=== PATIENT | male | born 1970 | race Caucasian/White ===

== ENCOUNTER 2017-03-25 20:11 | Observation (INO) | payer SELFPAY ==
[~2017-03-25] VITALS: Ht 182.9 cm; Wt 116.3 kg
[~2017-03-25 20:11] MED LIST: ALLO100T PO; ALPR-557 PO; ANTI-DEPRESSANT; BACL20TA PO; CHLR10C PO; DIPH50CA33 PO; HCT25T PO; IBP800T PO; IBUP-30 PO; LISI1TAB10 PO; LISI1TAB8 PO; LISI40TA PO; MELA1TAB15 PO; MELO-195 PO; METO-352 PO; METO50TA7 PO; MULT-35 PO; MULT-382 PO; OMEG-160 PO; OMG1KC PO; PARO-49 PO; PARO20TA5 PO; PARO20TA57 PO; PERCOCET; POTA99TA21 PO; PRD5T PO; QUET50TA PO; SULF1TAB38 PO; TRAZ150T42 PO; TRAZ150T72 PO; TRAZ300T3 PO; TRAZADONE; TRM50T PO
--- NOTE | 2017-03-25 20:25 | ED General ---
General Stated Complaint: ETOH Source of Information: Patient, EMS, Police History of Present Illness Time Seen by Provider: 20:21 Initial Comments To ER per EMS from home with suspected alcohol intoxication. EMS had to drag the patient out of his room where he was found to be laying naked. The police were called by the patient's father who found him in his bedroom after being called by friends. The friends called patient's father because they saw him out running around the street yelling cars. Timing/Duration: 4-6 Hours Severity: Moderate Allergies and Home Medications Allergies Coded Allergies: fentanyl (Verified Allergy, Unknown, 01/24/16) ketorolac (Verified Allergy, Unknown, 01/24/16) morphine (Verified Allergy, Unknown, 10/28/13) Home Medications Allopurinol 100 Mg Tablet, 1 TAB PO DAILY, #30 (Reported) Lisinopril/Hydrochlorothiazide 1 Each Tablet, 1 TAB PO DAILY, #90 (Reported) Paroxetine HCl 20 Mg Tablet, 40 MG PO DAILY, #60 Ref 0 LAST FILLED #60 09-25-15 TAKES 2 (20MG) TABLETS Prescribed by: LÓPEZ DUGAN on 01/26/16 0807 Quetiapine Fumarate 50 Mg Tablet, 50 MG PO daily at bedtime, #30 Ref 0 Prescribed by: LÓPEZ DUGAN on 01/26/16 0807 Constitutional: see HPI EENTM: see HPI Respiratory: no symptoms reported Cardiovascular: no symptoms reported Genitourinary: no symptoms reported Musculoskeletal: no symptoms reported Skin: no symptoms reported Psychiatric/Neurological: See HPI Past Mgycbfb-Hsuunf-[facility] Hx Patient Social History Alcohol Beverage of Choice: Beer Drug of Choice: alcohol Type Used: Smokeless Tobacco Recent Hopitalizations: No Immunizations Up To Date Tetanus Booster (TDap): Unknown PED Vaccines UTD: Yes Date of Pneumonia Vaccine: Dec 04, 2013 Date of Influenza Vaccine: Apr 11, 2015 Seasonal Allergies Seasonal Allergies: Yes Surgeries Surgeries: Orthopedic Respiratory Respiratory Disorders: Asthma Currently Using CPAP: No Currently Using BIPAP: No Cardiovascular Cardiac Disorders: High Cholesterol, Hypertension Reproductive System Hx Reproductive Disorders: No Sexually Transmitted Disease: No HIV/AIDS: No Musculoskeletal Musculoskeletal Disorders: Chronic Back Pain Psychosocial Behavioral Health Disorders: Anxiety, Depression Integumentary Skin/Integumentary Disorders: Eczema Blood Transfusions Adverse Reaction to a Blood Tr: No Family Medical History Significant Family History: Diabetes Family Medial History: Alcoholism 19 MOTHER Diabetes mellitus 19 FATHER G8 BROTHER Family history: Asthma Family history: Cardiovascular disease 19 FATHER, Onset:50's - 60 (FATHER) Family history: Coronary thrombosis 19 FATHER, Onset:50's - 60 Family history: Diabetes mellitus 19 FATHER, Onset:50's - 60 Family history: Hypertension 19 FATHER, Onset:30's - 40 Hearing loss 19 FATHER, Onset:50's - 60 Heart disease 19 FATHER, Onset:50's - 60 Myocardial infarction G8 BROTHER, Onset:40's - 50 Stroke G8 BROTHER, Onset:40's - 50 No Family History of: Abdominal aortic aneurysm Rodrick's disease Alcoholism Aphasia Cancer Cancer of colon Cataract Chest pain Congenital heart disease Congestive heart failure Cystic fibrosis Dementia Dysphagia Family history: Alzheimer's disease Family history: Arthritis Family history: Breast disease Family history: Gastrointestinal disease Family history: Osteoporosis Family history: Thyroid disorder Headache Hereditary disease History of - anemia History of - respiratory disease History of drug abuse Human immunodeficiency virus (HIV) seropositivity Hypercholesterolemia Infertile Kidney disease Malignant neoplasm of lung Parkinson's disease Prostate cancer Psychotic disorder Seizure disorder Tuberculosis Visual impairment Physical Exam Vital Signs Vital Sign - Last 12Hours 03/25/17 20:16 Temp 98.4 Pulse 108 Resp 25 B/P (MAP) 132/71 Pulse Ox 92 O2 Delivery Nasal Cannula O2 Flow Rate 4.00 Capillary Refill : General Appearance: No Apparent Distress, WD/WN, Other (tachycardia, responsive to painful stimuli only. He is maintaining his own airway just fine. Pupils are sluggish) Eyes: Bilateral Eye Normal Inspection, Bilateral Eye PERRL, Bilateral Eye EOMI HEENT: PERRL/EOMI, TMs Normal Neck: Full Range of Motion, Normal Inspection Respiratory: Normal Breath Sounds, No Accessory Muscle Use, No Respiratory Distress Cardiovascular: Normal Peripheral Pulses, Tachycardia (110 sinus. GCS is a score of 2 for eye response, 1 verbal response and 6 for following commands after repeated instruction. Total score is 9.) Gastrointestinal: Normal Bowel Sounds, Non Tender, Soft Extremity: Normal Capillary Refill, Normal Inspection Neurologic/Psychiatric: Alert, Oriented x3, No Motor/Sensory Deficits Skin: Normal Color, Warm/Dry Laceration Repair : Suture Size: 5-0 Progress/Results/Core Measures Results/Orders Lab Results Laboratory Tests Test 03/25/17 20:20 03/25/17 20:25 Range/Units Urine Color YELLOW Urine Clarity SLIGHTLY CLOUDY Urine pH 6.5 5-9 Urine Specific [place] 1.010 L 1.016-1.022 Urine Protein 1+ H NEGATIVE Urine Glucose (UA) NEGATIVE NEGATIVE Urine Ketones NEGATIVE NEGATIVE Urine Nitrite NEGATIVE NEGATIVE Urine Bilirubin NEGATIVE NEGATIVE Urine Urobilinogen NORMAL NORMAL MG/DL Urine Leukocyte Esterase NEGATIVE NEGATIVE Urine RBC (Auto) NEGATIVE NEGATIVE Urine RBC NONE /HPF Urine WBC 2-5 /HPF Urine Crystals NONE /LPF Urine Bacteria NEGATIVE /HPF Urine Casts PRESENT /LPF Urine Hyaline Casts 10-25 H /LPF Urine Mucus NEGATIVE /LPF Urine Culture Indicated NO Urine Opiates Screen NEGATIVE NEGATIVE Urine Oxycodone Screen NEGATIVE NEGATIVE Urine Methadone Screen NEGATIVE NEGATIVE Urine Propoxyphene Screen NEGATIVE NEGATIVE Urine Barbiturates Screen NEGATIVE NEGATIVE Ur Tricyclic Antidepressants Screen NEGATIVE NEGATIVE Urine Phencyclidine Screen NEGATIVE NEGATIVE Urine Amphetamines Screen NEGATIVE NEGATIVE Urine Methamphetamines Screen NEGATIVE NEGATIVE Urine Benzodiazepines Screen NEGATIVE NEGATIVE Urine Cocaine Screen NEGATIVE NEGATIVE Urine Cannabinoids Screen POSITIVE H NEGATIVE White Blood Count 11.3 H 4.3-11.0 10^3/uL Red Blood Count 4.25 L 4.35-5.85 10^6/uL Hemoglobin 13.0 L 13.3-17.7 G/DL Hematocrit 39 L 40-54 % Mean Corpuscular Volume 91 80-99 FL Mean Corpuscular Hemoglobin 31 25-34 PG Mean Corpuscular Hemoglobin Concent 34 32-36 G/DL Red Cell Distribution Width 12.7 10.0-14.5 % Platelet Count 512 H 130-400 10^3/uL Mean Platelet Volume 8.4 7.4-10.4 FL Neutrophils (%) (Auto) 65 42-75 % Lymphocytes (%) (Auto) 24 12-44 % Monocytes (%) (Auto) 11 0-12 % Eosinophils (%) (Auto) 0 0-10 % Basophils (%) (Auto) 0 0-10 % Neutrophils # (Auto) 7.3 1.8-7.8 X 10^3 Lymphocytes # (Auto) 2.7 1.0-4.0 X 10^3 Monocytes # (Auto) 1.2 H 0.0-1.0 X 10^3 Eosinophils # (Auto) 0.0 0.0-0.3 10^3/uL Basophils # (Auto) 0.0 0.0-0.1 10^3/uL Sodium Level 148 H 135-145 MMOL/L Potassium Level 3.0 L 3.6-5.0 MMOL/L Chloride Level 112 H 98-107 MMOL/L Carbon Dioxide Level 22 21-32 MMOL/L Anion Gap 14 5-14 MMOL/L Blood Urea Nitrogen 7 7-18 MG/DL Creatinine 0.69 0.60-1.30 MG/DL Estimat Glomerular Filtration Rate > 60 BUN/Creatinine Ratio 10 Glucose Level 112 H 70-105 MG/DL Calcium Level 9.4 8.5-10.1 MG/DL Total Bilirubin 0.2 0.1-1.0 MG/DL Aspartate Amino Transf (AST/SGOT) 15 5-34 U/L Alanine Aminotransferase (ALT/SGPT) 12 0-55 U/L Alkaline Phosphatase 33 L 40-136 U/L Total Protein 7.0 6.4-8.2 GM/DL Albumin 3.7 3.2-4.5 GM/DL Salicylates Level < 5.0 L 5.0-20.0 MG/DL Acetaminophen Level < 10 L 10-30 UG/ML Serum Alcohol 461 *H <10 MG/DL My Orders Orders - JOSEFINA DYE APRN Ua Culture If Indicated (03/25/17 20:20) Drug Screen Stat (Urine) (03/25/17 20:20) Saline Lock/Iv-Start (03/25/17 20:20) Cbc With Automated Diff (03/25/17 20:20) Comprehensive Metabolic Panel (03/25/17 20:20) Alcohol (03/25/17 20:20) Salicylate (03/25/17 20:20) Acetaminophen (03/25/17 20:20) Ekg Tracing (03/25/17 20:20) Continuous Ekg Monitoring (03/25/17 20:20) Ct Head Wo (03/25/17 20:28) Chest 1 View, Ap/Pa Only (03/25/17 20:28) Potassium Cl 10meq/50ml Ivpb (Kcl 10 Meq (03/25/17 21:00) Lactated Ringers (Lr 1000 Ml Iv Solution (03/25/17 21:00) Medications Given in ED Current Medications Medications Dose Ordered Sig/Jaki Route Start Time Stop Time Status Last Admin Dose Admin Potassium Chloride 50 ml @ 50 mls/hr ONCE ONCE IV 03/25/17 21:00 03/25/17 21:59 03/25/17 21:46 50 MLS/HR Vital Signs/I&O Vital Sign - Last 12Hours 03/25/17 20:16 Temp 98.4 Pulse 108 Resp 25 B/P (MAP) 132/71 Pulse Ox 92 O2 Delivery Nasal Cannula O2 Flow Rate 4.00 Intake and Output 03/26/17 00:00 Intake Total 300 ml Balance 300 ml Diagnostic Imaging Diagonstic Imaging: CT Comments NAME: BETINA TREVINO [facility] REC#: [id number] PT STATUS: REG ER : 1970 PHYSICIAN: JOSEFINA DYE APRN ADMIT DATE: 03/25/17/ER Draft Date of Exam:03/25/17 CT HEAD WO PROCEDURE: CT head without contrast. TECHNIQUE: Multiple contiguous axial images were obtained through the brain without the use of intravenous contrast. INDICATION: Unresponsive COMPARISON: 01/12/16 FINDINGS: Ventricles are normal in size, shape, and position. There is no midline shift or mass effect. There is no hemorrhage or evidence of acute ischemia. No cerebral edema. The bony calvarium and mastoid air cells are normal. There is no skull fracture. There is some ethmoid sinus air cell disease. IMPRESSION: No acute intracranial abnormality. Dictated on workstation # [id number] Dict: 03/25/172045 Trans: 03/25/172047 JYOTI [id number] Interpreted by: MAGDY YAN Electronically signed by: Departure Communication (Admissions) Time/Spoke to Admitting Phy: 21:03 Communication Discussed the case with Dr. Mireles. We will admit the patient to ICU for observation since he is clearly too intoxicated to be discharged home safely. Impression Impression: Primary Impression: Alcohol intoxication Disposition: 01 HOME, SELF-CARE Condition: Stable Admissions Decision to Admit Reason: Admit from ER (General) Decision to Admit/Date: Mar 25, 2017 Time/Decision to Admit Time: 21:03 Departure-Patient Inst. Referrals: [facility] (PCP/Family) Primary Care Physician JOSEFINA DYE APRN Mar 25, 2017 20:25
[2017-03-25 20:27] LABS: BILIRUBIN,URINE NEGATIVE (NEGATIVE); KETONES,URINE NEGATIVE (NEGATIVE); LEUKOCYTE ESTERASE ,URINE NEGATIVE (NEGATIVE); NITRITE,URINE NEGATIVE (NEGATIVE); PH,URINE 6.5 (5-9); PROTEIN,URINE 1+ (NEGATIVE); UROBILINOGEN,URINE NORMAL (NORMAL)
[2017-03-25 20:31] LABS: BASOPHILS % (AUTO) 0 % (0-10); EOSINOPHILS % (AUTO) 0 % (0-10); LYMPHOCYTES # (AUTO) 2.7 X 10^3 (1.0-4.0); LYMPHOCYTES % (AUTO) 24 % (12-44); MEAN CORPUSCULAR HEMOGLOBIN 31 PG (25-34); MEAN CORPUSCULAR HGB CONC 34 G/DL (32-36); MEAN CORPUSCULAR VOLUME 91 FL (80-99); MEAN PLATELET VOLUME 8.4 FL (7.4-10.4); MONOCYTES # (AUTO) 1.2 X 10^3 (0.0-1.0); MONOCYTES % (AUTO) 11 % (0-12); NEUTROPHILS # (AUTO) 7.3 X 10^3 (1.8-7.8); NEUTROPHILS % (AUTO) 65 % (42-75); PLATELET COUNT 512 10^3/uL (130-400); RED BLOOD COUNT 4.25 10^6/uL (4.35-5.85); RED CELL DISTRIBUTION WIDTH 12.7 % (10.0-14.5); WHITE BLOOD COUNT 11.3 10^3/uL (4.3-11.0)
--- NOTE | 2017-03-25 20:49 | Diagnostic Imaging Report ---
PROCEDURE: CT head without contrast. TECHNIQUE: Multiple contiguous axial images were obtained through the brain without the use of intravenous contrast. INDICATION: Unresponsive COMPARISON: 01/12/16 FINDINGS: Ventricles are normal in size, shape, and position. There is no midline shift or mass effect. There is no hemorrhage or evidence of acute ischemia. No cerebral edema. The bony calvarium and mastoid air cells are normal. There is no skull fracture. There is some ethmoid sinus air cell disease. IMPRESSION: No acute intracranial abnormality. Dictated by: Dictated on workstation # [id number]
[2017-03-25 20:53] LABS: ALANINE AMINOTRANSFERASE 12 U/L (0-55); ALBUMIN 3.7 GM/DL (3.2-4.5); ANION GAP 14 MMOL/L (5-14); ASPARTATE AMINO TRANSFERASE 15 U/L (5-34); BILIRUBIN,TOTAL 0.2 MG/DL (0.1-1.0); BLOOD UREA NITROGEN 7 MG/DL (7-18); BUN/CREATININE RATIO 10; CALCIUM 9.4 MG/DL (8.5-10.1); CARBON DIOXIDE 22 MMOL/L (21-32); CHLORIDE 112 MMOL/L (98-107); CREATININE SERUM 0.69 MG/DL (0.60-1.30); GFR ESTIMATED > 60; GLUCOSE 112 MG/DL (70-105); SALICYLATE < 5.0 MG/DL (5.0-20.0); SODIUM 148 MMOL/L (135-145)
[2017-03-25 20:56] LABS: ACETAMINOPHEN < 10 UG/ML (10-30)
[2017-03-25 20:57] LABS: ALCOHOL 461 MG/DL (<10)
[2017-03-25] MEDS ORDERED: LACTATED RINGERS 1,000 ML IV SCH (21:00)
[2017-03-25] MEDS ORDERED: POTASSIUM CL 10MEQ/50ML IVPB 50 ML IV ONE (21:00)
--- NOTE | 2017-03-25 21:10 | Diagnostic Imaging Report ---
INDICATION: Unresponsive. COMPARISON: 11/02/15. FINDINGS: Single view of the chest demonstrates stable cardiac enlargement. Lungs are clear. No pneumothorax. Osseous structures are age-appropriate. IMPRESSION: Cardiac enlargement without pulmonary edema or infiltrate. Dictated by: Dictated on workstation # [id number]
[2017-03-25 22:15] VITALS: BP 152/84
[2017-03-25] MEDS ORDERED: CATHETER FLUSH 10 ML SYR IV PRN (22:15)
[2017-03-25] MEDS ORDERED: ONDANSETRON 4 MG/2 ML (SDV) Z0FRAN IV PRN (22:15)
[2017-03-25 23:00] VITALS: BP 146/109
[2017-03-25] MEDS: PANTOPRAZOLE 40 MG/10 ML (PROTONIX) VIAL IV SCH (23:05)
[2017-03-25] MEDS: LACTATED RINGERS 1,000 ML IV SCH (23:06)
[2017-03-26] VITALS (23 sets, daily range): BP systolic 137–199; BP diastolic 83–161
[2017-03-26 05:02] LABS: BASOPHILS % (AUTO) 0 % (0-10); EOSINOPHILS % (AUTO) 0 % (0-10); LYMPHOCYTES # (AUTO) 2.2 X 10^3 (1.0-4.0); LYMPHOCYTES % (AUTO) 35 % (12-44); MEAN CORPUSCULAR HEMOGLOBIN 30 PG (25-34); MEAN CORPUSCULAR HGB CONC 33 G/DL (32-36); MEAN CORPUSCULAR VOLUME 92 FL (80-99); MEAN PLATELET VOLUME 8.5 FL (7.4-10.4); MONOCYTES # (AUTO) 0.4 X 10^3 (0.0-1.0); MONOCYTES % (AUTO) 6 % (0-12); NEUTROPHILS # (AUTO) 3.8 X 10^3 (1.8-7.8); NEUTROPHILS % (AUTO) 59 % (42-75); PLATELET COUNT 480 10^3/uL (130-400); RED BLOOD COUNT 4.15 10^6/uL (4.35-5.85); RED CELL DISTRIBUTION WIDTH 12.8 % (10.0-14.5); WHITE BLOOD COUNT 6.4 10^3/uL (4.3-11.0)
[2017-03-26 05:24] LABS: ANION GAP 14 MMOL/L (5-14); BLOOD UREA NITROGEN 4 MG/DL (7-18); BUN/CREATININE RATIO 6; CARBON DIOXIDE 23 MMOL/L (21-32); CHLORIDE 112 MMOL/L (98-107); CREATININE SERUM 0.68 MG/DL (0.60-1.30); GFR ESTIMATED > 60; GLUCOSE 180 MG/DL (70-105); MAGNESIUM 1.7 MG/DL (1.8-2.4); PHOSPHORUS 2.9 MG/DL (2.3-4.7); SODIUM 149 MMOL/L (135-145)
[2017-03-26] MEDS: CATHETER FLUSH 10 ML SYR IV SCH ×3 (06:17→22:28)
[2017-03-26] MEDS ORDERED: KCL 20 MEQ TAB (K-DUR) PO ONE (07:00)
[2017-03-26] MEDS: LACTATED RINGERS 1,000 ML IV SCH ×3 (07:42→22:28)
--- NOTE | 2017-03-26 08:24 | Diagnostic Imaging Report ---
INDICATION: Dyspnea. 0524 hours Portable upright view of the chest is obtained. Comparison is made study one day earlier. FINDINGS: Heart size and pulmonary vascularity are within normal limits, and the lungs are clear, bilaterally. IMPRESSION: Unremarkable chest. Dictated by: Dictated on workstation # [id number]
[2017-03-26] MEDS: PANTOPRAZOLE 40 MG/10 ML (PROTONIX) VIAL IV SCH (08:44)
[2017-03-26] MEDS ORDERED: meTOproloL SUCCINATE 50 MG (TOPROL XL) TAB PO SCH (09:00)
[2017-03-26] MEDS ORDERED: LISI-552 PO (09:18)
[2017-03-26] MEDS ORDERED: PARO20TA5 PO (09:18)
[2017-03-26] MEDS ORDERED: METO-352 PO (09:18)
[2017-03-26] MEDS ORDERED: AMLO5TAB2 PO (09:18)
[2017-03-26] MEDS ORDERED: IBUP-30 PO (09:22)
[2017-03-26] MEDS: KETOROLAC 30 MG/ML VIAL IVP PRN ×2 (09:37→17:11)
[2017-03-26] MEDS: PARoxetine 20 MG (PAXIL) TAB PO SCH (10:22)
[2017-03-26] MEDS ORDERED: 1/2 NS IV SOLUTION 1,000 ML IV PRN (10:42)
[2017-03-26] MEDS ORDERED: D5 1/2 NS 1000 ML IV SOLUTION 1,000 ML IV PRN (10:45)
[2017-03-26] MEDS ORDERED: ONDANSETRON 4 MG (ZOFRAN) ORAL DISSOLVE TAB SL PRN (10:45)
[2017-03-26] MEDS ORDERED: ANTACID SUSP 30 ML UDC (MYLANTA) PO PRN (10:45)
[2017-03-26] MEDS ORDERED: LORazepam INJ 2 MG/ML (ATIVAN) VIAL IM/IV PRN (10:45)
[2017-03-26] MEDS ORDERED: SENNA W/DOCUSATE (SENOKOT S) TABLET PO PRN (10:45)
--- NOTE | 2017-03-26 10:57 | History & Physicial (CHS) ---
HPI History of Present Illness: 46 yo male with history of alcoholism admitted after police were called due to him yelling at cars in the street. He has chronic knee pain with flares at times secondary to pseudogout and it has been very severe the last 2 weeks which led him to drink excessively because he was out of all of his medications and depressed and feeling bad. He admits to thoughts of self harm, but denies plans. He is very depressed, has been out of paroxetine for at least a month, states he can't afford his medications or counseling. He has been out of his blood pressure medications as well. Date seen by provider: Mar 26, 2017 Time Seen by Provider: 09:40 Attending Physician Billie Mireles MD PCP juanito,[facility] Date of Admission Mar 25, 2017 at 9:15 pm Home Medications Home Medications Reviewed patient Home Medication Reconciliation Form Allergies Coded Allergies: fentanyl (Verified Allergy, Unknown, 01/24/16) ketorolac (Verified Allergy, Unknown, 01/24/16) morphine (Verified Allergy, Unknown, 10/28/13) EPO-Uorxlc-Xiapii Hx Patient Social History Alcohol Use: Regular Use Recreational Drug Use: Yes Drug of Choice: alcohol, POT Smoking Status: Unknown if Ever Smoked Former smoker/When Quit: Jul 06, 2002 Type Used: Smokeless Tobacco Recent Foreign Travel: No Contact w/other who traveled: No Recent Hopitalizations: No Recent Infectious Disease Expo: No Physical Abuse Screen: No Sexual Abuse: No Immunizations Up To Date Tetanus Booster (TDap): Unknown Date of Pneumonia Vaccine: Dec 04, 2013 Date of Influenza Vaccine: Apr 11, 2015 Past Medical History Past Medical History 1. Alcoholism 2. Transaminitis 3. Hypertension 4. Depression/Anxiety 5. History of suicide attempt with overdose 04/19 and reported suicide attempt 12-30 per police Past Surgical History 1. Lac Repair Family Medical History Significant Family History: Diabetes Family History: Alcoholism 19 MOTHER Diabetes mellitus 19 FATHER G8 BROTHER Family history: Asthma Family history: Cardiovascular disease 19 FATHER, Onset:50's - 60 (FATHER) Family history: Coronary thrombosis 19 FATHER, Onset:50's - 60 Family history: Diabetes mellitus 19 FATHER, Onset:50's - 60 Family history: Hypertension 19 FATHER, Onset:30's - 40 Hearing loss 19 FATHER, Onset:50's - 60 Heart disease 19 FATHER, Onset:50's - 60 Myocardial infarction G8 BROTHER, Onset:40's - 50 Stroke G8 BROTHER, Onset:40's - 50 No Family History of: Abdominal aortic aneurysm Rodrick's disease Alcoholism Aphasia Cancer Cancer of colon Cataract Chest pain Congenital heart disease Congestive heart failure Cystic fibrosis Dementia Dysphagia Family history: Alzheimer's disease Family history: Arthritis Family history: Breast disease Family history: Gastrointestinal disease Family history: Osteoporosis Family history: Thyroid disorder Headache Hereditary disease History of - anemia History of - respiratory disease History of drug abuse Human immunodeficiency virus (HIV) seropositivity Hypercholesterolemia Infertile Kidney disease Malignant neoplasm of lung Parkinson's disease Prostate cancer Psychotic disorder Seizure disorder Tuberculosis Visual impairment Review of Systems (CHC) Constitutional: malaise EENTM: no symptoms reported Respiratory: no symptoms reported Cardiovascular: no symptoms reported Gastrointestinal: no symptoms reported Genitourinary: no symptoms reported Musculoskeletal: joint pain Skin: no symptoms reported Psychiatric/Neurological: Anxiety, Depressed Reviewed Test Results Reviewed Test Results Lab Laboratory Tests Test 03/25/17 20:20 03/25/17 20:25 03/26/17 04:35 Range/Units Urine Color YELLOW Urine Clarity SLIGHTLY CLOUDY Urine pH 6.5 5-9 Urine Specific [place] 1.010 L 1.016-1.022 Urine Protein 1+ H NEGATIVE Urine Glucose (UA) NEGATIVE NEGATIVE Urine Ketones NEGATIVE NEGATIVE Urine Nitrite NEGATIVE NEGATIVE Urine Bilirubin NEGATIVE NEGATIVE Urine Urobilinogen NORMAL NORMAL MG/DL Urine Leukocyte Esterase NEGATIVE NEGATIVE Urine RBC (Auto) NEGATIVE NEGATIVE Urine RBC NONE /HPF Urine WBC 2-5 /HPF Urine Crystals NONE /LPF Urine Bacteria NEGATIVE /HPF Urine Casts PRESENT /LPF Urine Hyaline Casts 10-25 H /LPF Urine Mucus NEGATIVE /LPF Urine Culture Indicated NO Urine Opiates Screen NEGATIVE NEGATIVE Urine Oxycodone Screen NEGATIVE NEGATIVE Urine Methadone Screen NEGATIVE NEGATIVE Urine Propoxyphene Screen NEGATIVE NEGATIVE Urine Barbiturates Screen NEGATIVE NEGATIVE Ur Tricyclic Antidepressants Screen NEGATIVE NEGATIVE Urine Phencyclidine Screen NEGATIVE NEGATIVE Urine Amphetamines Screen NEGATIVE NEGATIVE Urine Methamphetamines Screen NEGATIVE NEGATIVE Urine Benzodiazepines Screen NEGATIVE NEGATIVE Urine Cocaine Screen NEGATIVE NEGATIVE Urine Cannabinoids Screen POSITIVE H NEGATIVE White Blood Count 11.3 H 6.4 4.3-11.0 10^3/uL Red Blood Count 4.25 L 4.15 L 4.35-5.85 10^6/uL Hemoglobin 13.0 L 12.6 L 13.3-17.7 G/DL Hematocrit 39 L 38 L 40-54 % Mean Corpuscular Volume 91 92 80-99 FL Mean Corpuscular Hemoglobin 31 30 25-34 PG Mean Corpuscular Hemoglobin Concent 34 33 32-36 G/DL Red Cell Distribution Width 12.7 12.8 10.0-14.5 % Platelet Count 512 H 480 H 130-400 10^3/uL Mean Platelet Volume 8.4 8.5 7.4-10.4 FL Neutrophils (%) (Auto) 65 59 42-75 % Lymphocytes (%) (Auto) 24 35 12-44 % Monocytes (%) (Auto) 11 6 0-12 % Eosinophils (%) (Auto) 0 0 0-10 % Basophils (%) (Auto) 0 0 0-10 % Neutrophils # (Auto) 7.3 3.8 1.8-7.8 X 10^3 Lymphocytes # (Auto) 2.7 2.2 1.0-4.0 X 10^3 Monocytes # (Auto) 1.2 H 0.4 0.0-1.0 X 10^3 Eosinophils # (Auto) 0.0 0.0 0.0-0.3 10^3/uL Basophils # (Auto) 0.0 0.0 0.0-0.1 10^3/uL Sodium Level 148 H 149 H 135-145 MMOL/L Potassium Level 3.0 L 3.0 L 3.6-5.0 MMOL/L Chloride Level 112 H 112 H 98-107 MMOL/L Carbon Dioxide Level 22 23 21-32 MMOL/L Anion Gap 14 14 5-14 MMOL/L Blood Urea Nitrogen 7 4 L 7-18 MG/DL Creatinine 0.69 0.68 0.60-1.30 MG/DL Estimat Glomerular Filtration Rate > 60 > 60 BUN/Creatinine Ratio 10 6 Glucose Level 112 H 180 H 70-105 MG/DL Calcium Level 9.4 9.0 8.5-10.1 MG/DL Total Bilirubin 0.2 0.1-1.0 MG/DL Aspartate Amino Transf (AST/SGOT) 15 5-34 U/L Alanine Aminotransferase (ALT/SGPT) 12 0-55 U/L Alkaline Phosphatase 33 L 40-136 U/L Total Protein 7.0 6.4-8.2 GM/DL Albumin 3.7 3.2-4.5 GM/DL Salicylates Level < 5.0 L 5.0-20.0 MG/DL Acetaminophen Level < 10 L 10-30 UG/ML Serum Alcohol 461 *H <10 MG/DL Phosphorus Level 2.9 2.3-4.7 MG/DL Magnesium Level 1.7 L 1.8-2.4 MG/DL Radiology CT head 03/25: unremarkable CXR 03/25: enlarged heart, no acute abnormality Physical Exam-([facility]) Physical Exam Vital Signs VS - Last 72 Hours, by Label 03/25/17 03/25/17 03/25/17 03/25/17 20:16 21:55 21:58 22:15 Temp 98.4 98.2 97.4 Pulse 108 86 101 Resp 25 20 20 B/P (MAP) 132/71 152/84 Pulse Ox 92 94 94 98 O2 Delivery Nasal Cannula Room Air Room Air Room Air O2 Flow Rate 4.00 03/25/17 03/26/17 03/26/17 03/26/17 23:00 00:00 01:00 01:15 Temp 97.4 Pulse 99 101 102 106 Resp 12 29 29 B/P (MAP) 146/109 142/112 141/83 Pulse Ox 93 94 87 O2 Delivery Room Air Room Air Room Air 03/26/17 03/26/17 03/26/17 03/26/17 02:00 03:00 04:00 04:00 Temp 99.1 Pulse 102 105 109 Resp 26 7 20 B/P (MAP) 149/106 149/98 161/98 Pulse Ox 100 98 99 98 O2 Delivery Room Air Room Air Room Air Room Air 03/26/17 03/26/17 03/26/17 03/26/17 05:00 06:00 07:00 08:00 Temp 99.1 Pulse 124 121 122 125 Resp 21 13 B/P (MAP) 137/90 142/93 155/94 Pulse Ox 97 91 98 O2 Delivery Room Air Room Air Room Air 03/26/17 08:00 Pulse Ox 98 O2 Delivery Room Air Capillary Refill : Less Than 3 Seconds General Appearance: WD/WN Respiratory: lungs clear, normal breath sounds Cardiovascular: regular rate, rhythm, no edema, no murmur Gastrointestinal: normal bowel sounds, non tender, soft Extremities: other (edema left knee, no erythema) Neurologic/Psychiatric: alert, other (tearful) Skin: normal color, warm/dry Assessment/Plan Assessment/Plan Admission Dx Alcohol intoxication Depression Hypertension Pseudogout Plan Alcohol intoxication- alcohol above 400 on admission, he is alert this morning and is interested in inpatient rehabilitation. He reports a history of DTs with withdrawal in the past. Start alcohol withdrawal protocol- CIWA and ativan based on scores Depression- resume home paroxetine, discussed need for [facility] as well which [facility] Hypertension- resume home metoprolol, lisinopril and amlodipine Pseudogout- toradol prn DVT ppx- enoxaparin Diagnosis/Problems: Clinical Quality Measures DVT/VTE Risk/Contraindication: Risk Factor Score Per Nursin RFS Level Per Nursing on Admit: 2=Moderate Copy Copies To 1: BILLIE MIRELES MD, BETHANY N MD Mar 26, 2017 10:57 am
[2017-03-26] MEDS: ENOXAPARIN 40 MG/0.4 ML (LOVENOX) SYR SC SCH (12:34)
[2017-03-26] MEDS: THIAMINE 100 MG (VITAMIN B-1) TAB PO SCH (12:34)
[2017-03-26] MEDS: D5 1/2 NS W/KCL 20 MEQ/L 1,000 ML IV SCH ×2 (12:34→17:11)
[2017-03-26] MEDS: FOLIC ACID 1 MG TAB PO SCH (12:34)
[2017-03-26] MEDS: LORazepam INJ 2 MG/ML (ATIVAN) VIAL IV PRN ×2 (12:35→14:56)
[2017-03-26] MEDS: MAGNESIUM OXIDE (MAG-OX)400 MG TAB PO SCH ×2 (12:35→20:13)
[2017-03-26] MEDS: MULTIVIT W/MINERALS TAB (THERAGRAN M) PO SCH (12:36)
[2017-03-26] MEDS: amLODIPine 5 MG (NORVASC) TAB PO SCH (14:00)
[2017-03-26] MEDS: lisINopril 20 MG (ZESTRIL) TAB PO SCH (14:56)
[2017-03-26] MEDS: LORazepam 1 MG (ATIVAN) TAB PO PRN (17:08)
[2017-03-26] MEDS: PANTOPRAZOLE 40 MG (PROTONIX) TAB PO SCH (17:10)
[2017-03-26] MEDS ORDERED: meTOprolol 5 MG/5 ML (LOPRESSOR) VIAL IV NR (18:00)
[2017-03-26] MEDS ORDERED: meTOproloL SUCCINATE 50 MG (TOPROL XL) TAB PO NR (19:45)
[2017-03-26] MEDS: hydrALAZINE (APESOLINE) 20 MG/ML VIAL IV PRN (23:04)
[2017-03-27] VITALS (25 sets, daily range): BP systolic 120–205; BP diastolic 71–132
[2017-03-27] MEDS: D5 1/2 NS W/KCL 20 MEQ/L 1,000 ML IV SCH ×4 (01:06→21:12)
[2017-03-27] MEDS: hydrALAZINE (APESOLINE) 20 MG/ML VIAL IV PRN ×3 (04:43→17:22)
[2017-03-27] MEDS: CATHETER FLUSH 10 ML SYR IV SCH ×3 (04:44→22:04)
[2017-03-27] MEDS: KETOROLAC 30 MG/ML VIAL IVP PRN (04:44)
[2017-03-27 04:50] LABS: BASOPHILS % (AUTO) 0 % (0-10); EOSINOPHILS % (AUTO) 0 % (0-10); LYMPHOCYTES # (AUTO) 1.6 X 10^3 (1.0-4.0); LYMPHOCYTES % (AUTO) 20 % (12-44); MEAN CORPUSCULAR HEMOGLOBIN 31 PG (25-34); MEAN CORPUSCULAR HGB CONC 34 G/DL (32-36); MEAN CORPUSCULAR VOLUME 91 FL (80-99); MEAN PLATELET VOLUME 8.5 FL (7.4-10.4); MONOCYTES # (AUTO) 0.8 X 10^3 (0.0-1.0); MONOCYTES % (AUTO) 10 % (0-12); NEUTROPHILS # (AUTO) 5.4 X 10^3 (1.8-7.8); NEUTROPHILS % (AUTO) 70 % (42-75); PLATELET COUNT 425 10^3/uL (130-400); RED BLOOD COUNT 4.06 10^6/uL (4.35-5.85); RED CELL DISTRIBUTION WIDTH 12.3 % (10.0-14.5); WHITE BLOOD COUNT 7.7 10^3/uL (4.3-11.0)
[2017-03-27] MEDS: LORazepam 1 MG (ATIVAN) TAB PO PRN ×3 (04:52→11:29)
[2017-03-27 05:05] LABS: ANION GAP 9 MMOL/L (5-14); BLOOD UREA NITROGEN 7 MG/DL (7-18); BUN/CREATININE RATIO 11; CALCIUM 8.7 MG/DL (8.5-10.1); CARBON DIOXIDE 25 MMOL/L (21-32); CHLORIDE 110 MMOL/L (98-107); CREATININE SERUM 0.64 MG/DL (0.60-1.30); GFR ESTIMATED > 60; GLUCOSE 119 MG/DL (70-105); MAGNESIUM 1.5 MG/DL (1.8-2.4); PHOSPHORUS 3.1 MG/DL (2.3-4.7); POTASSIUM 3.8 MMOL/L (3.6-5.0); SODIUM 144 MMOL/L (135-145)
[2017-03-27] MEDS: LACTATED RINGERS 1,000 ML IV SCH ×3 (05:38→22:20)
[2017-03-27] MEDS: PANTOPRAZOLE 40 MG (PROTONIX) TAB PO SCH ×2 (06:00→17:22)
[2017-03-27] MEDS: MULTIVIT W/MINERALS TAB (THERAGRAN M) PO SCH (06:00)
[2017-03-27] MEDS: THIAMINE 100 MG (VITAMIN B-1) TAB PO SCH (06:00)
[2017-03-27] MEDS: FOLIC ACID 1 MG TAB PO SCH (08:03)
[2017-03-27] MEDS: ENOXAPARIN 40 MG/0.4 ML (LOVENOX) SYR SC SCH (08:03)
[2017-03-27] MEDS: meTOprolol SUCCINATE 100 MG (TOPROL XL) TAB PO SCH (08:03)
[2017-03-27] MEDS: MAGNESIUM OXIDE (MAG-OX)400 MG TAB PO SCH ×2 (08:03→19:50)
[2017-03-27] MEDS: amLODIPine 5 MG (NORVASC) TAB PO SCH (08:04)
[2017-03-27] MEDS: lisINopril 20 MG (ZESTRIL) TAB PO SCH (08:04)
[2017-03-27] MEDS: PARoxetine 20 MG (PAXIL) TAB PO SCH (08:05)
--- NOTE | 2017-03-27 08:53 | Diagnostic Imaging Report ---
EXAMINATION: Portable upright radiograph of the chest. INDICATION: Dyspnea. COMPARISON: 03/26/2017. FINDINGS: The lungs are clear. The heart size is borderline enlarged. No effusion or pneumothorax. The mediastinum and dillan appear unremarkable. IMPRESSION: Borderline cardiac size. Dictated by: Dictated on workstation # [id number]
[2017-03-27] MEDS ORDERED: amLODIPine 5 MG (NORVASC) TAB PO SCH (09:00)
[2017-03-27] MEDS ORDERED: amLODIPine 5 MG (NORVASC) TAB PO ONE (09:00)
[2017-03-27] MEDS ORDERED: lisINopril 20 MG (ZESTRIL) TAB PO SCH (09:00)
[2017-03-27] MEDS ORDERED: meTOproloL SUCCINATE 50 MG (TOPROL XL) TAB PO SCH (09:00)
[2017-03-27] MEDS ORDERED: amLODIPine 5 MG (NORVASC) TAB PO NR (09:00)
[2017-03-27] MEDS: HYDROcodone/APAP 5 MG/325 MG (LORTAB) TAB PO PRN ×2 (11:29→19:50)
--- NOTE | 2017-03-27 12:08 | Progress Note (SOAP) ---
Subjective Subjective/Events-last exam Afebrile. Very hypertensive overnight. Pain in knee is slightly improved. He is shaky this morning. Review of Systems Date Seen by Provider: Mar 27, 2017 Time Seen by Provider: 09:50 Objective Exam Last Set of Vital Signs Vital Signs Date Time Temp Pulse Resp B/P (MAP) Pulse Ox O2 Delivery O2 Flow Rate FiO2 03/27/17 08:00 96 Room Air 03/27/17 07:00 98.6 76 14 194/128 03/26/17 23:00 4.00 Capillary Refill : Less Than 3 Seconds I&O Intake and Output 03/28/17 00:00 Intake Total 1200 ml Output Total 5400 ml Balance -4200 ml Intake Oral 1200 ml Output Urine Total 5400 ml General: Alert, Mild Distress Lungs: Clear to Auscultation, Normal Air Movement Heart: Regular Rate, No Murmurs Extremities: No Edema, Other (left knee mildly swollen, no erythema) Neuro: Other (tremor) Psych/Mental Status: Mood NL Results/Procedures Lab Laboratory Tests 03/27/17 04:36: White Blood Count 7.7, Red Blood Count 4.06L, Hemoglobin 12.5L, Hematocrit 37L, Mean Corpuscular Volume 91, Mean Corpuscular Hemoglobin 31, Mean Corpuscular Hemoglobin Concent 34, Red Cell Distribution Width 12.3, Platelet Count 425H, Mean Platelet Volume 8.5, Neutrophils (%) (Auto) 70, Lymphocytes (%) (Auto) 20, Monocytes (%) (Auto) 10, Eosinophils (%) (Auto) 0, Basophils (%) (Auto) 0, Neutrophils # (Auto) 5.4, Lymphocytes # (Auto) 1.6, Monocytes # (Auto) 0.8, Eosinophils # (Auto) 0.0, Basophils # (Auto) 0.0, Sodium Level 144, Potassium Level 3.8, Chloride Level 110H, Carbon Dioxide Level 25, Anion Gap 9, Blood Urea Nitrogen 7, Creatinine 0.64, Estimat Glomerular Filtration Rate > 60, BUN/ Creatinine Ratio 11, Glucose Level 119H, Calcium Level 8.7, Phosphorus Level 3.1 , Magnesium Level 1.5L Microbiology 03/25/17 MRSA Screen - Final, Complete MRSA not isolated Radiology CT head 03/25: unremarkable CXR 03/25: enlarged heart, no acute abnormality Assessment/Plan Assessment/Plan Admission Dx Alcohol intoxication Depression Hypertension Pseudogout Plan Alcohol intoxication- alcohol above 400 on admission, he is alert morning after admit and is interested in inpatient rehabilitation. He reports a history of DTs with withdrawal in the past. Start alcohol withdrawal protocol- CIWA and ativan based on scores Depression- resume home paroxetine, discussed need for therapy as well which [facility] be [facility] Hypertension- resume home metoprolol, lisinopril and amlodipine 03/27- increased amlodipine to 10 mg and metoprolol to 100 mg due to marked hypertension, may be withdrawal related, continue ativan as above. Requiring occasional IV hydralazine for severe hypertension Pseudogout- toradol prn 03/27 stop toradol due to hypertension, discussed that hydrocodone is not a long- term medication for him, but will allow for sparing use while inpatient DVT ppx- enoxaparin Diagnosis/Problems: Clinical Quality Measures DVT/VTE Risk/Contraindication: Risk Factor Score Per Nursin RFS Level Per Nursing on Admit: 2=Moderate BILLIE FORTUNE MD Mar 27, 2017 12:08
[2017-03-27] MEDS: DICLOFENAC 1% GEL 100 GM (VOLTAREN) TUBE TOP SCH ×3 (13:04→19:50)
[2017-03-27] MEDS: LORazepam INJ 2 MG/ML (ATIVAN) VIAL IV PRN ×5 (13:20→22:14)
[2017-03-27] MEDS ORDERED: lisINopril 20 MG (ZESTRIL) TAB PO NR (18:45)
[2017-03-28] VITALS (11 sets, daily range): BP systolic 146–168; BP diastolic 80–119
[2017-03-28] MEDS: HYDROcodone/APAP 5 MG/325 MG (LORTAB) TAB PO PRN ×3 (03:24→21:06)
[2017-03-28] MEDS: D5 1/2 NS W/KCL 20 MEQ/L 1,000 ML IV SCH ×4 (03:25→23:34)
[2017-03-28] MEDS: LORazepam INJ 2 MG/ML (ATIVAN) VIAL IV PRN ×2 (03:33→07:01)
[2017-03-28] MEDS: hydrALAZINE (APESOLINE) 20 MG/ML VIAL IV PRN (04:34)
[2017-03-28] MEDS: CATHETER FLUSH 10 ML SYR IV SCH ×3 (04:38→22:02)
[2017-03-28] MEDS: LACTATED RINGERS 1,000 ML IV SCH ×3 (04:38→22:44)
[2017-03-28] MEDS ORDERED: cloNIDine 0.1 MG (CATAPRES) TAB PO ONE (06:15)
[2017-03-28] MEDS: THIAMINE 100 MG (VITAMIN B-1) TAB PO SCH (06:17)
[2017-03-28] MEDS: MULTIVIT W/MINERALS TAB (THERAGRAN M) PO SCH (06:18)
[2017-03-28] MEDS: PANTOPRAZOLE 40 MG (PROTONIX) TAB PO SCH ×2 (06:18→16:54)
[2017-03-28 06:28] LABS: BASOPHILS % (AUTO) 0 % (0-10); EOSINOPHILS % (AUTO) 0 % (0-10); LYMPHOCYTES # (AUTO) 1.6 X 10^3 (1.0-4.0); LYMPHOCYTES % (AUTO) 26 % (12-44); MEAN CORPUSCULAR HEMOGLOBIN 30 PG (25-34); MEAN CORPUSCULAR HGB CONC 33 G/DL (32-36); MEAN CORPUSCULAR VOLUME 91 FL (80-99); MEAN PLATELET VOLUME 9.2 FL (7.4-10.4); MONOCYTES # (AUTO) 0.7 X 10^3 (0.0-1.0); MONOCYTES % (AUTO) 11 % (0-12); NEUTROPHILS % (AUTO) 64 % (42-75); PLATELET COUNT 470 10^3/uL (130-400); RED BLOOD COUNT 4.33 10^6/uL (4.35-5.85); RED CELL DISTRIBUTION WIDTH 12.6 % (10.0-14.5); WHITE BLOOD COUNT 6.3 10^3/uL (4.3-11.0)
[2017-03-28 06:49] LABS: ANION GAP 10 MMOL/L (5-14); BLOOD UREA NITROGEN 9 MG/DL (7-18); BUN/CREATININE RATIO 14; CALCIUM 9.1 MG/DL (8.5-10.1); CARBON DIOXIDE 26 MMOL/L (21-32); CHLORIDE 106 MMOL/L (98-107); CREATININE SERUM 0.64 MG/DL (0.60-1.30); GFR ESTIMATED > 60; GLUCOSE 108 MG/DL (70-105); MAGNESIUM 1.6 MG/DL (1.8-2.4); PHOSPHORUS 4.2 MG/DL (2.3-4.7); POTASSIUM 4.1 MMOL/L (3.6-5.0); SODIUM 142 MMOL/L (135-145)
[2017-03-28] MEDS: lisINopril 20 MG (ZESTRIL) TAB PO SCH (07:57)
[2017-03-28] MEDS: meTOprolol SUCCINATE 100 MG (TOPROL XL) TAB PO SCH (07:57)
[2017-03-28] MEDS: amLODIPine 5 MG (NORVASC) TAB PO SCH (07:57)
[2017-03-28] MEDS: MAGNESIUM OXIDE (MAG-OX)400 MG TAB PO SCH ×2 (07:57→21:06)
[2017-03-28] MEDS: FOLIC ACID 1 MG TAB PO SCH (07:57)
[2017-03-28] MEDS: PARoxetine 20 MG (PAXIL) TAB PO SCH (07:58)
[2017-03-28] MEDS: DICLOFENAC 1% GEL 100 GM (VOLTAREN) TUBE TOP SCH ×4 (07:59→21:06)
[2017-03-28] MEDS: ENOXAPARIN 40 MG/0.4 ML (LOVENOX) SYR SC SCH (10:16)
[2017-03-28] MEDS: LORazepam 1 MG (ATIVAN) TAB PO PRN ×2 (14:09→23:34)
[2017-03-28] MEDS: ONDANSETRON 4 MG/2 ML (SDV) Z0FRAN IV PRN (23:39)
[2017-03-29] VITALS: BP 140/88
[2017-03-29] MEDS: LORazepam INJ 2 MG/ML (ATIVAN) VIAL IV PRN (00:39)
[2017-03-29] MEDS: HYDROcodone/APAP 5 MG/325 MG (LORTAB) TAB PO PRN ×4 (02:55→23:42)
[2017-03-29 04:00] VITALS: BP 128/70
[2017-03-29 05:28] LABS: BASOPHILS % (AUTO) 0 % (0-10); EOSINOPHILS % (AUTO) 0 % (0-10); LYMPHOCYTES # (AUTO) 2.1 X 10^3 (1.0-4.0); LYMPHOCYTES % (AUTO) 30 % (12-44); MEAN CORPUSCULAR HEMOGLOBIN 30 PG (25-34); MEAN CORPUSCULAR HGB CONC 33 G/DL (32-36); MEAN CORPUSCULAR VOLUME 90 FL (80-99); MEAN PLATELET VOLUME 8.7 FL (7.4-10.4); MONOCYTES # (AUTO) 0.7 X 10^3 (0.0-1.0); MONOCYTES % (AUTO) 11 % (0-12); NEUTROPHILS % (AUTO) 59 % (42-75); PLATELET COUNT 475 10^3/uL (130-400); RED BLOOD COUNT 4.34 10^6/uL (4.35-5.85); RED CELL DISTRIBUTION WIDTH 12.5 % (10.0-14.5); WHITE BLOOD COUNT 6.8 10^3/uL (4.3-11.0)
[2017-03-29 05:51] LABS: ANION GAP 10 MMOL/L (5-14); BLOOD UREA NITROGEN 13 MG/DL (7-18); BUN/CREATININE RATIO 17; CALCIUM 9.2 MG/DL (8.5-10.1); CARBON DIOXIDE 27 MMOL/L (21-32); CHLORIDE 104 MMOL/L (98-107); CREATININE SERUM 0.76 MG/DL (0.60-1.30); GFR ESTIMATED > 60; GLUCOSE 115 MG/DL (70-105); PHOSPHORUS 4.6 MG/DL (2.3-4.7); POTASSIUM 4.5 MMOL/L (3.6-5.0); SODIUM 141 MMOL/L (135-145)
[2017-03-29] MEDS: LACTATED RINGERS 1,000 ML IV SCH (06:22)
[2017-03-29] MEDS: CATHETER FLUSH 10 ML SYR IV SCH ×3 (06:22→20:19)
[2017-03-29] MEDS: MULTIVIT W/MINERALS TAB (THERAGRAN M) PO SCH (06:23)
[2017-03-29] MEDS: D5 1/2 NS W/KCL 20 MEQ/L 1,000 ML IV SCH ×4 (06:23→20:19)
[2017-03-29] MEDS: PANTOPRAZOLE 40 MG (PROTONIX) TAB PO SCH ×2 (06:23→17:42)
[2017-03-29 08:20] VITALS: BP 150/80
[2017-03-29] MEDS: lisINopril 20 MG (ZESTRIL) TAB PO SCH (08:46)
[2017-03-29] MEDS: amLODIPine 5 MG (NORVASC) TAB PO SCH (08:46)
[2017-03-29] MEDS: LORazepam 1 MG (ATIVAN) TAB PO PRN (08:47)
[2017-03-29] MEDS: meTOprolol SUCCINATE 100 MG (TOPROL XL) TAB PO SCH (08:47)
[2017-03-29] MEDS: MAGNESIUM OXIDE (MAG-OX)400 MG TAB PO SCH (08:47)
[2017-03-29] MEDS: PARoxetine 20 MG (PAXIL) TAB PO SCH (08:47)
[2017-03-29] MEDS: FOLIC ACID 1 MG TAB PO SCH (08:47)
[2017-03-29] MEDS: DICLOFENAC 1% GEL 100 GM (VOLTAREN) TUBE TOP SCH ×4 (09:04→20:19)
[2017-03-29] MEDS: ENOXAPARIN 40 MG/0.4 ML (LOVENOX) SYR SC SCH (10:48)
[2017-03-29 15:52] VITALS: BP 135/89
--- NOTE | 2017-03-29 18:45 | Progress Note (SOAP) ---
Subjective Subjective/Events-last exam pt states he still needs to talk to his dad about whethr he is going inpatient or outpatient. has already been to inpatient several times. Review of Systems Time Seen by Provider: 09:30 Cardiovascular: No: Chest Pain, Palpitations Objective Exam Last Set of Vital Signs Vital Signs Date Time Temp Pulse Resp B/P (MAP) Pulse Ox O2 Delivery O2 Flow Rate FiO2 03/29/17 15:52 98.4 57 20 135/89 99 Room Air 03/26/17 23:00 4.00 Capillary Refill : Less Than 3 Seconds I&O Intake and Output 03/30/17 00:00 Intake Total 1160 ml Output Total 2500 ml Balance -1340 ml Intake Oral 1160 ml Output Urine Total 2500 ml # Bowel Movements 1 General: Alert, Oriented X3, Cooperative, No Acute Distress Lungs: Clear to Auscultation, Normal Air Movement Heart: Regular Rate, Normal S1, Normal S2, No Murmurs, Gallops, Rubs Abdomen: Normal Bowel Sounds, Soft, No Tenderness, No Hepatosplenomegaly, No Masses Extremities: No Clubbing, No Cyanosis, No Edema Psych/Mental Status: Mental Status NL, Mood NL Results/Procedures Lab Laboratory Tests 03/29/17 05:10: White Blood Count 6.8, Red Blood Count 4.34L, Hemoglobin 13.1L, Hematocrit 39L, Mean Corpuscular Volume 90, Mean Corpuscular Hemoglobin 30, Mean Corpuscular Hemoglobin Concent 33, Red Cell Distribution Width 12.5, Platelet Count 475H, Mean Platelet Volume 8.7, Neutrophils (%) (Auto) 59, Lymphocytes (%) (Auto) 30, Monocytes (%) (Auto) 11, Eosinophils (%) (Auto) 0, Basophils (%) (Auto) 0, Neutrophils # (Auto) 4.0, Lymphocytes # (Auto) 2.1, Monocytes # (Auto) 0.7, Eosinophils # (Auto) 0.0, Basophils # (Auto) 0.0, Sodium Level 141, Potassium Level 4.5, Chloride Level 104, Carbon Dioxide Level 27, Anion Gap 10, Blood Urea Nitrogen 13, Creatinine 0.76, Estimat Glomerular Filtration Rate > 60, BUN/ Creatinine Ratio 17, Glucose Level 115H, Calcium Level 9.2, Phosphorus Level 4.6 , Magnesium Level 2.0 Microbiology 03/25/17 MRSA Screen - Final, Complete MRSA not isolated Radiology CT head 03/25: unremarkable CXR 03/25: enlarged heart, no acute abnormality Assessment/Plan Assessment/Plan Admission Dx Alcohol intoxication Depression Hypertension Pseudogout Plan Alcohol intoxication- alcohol above 400 on admission, he is alert morning after admit and is interested in inpatient rehabilitation. He reports a history of DTs with withdrawal in the past. Start alcohol withdrawal protocol- CIWA and ativan based on scores 03/28 - receiving periodic ativan with good response. no obvious issues with detox today. 03/29 - needing less ativan, no signs of DTs Depression- resume home paroxetine, discussed need for therapy as well which [facility] 03/28 - more of an outpatient issue Hypertension- resume home metoprolol, lisinopril and amlodipine 03/27- increased amlodipine to 10 mg and metoprolol to 100 mg due to marked hypertension, may be withdrawal related, continue ativan as above. Requiring occasional IV hydralazine for severe hypertension 03/28 - increased lisinopril to 40mg with good response 03/29 - BP under much better control Pseudogout- toradol prn 03/27 stop toradol due to hypertension, discussed that hydrocodone is not a long- term medication for him, but will allow for sparing use while inpatient 03/28 - taking hydrocodone but will dc at discharge 03/29 - no change today DVT ppx- enoxaparin Diagnosis/Problems: Clinical Quality Measures DVT/VTE Risk/Contraindication: Risk Factor Score Per Nursin RFS Level Per Nursing on Admit: 2=Moderate AKOSUA FORREST MD Mar 29, 2017 18:45
--- NOTE | 2017-03-29 18:45 | Progress Note (SOAP) ---
Subjective Subjective/Events-last exam Pt states he is doing well today. doesn't know whether he is going to go inpatient to [facility] or to [facility] as an outpatient for ATS. Review of Systems Date Seen by Provider: Mar 28, 2017 Time Seen by Provider: 09:30 Pulmonary: No Dyspnea Cardiovascular: No: Chest Pain Objective Exam Last Set of Vital Signs Vital Signs Date Time Temp Pulse Resp B/P (MAP) Pulse Ox O2 Delivery O2 Flow Rate FiO2 03/29/17 15:52 98.4 57 20 135/89 99 Room Air 03/26/17 23:00 4.00 Capillary Refill : Less Than 3 Seconds I&O Intake and Output 03/30/17 00:00 Intake Total 1160 ml Output Total 2500 ml Balance -1340 ml Intake Oral 1160 ml Output Urine Total 2500 ml # Bowel Movements 1 General: Alert, Oriented X3, Cooperative, No Acute Distress Lungs: Clear to Auscultation, Normal Air Movement Heart: Regular Rate, Normal S1, Normal S2, No Murmurs, Gallops, Rubs Abdomen: Normal Bowel Sounds, Soft, No Tenderness, No Hepatosplenomegaly, No Masses Extremities: No Clubbing, No Cyanosis, No Edema Psych/Mental Status: Mental Status NL, Mood NL Results/Procedures Lab Laboratory Tests 03/29/17 05:10: White Blood Count 6.8, Red Blood Count 4.34L, Hemoglobin 13.1L, Hematocrit 39L, Mean Corpuscular Volume 90, Mean Corpuscular Hemoglobin 30, Mean Corpuscular Hemoglobin Concent 33, Red Cell Distribution Width 12.5, Platelet Count 475H, Mean Platelet Volume 8.7, Neutrophils (%) (Auto) 59, Lymphocytes (%) (Auto) 30, Monocytes (%) (Auto) 11, Eosinophils (%) (Auto) 0, Basophils (%) (Auto) 0, Neutrophils # (Auto) 4.0, Lymphocytes # (Auto) 2.1, Monocytes # (Auto) 0.7, Eosinophils # (Auto) 0.0, Basophils # (Auto) 0.0, Sodium Level 141, Potassium Level 4.5, Chloride Level 104, Carbon Dioxide Level 27, Anion Gap 10, Blood Urea Nitrogen 13, Creatinine 0.76, Estimat Glomerular Filtration Rate > 60, BUN/ Creatinine Ratio 17, Glucose Level 115H, Calcium Level 9.2, Phosphorus Level 4.6 , Magnesium Level 2.0 Microbiology 9/20/17 MRSA Screen - Final, Complete MRSA not isolated Radiology CT head 03/25: unremarkable CXR 03/25: enlarged heart, no acute abnormality Assessment/Plan Assessment/Plan Admission Dx Alcohol intoxication Depression Hypertension Pseudogout Plan Alcohol intoxication- alcohol above 400 on admission, he is alert morning after admit and is interested in inpatient rehabilitation. He reports a history of DTs with withdrawal in the past. Start alcohol withdrawal protocol- CIWA and ativan based on scores 03/28 - receiving periodic ativan with good response. no obvious issues with detox today. Depression- resume home paroxetine, discussed need for therapy as well which [facility] be [facility] 03/28 - more of an outpatient issue Hypertension- resume home metoprolol, lisinopril and amlodipine 03/27- increased amlodipine to 10 mg and metoprolol to 100 mg due to marked hypertension, may be withdrawal related, continue ativan as above. Requiring occasional IV hydralazine for severe hypertension 03/28 - increased lisinopril to 40mg with good response Pseudogout- toradol prn 03/27 stop toradol due to hypertension, discussed that hydrocodone is not a long- term medication for him, but will allow for sparing use while inpatient 03/28 - taking hydrocodone but will dc at discharge DVT ppx- enoxaparin Diagnosis/Problems: Clinical Quality Measures DVT/VTE Risk/Contraindication: Risk Factor Score Per Nursin RFS Level Per Nursing on Admit: 2=Moderate AKOSUA FORREST MD Mar 29, 2017 18:45
[2017-03-29 19:15] VITALS: BP 130/63
[2017-03-30] VITALS: BP 137/95
[2017-03-30] MEDS: D5 1/2 NS W/KCL 20 MEQ/L 1,000 ML IV SCH ×2 (03:05→09:48)
[2017-03-30] MEDS: CATHETER FLUSH 10 ML SYR IV SCH (04:56)
[2017-03-30] MEDS: MULTIVIT W/MINERALS TAB (THERAGRAN M) PO SCH (05:52)
[2017-03-30] MEDS: PANTOPRAZOLE 40 MG (PROTONIX) TAB PO SCH (05:52)
[2017-03-30 05:53] LABS: BASOPHILS % (AUTO) 0 % (0-10); EOSINOPHILS % (AUTO) 0 % (0-10); LYMPHOCYTES # (AUTO) 2.3 X 10^3 (1.0-4.0); LYMPHOCYTES % (AUTO) 24 % (12-44); MEAN CORPUSCULAR HEMOGLOBIN 30 PG (25-34); MEAN CORPUSCULAR HGB CONC 33 G/DL (32-36); MEAN CORPUSCULAR VOLUME 91 FL (80-99); MEAN PLATELET VOLUME 9.1 FL (7.4-10.4); MONOCYTES # (AUTO) 0.9 X 10^3 (0.0-1.0); MONOCYTES % (AUTO) 9 % (0-12); NEUTROPHILS # (AUTO) 6.6 X 10^3 (1.8-7.8); NEUTROPHILS % (AUTO) 67 % (42-75); PLATELET COUNT 543 10^3/uL (130-400); RED BLOOD COUNT 4.52 10^6/uL (4.35-5.85); RED CELL DISTRIBUTION WIDTH 12.7 % (10.0-14.5); WHITE BLOOD COUNT 9.8 10^3/uL (4.3-11.0)
[2017-03-30] MEDS: HYDROcodone/APAP 5 MG/325 MG (LORTAB) TAB PO PRN (05:53)
[2017-03-30] MEDS: ONDANSETRON 4 MG/2 ML (SDV) Z0FRAN IV PRN (06:00)
[2017-03-30 06:15] LABS: ANION GAP 9 MMOL/L (5-14); BLOOD UREA NITROGEN 13 MG/DL (7-18); BUN/CREATININE RATIO 16; CALCIUM 9.4 MG/DL (8.5-10.1); CARBON DIOXIDE 30 MMOL/L (21-32); CHLORIDE 102 MMOL/L (98-107); GFR ESTIMATED > 60; GLUCOSE 102 MG/DL (70-105); MAGNESIUM 1.9 MG/DL (1.8-2.4); PHOSPHORUS 4.2 MG/DL (2.3-4.7); POTASSIUM 4.3 MMOL/L (3.6-5.0); SODIUM 141 MMOL/L (135-145)
--- NOTE | 2017-03-30 07:24 | Diagnostic Imaging Report ---
INDICATION: Shortness of breath COMPARISON: 03/27/17 FINDINGS: Single view of the chest demonstrates minimal cardiac enlargement. The lungs are clear. No pneumothorax seen. IMPRESSION: Minimal cardiac enlargement without pulmonary edema or infiltrate. Dictated by: Dictated on workstation # [id number]
[2017-03-30 07:30] VITALS: BP 150/84
[2017-03-30] MEDS: FOLIC ACID 1 MG TAB PO SCH (08:14)
[2017-03-30] MEDS: PARoxetine 20 MG (PAXIL) TAB PO SCH (08:14)
[2017-03-30] MEDS: amLODIPine 5 MG (NORVASC) TAB PO SCH (08:14)
[2017-03-30] MEDS: lisINopril 20 MG (ZESTRIL) TAB PO SCH (08:14)
[2017-03-30] MEDS: meTOprolol SUCCINATE 100 MG (TOPROL XL) TAB PO SCH (08:15)
[2017-03-30] MEDS: DICLOFENAC 1% GEL 100 GM (VOLTAREN) TUBE TOP SCH (08:15)
[2017-03-30] MEDS: LORazepam 1 MG (ATIVAN) TAB PO PRN (08:22)
[2017-03-30] MEDS: ENOXAPARIN 40 MG/0.4 ML (LOVENOX) SYR SC SCH (10:50)
[2017-03-30] MEDS ORDERED: AMLO5TAB2 PO (11:00)
[2017-03-30] MEDS ORDERED: METO-274 PO (11:00)
[2017-03-30] MEDS ORDERED: LISI-552 PO (11:00)
--- NOTE | 2017-03-30 11:09 | Discharge Instructions ---
Discharge [facility] Discharge Medications New, Converted or Re-Newed RX: Other New Medications: Amlodipine Besylate (Amlodipine Besylate) 5 Mg Tablet 10 MG PO DAILY for Blood Pressure, #90 TAB 0 Refills Lisinopril (Lisinopril) 20 Mg Tablet 40 MG PO DAILY for Blood Pressure, #90 TAB 0 Refills Metoprolol Succinate (Metoprolol Succinate) 100 Mg Tab.er.24h 100 MG PO DAILY for Systolic Blood Pressure, #90 TAB 0 Refills Continued Medications: Ibuprofen (Advil) 200 Mg Tablet 800 MG PO TID PRN for PAIN-MILD, TAB TAKES 4 (200MG) TABLETS Paroxetine HCl (Paroxetine HCl) 20 Mg Tablet 40 MG PO DAILY, TAB LAST FILLED #180 09-30-16 TAKES 2 (20MG) TABLETS Discontinued Medications: Amlodipine Besylate (Amlodipine Besylate) 5 Mg Tablet 5 MG PO DAILY, TAB LAST RECEIVED #90 FROM REPOSITORY 09-30-16 Lisinopril (Lisinopril) 20 Mg Tablet 20 MG PO DAILY, TAB LAST FILLED #90 09-30-16 Metoprolol Succinate (Toprol Xl) 50 Mg Tab.er.24h 50 MG PO DAILY, TAB LAST RECEIVED #90 FROM THE REPOSITORY 09-30-16 Patient Instructions Goal/Follow Up Appt: YOU WILL ATTEND ATC FOR 28 DAYS YOU ARE PREPARING FOR DISCHARGE FROM THERE, THEY WILL MAKE APPOINTMENTS FOR YOU WITH YOUR PCP AND ALSO WITH OUR ADDICTIONS TREATMENT TEAM Patient Instructions: [facility] SHOULD CALL [facility] IF YOUR BLOOD PRESSURE IS >180 SYSTOLIC OR >100 DIASTOLIC PLEASE CHECK YOUR BLOOD PRESSURE 3 TIMES PER WEEK. Return to The Hospital For: CHEST PAIN OR SHORTNESS OF BREATH Activity & Diet Discharge Diet: Low Sodium Diet, Low Fat/Low Cholesterol Activity as Tolerated: Yes Copy Copies To 1: BILLIE FORTUNE MD, JULIE A MD Mar 30, 2017 11:09 am
--- NOTE | 2017-03-30 19:47 | Discharge Summary ---
Diagnosis/Chief Complaint Date of Admission Mar 25, 2017 at 21:58 Date of Discharge Mar 30, 2017 at 11:06 Admission Diagnosis Admission Diagnosis Alcohol intoxication Depression Hypertension Pseudogout Discharge Diagnosis Alcohol intoxication- alcohol above 400 on admission, he is alert morning after admit and is interested in inpatient rehabilitation. He reports a history of DTs with withdrawal in the past. Start alcohol withdrawal protocol- CIWA and ativan based on scores 03/28 - receiving periodic ativan with good response. no obvious issues with detox today. 03/29 - needing less ativan, no signs of DTs 03/30 - has only needed one dose of ativan in past 24h; pt does want to go inpatient today Depression- resume home paroxetine, discussed need for therapy as well which can be done though [facility] 03/28 - more of an outpatient issue 03/29 - pt called and demanded he be restarted on trazodone even though he was not taking it prior to admission or during hospitalization. stated he would not go to rehab without it. trazodone 30day course was prescribed. Hypertension- resume home metoprolol, lisinopril and amlodipine 03/27- increased amlodipine to 10 mg and metoprolol to 100 mg due to marked hypertension, may be withdrawal related, continue ativan as above. Requiring occasional IV hydralazine for severe hypertension 03/28 - increased lisinopril to 40mg with good response 03/29 - BP under much better control 03/30 - BP at goal; PB meds and paxil were vouchered; pt was to pay for the trazodone Pseudogout- toradol prn 03/27 stop toradol due to hypertension, discussed that hydrocodone is not a long- term medication for him, but will allow for sparing use while inpatient 03/28 - taking hydrocodone but will dc at discharge 03/29 - no change today 03/30 - can take ibuprofen prn as an outpatient DVT ppx- enoxaparin Chief Complaint/HPI Chief Complaint/HPI 46 yo male with history of alcoholism admitted after police were called due to him yelling at cars in the street. He has chronic knee pain with flares at times secondary to pseudogout and it has been very severe the last 2 weeks which led him to drink excessively because he was out of all of his medications and depressed and feeling bad. He admits to thoughts of self harm, but denies plans. He is very depressed, has been out of paroxetine for at least a month, states he can't afford his medications or counseling. He has been out of his blood pressure medications as well. Discharge Summary-Simple/Stand Consultations Discharge Physical Examination Allergies: Coded Allergies: fentanyl (Verified Allergy, Unknown, 01/24/16) morphine (Verified Allergy, Unknown, 10/28/13) Vitals & I&Os Vital Sign - Last 12Hours Date Time Temp Pulse Resp B/P (MAP) Pulse Ox O2 Delivery O2 Flow Rate FiO2 03/30/17 12:49 03/30/17 08:14 Room Air 03/30/17 08:11 64 03/30/17 07:30 96.6 20 97 03/26/17 23:00 4.00 General Appearance: Alert, Oriented X3, Cooperative, No Acute Distress Respiratory: Clear to Auscultation, Normal Air Movement Cardiovascular: Regular Rate, Normal S1, Normal S2, No Murmurs, Gallops, Rubs Abdominal: Normal Bowel Sounds, Soft, No Tenderness, No Hepatosplenomegaly, No Masses Extremities: No Clubbing, No Cyanosis, No Edema Psych/Mental Status: Mental Status NL, Mood NL Hospital Course See final discharge diagnosis. Labs Laboratory Tests Test 03/28/17 05:09 03/29/17 05:10 03/30/17 05:21 Range/Units White Blood Count 6.3 6.8 9.8 4.3-11.0 10^3/uL Red Blood Count 4.33 L 4.34 L 4.52 4.35-5.85 10^6/uL Hemoglobin 12.9 L 13.1 L 13.6 13.3-17.7 G/DL Hematocrit 39 L 39 L 41 40-54 % Mean Corpuscular Volume 91 90 91 80-99 FL Mean Corpuscular Hemoglobin 30 30 30 25-34 PG Mean Corpuscular Hemoglobin Concent 33 33 33 32-36 G/DL Red Cell Distribution Width 12.6 12.5 12.7 10.0-14.5 % Platelet Count 470 H 475 H 543 H 130-400 10^3/uL Mean Platelet Volume 9.2 8.7 9.1 7.4-10.4 FL Neutrophils (%) (Auto) 64 59 67 42-75 % Lymphocytes (%) (Auto) 26 30 24 12-44 % Monocytes (%) (Auto) 11 11 9 0-12 % Eosinophils (%) (Auto) 0 0 0 0-10 % Basophils (%) (Auto) 0 0 0 0-10 % Neutrophils # (Auto) 4.0 4.0 6.6 1.8-7.8 X 10^3 Lymphocytes # (Auto) 1.6 2.1 2.3 1.0-4.0 X 10^3 Monocytes # (Auto) 0.7 0.7 0.9 0.0-1.0 X 10^3 Eosinophils # (Auto) 0.0 0.0 0.0 0.0-0.3 10^3/uL Basophils # (Auto) 0.0 0.0 0.0 0.0-0.1 10^3/uL Sodium Level 142 141 141 135-145 MMOL/L Potassium Level 4.1 4.5 4.3 3.6-5.0 MMOL/L Chloride Level 106 104 102 98-107 MMOL/L Carbon Dioxide Level 26 27 30 21-32 MMOL/L Anion Gap 10 10 9 5-14 MMOL/L Blood Urea Nitrogen 9 13 13 7-18 MG/DL Creatinine 0.64 0.76 0.80 0.60-1.30 MG/DL Estimat Glomerular Filtration Rate > 60 > 60 > 60 BUN/Creatinine Ratio 14 17 16 Glucose Level 108 H 115 H 102 70-105 MG/DL Calcium Level 9.1 9.2 9.4 8.5-10.1 MG/DL Phosphorus Level 4.2 4.6 4.2 2.3-4.7 MG/DL Magnesium Level 1.6 L 2.0 1.9 1.8-2.4 MG/DL Radiology Reviewed CT head 03/25: unremarkable CXR 03/25: enlarged heart, no acute abnormality Discharge Instructions to patient/family Please see electronic discharge instructions given to patient. Discharge Medications Reviewed and agree with Discharge Medication list on patient's Discharge Instruction sheet Clinical Quality Measures DVT/VTE Risk/Contraindication: Risk Factor Score Per Nursin RFS Level Per Nursing on Admit: 2=Moderate Copy Copies To 1: BILLIE FORTUNE MD, JULIE A MD Mar 30, 2017 19:46
== END 2017-03-30 11:06 | disposition home or self-care (01) ==
LOC: EDUNIT# 20:11 → ER 20:13 → UNDOADMOB 21:15 → ICU 21:15 → 4TH 03-27 16:05
PROVIDERS: ADMIT Family Medicine; ATTEND Family Medicine
DX: F10.229 Alcohol dependence with intoxication, unspecified (principal); Y90.8 Blood alcohol level of 240 mg/100 ml or more; F33.9 Major depressive disorder, recurrent, unspecified; I10 Essential (primary) hypertension; E78.00 Pure hypercholesterolemia, unspecified; J45.909 Unspecified asthma, uncomplicated; Z72.0 Tobacco use; Z79.899 Other long term (current) drug therapy; Z91.14 Patient's other noncompliance with medication regimen
CPT/HCPCS: 36415; 70450; 71010; 80048; 80053; 80306; 80320; 80329; 81000; 83735; 84100; 85025; 87081; 93005; 96374; G0378

== ENCOUNTER 2017-10-31 12:12 | Emergency (ER) | payer SELFPAY ==
[~2017-10-31] VITALS: Ht 182.9 cm; Wt 113.4 kg
[~2017-10-31 12:12] MED LIST changes: +AMLO5TAB2 PO; +LISI-552 PO; +METO-395 PO
[2017-10-31] MEDS ORDERED: NS IV 1000 ML 1,000 ML IV ONE (12:19)
[2017-10-31] MEDS ORDERED: METO100T6 (12:24)
[2017-10-31] MEDS ORDERED: FAMO20TA5 (12:24)
[2017-10-31] MEDS ORDERED: LISI40TA (12:24)
[2017-10-31 12:32] LABS: BASOPHILS % (AUTO) 0 % (0-10); EOSINOPHILS % (AUTO) 0 % (0-10); HEMATOCRIT 47 % (40-54); HEMOGLOBIN 16.1 G/DL (13.3-17.7); LYMPHOCYTES # (AUTO) 2.5 X 10^3 (1.0-4.0); LYMPHOCYTES % (AUTO) 33 % (12-44); MEAN CORPUSCULAR HEMOGLOBIN 30 PG (25-34); MEAN CORPUSCULAR HGB CONC 35 G/DL (32-36); MEAN CORPUSCULAR VOLUME 88 FL (80-99); MONOCYTES # (AUTO) 0.7 X 10^3 (0.0-1.0); MONOCYTES % (AUTO) 10 % (0-12); NEUTROPHILS # (AUTO) 4.4 X 10^3 (1.8-7.8); NEUTROPHILS % (AUTO) 58 % (42-75); PLATELET COUNT 250 10^3/uL (130-400); RED BLOOD COUNT 5.29 10^6/uL (4.35-5.85); RED CELL DISTRIBUTION WIDTH 16.3 % (10.0-14.5); WHITE BLOOD COUNT 7.6 10^3/uL (4.3-11.0)
[2017-10-31 12:41] LABS: BILIRUBIN,URINE NEGATIVE (NEGATIVE); CLARITY,URINE CLEAR; COLOR,URINE YELLOW; GLUCOSE, URINE (UA) NEGATIVE (NEGATIVE); KETONES,URINE NEGATIVE (NEGATIVE); LEUKOCYTE ESTERASE ,URINE NEGATIVE (NEGATIVE); NITRITE,URINE NEGATIVE (NEGATIVE); PH,URINE 5 (5-9); PROTEIN,URINE NEGATIVE (NEGATIVE); UROBILINOGEN,URINE NORMAL (NORMAL)
[2017-10-31 12:42] LABS: INR 0.9 (0.8-1.4); PROTHROMBIN TIME PATIENT 11.7 SEC (12.2-14.7)
[2017-10-31 12:48] LABS: BACTERIA,URINE NEGATIVE /HPF; SQUAMOUS EPITHELIAL CELL,UR 0-2 /HPF
[2017-10-31 12:51] LABS: ALANINE AMINOTRANSFERASE 221 U/L (0-55); ALBUMIN 4.5 GM/DL (3.2-4.5); ALKALINE PHOSPHATASE 47 U/L (40-136); BILIRUBIN,TOTAL 0.4 MG/DL (0.1-1.0); BUN/CREATININE RATIO 15; CALCIUM 8.9 MG/DL (8.5-10.1); CARBON DIOXIDE 21 MMOL/L (21-32); CHLORIDE 108 MMOL/L (98-107); CREATININE SERUM 0.81 MG/DL (0.60-1.30); GFR ESTIMATED > 60; GLUCOSE 132 MG/DL (70-105); POTASSIUM 4.6 MMOL/L (3.6-5.0); SODIUM 143 MMOL/L (135-145); TOTAL PROTEIN 8.3 GM/DL (6.4-8.2)
[2017-10-31 12:55] LABS: AMPHETAMINE SCREEN, URINE NEGATIVE (NEGATIVE); BARBITURATE SCREEN URINE NEGATIVE (NEGATIVE); BENZODIAZEPINES SCREEN URINE NEGATIVE (NEGATIVE); CANNABINOID SCREEN, URINE NEGATIVE (NEGATIVE); COCAINE SCREEN URINE NEGATIVE (NEGATIVE); METHADONE STAT NEGATIVE (NEGATIVE); METHAMPHETAMINE SCREEN URINE S NEGATIVE (NEGATIVE); OPIATE SCREEN URINE NEGATIVE (NEGATIVE); OXYCODONE STAT NEGATIVE (NEGATIVE); PROPOXYPHENE STAT NEGATIVE (NEGATIVE); TRICYCLIC ANTIDEPRESSANTS SCRE NEGATIVE (NEGATIVE)
--- NOTE | 2017-10-31 13:36 | Diagnostic Imaging Report ---
INDICATION: Passed out, alcoholism. COMPARISON: 03/30/17. FINDINGS: Single view of the chest demonstrates clear lungs bilaterally. The heart is normal. There is no pneumothorax. Osseous structures are normal. IMPRESSION: Negative chest. Dictated by: Dictated on workstation # [id number]
[2017-10-31] MEDS ORDERED: LACTATED RINGERS 1,000 ML IV ONE (13:41)
[2017-10-31] MEDS ORDERED: THIAMINE 100 MG/ML 2 ML (VITAMIN B-1) VIAL IV ONE (13:45)
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
--- NOTE | 2017-10-31 13:54 | Diagnostic Imaging Report ---
INDICATION: Stroke, passed out. COMPARISON: 03/25/2017. FINDINGS: Ventricles are normal in size, shape and position. There is no midline shift or mass effect. There is no hemorrhage or evidence of acute ischemia. No cerebral edema is identified. There is a partially visualized ethmoid sinus air cells disease. Mastoids are clear. The bony calvarium normal. IMPRESSION: 1. No acute intracranial abnormalities. 2. Sinus disease. Dictated by: Dictated on workstation # [id number]
[2017-10-31 14:32] VITALS: BP 98/98
[2017-11-02 15:17] LABS: HEPATITIS C ANTIBODY C Non-Reactive (Non-Reactive)
== END 2017-10-31 14:32 ==
LOC: EDUNIT# 12:12 → ER 12:13
DX: F10.229 Alcohol dependence with intoxication, unspecified (principal); F41.9 Anxiety disorder, unspecified; F32.9 Major depressive disorder, single episode, unspecified; E11.9 Type 2 diabetes mellitus without complications; E78.00 Pure hypercholesterolemia, unspecified; I10 Essential (primary) hypertension; J44.9 Chronic obstructive pulmonary disease, unspecified; F12.90 Cannabis use, unspecified, uncomplicated; Z87.891 Personal history of nicotine dependence; Z87.2 Personal history of diseases of the skin and subcutaneous tissue; Z87.828 Personal history of other (healed) physical injury and trauma; Z82.49 Family history of ischemic heart disease and other diseases of the circulatory system; Z88.5 Allergy status to narcotic agent
CPT/HCPCS: 36415; 70450; 71045; 80053; 80074; 80306; 80320; 81000; 85025; 85610; 85730; 93005; 93041; 96361; 96374

== ENCOUNTER 2017-12-14 18:07 | Emergency (ER) | payer SELFPAY ==
[~2017-12-14] VITALS: Ht 182.9 cm; Wt 127.0 kg
[~2017-12-14 18:07] MED LIST changes: +FAMO20TA5; +LISI40TA; +METO100T6
--- OUTSIDE RECORDS SUMMARY | 2017-12-14 18:13 | XMS REPORT ---
Author LÓPEZ Wu [facility] eClinicalWorks Address Unknown Phone Unavailable Care Team Providers Care Archeologist Classical Name Role Phone LÓPEZ DUGAN CP Unavailable Allergies No Known Allergies Problems Problem Type Condition Code Onset Dates Condition Status Problem Right knee pain M25.561 Active Problem Sciatica M54.30 Active Problem Low back pain M54.5 Active Problem Marijuana use F12.10 Active Problem Essential hypertension I10 Active Problem Excessive drinking alcohol F10.10 Active Medications No Known Medications Vital Signs Date/Time: Mar 06, 2016 Blood Pressure Systolic 154 mmHg Cardiac Monitoring Heart Rate 100 bpm Height 72 in Blood Pressure Diastolic 108 mmHg Results No Known Results Summary Purpose eClinicalWorks Submission
--- OUTSIDE RECORDS SUMMARY | 2017-12-14 18:13 | XMS REPORT ---
Author AKOSUA Salinas Organization eClinicalWorks Address Unknown Phone Unavailable Care Team Providers Care Director Acute Name Role Phone AKOSUA FORREST CP Unavailable Allergies No Known Allergies Problems Problem Type Condition Code Onset Dates Condition Status Problem Right knee pain M25.561 Active Problem Sciatica M54.30 Active Problem Low back pain M54.5 Active Problem Marijuana use F12.10 Active Problem Essential hypertension I10 Active Problem Excessive drinking alcohol F10.10 Active Medications No Known Medications Results No Known Results Summary Purpose eClinicalWorks Submission
--- OUTSIDE RECORDS SUMMARY | 2017-12-14 18:13 | XMS REPORT ---
Author Author BILLIE FORTUNE eClinicalWorks Address Unknown Phone Unavailable Care Team Providers Care Procurement Technician Name Role Phone BILLIE FORTUNE CP Unavailable Allergies No Known Allergies Problems Problem Type Condition Code Onset Dates Condition Status Problem Essential hypertension I10 Active Problem Right knee pain M25.561 Active Problem Sciatica M54.30 Active Problem Marijuana use F12.10 Active Problem Excessive drinking alcohol F10.10 Active Problem Elevated LFTs R79.89 Active Problem Anxiety F41.9 Active Problem Acute idiopathic gout of multiple sites M10.09 Active Problem Insomnia, unspecified type G47.00 Active Problem Low back pain M54.5 Active Problem 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
--- OUTSIDE RECORDS SUMMARY | 2017-12-14 18:13 | XMS REPORT ---
Author Author BILLIE FORTUNE eClinicalWorks Address Unknown Phone Unavailable Care Team Providers Care Tower Operator Name Role Phone BILLIE FORTUNE Unavailable Allergies No Known Allergies Problems Problem [...] History of renal failure Z87.448 Active Medications Medication Code System Code Instructions Start Date End Date Status Dosage Seroquel [facility] [address]-36 50 mg Orally Once a day at HS January 26, 2016 1 tablet Results No Known Results Summary Purpose eClinicalWorks Submission
--- OUTSIDE RECORDS SUMMARY | 2017-12-14 18:13 | XMS REPORT ---
Author CATY Luke Organization eClinicalWorks Address Unknown Phone Unavailable Care Team Providers Care Data Operations Leader Name Role Phone CATY SCOTT CP Unavailable Allergies, Adverse Reactions, Alerts Substance Reaction Event Type Morphine Sulfate Info Not Available Drug Allergy Problems Problem Type Condition Code Onset Dates Condition Status Problem Pain in joint, lower leg 719.46 Active Problem Diarrhea 787.91 Active Problem Other chronic pain 338.29 Active Problem Hypertension 401.9 Active Problem Anxiety 300.00 Active Problem Right knee pain M25.561 Active Problem Sciatica 724.3 Active Problem Unspecified hemorrhoids without mention of complication 455.6 Active Problem Excessive drinking alcohol 305.00 Active Problem Marijuana use 305.20 Active Assessment Right knee pain M25.561 Active Problem Anal fissure 565.0 Active Problem Heartburn 787.1 Active Problem Insomnia, unspecified 780.52 Active Medications Medication Code System Code Instructions Start Date End Date Status Dosage Paxil [facility] [address]-87 September 22, 2012 by Oral route 40mg daily Started in hospital Fish Oil [facility] [address]-81 1000 MG Orally Once a day 1 capsule Lisinopril-Hydrochlorothiazide [facility] [address]-68 20-25 MG Orally Once a day 1 tablet Toprol XL [facility] [address]-69 50 MG Orally Once a day 1 tablet Hydrocodone-Acetaminophen [facility] [address]-78 7.5-325 MG Orally 3 times a day May 10, 2015 1 tablet as needed Vitamin B12 [facility] 38343-[address]34 100 MCG Orally Once a day 1 tablet Crutch Set [facility] 0 1 pair of crutches May 10, 2015 as directed Procedures Procedure Coding System Code Date Office Visit, Est Pt., Level 3 CPT-4 67607 May 10, 2015 Vital Signs Date/Time: May 10, 2015 Temperature 98.2 F Weight 224.2 lbs Height 72 in BMI 30.40 Index Blood Pressure Diastolic 86 mmHg Blood Pressure Systolic 124 mmHg Cardiac Monitoring Heart Rate 98 bpm Results No Known Results Summary Purpose [facility] Sub[facility]
--- OUTSIDE RECORDS SUMMARY | 2017-12-14 18:14 | XMS REPORT ---
Author BILLIE Garcia [facility] eClinicalWorks Address Unknown Phone Unavailable Care Team Providers Care Infantry Weapons Crewmember Name Role Phone BILLIE FORTUNE Unavailable Allergies No Known Allergies Problems Problem Type Condition Code Onset Dates Condition Status Problem Sciatica M54.30 Active Problem Essential hypertension I10 Active Problem Right knee pain M25.561 Active Problem Excessive drinking alcohol F10.10 Active Problem Marijuana use F12.10 Active Medications Medication Code System Code Instructions Start Date End Date Status Dosage Toprol XL [facility] [address]-92 50 MG Orally Once a day 1 tablet Results No Known Results Summary Purpose eClinicalWorks Submission
--- OUTSIDE RECORDS SUMMARY | 2017-12-14 18:14 | XMS REPORT ---
Author Author DEVIKA BILLIE [facility] Address [address] [place] [address] Care Team Providers Care Hot Mill Supervisor Name Role Phone DEVIKAKARRIE JERNIGANHANY Unavailable PROBLEMS Type Condition ICD9-CM Code [id number] Code Onset Dates Condition Status SNOMED Code Problem Essential hypertension I10 Active 07034722 Problem Right knee pain M25.561 Active 68745648 Problem Sciatica M54.30 Active 19727636 Assessment Peeling skin R23.4 Mar, Active 012685033 Assessment Essential hypertension I10 Mar, Active 01656067 Problem Marijuana use F12.10 Active 63734407 Problem Excessive drinking alcohol F10.10 Active 233189210 Problem Elevated LFTs R79.89 Active 472205901 Problem Anxiety F41.9 Active 98336433 Problem Insomnia, unspecified type G47.00 Active 669599537 Problem Low back pain M54.5 Active 894128879 Problem 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 59183529 Problem History of renal failure Z87.448 Active 578682936 ALLERGIES Substance Reaction Event Type Date Status Morphine Sulfate itching Drug Allergy Mar, Active Hydrocodone-Acetaminophen itching Drug Allergy Mar, Active SOCIAL HISTORY No smoking Hx information available PLAN OF CARE VITAL SIGNS Height 72 in 2016-03-26 Weight 273 lbs 2016-03-26 Heart Rate 112 bpm 2016-03-26 Respiratory Rate 20 2016-03-26 BMI 37.02 kg/m2 2016-03-26 Blood pressure systolic 136 mmHg 2016-03-26 Blood pressure diastolic 96 mmHg 2016-03-26 MEDICATIONS Medication Instructions Dosage Frequency Start Date End Date Duration Status Betamethasone Dipropionate 0.05 % Externally Twice a day (no more than 2 weeks at a time) 1 application to affected area Mar, Active Toprol XL 50 MG Orally Once a day 1 tablet 24h 90 days Active Seroquel 50 mg Orally Once a day at HS 1 tablet Jan, Active Paxil 20 MG Orally Once a day 2 tablets 24h Sep, Active Allopurinol 100 MG Orally Once a day 1 tablet 24h Mar, Apr, 30 day(s) Active Lisinopril-Hydrochlorothiazide 20-12.5 MG Orally Once a day 1 tablet 24h 90 days Active RESULTS No Results PROCEDURES Procedure Date Ordered Related Diagnosis Body Site Office Visit, Est Pt., Level 4 Mar 26, 2016 IMMUNIZATIONS No Known Immunizations
--- OUTSIDE RECORDS SUMMARY | 2017-12-14 18:14 | XMS REPORT ---
Author Author BILLIE FORTUNE eClinicalWorks Address Unknown Phone Unavailable Care Team Providers Care Industrial Chemicals Supervisor Name Role Phone BILLIE FORTUNE CP Unavailable [...]
--- OUTSIDE RECORDS SUMMARY | 2017-12-14 18:14 | XMS REPORT ---
Author ALEJANDRO Roberts Organization eClinicalWorks Address Unknown Phone Unavailable Care Team Providers Care English Language Learner Teacher Name Role Phone ALEJANDRO GILMAN CP Unavailable Allergies, Adverse Reactions, Alerts Substance Reaction Event Type Morphine Sulfate Info Not Available Drug Allergy Problems Problem Type Condition Code Onset Dates Condition Status Assessment Tinea cruris B35.6 Active Assessment Contact with and (suspected) exposure to viral hepatitis Z20.5 Active Assessment Problems related to high-risk sexual behavior Z72.51 Active Problem Right knee pain M25.561 Active Problem Sciatica M54.30 Active Problem Low back pain M54.5 Active Problem Marijuana use F12.10 Active Assessment STD exposure Z20.2 Active Problem Essential hypertension I10 Active Problem Excessive drinking alcohol F10.10 Active Medications Medication Code System Code Instructions Start Date End Date Status Dosage Naftin [facility] [address]-01 2 % Externally twice a day Mar 05, 2016 Apr 02, 2016 1 application to affected area PredniSONE [facility] [address]-02 20 mg Orally Once a day Mar 03, 2016Mar 2 tablets Toprol XL [facility] 91241417885 50 MG Orally Once a day 1 tablet Paxil [facility] [address]-87 20 MG Orally Once a day September 22, 2012 2 tablets Trazodone HCl [facility] [address]-78 300 MG Orally Once a day 1-2 tablet at bedtime as needed Procedures Procedure Coding System Code Date TRICHOMONAS ASSAY W/OPTIC CPT-4 39185 Mar 04, 2016 VENIPUNCT, ROUTINE* CPT-4 09475 Mar 04, 2016 No Charge CPT-4 27698 Mar 04, 2016 Office Visit, Est Pt., Level 3 CPT-4 44729 Mar 04, 2016 Vital Signs Date/Time: Mar 04, 2016 Cardiac Monitoring Heart Rate 100 bpm Weight 272.2 lbs Height 72 in BMI 36.91 Index Blood Pressure Diastolic 98 mmHg Blood Pressure Systolic 162 mmHg Results No Known Results Summary Purpose eClinicalWorks Submission
--- OUTSIDE RECORDS SUMMARY | 2017-12-14 18:14 | XMS REPORT ---
Author AKOSUA Salinas Organization eClinicalWorks Address Unknown Phone Unavailable Care Team Providers Care Utilities Estimator And Drafter Name Role Phone AKOSUA FORREST CP Unavailable Allergies No Known Allergies Problems Problem Type Condition Code Onset Dates Condition Status Problem Right knee pain M25.561 Active Problem Sciatica M54.30 Active Problem Low back pain M54.5 Active Problem Marijuana use F12.10 Active Assessment Acute gout, unspecified cause, unspecified site M10.9 Active Problem Essential hypertension I10 Active Problem Excessive drinking alcohol F10.10 Active Medications No Known Medications Procedures Procedure Coding System Code Date THER/PROPH/DIAG INJ, SC/IM CPT-4 79113 Mar 04, 2016 TORADOL (IM) 60 MG/2ML (UP TO 15 MG) CPT-4 J1885 Mar 04, 2016 Results No Known Results Summary Purpose eClinicalWorks Submission
--- OUTSIDE RECORDS SUMMARY | 2017-12-14 18:14 | XMS REPORT ---
Author Author BILLIE FORTUNE [facility] Address [address] [place] [address] Care Team Providers Care Shipping Services Sales Representative Name Role Phone BILLIE FORTUNE Unavailable PROBLEMS Type Condition ICD9-CM Code IJC50-NW Code Onset Dates Condition Status SNOMED Code Problem Sciatica M54.30 Active 22121642 Problem Low back pain M54.5 Active 789426433 Problem Right knee pain M25.561 Active 04137637 Problem Marijuana use F12.10 Active 65814874 Problem Excessive drinking alcohol F10.10 Active 444786899 Problem Essential hypertension I10 Active 26054037 Problem Acute idiopathic gout of multiple sites M10.09 Active 75151393 Problem 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 99897662 Problem Anxiety F41.9 Active 50035442 Problem Elevated LFTs R79.89 Active 322736255 Problem Insomnia, unspecified type G47.00 Active 462167314 Problem History of renal failure Z87.448 Active 615013935 ALLERGIES No Known Allergies SOCIAL HISTORY No smoking Hx information available PLAN OF CARE VITAL SIGNS MEDICATIONS No Known Medications RESULTS No Results PROCEDURES No Known procedures IMMUNIZATIONS No Known Immunizations
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
--- OUTSIDE RECORDS SUMMARY | 2017-12-14 18:15 | XMS REPORT ---
Author Author AKOSUA FORREST Organization [employer] Address Unknown Phone Unavailable Care Team Providers Care Marketing Technology Specialist Name Role Phone AKOSUA FORREST CP Unavailable Allergies, Adverse Reactions, Alerts Substance Reaction Event Type Morphine Sulfate Info Not Available Drug Allergy Problems Problem Type Condition Code Onset Dates Condition Status Assessment Acute gout of multiple sites, unspecified cause M10.9 Active Problem Right knee pain M25.561 Active Problem Sciatica M54.30 Active Problem Low back pain M54.5 Active Problem Marijuana use F12.10 Active Assessment Essential hypertension I10 Active Problem Essential hypertension I10 Active Problem Excessive drinking alcohol F10.10 Active Medications Medication Code System Code Instructions Start Date End Date Status Dosage PredniSONE [facility] [address]-36 20 mg Orally Once a day Mar 03, 2016Mar 2 tablets Trazodone HCl [facility] [address]-87 300 MG Orally Once a day 1-2 tablet at bedtime as needed Toprol XL [facility] 47018274231 50 MG Orally Once a day 1 tablet Paxil [facility] [address]-16 20 MG Orally Once a day September 22, 2012 2 tablets Procedures Procedure Coding System Code Date DRUG SCREEN NON TLC DEVICES CPT-4 76088 Mar 03, 2016 COMPREHEN METABOLIC PANEL CPT-4 40586 Mar 03, 2016 URINALYSIS, AUTO, W/O SCOPE CPT-4 59935 Mar 03, 2016 COMPLETE CBC W/AUTO DIFF WBC CPT-4 03221 Mar 03, 2016 Office Visit, Est Pt., Level 4 CPT-4 74564 Mar 03, 2016 VENIPUNCT, ROUTINE* CPT-4 79020 Mar 03, 2016 ASSAY OF BLOOD/URIC ACID CPT-4 65713 Mar 03, 2016 Vital Signs Date/Time: Mar 03, 2016 Cardiac Monitoring Heart Rate 112 bpm Weight 277.0 lbs Height 72 in BMI 37.56 Index Blood Pressure Diastolic 104 mmHg Blood Pressure Systolic 176 mmHg Results No Known Results Summary Purpose [employer] Submission
--- OUTSIDE RECORDS SUMMARY | 2017-12-14 18:15 | XMS REPORT | Continuity Of Care Document ---
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 Worker Name Role Phone Unavailable Unavailable JON MELCHOR, ARELI Torrez AT Results Lab Results Visit/Account #[id number] (September 23, 2017 5:04pm - September 23, 2017 9:57pm) Test Result Date/Time COMPLETE BLOOD COUNT WITH DIFF WHITE BLOOD COUNT(4.0-11.0 10E3/UL) 8.9 10E3/UL September 23, 2017 5:10pm RED BLOOD COUNT(4.50-5.90 10E6/UL) 4.98 10E6/UL September 23, 2017 5:10pm HEMOGLOBIN(13.5-17.5 G/DL) 15.0 G/DL September 23, 2017 5:10pm HEMATOCRIT(41.0-53.0 %) 43.3 % September 23, 2017 5:10pm MEAN CORPUSCULAR VOLUME(82.0-100.0 FL) 86.9 FL September 23, 2017 5:10pm MEAN CORPUSCULAR HEMOGLOBIN(26.0-34.0 PG) 30.1 PG September 23, 2017 5:10pm MEAN CORPUSCULAR HGB CONC(31.5-36.5 G/DL) 34.6 G/DL September 23, 2017 5:10pm RED CELL DISTRIBUTION WIDTH(11.5-14.5 %) 13.5 % September 23, 2017 5:10pm 777-3: PLATELET COUNT(150-450 10E3/UL) 341 10E3/UL September 23, 2017 5:10pm MEAN PLATELET VOLUME(8.2-12.4 FL) 9.6 FL September 23, 2017 5:10pm NEUTROPHILS % (AUTO)(40-70 %) 64 % September 23, 2017 5:10pm LYMPHOCYTES % (AUTO)(15-45 %) 28 % September 23, 2017 5:10pm MONOCYTES % (AUTO)(2-10 %) 5 % September 23, 2017 5:10pm EOSINOPHILS % (AUTO)(0-6 %) 0 % September 23, 2017 5:10pm BASOPHILS % (AUTO)(0-1 %) 0 % September 23, 2017 5:10pm IMMATURE GRANS % (AUTO)(0-0 %) 3 % September 23, 2017 5:10pm NUCLEATED RBCS (AUTO)(0-0 %) 0 % September 23, 2017 5:10pm NEUTROPHILS # (AUTO)(2.5-7.5 10E3/UL) 5.7 10E3/UL September 23, 2017 5:10pm LYMPHOCYTES # (AUTO)(1.0-4.0 10E3/UL) 2.5 10E3/UL September 23, 2017 5:10pm MONOCYTES # (AUTO)(0.2-0.8 10E3/UL) 0.5 10E3/UL September 23, 2017 5:10pm EOSINOPHILS # (AUTO)(0.0-0.4 10E3/UL) 0.0 10E3/UL September 23, 2017 5:10pm BASOPHILS # (AUTO)(0.0-0.2 10E3/UL) 0.0 10E3/UL September 23, 2017 5:10pm IMMATURE GRANS # (AUTO)(0.0-0.0 10E3/UL) 0.2 10E3/UL September 23, 2017 5:10pm DIFF TYPE AUTOMATED September 23, 2017 5:10pm UA WITH SCREEN FOR CULTURE COLOR,URINE COLORLESS September 23, 2017 5:10pm CLARITY,URINE CLEAR September 23, 2017 5:10pm GLUCOSE, URINE(NEGATIVE MG/DL) NEGATIVE MG/DL September 23, 2017 5:10pm URINE BILIRUBIN(NEGATIVE) NEGATIVE September 23, 2017 5:10pm KETONES,URINE(NEGATIVE MG/DL) NEGATIVE MG/DL September 23, 2017 5:10pm URINE SPECIFIC GRAVITY(1.001-1.035) Less than 1.005 September 23, 2017 5:10pm URINE BLOOD(NEGATIVE) NEGATIVE September 23, 2017 5:10pm URINE PH(5.0-9.0) 5.0 September 23, 2017 5:10pm URINE PROTEIN(Less than 20 MG/DL) NEGATIVE MG/DL September 23, 2017 5:10pm URINE UROBILINOGEN(0.2-1.0 MG/DL) 0.2-1.0 MG/DL September 23, 2017 5:10pm URINE NITRITE(NEGATIVE) NEGATIVE September 23, 2017 5:10pm LEUKOCYTE ESTERASE ,URINE(NEGATIVE) NEGATIVE September 23, 2017 5:10pm URINE CULTURE NOT INDICATED September 23, 2017 5:10pm URINE MICROSCOPIC REQUIRED NO September 23, 2017 5:10pm COMPLETE METABOLIC PROFILE GLUCOSE(70-110 MG/DL) 105 MG/DL September 23, 2017 5:10pm BLOOD UREA NITROGEN(6-20 MG/DL) 18 MG/DL September 23, 2017 5:10pm CREATININE(0.50-1.20 MG/DL) 0.88 MG/DL September 23, 2017 5:10pm EST GLOMERULAR FILTRATION RATE(Greater than or equal to 60) Greater than or equal to 60 Result Comments: If the patient is of -Pak[place] descent/extraction multiply the eGFR value by 1.212 to obtain the actual eGFR. >=60 mg/dL Normal 30-59 mg/dL Moderate Kidney Disease 15-29 mg/dL Severe Kidney Disease <15 mg/dL Kidney Failure September 23, 2017 5:10pm BUN CREATININE RATIO(10.0-20.0 RATIO) 20.0 RATIO September 23, 2017 5:10pm SODIUM(135-145 MMOL/L) 143 MMOL/L September 23, 2017 5:10pm POTASSIUM(3.6-5.0 MMOL/L) 3.9 MMOL/L September 23, 2017 5:10pm CHLORIDE(101-111 MMOL/L) 106 MMOL/L September 23, 2017 5:10pm CO2(21-31 MMOL/L) 26 MMOL/L September 23, 2017 5:10pm ANION GAP(8-18) 15 September 23, 2017 5:10pm OSMO CALCULATED(270.0-290.0) 287.2 September 23, 2017 5:10pm CALCIUM(8.5-10.5 MG/DL) 9.2 MG/DL September 23, 2017 5:10pm BILIRUBIN,TOTAL(0.1-1.2 MG/DL) 0.5 MG/DL September 23, 2017 5:10pm ALKALINE PHOSPHATASE(42-121 IU/L) 37 IU/L September 23, 2017 5:10pm ASPARTATE AMINO TRANSFERASE(10-42 IU/L) 33 IU/L September 23, 2017 5:10pm ALANINE AMINOTRANSFERASE(10-60 IU/L) 58 IU/L September 23, 2017 5:10pm TOTAL PROTEIN(6.4-8.2 G/DL) 8.3 G/DL September 23, 2017 5:10pm ALBUMIN(3.5-5.5 G/DL) 4.8 G/DL September 23, 2017 5:10pm GLOBULIN(2.4-3.6) 3.5 September 23, 2017 5:10pm ALBUMIN/GLOBULIN RATIO(0.9-1.8 RATIO) 1.4 RATIO September 23, 2017 5:10pm PROLACTIN PROLACTIN(2.64-13.13 NG/ML) 6.23 NG/ML September 23, 2017 5:10pm ALCOHOL ALCOHOL(0.0-5.0 MG/DL) 337.7 MG/DL September 23, 2017 5:10pm 206.4 MG/DL September 23, 2017 9:15pm DRUGS OF ABUSE, URINE OPIATE SCREEN,URINE(NEGATIVE) NEGATIVE September 23, 2017 5:10pm BARBITURATES SCREEN, URINE(NEGATIVE) NEGATIVE September 23, 2017 5:10pm AMPHETAMINE SCREEN,URINE(NEGATIVE) NEGATIVE September 23, 2017 5:10pm BENZODIAZEPINES SCREEN,URINE(NEGATIVE) NEGATIVE September 23, 2017 5:10pm COCAINE SCREEN, URINE(NEGATIVE) NEGATIVE September 23, 2017 5:10pm CANNABINOID SCREEN,URINE(NEGATIVE) NEGATIVE September 23, 2017 5:10pm Allergies and Adverse Reactions Allergies and Adverse Reactions Patient Unit Number: [id number] Agent Type Reaction Severity Status MORPHINE Drug Allergy "RED, BLISTERY SKIN" Moderate Active Problem List Problem List Patient Unit Number: [id number] Chronic Problems: Code/Condition Comments Documented Start Date Documented Resolved Date Code (s) Hypertension ICD10: I10 Hypertension SNOMED: 87029256 Hypertension Morbid obesity with BMI of 40.0-44.9, adult ICD10: E66.01 Morbid obesity with BMI of 40.0-44.9, adult SNOMED: 127178961 Morbid obesity with body mass index (BMI) of 40.0 to 44.9 in adult Alcoholism ICD10: F10.20 Alcoholism SNOMED: 7280003 Alcoholism Plan of Care Plan Of Care Visit/Account #[id number] (September 23, 2017 5:04pm - September 23, 2017 9:57pm) Patient Instructions Go to [facility] for inpatient alcohol treatment. ER as needed. Vital Signs Vital Signs Visit/Account #[id number] (September 23, 2017 5:04pm - September 23, 2017 9:57pm) Sign First Result Last Result Code(s) Temperature in Fahrenheit Temperature (Fahrenheit): 98.8 [degF] On September 23, 2017 5:03pm Temperature (Fahrenheit): 97.7 [degF] On September 23, 2017 9:57pm 8310-5 Body Temperature Weight in Kilograms Weight (Kilograms): 130.2000 kg On September 23, 2017 5:03pm 3141-9 Weight Measured Functional Status Functional and Cognitive Status No Functional Status Data Medications Inpatient/Ordered Medications - Medications administered during hospital visit Visit/Account #[id number] (September 23, 2017 5:04pm - September 23, 2017 9:57pm) Medication Route Sig/Schedule Precondition/Indication Comments/Instructions Codes IV Medication Carriers: NORMAL SALINE(SODIUM CHLORIDE) 1000 ML INJECTION Dose: 1000 ML INTRAVEN .Q1H (Rate: 1000 MLS/HR Duration: 1 HR) Carriers: 1000 ML Sodium Chloride 9 MG/ML Injection (RxNorm): 6048229 NORMAL SALINE (SODIUM CHLORIDE) NDC: 75191694845 ZOFRAN INJ(ONDANSETRON HCL) 4 MG/2 ML INJECTION Dose: 2 ML INTRAVEN NOW 2 ML Ondansetron 2 MG/ML Injection (RxNorm): 7727413 ZOFRAN INJ (ONDANSETRON HCL) NDC: 37959592093 ATIVAN INJ(LORazepam) 2 MG/ML INJECTION Dose: 0.5 ML INTRAVEN NOW Label Comments: *DILUTE WITH EQUAL VOLUME OF NORMAL SALINE PRIOR TO IV ADMINISTRATION MAY INCREASE FALL RISK 1 ML Lorazepam 2 MG/ML Injection [Ativan] (RxNorm): 4618912 ATIVAN INJ (LORazepam) NDC: 78100987209 BENADRYL INJ(DiphenhydrAMINE HCL) 50 MG/ML INJECTION Dose: 1 ML INTRAVEN NOW Label Comments: MAY INCREASE FALL RISK Diphenhydramine Hydrochloride 50 MG/ML Injectable Solution (RxNorm): 2004763 BENADRYL INJ (DiphenhydrAMINE HCL) [facility]: [id number] History Of Encounters Encounters Visit/Account #[id number] (September 23, 2017 5:04pm - September 23, 2017 9:57pm) Account Status Physican Of Record Reason For Visit Visit Diagnosis Start Date/Time Stop Date/Time ER ARELI WEBB MD ETOH INTOXICATION Not Available Sep 23, 2017 5:04pm Sep 23, 2017 9:57pm History of Procedures Procedure List No procedures recorded. Discharge Instructions Discharge Instructions Visit/Account #[id number] (September 23, 2017 5:04pm - September 23, 2017 9:57pm) DISCHARGE INSTRUCTIONS Physician Documentation Social History Social History No Social History Data. Immunizations Immunizations Patient Unit Number: [id number] Immunizations No immunizations recorded.
--- OUTSIDE RECORDS SUMMARY | 2017-12-14 18:15 | XMS REPORT ---
Author Author ALEJANDRO GILMAN [facility] Address [address] [place] [address] Care Team Providers Care Coal Crusher Operator Name Role Phone ALEJANDRO GILMAN Unavailable PROBLEMS Type Condition ICD9-CM Code SMX34-FP Code Onset Dates Condition Status SNOMED Code Problem Essential hypertension I10 Active 38258869 Problem Right knee pain M25.561 Active 84786196 Problem Sciatica M54.30 Active 62354309 Problem Marijuana use F12.10 Active 01666575 Problem Excessive drinking alcohol F10.10 Active 934234167 Problem Elevated LFTs R79.89 Active 791302407 Problem Anxiety F41.9 Active 89199637 Problem Insomnia, unspecified type G47.00 Active 225836437 Problem Low back pain M54.5 Active 385639611 Problem 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
--- OUTSIDE RECORDS SUMMARY | 2017-12-14 18:15 | XMS REPORT | Continuity Of Care Document ---
Author Author [facility] Address [address] [place] [address] Phone Care Team Providers Care Health Workers Name Role Phone FOY CHIQUI RALPH AT CAMERON MELCHOR, CATARINA Torrez AT JOCELINE MELCHOR, CLARISSA CP Unavailable Unavailable Unavailable Unavailable Unavailable Unavailable Results Lab Results Visit/Account #[id number] (September 07, 2017 7:07pm - September 11, 2017 3:10pm) Test Result Date/Time POC TROPONIN I POC TROPONIN I(0.00-0.08) 0.01 Result Comments: WARNING The POC Troponin I results and the Tropoin I results CANNOT be compared. The iSTAT POC and the [facility] Assay use different methodologies. Please note the given reference ranges. September 07, 2017 7:25pm COMPLETE BLOOD COUNT WITH DIFF WHITE BLOOD COUNT(4.0-11.0 10E3/UL) 7.6 10E3/UL September 07, 2017 7:08pm RED BLOOD COUNT(4.50-5.90 10E6/UL) 4.43 10E6/UL September 07, 2017 7:08pm HEMOGLOBIN(13.5-17.5 G/DL) 13.2 G/DL September 07, 2017 7:08pm HEMATOCRIT(41.0-53.0 %) 37.7 % September 07, 2017 7:08pm MEAN CORPUSCULAR VOLUME(82.0-100.0 FL) 85.1 FL September 07, 2017 7:08pm MEAN CORPUSCULAR HEMOGLOBIN(26.0-34.0 PG) 29.8 PG September 07, 2017 7:08pm MEAN CORPUSCULAR HGB CONC(31.5-36.5 G/DL) 35.0 G/DL September 07, 2017 7:08pm RED CELL DISTRIBUTION WIDTH(11.5-14.5 %) 13.8 % September 07, 2017 7:08pm 777-3: PLATELET COUNT(150-450 10E3/UL) 125 10E3/UL September 07, 2017 7:08pm MEAN PLATELET VOLUME(8.2-12.4 FL) 9.4 FL September 07, 2017 7:08pm NEUTROPHILS % (AUTO)(40-70 %) 76 % September 07, 2017 7:08pm LYMPHOCYTES % (AUTO)(15-45 %) 15 % September 07, 2017 7:08pm MONOCYTES % (AUTO)(2-10 %) 8 % September 07, 2017 7:08pm EOSINOPHILS % (AUTO)(0-6 %) 0 % September 07, 2017 7:08pm BASOPHILS % (AUTO)(0-1 %) 0 % September 07, 2017 7:08pm IMMATURE GRANS % (AUTO)(0-0 %) 1 % September 07, 2017 7:08pm NUCLEATED RBCS (AUTO)(0-0 %) 0 % September 07, 2017 7:08pm NEUTROPHILS # (AUTO)(2.5-7.5 10E3/UL) 5.8 10E3/UL September 07, 2017 7:08pm LYMPHOCYTES # (AUTO)(1.0-4.0 10E3/UL) 1.2 10E3/UL September 07, 2017 7:08pm MONOCYTES # (AUTO)(0.2-0.8 10E3/UL) 0.6 10E3/UL September 07, 2017 7:08pm EOSINOPHILS # (AUTO)(0.0-0.4 10E3/UL) 0.0 10E3/UL September 07, 2017 7:08pm BASOPHILS # (AUTO)(0.0-0.2 10E3/UL) 0.0 10E3/UL September 07, 2017 7:08pm IMMATURE GRANS # (AUTO)(0.0-0.0 10E3/UL) 0.1 10E3/UL September 07, 2017 7:08pm DIFF TYPE AUTOMATED September 07, 2017 7:08pm COMPLETE BLOOD COUNT WHITE BLOOD COUNT(4.0-11.0 10E3/UL) 7.4 10E3/UL September 08, 2017 11:32am RED BLOOD COUNT(4.50-5.90 10E6/UL) 4.68 10E6/UL September 08, 2017 11:32am HEMOGLOBIN(13.5-17.5 G/DL) 13.8 G/DL September 08, 2017 11:32am HEMATOCRIT(41.0-53.0 %) 40.5 % September 08, 2017 11:32am MEAN CORPUSCULAR VOLUME(82.0-100.0 FL) 86.5 FL September 08, 2017 11:32am MEAN CORPUSCULAR HEMOGLOBIN(26.0-34.0 PG) 29.5 PG September 08, 2017 11:32am MEAN CORPUSCULAR HGB CONC(31.5-36.5 G/DL) 34.1 G/DL September 08, 2017 11:32am RED CELL DISTRIBUTION WIDTH(11.5-14.5 %) 13.9 % September 08, 2017 11:32am 777-3: PLATELET COUNT(150-450 10E3/UL) 127 10E3/UL September 08, 2017 11:32am MEAN PLATELET VOLUME(8.2-12.4 FL) 9.9 FL September 08, 2017 11:32am NUCLEATED RBCS (AUTO)(0-0 %) 0 % September 08, 2017 11:32am ERYTHROCYTE SEDIMENTATION RATE ERYTHROCYTE SEDIMENTATION RATE(0-15 MM/HR) 30 MM/HR September 08, 2017 11:28am PROTHROMBIN TIME WITH INR PROTHROMBIN TIME(12.1-14.0 SEC) 12.0 SEC September 07, 2017 7:08pm 35947-8: INR 0.9 September 07, 2017 7:08pm PARTIAL THROMBOPLASTIN TIME PARTIAL THROMBOPLASTIN TIME(22.2-37.4 SEC) 25.9 SEC September 07, 2017 7:08pm URINALYSIS COLOR,URINE LIGHT YELLOW September 08, 2017 4:40am CLARITY,URINE CLEAR September 08, 2017 4:40am GLUCOSE, URINE(NEGATIVE MG/DL) NEGATIVE MG/DL September 08, 2017 4:40am URINE BILIRUBIN(NEGATIVE) NEGATIVE September 08, 2017 4:40am KETONES,URINE(NEGATIVE MG/DL) NEGATIVE MG/DL September 08, 2017 4:40am URINE SPECIFIC GRAVITY(1.001-1.035) 1.010 September 08, 2017 4:40am URINE BLOOD(NEGATIVE) NEGATIVE September 08, 2017 4:40am URINE PH(5.0-9.0) 5.5 September 08, 2017 4:40am URINE PROTEIN(Less than 20 MG/DL) NEGATIVE MG/DL September 08, 2017 4:40am URINE UROBILINOGEN(0.2-1.0 MG/DL) 0.2-1.0 MG/DL September 08, 2017 4:40am URINE NITRITE(NEGATIVE) NEGATIVE September 08, 2017 4:40am LEUKOCYTE ESTERASE ,URINE(NEGATIVE) NEGATIVE September 08, 2017 4:40am URINE MICROSCOPIC REQUIRED NO September 08, 2017 4:40am COMPLETE METABOLIC PROFILE GLUCOSE(70-110 MG/DL) 139 MG/DL September 07, 2017 7:08pm 110 MG/DL September 09, 2017 8:31am 107 MG/DL September 10, 2017 6:30am BLOOD UREA NITROGEN(6-20 MG/DL) 14 MG/DL September 07, 2017 7:08pm 12 MG/DL September 09, 2017 8:31am 18 MG/DL September 10, 2017 6:30am CREATININE(0.50-1.20 MG/DL) 0.79 MG/DL September 07, 2017 7:08pm 0.72 MG/DL September 09, 2017 8:31am 1.00 MG/DL September 10, 2017 6:30am EST GLOMERULAR FILTRATION RATE(Greater than or equal to 60) Greater than or equal to 60 Result Comments: If the patient is of -[place] descent/extraction multiply the eGFR value by 1.212 to obtain the actual eGFR. >=60 mg/dL Normal 30-59 mg/dL Moderate Kidney Disease 15-29 mg/dL Severe Kidney Disease <15 mg/dL Kidney Failure September 07, 2017 7:08pm Greater than or equal to 60 Result Comments: If the patient is of -[place] descent/extraction multiply the eGFR value by 1.212 to obtain the actual eGFR. >=60 mg/dL Normal 30-59 mg/dL Moderate Kidney Disease 15-29 mg/dL Severe Kidney Disease <15 mg/dL Kidney Failure September 09, 2017 8:31am Greater than or equal to 60 Result Comments: If the patient is of -[place] descent/extraction multiply the eGFR value by 1.212 to obtain the actual eGFR. >=60 mg/dL Normal 30-59 mg/dL Moderate Kidney Disease 15-29 mg/dL Severe Kidney Disease <15 mg/dL Kidney Failure September 10, 2017 6:30am BUN CREATININE RATIO(10.0-20.0 RATIO) 18.0 RATIO September 07, 2017 7:08pm 17.0 RATIO September 09, 2017 8:31am 18.0 RATIO September 10, 2017 6:30am SODIUM(135-145 MMOL/L) 140 MMOL/L September 07, 2017 7:08pm 140 MMOL/L September 09, 2017 8:31am 141 MMOL/L September 10, 2017 6:30am POTASSIUM(3.6-5.0 MMOL/L) 4.0 MMOL/L September 07, 2017 7:08pm 3.9 MMOL/L September 09, 2017 8:31am 4.5 MMOL/L September 10, 2017 6:30am CHLORIDE(101-111 MMOL/L) 107 MMOL/L September 07, 2017 7:08pm 102 MMOL/L September 09, 2017 8:31am 102 MMOL/L September 10, 2017 6:30am CO2(21-31 MMOL/L) 24 MMOL/L September 07, 2017 7:08pm 30 MMOL/L September 09, 2017 8:31am 30 MMOL/L September 10, 2017 6:30am ANION GAP(8-18) 13 September 07, 2017 7:08pm 12 September 09, 2017 8:31am 14 September 10, 2017 6:30am OSMO CALCULATED(270.0-290.0) 282.1 September 07, 2017 7:08pm 279.8 September 09, 2017 8:31am 283.6 September 10, 2017 6:30am CALCIUM(8.5-10.5 MG/DL) 9.0 MG/DL September 07, 2017 7:08pm 9.2 MG/DL September 09, 2017 8:31am 9.6 MG/DL September 10, 2017 6:30am BILIRUBIN,TOTAL(0.1-1.2 MG/DL) 0.7 MG/DL September 07, 2017 7:08pm 1.4 MG/DL September 09, 2017 8:31am 1.4 MG/DL September 10, 2017 6:30am ALKALINE PHOSPHATASE(42-121 IU/L) 42 IU/L September 07, 2017 7:08pm 27 IU/L September 09, 2017 8:31am 24 IU/L September 10, 2017 6:30am ASPARTATE AMINO TRANSFERASE(10-42 IU/L) 83 IU/L September 07, 2017 7:08pm 210 IU/L September 09, 2017 8:31am 85 IU/L September 10, 2017 6:30am ALANINE AMINOTRANSFERASE(10-60 IU/L) 106 IU/L September 07, 2017 7:08pm 275 IU/L September 09, 2017 8:31am 203 IU/L September 10, 2017 6:30am TOTAL PROTEIN(6.4-8.2 G/DL) 7.2 G/DL September 07, 2017 7:08pm 7.2 G/DL September 09, 2017 8:31am 7.5 G/DL September 10, 2017 6:30am ALBUMIN(3.5-5.5 G/DL) 4.3 G/DL September 07, 2017 7:08pm 3.9 G/DL September 09, 2017 8:31am 4.1 G/DL September 10, 2017 6:30am GLOBULIN(2.4-3.6) 2.9 September 07, 2017 7:08pm 3.3 September 09, 2017 8:31am 3.4 September 10, 2017 6:30am ALBUMIN/GLOBULIN RATIO(0.9-1.8 RATIO) 1.5 RATIO September 07, 2017 7:08pm 1.2 RATIO September 09, 2017 8:31am 1.2 RATIO September 10, 2017 6:30am RENAL PANEL GLUCOSE(70-110 MG/DL) 101 MG/DL September 08, 2017 11:32am BLOOD UREA NITROGEN(6-20 MG/DL) 11 MG/DL September 08, 2017 11:32am CREATININE(0.50-1.20 MG/DL) 0.69 MG/DL September 08, 2017 11:32am EST GLOMERULAR FILTRATION RATE(Greater than or equal to 60) Greater than or equal to 60 Result Comments: If the patient is of -[place] descent/extraction multiply the eGFR value by 1.212 to obtain the actual eGFR. >=60 mg/dL Normal 30-59 mg/dL Moderate Kidney Disease 15-29 mg/dL Severe Kidney Disease <15 mg/dL Kidney Failure September 08, 2017 11:32am SODIUM(135-145 MMOL/L) 139 MMOL/L September 08, 2017 11:32am POTASSIUM(3.6-5.0 MMOL/L) 4.0 MMOL/L September 08, 2017 11:32am CHLORIDE(101-111 MMOL/L) 106 MMOL/L September 08, 2017 11:32am CO2(21-31 MMOL/L) 29 MMOL/L September 08, 2017 11:32am CALCIUM(8.5-10.5 MG/DL) 9.0 MG/DL September 08, 2017 11:32am PHOSPHORUS(2.5-4.6 MG/DL) 4.4 MG/DL September 08, 2017 11:32am ALBUMIN(3.5-5.5 G/DL) 3.7 G/DL September 08, 2017 11:32am MAGNESIUM MAGNESIUM(1.8-2.5 MG/DL) 2.0 MG/DL September 07, 2017 7:23pm 1.8 MG/DL September 08, 2017 11:32am 1.8 MG/DL September 09, 2017 8:32am PHOSPHORUS PHOSPHORUS(2.5-4.6 MG/DL) 4.5 MG/DL September 09, 2017 8:32am GGT GGT(7-64 IU/L) 76 IU/L September 07, 2017 7:23pm TOTAL CPK TOTAL CPK(22-269 IU/L) 148 IU/L September 08, 2017 11:28am CARDIAC TROPONIN I CARDIAC TROPONIN I(0.01-0.04 NG/ML) 0.01 NG/ML Result Comments: REFERENCE RANGES: NEGATIVE < 0.04 NG/ML POSSIBLE MYCARDIAL INVOLVEMENT >/=0.04 NG/ML INTERPRET TROPONIN I RESULT IN LIGHT OF THE TOTAL CLINICAL PRESENTATION INCLUDING CLINICAL HISTORY. ANY CONDITION RESULTING IN MYOCARDIAL INJURY CAN POTENTIALLY ELEVATE TROPONIN I LEVELS ABOVE EXPECTED NORMAL RANGES. NOTE NEW REFERENCE RANGE September 07, 2017 7:08pm 0.02 NG/ML Result Comments: REFERENCE RANGES: NEGATIVE < 0.04 NG/ML POSSIBLE MYCARDIAL INVOLVEMENT >/=0.04 NG/ML INTERPRET TROPONIN I RESULT IN LIGHT OF THE TOTAL CLINICAL PRESENTATION INCLUDING CLINICAL HISTORY. ANY CONDITION RESULTING IN MYOCARDIAL INJURY CAN POTENTIALLY ELEVATE TROPONIN I LEVELS ABOVE EXPECTED NORMAL RANGES. NOTE NEW REFERENCE RANGE September 08, 2017 1:11am 0.01 NG/ML Result Comments: REFERENCE RANGES: NEGATIVE < 0.04 NG/ML POSSIBLE MYCARDIAL INVOLVEMENT >/=0.04 NG/ML INTERPRET TROPONIN I RESULT IN LIGHT OF THE TOTAL CLINICAL PRESENTATION INCLUDING CLINICAL HISTORY. ANY CONDITION RESULTING IN MYOCARDIAL INJURY CAN POTENTIALLY ELEVATE TROPONIN I LEVELS ABOVE EXPECTED NORMAL RANGES. NOTE NEW REFERENCE RANGE September 08, 2017 7:05am LIPID PROFILE TRIGLYCERIDES(35-160 MG/DL) 29 MG/DL September 08, 2017 7:05am CHOLESTEROL(0-200 MG/DL) 162 MG/DL September 08, 2017 7:05am LDL CHOLESTEROL,DIRECT(0-99 MG/DL) 64 MG/DL September 08, 2017 7:05am VLDL CHOLESTEROL(1-53 MG/DL) 6 MG/DL September 08, 2017 7:05am HDL CHOLESTEROL(29-71 MG/DL) 79 MG/DL September 08, 2017 7:05am CHOL/HDL RATIO(0.0-4.4 RATIO) 2.1 RATIO September 08, 2017 7:05am C REACTIVE PROTEIN C REACTIVE PROTEIN(5.0-10.0 MG/L) 7.9 MG/L September 08, 2017 11:28am LIPASE LIPASE(22-51 U/L) 23 U/L September 09, 2017 8:32am DRUGS OF ABUSE, URINE OPIATE SCREEN,URINE(NEGATIVE) NEGATIVE September 08, 2017 4:40am BARBITURATES SCREEN, URINE(NEGATIVE) NEGATIVE September 08, 2017 4:40am AMPHETAMINE SCREEN,URINE(NEGATIVE) NEGATIVE September 08, 2017 4:40am BENZODIAZEPINES SCREEN,URINE(NEGATIVE) PRESUMPTIVE POSITIVE September 08, 2017 4:40am COCAINE SCREEN, URINE(NEGATIVE) NEGATIVE September 08, 2017 4:40am CANNABINOID SCREEN,URINE(NEGATIVE) NEGATIVE September 08, 2017 4:40am HEPATITIS B/C PROFILE HEPATITIS B SURFACE AB QUAL(.) Non Reactive Result Comments: Non Reactive: Inconsistent with immunity, less than 10 mIU/mL Reactive: Consistent with immunity, greater than 9.9 mIU/mL September 08, 2017 11:32am HEPATITIS B SURFACE AG SCREEN(Negative) Negative September 08, 2017 11:32am HEPATITIS BE ANTIGEN(Negative) Negative September 08, 2017 11:32am HEPATITIS BE ANTIBODY(Negative) Negative September 08, 2017 11:32am HEPATITIS B CORE AB IGM(Negative) Negative September 08, 2017 11:32am HEPATITIS B CORE AB TOTAL(Negative) Negative September 08, 2017 11:32am HEPATITIS C AB(0.0-0.9 s/co ratio) Less than 0.1 s/co ratio September 08, 2017 11:32am Microbiology Results Visit/Account #[id number] (September 07, 2017 7:07pm - September 11, 2017 3:10pm) Procedure Result MRSA SCREEN FOR INFEC CONTROL MRSA SCREEN FOR INFEC CONTROL Result Instance On September 07, 2017 11:11pm Source: [facility] Special Result Comments: No growth Allergies and Adverse Reactions Allergies and Adverse Reactions Patient Unit Number: [id number] Agent Type Reaction Severity Status MORPHINE Drug Allergy "RED, BLISTERY SKIN" Moderate Active Problem List Problem List Visit/Account #[id number] (September 07, 2017 7:07pm - September 11, 2017 3:10pm) Acute Problems: Code/Condition Comments Documented Start Date Documented Resolved Date Code (s) Chest pain ICD10: R07.9 Chest pain SNOMED: 47910631 Chest pain Chronic Problems: Alcoholism ICD10: F10.20 Alcoholism SNOMED: 0255339 Alcoholism Patient Unit Number: [id number] Chronic Problems: Code/Condition Comments Documented Start Date Documented Resolved Date Code (s) Hypertension ICD10: I10 Hypertension SNOMED: 89966720 Hypertension Morbid obesity with BMI of 40.0-44.9, adult ICD10: E66.01 Morbid obesity with BMI of 40.0-44.9, adult SNOMED: 802560039 Morbid obesity with body mass index (BMI) of 40.0 to 44.9 in adult Plan of Care Plan Of Care Visit/Account #[id number] (September 07, 2017 7:07pm - September 11, 2017 3:10pm) Patient Instructions Instructions DI for Alcohol Abuse & Alcoholism Alcohol abuse is problem drinking that negatively impacts your life. For example, you may experience one or more of these issues due to alcohol abuse: <ul><li>Failure to accomplish your duties at home, school, or work,</li><li>Involvement in dangerous drinking situations (eg, drinking and driving)</li><li>Legal problems (eg, being arrested for drinking and driving)</li><li>Relationship difficulties</li></ul> Alcoholism or alcohol dependence is a problem pattern of drinking where you can have the same issues as alcohol abuse. Alcoholism also includes continued drinking even when there are clear problems related to alcohol that affect your physical and mental health. Relationships with family members, friends, and coworkers also suffer. Due to the more intense pattern of drinking, you may not be able to stop drinking once you start, have withdrawal symptoms if you stop drinking, and develop a tolerance (meaning you need to keep drinking more to feel the same effect). Treatment may begin with detoxification. This may occur in a hospital setting before you can begin relapse prevention. Your doctor may recommend that you stay in a rehabilitation center. In some cases, treatment is ordered by a court. This may require a stay in a [facility] house, residential facility, or other setting. Treatment plans require giving up alcohol completely. Treatment often includes working with a behavioral therapist, taking medicine, and joining a support group, like Alcoholics Anonymous (AA). Steps to Take: Home Care Once you are sent home, make sure that there is no alcohol in the house. The people that you live with need to understand that you must stay away from alcohol. Diet Poor nutrition is common. Medical problems, like liver disease, can also occur. This can prevent the body from using some nutrients. You may be given nutritional supplements, such as a multivitamin that includes B-complex vitamins. You will be asked to follow a balanced diet. Physical Activity Ask your doctor if there are any limits for activity. Medications Some medicine can reduce your cravings. Others discourage you from drinking. Common medicines used include: <ul><li>Disulfiram (Antabuse)-causes nausea, vomiting, sweating, shortness of breath, headache, and other uncomfortable symptoms if you drink alcohol </li><li>Naltrexone (Revia, Vivitrol)-reduces your craving for alcohol </li><li>Acamprosate (Campral)-reduces your craving for alcohol </li></ul> When taking medicines, it is important to remember: <ul><li>Take your medicine as directed. Do not change the amount or the schedule.</li><li>Do not stop taking them without talking to your doctor.</li><li>Do not share them.</li><li>Know what results and side effects to look for. Report them to your doctor. This is especially important when taking disulfiram which can make you very sick if taken with alcohol.</li><li>Some drugs can be dangerous when mixed. Talk to a doctor or pharmacist if you are taking more than one drug. This includes vyfe-eoc-azilhas medicine and herb or dietary supplements.</li><li>Plan ahead for refills so you do not run out.</li></ul> Lifestyle Changes Success will mean major changes. You and your doctor will work to make a plan. Some things to keep in mind include: <ul><li>Attend support groups, like AA meetings, on a regular basis.</li><li>Stay away from situations where alcohol is served.</li><li>Talk to your family members about support groups that may be helpful for them, like [facility] and [employer] of Children of Alcoholics.</li><li>Attend all behavioral therapy sessions. You will learn how to manage your life without alcohol.</li><li>Make sure there is no alcohol in your home.</li><li>Use your AA sponsor or other support person if you need help.</li><li>Avoid using products with alcohol (eg, mouthwash, cough syrups, liquid vitamins).</li><li>Be honest with healthcare providers about your treatment.</li><li>Do not take medicines that contain narcotics. These can increase your risk of relapse.</li><li>Develop a network of friends who do not drink. They will help to support your treatment.</li></ul> Prevention Learning to live without alcohol is difficult. Some people relapse.Learn to identify situations or feelings that may trigger your desire to drink. If you do relapse, try to return to sobriety as soon as possible. Follow-up Recovering from alcohol abuse requires a lot of support. Your doctor will likely want to see you on a regular basis until you are comfortable with your sobriety. You will also require continual support through a support group. Behavioral therapy may also be recommended on a regular basis. It is very important that you go to all appointments. Call Your Doctor If Any of the Following Occurs: If you relapse or feel that you are going to relapse, reach out for help from health care team or support group. Also, call your doctor if your are feeling depressed. Call for medical help or go to the emergency room right away if you have any signs of alcohol withdrawal: <ul><li>Nausea and vomiting</li><li>Extreme restlessness</li><li>Confusion</li><li>Hallucinations</li><li>Heavy sweating</li><li>Seizures</li></ul> Resources for Recovery from Drug/Alcohol Use: [facility] [address] [place] [address] Website: [email or web address] Email: [email or web address] [facility] offers Detoxification services, Residential services, Outpatient services, and Assessments. We can be reached at the phone number listed 26/01. [facility] [address] [place] [address] [place] [address] Website: [email or web address] Email: [email or web address] Open 7a-9p Thursday-Thursday Open 1p-9p Thursday Closed Thursday [facility] is a drop-in center that offers support and events in a sober environment during the days/times listed. Alcoholics Anonymous (AA) Meetings in [place] and [facility] [address] [place] [address] Website: [email or web address].[email or web address] [place] AA Meetings: [email or web address]://mo-aa.org/meetings/ [facility] [place] and Surrounding Area (For those who have been affected by someone else's drinking) , Website: www.skhgut-kp-fivt.org Email: Narcotics Anonymous (NA) Meetings in [place] and [facility] [address] [place] [address] Website: [email or web address]/meetings Email: [email or web address] DI for Atypical Chest Pain Trazodone Metoprolol Famotidine Amlodipine Lisinopril Paroxetine Vital Signs Vital Signs Visit/Account #[id number] (September 07, 2017 7:07pm - September 11, 2017 3:10pm) Sign First Result Last Result Code(s) Blood Pressure 162/ 102 mm[Hg] On September 08, 2017 3:50am 125/ 80 mm[Hg] On September 11, 2017 1:40pm 8462-4 BP Diastolic 8480-6 BP Systolic Heart Rate/Pulse Pulse Rate (adult): 72 /min On September 08, 2017 3:50am Pulse Rate (adult): 66 /min On September 11, 2017 1:40pm 8867-4 Heart Rate Respiratory Rate Respiratory Rate: 12 /min On September 08, 2017 3:50am Respiratory Rate: 19 /min On September 11, 2017 1:40pm 9279-1 Respiratory Rate Temperature in Fahrenheit Temperature (Fahrenheit): 98.8 [degF] On September 07, 2017 6:58pm Temperature (Fahrenheit): 97.6 [degF] On September 11, 2017 1:40pm 8310-5 Body Temperature Weight in Kilograms Weight (Kilograms): 136.3000 kg On September 07, 2017 6:58pm 3141-9 Weight Measured Functional Status Functional and Cognitive Status No Functional Status Data Medications Home Medications - Medications that the patient was taking prior to arrival at the hospital Visit/Account #[id number] (September 07, 2017 7:07pm - September 11, 2017 3:10pm) Medication Route Sig/Schedule Precondition/Indication Comments/Instructions Codes COLCRYS(COLCHICINE) 0.6 MG TABLET Dose: 0.6 MG ORAL TWICE A DAY Colchicine 0.6 MG Oral Tablet [Colcrys] (RxNorm): 810582 COLCRYS (COLCHICINE) NDC: 83927050745 DESYREL(TraZODone HCL) 50 MG TABLET Dose: 50 MG ORAL AT BEDTIME Trazodone Hydrochloride 50 MG Oral Tablet (RxNorm): 816177 DESYREL (TraZODone HCL) NDC: 71263250455 PARoxetine HCL(PARoxetine HCL) 40 MG TABLET Dose: 40 MG ORAL DAILY Paroxetine Hydrochloride 40 MG Oral Tablet [Paxil] (RxNorm): 676304 PARoxetine HCL (PARoxetine HCL) NDC: 37358092925 Lisinopril(LISINOPRIL) 40 MG TABLET Dose: 40 MG ORAL DAILY Lisinopril 40 MG Oral Tablet (RxNorm): 455729 Lisinopril (LISINOPRIL) NDC: 81678918610 PEPCID(FAMOTIDINE) 20 MG TABLET Dose: 20 MG ORAL TWICE A DAY Famotidine 20 MG Oral Tablet (RxNorm): 229542 PEPCID (FAMOTIDINE) NDC: 99179149339 TOPROL XL(METOPROLOL SUCCINATE) 100 MG TAB Dose: 100 MG ORAL DAILY 24 HR metoprolol succinate 100 MG Extended Release Oral Tablet [Toprol] ( RxNorm): 682856 TOPROL XL (METOPROLOL SUCCINATE) NDC: 80537261198 NORVASC(AmLODIpine BESYLATE) 10 MG TAB Dose: 10 MG ORAL DAILY Amlodipine 10 MG Oral Tablet [Norvasc] (RxNorm): 209086 NORVASC (AmLODIpine BESYLATE) NDC: 38975178121 Inpatient/Ordered Medications - Medications administered during hospital visit Visit/Account #[id number] (September 07, 2017 7:07pm - September 11, 2017 3:10pm) Medication Route Sig/Schedule Precondition/Indication Comments/Instructions Codes ASPIRIN 324 MG TAB Dose: 324 MG ORAL NOW Label Comments: Chewed if no intolerance to aspirin and not aspirin taken today Aspirin 81 MG Chewable Tablet (RxNorm): 680096 (ASPIRIN) NDC: 38604028941 NITROQUICK(NITROGLYCERIN) 0.4 MG/TAB TAB Dose: 1 TAB SUBLINGUAL NOW Label Comments: *DOSE 1* Do NOT give until approved by physician. Give every 3-5 minutes if needed for ongoing symptons. Max of 3 doses. Do NOT give unless: Heart rate 50-100 beats per minute SBP is greater than 90 mmHg and/or no lower than 20 mmHg below baseline Do NOT give if: inferior RI or RV infarction recent phosphodesterase inhibito use (e.g. Viagra, Levitra, Revatio) within last 24 hours or Cialis within last 48 hours. Nitroglycerin 0.4 MG Sublingual Tablet [Nitrostat] (RxNorm): 426718 NITROQUICK (NITROGLYCERIN) NDC: 50160372682 ATIVAN INJ(LORazepam) 2 MG/ML INJECTION Dose: 1 ML INTRAVEN NOW Label Comments: *DILUTE WITH EQUAL VOLUME OF NORMAL SALINE PRIOR TO IV ADMINISTRATION MAY INCREASE FALL RISK 1 ML Lorazepam 2 MG/ML Injection [Ativan] (RxNorm): 1257790 ATIVAN INJ (LORazepam) NDC: 42507329307 ZOFRAN INJ(ONDANSETRON HCL) 4 MG/2 ML INJECTION Dose: 2 ML INTRAVEN NOW Label Comments: SLOW IV PUSH MAY INCREASE FALL RISK 2 ML Ondansetron 2 MG/ML Injection (RxNorm): 0915888 ZOFRAN INJ (ONDANSETRON HCL) NDC: 41374429274 ATIVAN INJ(LORazepam) 2 MG/ML INJECTION Dose: 1 ML INTRAVEN NOW Label Comments: *DILUTE WITH EQUAL VOLUME OF NORMAL SALINE PRIOR TO IV ADMINISTRATION MAY INCREASE FALL RISK 1 ML Lorazepam 2 MG/ML Injection [Ativan] (RxNorm): 6660071 ATIVAN INJ (LORazepam) NDC: 91025519123 TYLENOL(ACETAMINOPHEN) 325 MG TAB Dose: 650 MG ORAL Q6H PRN Reason: MILD PAIN Label Comments: Do not exceed 4000 mg of total acetaminophen per 24 hours Acetaminophen 325 MG Oral Tablet (RxNorm): 464446 TYLENOL (ACETAMINOPHEN) NDC: 44267955071 ASPIRIN 81 MG TAB Dose: 81 MG ORAL DAILY Aspirin 81 MG Chewable Tablet (RxNorm): 235357 (ASPIRIN) NDC: 34285687702 VITAMIN B1 INJ(THIAMINE HCL) 100 MG/ML INJECTION Dose: 1 ML INTRAVEN NOW Label Comments: Do not administer if given Banana Bag Thiamine hydrochloride 100 MG/ML Injectable Solution (RxNorm): 054222 VITAMIN B1 INJ (THIAMINE HCL) NDC: 01212966066 VITAMIN B1(THIAMINE HCL) 100 MG TAB Dose: 100 MG ORAL DAILY Rx Order Comments: Order filed UNV: Allergies/Duplicates/Interactions differ from pit recorder Thiamine 100 MG Oral Tablet (RxNorm): 299220 VITAMIN B1 (THIAMINE HCL) NDC: 16514697829 FOLIC ACID 1 MG TAB Dose: 1 MG ORAL DAILY Folic Acid 1 MG Oral Tablet (RxNorm): 523354 (FOLIC ACID) NDC: 14032967806 THERAGRAN(MULTIVITAMINS THERAPEUTIC) 1 TAB TAB Dose: 1 TAB ORAL DAILY AT [facility] THERAGRAN (MULTIVITAMINS THERAPEUTIC) NDC: 69951743185 HALDOL(HALOPERIDOL) 5 MG TAB Dose: 5 MG ORAL Q4H PRN Reason: PSYCHOTIC AGITATION Haloperidol 5 MG Oral Tablet (RxNorm): 964142 HALDOL (HALOPERIDOL) NDC: 47332858102 ATIVAN(LORazepam) 2 MG TAB Dose: 0 MG ORAL Q2H PRN Reason: CIWA SCORE Label Comments: Do NOT give if patient somnolent or difficult to arouse* Special Dose Instructions: See Protocol Lorazepam 2 MG Oral Tablet (RxNorm): 075336 ATIVAN (LORazepam) NDC: 64261831371 NORVASC(AmLODIpine BESYLATE) 10 MG TAB Dose: 10 MG ORAL DAILY Label Comments: MAY INCREASE FALL RISK Amlodipine 10 MG Oral Tablet [Norvasc] (RxNorm): 657544 NORVASC (AmLODIpine BESYLATE) NDC: 01666340229 ZESTRIL(LISINOPRIL) 40 MG TAB Dose: 40 MG ORAL DAILY Label Comments: MAY INCREASE FALL RISK Lisinopril 40 MG Oral Tablet (RxNorm): 757038 ZESTRIL (LISINOPRIL) NDC: 87194727923 TOPROL XL(METOPROLOL SUCCINATE) 100 MG TAB Dose: 100 MG ORAL DAILY Label Comments: MAY INCREASE FALL RISK 24 HR metoprolol succinate 100 MG Extended Release Oral Tablet [Toprol] ( RxNorm): 526424 TOPROL XL (METOPROLOL SUCCINATE) NDC: 11259131163 PAXIL(PARoxetine HCL) 20 MG TAB Dose: 40 MG ORAL DAILY Label Comments: MAY INCREASE FALL RISK. TERATOGENIC. WOMEN SHOULD NOT HANDLE OR CRUSH. Paroxetine Hydrochloride 20 MG Oral Tablet (RxNorm): 3421156 PAXIL (PARoxetine HCL) NDC: 90111823095 DESYREL(TraZODone HCL) 50 MG TAB Dose: 50 MG ORAL AT BEDTIME Label Comments: MAY INCREASE FALL RISK Trazodone Hydrochloride 50 MG Oral Tablet (RxNorm): 293949 DESYREL (TraZODone HCL) NDC: 97644628945 TOPROL XL(METOPROLOL SUCCINATE) 100 MG TAB Dose: 100 MG ORAL 2330 Label Comments: MAY INCREASE FALL RISK 24 HR metoprolol succinate 100 MG Extended Release Oral Tablet [Toprol] ( RxNorm): 659282 TOPROL XL (METOPROLOL SUCCINATE) NDC: 56745597070 LOVENOX(ENOXAPARIN) 40 MG/0.4 ML INJECTION Dose: 0.4 ML SUBCUTANEOUSLY Q12H Label Comments: INJECT SC INTO ABDOMINAL WALL ONLY. 0.4 ML Enoxaparin sodium 100 MG/ML Prefilled Syringe [Lovenox] (RxNorm): 529999 LOVENOX (ENOXAPARIN) NDC: 26506544279 COLCHICINE 0.6 MG TAB Dose: 0.6 MG ORAL TWICE A DAY Label Comments: TERATOGENIC. WOMEN SHOULD NOT HANDLE OR CRUSH. Colchicine 0.6 MG Oral Tablet [Colcrys] (RxNorm): 373571 (COLCHICINE) NDC: 02784348686 PEPCID(FAMOTIDINE) 20 MG TAB Dose: 20 MG ORAL TWICE A DAY Famotidine 20 MG Oral Tablet (RxNorm): 369128 PEPCID (FAMOTIDINE) NDC: 75943051131 ROXICODONE(OxyCODONE HCL) 5 MG TAB Dose: 5 MG ORAL Q6H pain Label Comments: OXYCODONE IMMED RELEASE MAY INCREASE FALL RISK Oxycodone Hydrochloride 5 MG Oral Tablet (RxNorm): 9920324 ROXICODONE (OxyCODONE HCL) NDC: 26976991579 TYLENOL(ACETAMINOPHEN) 325 MG TAB Dose: 0 MG ORAL Q4H PRN Reason: PAIN OR FEVER Label Comments: DO NOT EXCEED 4000 MG PER 24 HR Special Dose Instructions: 325-650 MG Acetaminophen 325 MG Oral Tablet (RxNorm): 163953 TYLENOL (ACETAMINOPHEN) NDC: 27560478810 MOTRIN(IBUPROFEN) 400 MG TAB Dose: 400 MG ORAL Q6H pain Ibuprofen 400 MG Oral Tablet (RxNorm): 389540 MOTRIN (IBUPROFEN) NDC: 02817073172 Discharge Medications - Medications that patient should continue to take. Review with physician Visit/Account #[id number] (September 07, 2017 7:07pm - September 11, 2017 3:10pm) Medication Route Sig/Schedule Precondition/Indication Comments/Instructions Codes COLCRYS(COLCHICINE) 0.6 MG TABLET Dose: 0.6 MG ORAL TWICE A DAY Colchicine 0.6 MG Oral Tablet [Colcrys] (RxNorm): 905983 COLCRYS (COLCHICINE) NDC: 26388512765 DESYREL(TraZODone HCL) 50 MG TABLET Dose: 50 MG ORAL AT BEDTIME Trazodone Hydrochloride 50 MG Oral Tablet (RxNorm): 136388 DESYREL (TraZODone HCL) NDC: 03692491814 PARoxetine HCL(PARoxetine HCL) 40 MG TABLET Dose: 40 MG ORAL DAILY Paroxetine Hydrochloride 40 MG Oral Tablet [Paxil] (RxNorm): 235514 PARoxetine HCL (PARoxetine HCL) NDC: 11670927515 Lisinopril(LISINOPRIL) 40 MG TABLET Dose: 40 MG ORAL DAILY Lisinopril 40 MG Oral Tablet (RxNorm): 841264 Lisinopril (LISINOPRIL) NDC: 61725720763 PEPCID(FAMOTIDINE) 20 MG TABLET Dose: 20 MG ORAL TWICE A DAY Famotidine 20 MG Oral Tablet (RxNorm): 815881 PEPCID (FAMOTIDINE) NDC: 79316615451 TOPROL XL(METOPROLOL SUCCINATE) 100 MG TAB Dose: 100 MG ORAL DAILY 24 HR metoprolol succinate 100 MG Extended Release Oral Tablet [Toprol] ( RxNorm): 743145 TOPROL XL (METOPROLOL SUCCINATE) NDC: 34443978784 NORVASC(AmLODIpine BESYLATE) 10 MG TAB Dose: 10 MG ORAL DAILY Amlodipine 10 MG Oral Tablet [Norvasc] (RxNorm): 647323 NORVASC (AmLODIpine BESYLATE) NDC: 46339028175 History Of Encounters Encounters Visit/Account #[id number] (September 07, 2017 7:07pm - September 11, 2017 3:10pm) Account Status Physican Of Record Reason For Visit Visit Diagnosis Start Date/Time Stop Date/Time ER CLARISSA CAR MD CHEST PAIN R07.9: CHEST PAIN, UNSPECIFIED ICD10 Sep 07, 2017 7:07pm Sep 08, 2017 10:18pm Irvin CATARINA BARNES MD CHEST PAIN R07.9: CHEST PAIN, UNSPECIFIED ICD10 Sep 08, 2017 11:02am Sep 11, 2017 3:10pm IN CHIQUI FOY DO CHEST PAIN R07.9: CHEST PAIN, UNSPECIFIED ICD10 Sep 08, 2017 11:02am Sep 11, 2017 3:10pm History of Procedures Procedure List No procedures recorded. Discharge Instructions Discharge Instructions Visit/Account #[id number] (September 07, 2017 7:07pm - September 11, 2017 3:10pm) DISCHARGE INSTRUCTIONS Physician Documentation PROVIDER INSTRUCTIONS Discharge Diet Cardiac Other Discharge Instructions no futher alcohol consuption General Information: Need to establish care with a primary care physician. You can call and try [facility] and they can do a financial screening for you. [facility] ([phone]) Discharge Diet Cardiac Other Discharge Instructions no futher alcohol consuption REASON TO CALL PROVIDER Notify Physician if: worseing pain change in condition questions or concerns FOLLOW UP APPOINTMENTS Follow Up Appointment Date/Time: Primary Care Physician in 2 weeks with cbc, cmp , lipid panel. Social History Social History No Social History Data. Immunizations Immunizations Patient Unit Number: [id number] Immunizations No immunizations recorded.
--- OUTSIDE RECORDS SUMMARY | 2017-12-14 18:15 | XMS REPORT ---
Author Author BILLIE FORTUNE [employer] Address Unknown Phone Unavailable Care Team Providers Care Wedding Coordinator Name Role Phone BILLIE FORTUNE CP Unavailable Allergies, Adverse Reactions, Alerts Substance Reaction Event Type Morphine Sulfate itching Drug Allergy Hydrocodone-Acetaminophen itching Drug Allergy Problems Problem Type Condition Code Onset Dates Condition Status Problem Essential hypertension I10 Active Problem Right knee pain M25.561 Active Problem Sciatica M54.30 Active Problem Elevated LFTs R79.89 Active Problem Anxiety F41.9 Active Problem Acute idiopathic gout of multiple sites M10.09 Active Problem Insomnia, unspecified type G47.00 Active Problem Low back pain M54.5 Active Problem 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 Problem History of renal failure Z87.448 Active Assessment Anxiety F41.9 Active Assessment Acute idiopathic gout of multiple sites M10.09 Active Assessment 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 Assessment Effusion of right knee M25.461 Active Assessment Right knee pain M25.561 Active Problem Marijuana use F12.10 Active Assessment Essential hypertension I10 Active Problem Excessive drinking alcohol F10.10 Active Medications Medication Code System Code Instructions Start Date End Date Status Dosage Ibuprofen [facility] [address]-93 200 mg Orally every 6 hrs 2-4 tablet as needed PredniSONE [facility] [address]-76 50 mg Orally Once a day Apr 29, 2016 May 04, 2016 1 tablet Amlodipine Besylate [facility] [address]-69 5 mg Orally Once a day Apr 29, 2016 1 tablet Lisinopril [facility] [address]-31 20 mg Orally Once a day Apr 29, 2016 1 tablet Paxil [facility] [address]-15 20 MG Orally Once a day September 22, 2012 2 tablets Allopurinol [facility] [address]-45 100 MG Orally Once a day Mar 26, 2016 Apr 25, 2016 1 tablet Betamethasone Dipropionate [facility] [address]-00 0.05 % Externally Twice a day ( no more than 2 weeks at a time) Mar 26, 2016 1 application to affected area Toprol XL [facility] 47623027189 50 MG Orally Once a day 1 tablet Procedures Procedure Coding System Code Date EXAM,SYNOVIAL FLUID CRYSTALS CPT-4 21613 Apr 29, 2016 DRAIN/INJECT, JOINT/BURSA CPT-4 40204 Apr 29, 2016 Office Visit, Est Pt., Level 3 CPT-4 64818 Apr 29, 2016 Vital Signs Date/Time: Apr 29, 2016 Cardiac Monitoring Heart Rate 96 bpm Weight 277 lbs Height 72 in BMI 37.56 Index Blood Pressure Diastolic 84 mmHg Blood Pressure Systolic 128 mmHg Results Name Result Date Reference Range Unit Abnormality Flag JOINT INJECTION-LARGE JOINT Summary Purpose eClinicalWorks Submission
--- OUTSIDE RECORDS SUMMARY | 2017-12-14 18:16 | XMS REPORT ---
Author Author NORMA MITCHELL Organization [facility] Address [address] [place] [address] Care Team Providers Care Ice Cream Server Name Role Phone NORMA MITCHELL Unavailable PROBLEMS Type Condition ICD9-CM Code [id number] Code Onset Dates Condition Status SNOMED Code Problem Low back pain M54.5 Active 555569013 Problem Anxiety F41.9 Active 44433896 Problem Elevated LFTs R79.89 Active 734515731 Problem Pseudogout M11.20 Active 780925594 Problem Pseudogout of left knee M11.262 Active 022300820 Problem Insomnia, unspecified type G47.00 Active 515611587 Problem History of renal failure Z87.448 Active 483265471 Problem Acute idiopathic gout of multiple sites M10.09 Active 15247774 Problem 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 54899453 Problem Excessive drinking alcohol F10.10 Active 145920888 Problem Essential hypertension I10 Active 53601251 Problem Sciatica M54.30 Active 47500573 Problem Marijuana use F12.10 Active 68024448 Problem Right knee pain M25.561 Active 17264554 ALLERGIES Substance Reaction Event Type Date Status Morphine Sulfate itching Drug Allergy November, Active Hydrocodone-Acetaminophen itching Drug Allergy November, Active SOCIAL HISTORY Never Assessed PLAN OF CARE Activity Details Follow Up 1 Week Reason:Suture removal VITAL SIGNS Height 72 in 2016-11-21 Weight 288.2 lbs 2016-11-21 Temperature 98.0 degrees Fahrenheit 2016-11-21 Heart Rate 88 bpm 2016-11-21 Respiratory Rate 20 2016-11-21 BMI 39.08 kg/m2 2016-11-21 Blood pressure systolic 136 mmHg 2016-11-21 Blood pressure diastolic 84 mmHg 2016-11-21 MEDICATIONS Medication Instructions Dosage Frequency Start Date End Date Duration Status Toprol XL 50 MG Orally Once a day 1 tablet 24h 90 days Active Amlodipine Besylate 5 mg Orally Once a day 1 tablet 24h Apr, 90 days Active Paxil 20 MG Orally Once a day 2 tablets 24h 20 Sep, 2012 90 days Active Lisinopril 20 mg Orally Once a day 1 tablet 24h 25 Apr, 2016 90 days Active RESULTS No Results PROCEDURES No Known procedures IMMUNIZATIONS No Known Immunizations MEDICAL (GENERAL) HISTORY Type Description Date Medical [...] intoxication 09/02/2012 Hospitalization History Acute Renal Failure--[facility] 01/24/16
--- OUTSIDE RECORDS SUMMARY | 2017-12-14 18:16 | XMS REPORT ---
Author Author BILLIE FORTUNE [facility] Address [address] [place] [address] Care Team Providers Care Engineering Consultant Name Role Phone BILLIE FORTUNE Unavailable PROBLEMS Type Condition ICD9-CM Code [id number] Code Onset Dates Condition Status SNOMED Code Problem Essential hypertension I10 Active 05895277 Problem Right knee pain M25.561 Active 66473188 Problem Sciatica M54.30 Active 70940640 Problem Marijuana use F12.10 Active 55215726 Problem Excessive drinking alcohol F10.10 Active 067519842 Problem Elevated LFTs R79.89 Active 371268509 Problem Anxiety F41.9 Active 07946706 Problem Insomnia, unspecified type G47.00 Active 952264015 Problem Low back pain M54.5 Active 536713160 Problem 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
--- OUTSIDE RECORDS SUMMARY | 2017-12-14 18:16 | XMS REPORT ---
Author Author BILLIE FORTUNE [facility] Address [address] [place] [address] Care Team Providers Care Carpenters Supervisor Name Role Phone BILLIE FORTUNE Unavailable PROBLEMS Type Condition ICD9-CM Code [id number] Code Onset Dates Condition Status SNOMED Code Problem Essential hypertension I10 Active 48062712 Problem Right knee pain M25.561 Active 78456927 Problem Sciatica M54.30 Active 75390409 Problem Marijuana use F12.10 Active 29990924 Problem Excessive drinking alcohol F10.10 Active 624655134 Problem Elevated LFTs R79.89 Active 057898036 Problem Anxiety F41.9 Active 57304512 Problem Insomnia, unspecified type G47.00 Active 652516048 Problem Low back pain M54.5 Active 058397037 Problem 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
--- OUTSIDE RECORDS SUMMARY | 2017-12-14 18:16 | XMS REPORT ---
Author Author DEVIKA BILLIE [facility] Address [address] [place] [address] Care Team Providers Care Electrocardiographic Technician Name Role Phone KARRIE FORTUENHANY Unavailable PROBLEMS Type Condition ICD9-CM Code FIM52-YJ Code Onset Dates Condition Status SNOMED Code Problem Low back pain M54.5 Active 055549357 Problem Anxiety F41.9 Active 49704335 Problem Elevated LFTs R79.89 Active 577646373 Problem Pseudogout M11.20 Active 265063231 Problem Pseudogout of left knee M11.262 Active 256512263 Problem Insomnia, unspecified type G47.00 Active 473269662 Problem History of renal failure Z87.448 Active 561076911 Problem Acute idiopathic gout of multiple sites M10.09 Active 57282189 Problem 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 97254268 Problem Excessive drinking alcohol F10.10 Active 348435776 Problem Essential hypertension I10 Active 09545651 Problem Sciatica M54.30 Active 63639759 Problem Marijuana use F12.10 Active 69466239 Problem Right knee pain M25.561 Active 14826125 ALLERGIES Substance Reaction Event Type Date Status Morphine Sulfate itching Drug Allergy Apr, Active Hydrocodone-Acetaminophen itching Drug Allergy Apr, Active ENCOUNTERS Encounter Location Date Diagnosis [facility] [address], [place] [address] Apr, Pseudogout M11.20 ; Insomnia, unspecified type G47.00 ; Essential hypertension I10 and Anxiety F41.9 [facility] [address], [place] [address] Apr, Pseudogout M11.20 ; Insomnia, unspecified type G47.00 and Pseudogout of left knee M11.262 [place] [address], [place] [address] Apr, [facility] [id number] [place] [id number] Mar, [facility] [id number] [place] [address] [id number] Mar, [facility] [id number] [place] [address] [id number] Mar, Essential hypertension I10 and Anxiety F41.9 [facility] [id number] [address] November, Laceration of left wrist, initial encounter S61.512A [facility] [id number] [place] [address] [id number]- [address] Sep, Essential hypertension I10 [facility] [id number] [place] [address]- 1544 Sep, [facility] [id number] [place] [address]- 3755 Jul, [facility] [address] [place] [address] 9[address]99- 2227 Jun, [facility] [id number] [place] [address] 71452- 5620 May, [facility] [address], [place] [address] May, [facility] [address] [place] [address]- [address]28 May, [facility] [address] [address] Apr, Effusion of right knee M25.461 ; 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 tophus M1A.09X0 ; Essential hypertension I10 ; Right knee pain M25.561 ; Acute idiopathic gout of multiple sites M10.09 and Anxiety F41.9 [facility] [address] [place] [address]- 37[address] Apr, [place] [id number] [place] [address]- 5358 Mar, [place] [address] [address] [id number] [place] [address] 7[address]89- 9759 Mar, Essential hypertension I10 ; Anxiety F41.9 ; Peeling skin R23.4 ; 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 tophus M1A.09X0 ; History of renal failure Z87.448 ; Elevated LFTs R79.89 and Insomnia, unspecified type G47.00 [facility] [place] [id number] [place] [address]9767 Mar, [place] [address] [address] [id number] [place] [address] 78122- 2660 Mar, [facility] [address] [address] Mar, [facility] [place] [id number] [place] [address]14 -[address]84 Feb, [facility] [place] [id number] [place] [address] Feb, STD exposure Z20.2 ; Contact with and (suspected) exposure to viral hepatitis Z20.5 ; Problems related to high-risk sexual behavior Z72.51 and Tinea cruris B35.6 [place] [address] [id number] [place] [address] 22652- 2128 Feb, Acute gout, unspecified cause, unspecified site M10.9 [place] [address] [id number] [place] [address] 6[address]17- 5[address] Feb, Essential hypertension I10 and Acute gout of multiple sites , unspecified cause M10.9 [place] [address] [address] [id number] [place] [address] 94688- 3746 Jan, [place] [address] [id number] [place] [address] 72012- 2667 Jan, [facility] [id number] [place] [address] Jan, Hypotension, unspecified hypotension type I95.9 ; Anuria R34 and Dizziness R42 [facility] [id number] [place] [address]83- 3874 Jan, [facility] [address] [address] [id number] [place] [address] 57567- 8[address] Sep, [facility] [address] [address] Sep, Pain of right sacroiliac joint M53.3 [place] [address] [address] Sep, Hemorrhoids K64.9 ; Low back pain M54.5 and Peeling skin R23.4 [place] [address] [address] Sep, [facility] [address] [address] [id number] [place] [address] 92207- [address] Aug, High ankle sprain of right lower extremity S93.431A and Back pain M54.9 [facility] [address] [address] [id number] [place] [address] 48964- 4724 Aug, [facility] [address] [address] [id number] [place] [address] 85395- 4867 Aug, [place] [address] [id number] [place] [address] 27543- 0133 May, Right knee pain M25.561 [place] [address] [address] Dec, Sciatica 724.3 ; Excessive drinking alcohol 305.00 ; Insomnia, unspecified 780.52 ; Hypertension 401.9 and Anxiety 300.00 [place] [address] [address] Dec, [facility] [place] [facility] [address] [id number] [place] [address]- [address] Oct, [facility] [place] [facility] [address] [id number] [place] [address]- 9334 Oct, [facility] [place] [facility] [address] [id number] [place] [address]- 9486 Aug, [facility] [place] [facility] [address] [id number] [place] [address]- 3554 Aug, [facility] [place] [facility] [address] [id number] [place] [address]- 4320 Aug, [facility] [place] [facility] [address] [id number] [place] [address]- 3349 Aug, [facility] [place] [facility] [address] [id number] [place] [address]- 1357 Jul, [facility] [place] [facility] [address] [id number] [place] [address]- 2691 Jul, [facility] [place] [facility] [address] [id number] [place] [address]- 9333 Jun, [facility] [place] [facility] [address] [id number] [place] [address]- 4973 Jun, [facility] [place] [facility] [address] [id number] [place] [address]- 1726 Jun, [facility] [place] [facility] [address] [id number] [place] [address]- 3682 Jun, [facility] [place] [facility] [address] [id number] [place] [address]- 4546 Jun, [facility] [place] [facility] [address] [id number] [place] [address]- 4147 Jun, [facility] [place] [facility] [address] [id number] [place] [address]- 8895 Feb, [facility] [place] [facility] [address] [id number] [place] [address]- 5582 Feb, [facility] [place] [facility] [address] [id number] [place] [address]- 2158 Feb, [facility] [place] [facility] [address] [id number] [place] [address]- 7505 Feb, [facility] [place] [facility] [address] [id number] [place] [address]- 2705 Feb, [facility] [place] [facility] [address] [id number] [place] [address]- 0553 Feb, [facility] [place] [facility] [address] [id number] [place] [address]- 6735 Jan, [facility] [place] [facility] [address] [id number] [place] [address]- 6925 Jan, [facility] [place] [facility] [address] [id number] [place] [address]- 2532 Jan, [facility] [place] [facility] [address] [id number] [place] [address]- 5231 Jan, [facility] [place] [facility] [address] [id number] [place] [address]- 5423 Dec, [facility] [place] [facility] [address] [id number] [place] [address]- 0361 Dec, [facility] [place] [facility] [address] [id number] [place] [address]- 3187 Dec, [facility] [place] [facility] [address] [id number] [place] [address]- 6592 Dec, [facility] [place] [facility] [address] [id number] [place] [address]- 3479 November, [facility] [place] [facility] [address] [id number] [place] [address]- 0781 November, [facility] [place] [facility] [address] [id number] [place] [address]- 3644 November, [facility] [place] [facility] [address] [id number] [place] [address]- 5902 November, [facility] [place] [facility] [address] [id number] [place] [address]- 5524 November, [facility] [place] [facility] [address] [id number] [place] [address]- 6811 November, [facility] [place] [facility] [address] [id number] [place] [address]- 2774 November, [facility] [place] [facility] [address] [id number] [place] [address]- 9888 November, [facility] [place] [facility] [address] [id number] [place] [address]- 9114 November, [facility] [place] [facility] [address] [id number] [place] [address]- 2711 November, [facility] [place] [facility] [address] [id number] [place] [address]- 2772 Oct, [facility] [place] [facility] [address] [id number] [place] [address]- 1632 Oct, [facility] [place] [facility] [address] [id number] [place] [address]- 3805 Oct, [facility] [place] [facility] [address] [id number] [place] [address]- 8731 Oct, [facility] [place] [facility] [address] [id number] [place] [address]- 8127 Sep, [facility] [place] [facility] [address] [id number] [place] [address]- 8555 Sep, [facility] [place] [facility] [address] [id number] [place] [address]- 7446 Apr, [facility] [place] [facility] [address] [id number] [place] [address]- 2546 Apr, [facility] [place] [facility] [address] [id number] [place] [address]- 7799 Apr, [facility] [address] [id number] [place] [address]- 1786 Apr, [facility] [address] [id number] [place] [address] Mar, [facility] [address] [id number] [place] [address]- 0666 Mar, [facility] [place] [facility] [address] [id number] [place] [address]- 3572 Mar, [facility] [address] [id number] [place] [address]- 2157 Feb, [facility] [address] [id number] [place] [address]- 6563 Feb, [facility] [address] [id number] [place] [address]- 4219 Feb, [facility] [address] [id number] [place] [address]- 3851 Oct, [facility] [address] [id number] [place] [address]- 3425 Oct, [facility] [place] [facility] [address] [id number] [place] [address]- 4953 Oct, [facility] [address] [id number], [place] [address]- 6149 Oct, [facility] [place] [facility] [address] [id number] [place] [address]- 5601 Oct, [facility] [place] [facility] [address] [id number] [place] [address]- 2678 05 Oct, 2012 [facility] [place] [facility] [address] [id number] [place] [address]- 0719 Oct, [facility] [place] [facility] [address] [id number] [place] [address]- 1563 Sep, [facility] [place] [facility] [address] [id number] [place] [address]- 0226 Sep, [facility] [address] [id number] [place] [address]- 8316 Sep, [facility] [place] [facility] [address] [id number] [place] [address]- 2546 Sep, [facility] [place] [facility] [address] [id number] [place] [address]- 6766 Jul, [facility] [place] [facility] [address] [id number] [place] [address]- 3136 Jan, [facility] [place] [facility] [address] [id number] [place] [address]- 6966 Jan, [facility] [address] [facility] [id number] [place] [address]- 1476 Jan, [facility] [address] [id number] [id number] Sep, [facility] [address] [id number] [place] [address]- 3736 Sep, [facility] [place] [facility] [address] [id number] [place] [address]- 4686 Jul, [facility] [address] [facility] [id number] [place] [address]- 4656 Jun, [facility] [place] [facility] [address] [id number] [place] [address]- 7546 May, [facility] [place] [facility] [address] [id number] [place] [address]- 8986 May, [facility] [place] [facility] [address] [id number] [place] [address]- 0596 May, [facility] [place] [facility] [address] [id number] [place] [address]- 2546 May, [facility] [place] [facility] [address] [id number] [place] [address]- 4126 May, [facility] [address] [facility] [id number], [place] [address]- 3868 Apr, [facility] [address] [facility] [id number] [address]68 Jun, [facility] [address] [facility] [id number], [place] [address]- 6085 Feb, [facility] [address] [facility] [id number] [address] November, IMMUNIZATIONS Vaccine Route Administration Date Status KENALOG 40 MG/ML (PER 10 MG) OTH Other/Miscellaneous Apr 08, 2017 Administered SOCIAL HISTORY Never Assessed REASON FOR VISIT left Knee Pain x 4 weeks ago -- alice mireles, patient states his trazodone dose was prescribed wrong 50 mg and he was taking 300 mg PLAN OF CARE Activity Details Follow Up prn Reason: VITAL SIGNS Height 72 in 2017-04-08 Weight 258.6 lbs 2017-04-08 Temperature 97.9 degrees Fahrenheit 2017-04-08 Heart Rate 80 bpm 2017-04-08 Respiratory Rate 22 2017-04-08 BMI 35.07 kg/m2 2017-04-08 Blood pressure systolic 128 mmHg 2017-04-08 Blood pressure diastolic 72 mmHg 2017-04-08 MEDICATIONS Medication Instructions Dosage Frequency Start Date End Date Duration Status Amlodipine Besylate 10 MG Orally Once a day 1 tablet 24h Apr, 30 days Active Lisinopril 40 MG Orally Once a day 1 tablet 24h Apr, 30 days Active Tylenol 1 tab Active Paxil 20 MG Orally Once a day 2 tablets 24h Sep, 30 days Active Trazodone HCl 150 MG Orally Once a day 1 tablet at bedtime 24h Mar, 30 day(s) Active Colchicine 0.6 MG Orally 2 times a day 1 tablet 12h Apr, Jun, 30 day(s) Active Toprol XL 100 MG Orally Once a day 1 tablet 24h 30 days Active RESULTS No Results PROCEDURES Procedure Date Ordered Result Body Site DRAIN/INJECT, JOINT/BURSA Apr 08, 2017 THER/PROPH/DIAG INJ, SC/IM Apr 08, 2017 KENALOG 40 MG/ML (PER 10 MG) Apr 08, 2017 INSTRUCTIONS MEDICATIONS ADMINISTERED No Known Medications MEDICAL [...] intoxication 09/02/2012 Hospitalization History Acute Renal Failure--[facility] 01/24/16
--- OUTSIDE RECORDS SUMMARY | 2017-12-14 18:16 | XMS REPORT ---
Author Author DEVIKA BILLIE Organization [facility] Address [address] [place] [address] Care Team Providers Care Laboratory Associate Name Role Phone DEVIKAKARRIE JERNIGANHANY Unavailable PROBLEMS Type Condition ICD9-CM Code RUV94-SE Code Onset Dates Condition Status SNOMED Code Problem Low back pain M54.5 Active 479842141 Problem Anxiety F41.9 Active 50741184 Problem Elevated LFTs R79.89 Active 706568467 Problem Pseudogout M11.20 Active 391504074 Problem Pseudogout of left knee M11.262 Active 510872091 Problem Insomnia, unspecified type G47.00 Active 982929219 Problem History of renal failure Z87.448 Active 886900291 Problem Acute idiopathic gout of multiple sites M10.09 Active 40618703 Problem 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 38224121 Problem Excessive drinking alcohol F10.10 Active 822533149 Problem Essential hypertension I10 Active 22149295 Problem Sciatica M54.30 Active 13120755 Problem Marijuana use F12.10 Active 41711114 Problem Right knee pain M25.561 Active 33148239 ALLERGIES No Information SOCIAL HISTORY Never Assessed PLAN OF CARE VITAL SIGNS MEDICATIONS No [...] intoxication 09/02/2012 Hospitalization History Acute Renal Failure--[facility]ia [facility] 01/24/16
--- OUTSIDE RECORDS SUMMARY | 2017-12-14 18:16 | XMS REPORT ---
Author Author FRANCINE CONSTANTINO Organization [employer] Address Unknown Phone Unavailable Care Team Providers Care Nutritional Yeast Supervisor Name Role Phone FRANCINE CONSTANTINO CP Unavailable Allergies, Adverse Reactions, Alerts Substance Reaction Event Type Morphine Sulfate Info Not Available Drug Allergy Problems Problem Type Condition Code Onset Dates Condition Status Assessment Anuria R34 Active Assessment Dizziness R42 Active Problem Right knee pain M25.561 Active Problem Sciatica M54.30 Active Problem Low back pain M54.5 Active Problem Marijuana use F12.10 Active Assessment Hypotension, unspecified hypotension type I95.9 Active Problem Essential hypertension I10 Active Problem Excessive drinking alcohol F10.10 Active Medications Medication Code System Code Instructions Start Date End Date Status Dosage Fish Oil [facility] [address]-14 1000 MG Orally Once a day 1 capsule Lisinopril-Hydrochlorothiazide [facility] [address]-98 20-25 MG Orally Once a day 1 tablet Trazodone HCl [facility] [address]-35 150 MG Orally Once a day 1-2 tablet at bedtime as needed Potassium [facility] [address]-35 99 MG Orally Once a day 1 tablet Vitamin B12 [facility] [address] 100 MCG Orally Once a day 1 tablet Procedures Procedure Coding System Code Date Office Visit, Est Pt., Level 4 CPT-4 61731 January 24, 2016 PHENERGAN 50MG/ML CPT-4 J2550 January 24, 2016 MEASURE BLOOD OXYGEN LEVEL CPT-4 15446 January 24, 2016 THER/PROPH/DIAG INJ, SC/IM CPT-4 87977 January 24, 2016 Vital Signs Date/Time: January 24, 2016 Cardiac Monitoring Heart Rate 118 bpm Weight 260.8 lbs Height 72 in Blood Pressure Diastolic 42 mmHg Blood Pressure Systolic 56 mmHg Results No Known Results Summary Purpose [employer] Submission
--- OUTSIDE RECORDS SUMMARY | 2017-12-14 18:16 | XMS REPORT ---
Author Author AKOSUA FORREST [facility] Address [address] [place] [address] Care Team Providers Care Casting And Pasting Supervisor Name Role Phone AKOSUA FORREST Unavailable PROBLEMS Type Condition ICD9-CM Code XLR17-QM Code Onset Dates Condition Status SNOMED Code Problem Low back pain M54.5 Active 992497168 Problem Anxiety F41.9 Active 26177820 Problem Elevated LFTs R79.89 Active 027620906 Problem Pseudogout M11.20 Active 350458223 Problem Pseudogout of left knee M11.262 Active 152392396 Problem Insomnia, unspecified type G47.00 Active 653373178 Problem History of renal failure Z87.448 Active 789730186 Problem Acute idiopathic gout of multiple sites M10.09 Active 95067924 Problem 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 90969050 Problem Excessive drinking alcohol F10.10 Active 507151741 Problem Essential hypertension I10 Active 68528642 Problem Sciatica M54.30 Active 33139658 Problem Marijuana use F12.10 Active 49631104 Problem Right knee pain M25.561 Active 12290510 ALLERGIES No Information ENCOUNTERS Encounter Location Date Diagnosis [facility] [id number] [place] [address] 87041- 2338 Apr, Pseudogout M11.20 ; Insomnia, unspecified type G47.00 ; Essential hypertension I10 and Anxiety F41.9 [facility] [id number] [place] [address] 96996- 1352 Apr, Pseudogout M11.20 ; Insomnia, unspecified type G47.00 and Pseudogout of left knee M11.262 [facility] [address] [place] [address] 69803- 8573 Apr, [facility] [address] [place] [address] [id number] Mar, [facility] [id number] [place] [address] [id number] Mar, [facility] [id number] [place] [address] [id number] Mar, Essential hypertension I10 and Anxiety F41.9 [facility] [id number] [place] [address] 33679 -4143 November, Laceration of left wrist, initial encounter S61.512A [facility] [id number] [place] [address] 14099- 9210 Sep, Essential hypertension I10 [facility] [id number] [place] [address] 35416- 0450 Sep, [facility] [id number] [place] [address] 85994- 7132 Jul, [facility] [id number] [place] [address] 32996- 2302 Jun, [facility] [id number] [place] [address] 61862- 9144 May, [facility] [id number] [place] [address] 62037- 3964 May, [facility] [address] [place] [address] 29475- 9563 May, [facility] [id number] [place] [address] 30309- 8651 Apr, Effusion of right knee M25.461 ; 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 tophus M1A.09X0 ; Essential hypertension I10 ; Right knee pain M25.561 ; Acute idiopathic gout of multiple sites M10.09 and Anxiety F41.9 [facility] [address] [address] Apr, [facility] [id number] [place] [address] 67074- 8443 Mar, [place] [id number] [place] [address] 29251- 1256 Mar, Essential hypertension I10 ; Anxiety F41.9 ; Peeling skin R23.4 ; 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 tophus M1A.09X0 ; History of renal failure Z87.448 ; Elevated LFTs R79.89 and Insomnia, unspecified type G47.00 [facility] [place] [id number] [place] [address] 99769 -0009 Mar, [place] [id number] [place] [address] 81966- 9325 Mar, [facility] [place] [id number] [place] [address] 03622 -1321 Mar, [facility] [place] [id number] [place] [address] 60044 -9809 Feb, [facility] [place] [id number] [place] [address] 53940 -7796 Feb, STD exposure Z20.2 ; Contact with and (suspected) exposure to viral hepatitis Z20.5 ; Problems related to high-risk sexual behavior Z72.51 and Tinea cruris B35.6 [place] [id number] [place] [address] 11558- 5820 Feb, Acute gout, unspecified cause, unspecified site M10.9 [place] [id number] [place] [address] 80374- 8037 Feb, Essential hypertension I10 and Acute gout of multiple sites , unspecified cause M10.9 [facility] [id number] [place] [address] 66131- 7607 Jan, [place] [id number] [place] [address] 73502- 2902 Jan, [facility] [place] [id number] [place] [address] 26357 -7413 Jan, Hypotension, unspecified hypotension type I95.9 ; Anuria R34 and Dizziness R42 [place] [id number] [place] [address] 05469- 5762 Jan, [facility] [id number] [place] [address] 91145- 3032 Sep, [place] [address] 88998- 1613 Sep, Pain of right sacroiliac joint M53.3 [place] [address] 66218- 9264 Sep, Hemorrhoids K64.9 ; Low back pain M54.5 and Peeling skin R23.4 [place] [id number] [place] [address] 30463- 8911 Sep, [facility] [address] 48204- 9974 Aug, High ankle sprain of right lower extremity S93.431A and Back pain M54.9 [place] [id number] [place] [address] 76822- 6069 Aug, [place] [id number] [place] [address] 97955- 4374 Aug, [place] [id number] [place] [address] 39392- 1001 May, Right knee pain M25.561 [facility] [id number] [place] [address] 97490- 6398 Dec, Sciatica 724.3 ; Excessive drinking alcohol 305.00 ; Insomnia, unspecified 780.52 ; Hypertension 401.9 and Anxiety 300.00 [place] [id number] [place] [address] 12889- 2952 Dec, [place] [address] 59403- 4954 14 Oct, 2014 [facility] [place] [facility] [address] [id number] [place] [address]- 3867 Oct, [facility] [place] [facility] [address] [id number] [place] [address]- 3604 Aug, [facility] [place] [facility] [address] [id number] [place]096 Aug, [facility] [place] [facility] [address] [id number] [place] [address]- 4980 Aug, [facility] [place] [facility] [address] [id number] [place] [address]- 4392 Aug, [facility] [place] [facility] [address] [id number] [place] [address]- 4116 Jul, [facility] [place] [facility] [address] [id number] [place] [address]- 2076 Jul, [facility] [place] [facility] [address] [id number] [place] [address]- 8716 Jun, [facility] [place] [facility] [address] [id number] [place] [address]- 7450 Jun, [facility] [place] [facility] [address] [id number] [place] [address]- 5386 Jun, [facility] [place] [facility] [address] [id number] [place] [address]- 7690 Jun, [facility] [place] [facility] [address] [id number] [place] [address]- 7838 Jun, [facility] [place] [facility] [address] [id number] [place] [address]- 9512 Jun, [facility] [place] [facility] [address] [id number] [place] [address]- 8981 Feb, [facility] [place] [facility] [address] [id number] [place] [address]- 7567 Feb, [facility] [place] [facility] [address] [id number] [place] [address]- 0069 Feb, [facility] [place] [facility] [address] [id number] [place] [address]- 6455 Feb, [facility] [place] [facility] [address] [id number] [place] [address]- 1944 Feb, [facility] [place] [facility] [address] [id number] [place] [address]- 4626 Feb, [facility] [place] [facility] [address] [id number] [place] [address]- 8326 Jan, [facility] [place] [facility] [address] [id number] [place] [address]- 0895 Jan, [facility] [place] [facility] [address] [id number] [place] [address]- 1755 Jan, [facility] [place] [facility] [address] [id number] [place] [address]- 1559 Jan, [facility] [place] [facility] [address] [id number] [place] [address]- 0739 Dec, [facility] [place] [facility] [address] [id number] [place] [address]- 2765 Dec, [facility] [place] [facility] [address] [id number] [place] [address]- 1096 Dec, [facility] [place] [facility] [address] [id number] [place] [address]- 5803 Dec, [facility] [place] [facility] [address] [id number] [place] [address]- 6921 November, [facility] [place] [facility] [address] [id number] [place] [address]- 4445 November, [facility] [place] [facility] [address] [id number] [place] [address]- 2251 November, [facility] [place] [facility] [address] [id number] [place] [address]- 0612 November, [facility] [address] [id number] [place] [address]- 8221 November, [facility] [place] [facility] [address] [id number] [place] [address]- 7162 November, [facility] [place] [facility] [address] [id number] [place] [address]- 7546 November, [facility] [place] [facility] [address] [id number] [place] [address]- 0394 November, [facility] [place] [facility] [address] [id number] [place] [address]- 6417 November, [facility] [place] [facility] [address] [id number] [place] [address]- 5998 November, [facility] [place] [facility] [address] [id number] [place] [address]- 6992 Oct, [facility] [place] [facility] [address] [id number] [place] [address]- 5446 Oct, [facility] [place] [facility] [address] [id number] [place] [address]- 8385 Oct, [facility] [place] [facility] [address] [id number] [place] [address]- 5940 Oct, [facility] [place] [facility] [address] [id number] [place] [address]- 3741 Sep, [facility] [place] [facility] [address] [id number], [place] [address]- 2133 Sep, [facility] [place] [facility] [address] [id number] [place] [address]- 0325 Apr, [facility] [place] [facility] [address] [id number] [place] [address]- 7226 Apr, [facility] [place] [facility] [address] [id number], [place] [address]- 3190 Apr, [facility] [place] [facility] [address] [id number], [place] [address]- 4606 Apr, [facility] [address] [id number] [place] [address]- 4601 Mar, [facility] [address] [id number] [place] [address]- 8539 Mar, [facility] [address] [id number] [place] [address]- 0767 Mar, [facility] [address] [id number] [place] [address]- 8489 Feb, [facility] [address] [id number] [place] [address]- 1149 Feb, [facility] [address] [id number] [place] [address]- 6613 Feb, [facility] [address] [id number] [place] [address]- 6065 Oct, [facility] [address] [id number] [place] [address]- 4003 Oct, [facility] [address] [id number] [place] [address]- 3621 Oct, [facility] [address] [id number] [place] [address]- 6720 Oct, [facility] [address] [id number] [place] [address]- 0690 Oct, [facility] [place] [facility] [address] [id number] [place] [address]- 6437 Oct, [facility] [place] [facility] [address] [id number] [place] [address]- 9525 Oct, [facility] [place] [facility] [address] [id number] [place] [address]- 7468 Sep, [facility] [place] [facility] [address] [id number] [place] [address]- 5712 Sep, [facility] [place] [facility] [address] [id number] [place] [address]- 9596 12 Sep, 2012 [facility] [address] [id number] [place] [address]- 6876 Sep, [facility] [address] [id number] [place] [address]- 1126 Jul, [facility] [address] [id number] [place] [address]- 9866 Jan, [facility] [address] [id number] [place] [address]- 9426 Jan, [facility] [address] [id number] [place] [address]- 5566 Jan, [facility] [address] [id number] [place] [id number] Sep, [facility] [address] [id number] [place] [address]- 0040 Sep, [facility] [address] [id number] [place] [address]- 5606 Jul, [facility] [address] [id number] [place] [address]- 2736 Jun, [facility] [address] [id number] [place] [address]- 0296 14 May, 2011 [facility] [address] [id number] [place] [address]- 5006 May, [facility] [address] [id number] [place] [address]- 2546 May, [facility] [place] [facility] [address] [id number] [place] [address]- 2546 May, [facility] [place] [facility] [address] [id number] [place] [address]- 2546 May, [facility] [place] [facility] [address] [id number] [place] [address]- 4496 Apr, [facility] [address] [facility] [id number] [place] [address] 2546 Jun, [facility] [address] [facility] [id number], [place] [address]- 2546 Feb, [facility] [address] [facility] [id number] [place] [address]- 2546 November, IMMUNIZATIONS No Known Immunizations SOCIAL HISTORY Never Assessed REASON FOR VISIT request for Trazodone PLAN OF CARE VITAL SIGNS MEDICATIONS Medication Instructions Dosage Frequency Start Date End Date Duration Status Trazodone HCl 50 mg Orally Once a day 1 tablet at bedtime 24h Mar, 30 day(s) Active RESULTS No Results PROCEDURES No Known [...] intoxication 09/02/2012 Hospitalization History Acute Renal Failure--[facility] 01/24/16
--- OUTSIDE RECORDS SUMMARY | 2017-12-14 18:16 | XMS REPORT ---
Author ALEJANDRO Roberts [facility] eClinical[employer] Address Unknown Phone Unavailable Care Team Providers Care Radiological Technologist Name Role Phone ALEJANDRO GILMAN CP Unavailable Allergies No Known Allergies Problems [...]
--- OUTSIDE RECORDS SUMMARY | 2017-12-14 18:17 | XMS REPORT ---
Author Author BILLIE FORTUNE [facility] Address [address] [place] [address] Care Team Providers Care Outbound Telemarketer Name Role Phone DEVIKAKARRIE JERNIGANHANY Unavailable PROBLEMS Type Condition ICD9-CM Code UWX69-FL Code Onset Dates Condition Status SNOMED Code Problem Low back pain M54.5 Active 404305859 Problem Anxiety F41.9 Active 82752251 Problem Elevated LFTs R79.89 Active 992188341 Problem Pseudogout M11.20 Active 388515467 Problem Pseudogout of left knee M11.262 Active 071741629 Problem Insomnia, unspecified type G47.00 Active 328149347 Problem History of renal failure Z87.448 Active 254024014 Problem Acute idiopathic gout of multiple sites M10.09 Active 96096147 Problem 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 33801725 Problem Excessive drinking alcohol F10.10 Active 763238838 Problem Essential hypertension I10 Active 43875552 Problem Sciatica M54.30 Active 30837494 Problem Marijuana use F12.10 Active 27240550 Problem Right knee pain M25.561 Active 28507057 ALLERGIES No Information ENCOUNTERS Encounter Location Date Diagnosis [facility] [address] [address] Apr, Pseudogout M11.20 ; Insomnia, unspecified type G47.00 ; Essential hypertension I10 and Anxiety F41.9 [facility] [id number] [place] [address] Apr, Pseudogout M11.20 ; Insomnia, unspecified type G47.00 and Pseudogout of left knee M11.262 [facility] [address] [address] Apr, [facility] [id number] [id number] Mar, [facility] [id number] [place] [id number] Mar, [facility] [id number] [place] [id number] Mar, Essential hypertension I10 and Anxiety F41.9 [facility] [id number] [place] [address] November, Laceration of left wrist, initial encounter S61.512A [facility] [id number] [place] [address] Sep, Essential hypertension I10 [facility] [id number] [place] [address]- 87[address] Sep, [facility] [id number] [place] [address]82- 6980 Jul, [facility] [id number] [place] [address]- 45[address] Jun, [facility] [id number] [place] [address] 35373- 9386 May, [facility] [id number] [place] [address]- 4744 May, [facility] [address] [place] [address]- 495[address] May, [facility] [id number] [place] [address]- 7816 Apr, Effusion of right knee M25.461 ; 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 tophus M1A.09X0 ; Essential hypertension I10 ; Right knee pain M25.561 ; Acute idiopathic gout of multiple sites M10.09 and Anxiety F41.9 [facility] [address] [address] Apr, [facility] [address] [address] Mar, [place] [address] [address] Mar, Essential hypertension I10 ; Anxiety F41.9 ; Peeling skin R23.4 ; 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 tophus M1A.09X0 ; History of renal failure Z87.448 ; Elevated LFTs R79.89 and Insomnia, unspecified type G47.00 [facility] [place] [address] [address] Mar, [place] [address] [address] Mar, [facility] [address] [address] Mar, [facility] [address] [address] Feb, [facility] [address] [address] Feb, STD exposure Z20.2 ; Contact with and (suspected) exposure to viral hepatitis Z20.5 ; Problems related to high-risk sexual behavior Z72.51 and Tinea cruris B35.[address] [address] Feb, Acute gout, unspecified cause, unspecified site M10.9 [place] [id number] [place] [address] 387[address] Feb, Essential hypertension I10 and Acute gout of multiple sites , unspecified cause M10.9 [place] [address] [address] Jan, [place] [address] [address] Jan, [facility] [address] [address] Jan, Hypotension, unspecified hypotension type I95.9 ; Anuria R34 and Dizziness R42 [place] [address] [address] Jan, [facility] [id number] [place] [address]- [address] Sep, [place] [address] [address] Sep, Pain of right sacroiliac joint M53.3 [place] [address] [address] Sep, Hemorrhoids K64.9 ; Low back pain M54.5 and Peeling skin R23.4 [place] [address] [address]- [address] Sep, [place] [address] [address] Aug, High ankle sprain of right lower extremity S93.431A and Back pain M54.9 [place] [address] [address] Aug, [place] [id number] [place] [address]92- 5859 Aug, [place] [id number] [place] [address]- 1751 May, Right knee pain M25.561 [place] [id number] [place] [address]- 4[address] Dec, Sciatica 724.3 ; Excessive drinking alcohol 305.00 ; Insomnia, unspecified 780.52 ; Hypertension 401.9 and Anxiety 300.00 [place] [id number] [place] [address]- [address] Dec, [place] [address] [address] 14 Oct, 2014 [facility] [place] [facility] [address] [id number] [place] [address] Oct, [facility] [place] [facility] [address] [id number] [place] [address] Aug, [facility] [place] [facility] [address] [id number] [place] [address] Aug, [facility] [place] [facility] [address] [id number] [place] [address]- 2765 Aug, [facility] [place] [facility] [address] [id number] [place] [address]- [address] Aug, [facility] [place] [facility] [address] [id number] [place] [address] 47[address] Jul, [facility] [place] [facility] [address] [id number] [place] [address]- 8[address] Jul, [facility] [place] [facility] [address] [id number] [place] [address]- 6[address] Jun, [facility] [place] [facility] [address] [id number] [place] [address]- 8[address] Jun, [facility] [place] [facility] [address] [id number] [place] [address]- 4585 Jun, [facility] [place] [facility] [address] [id number] [place] [address]- 1026 Jun, [facility] [place] [facility] [address] [id number] [place] [address]- 7659 Jun, [facility] [place] [facility] [address] [id number] [place] [address] Jun, [facility] [place] [facility] [address] [id number] [place] [address]- 14[address] Feb, [facility] [place] [facility] [address] [id number] [place] [address]- 5839 Feb, [facility] [place] [facility] [address] [id number] [place] [address] 2546 Feb, [facility] [place] [facility] [address] [id number] [place] [address]- 6[address] Feb, [facility] [place] [facility] [address] [id number] [place] [address]- 25[address] Feb, [facility] [place] [facility] [address] [id number] [place] [address]- 1393 Feb, [facility] [place] [facility] [address] [id number] [place] [address]- 7084 Jan, [facility] [place] [facility] [address] [id number] [place] [address]- 9251 Jan, [facility] [place] [facility] [address] [id number] [place] [address]- 2616 Jan, [facility] [place] [facility] [address] [id number] [place] [address]- 1075 Jan, [facility] [place] [facility] [address] [id number] [place] [address]- 8628 Dec, [facility] [place] [facility] [address] [id number] [place] [address]- 2824 Dec, [facility] [place] [facility] [address] [id number] [place] [address]- 3308 Dec, [facility] [place] [facility] [address] [id number] [place] [address]- 5656 Dec, [facility] [place] [facility] [address] [id number] [place] [address]- 1522 November, [facility] [place] [facility] [address] [id number] [place] [address]- 8056 November, [facility] [place] [facility] [address] [id number] [place] [address]- 2546 November, [facility] [place] [facility] [address] [id number] [place] [address]- 9567 November, [facility] [address] [id number] [place] [address]- 9781 November, [facility] [place] [facility] [address] [id number] [place] [address]- 1943 November, [facility] [place] [facility] [address] [id number] [place] [address] November, [facility] [place] [facility] [address] [id number] [place] [address]- 7097 November, [facility] [place] [facility] [address] [id number] [place] [address]- 9896 November, [facility] [place] [facility] [address] [id number] [place] [address]- 0840 November, [facility] [place] [facility] [address] [id number] [place] [address]- 2409 Oct, [facility] [place] [facility] [address] [id number] [place] [address]- 8014 Oct, [facility] [place] [facility] [address] [id number] [place] [address]- 0315 Oct, [facility] [place] [facility] [address] [id number] [place] [address]- 5098 Oct, [facility] [place] [facility] [address] [id number] [place] [address]- 0923 Sep, [facility] [place] [facility] [address] [id number] [address]- 48[address] Sep, [facility] [place] [facility] [address] [id number] [place] [address]- 1998 Apr, [facility] [place] [facility] [address] [id number] [place] [address]- 9840 Apr, [facility] [place] [facility] [address] [id number] [place] [address]- 3141 Apr, [facility] [place] [facility] [address] [id number] [place] [address]- 2158 09 Apr, 2013 [facility] [address] [id number] [place] [address]- 2696 11 Mar, 2013 [facility] [address] [id number] [place] [address]- 4663 06 Mar, 2013 [facility] [address] [id number] [place] [address]- 2442 Mar, [facility] [place] [facility] [address] [id number] [place] [address]- 6141 Feb, [facility] [address] [id number] [place] [address]- 9638 Feb, [facility] [address] [id number] [place] [address]- 1945 Feb, [facility] [address] [id number] [place] [address]- [address] 29 Oct, 2012 [facility] [address] [id number] [place] [address]- 9493 Oct, [facility] [address] [id number] [place] [address]- 3930 18 Oct, 2012 [facility] [address] [id number] [place] [address]- 4565 17 Oct, 2012 [facility] [address] [id number] [place] [address]- 4144 Oct, [facility] [place] [facility] [address] [id number] [place] [address]- 9664 05 Oct, 2012 [facility] [place] [facility] [address] [id number] [place] [address]- 6868 Oct, [facility] [place] [facility] [address] [id number] [place] [address]- 7340 Sep, [facility] [place] [facility] [address] [id number] [place] [address]- 6872 Sep, [facility] [place] [facility] [address] [id number] [place] [address]- 2546 Sep, [facility] [place] [facility] [address] [id number] [place] [address]- 0826 Sep, [facility] [place] [facility] [address] [id number] [place] [address]- 2546 Jul, [facility] [place] [facility] [address] [id number] [place] [address]- 4776 Jan, [facility] [address] [id number] [place] [address]- 2546 Jan, [facility] [address] [id number] [place] [address]- 9256 Jan, [facility] [address] [id number] [place] [id number] Sep, [facility] [address] [id number] [place] [address]- 3326 Sep, [facility] [address] [id number] [place] [address]- 6206 Jul, [facility] [address] [id number] [place] [address]- 6066 Jun, [facility] [address] [id number] [place] [address]- 2546 14 May, 2011 [facility] [place] [facility] [address] [id number] [place] [address]- 2546 May, [facility] [place] [facility] [address] [id number] [place] [address]- 2546 May, [facility] [place] [facility] [address] [id number] [place] [address]- 2546 May, [facility] [place] [facility] [address] [id number] [place] [address]- 2546 May, [facility] [place] [facility] [address] [id number] [place] [address]- 8286 Apr, [facility] [address] [facility] [id number] [place] [address]- [address] Jun, [facility] [address] [facility] [id number] [place] [address]- 4[address] Feb, [facility] [address] [facility] [id number] [place] [address]- 76[address] November, IMMUNIZATIONS No Known Immunizations SOCIAL HISTORY Never Assessed REASON FOR VISIT Requests return call PLAN OF CARE VITAL SIGNS MEDICATIONS Unknown [...] 09/02/2012 Hospitalization History Acute Renal Failure--[facility] 01/24/16
--- OUTSIDE RECORDS SUMMARY | 2017-12-14 18:17 | XMS REPORT ---
Author LÓPEZ Wu [facility] eClinicalWorks Address Unknown Phone Unavailable Care Team Providers Care Packaging Engineer Name Role Phone LÓPEZ DUGAN CP Unavailable [...] Start Date End Date Status Dosage Seroquel [facility] [address]-37 50 mg Orally Once a day at HS January 26, 2016 1 tablet Fish Oil [facility] [address]-78 1000 MG Orally Once a day 1 capsule Toprol XL [facility] 28137984418 50 MG Orally Once a day 1 tablet Melatonin [facility] [address]-74 5 mg Orally Once a day 2 tablet at bedtime as needed with food Paxil [facility] [address]-54 20 MG Orally Once a day September 22, 2012 2 tablets Daily Multivitamin [facility] 60823-58269 - Orally Once a day 1 capsules Results No Known Results Summary Purpose eClinicalWorks Submission
--- OUTSIDE RECORDS SUMMARY | 2017-12-14 18:19 | XMS REPORT | Continuity of Care Document ---
Author Author [facility] Address Unknown Phone Unavailable Allergies Active Description Code Type Severity Reaction Onset Reported/Identified Relationship to Patient Clinical Status Yes morphine Drug Allergy 02/11/2010 Yes morphine Drug Allergy N/A N/A 02/11/2010 Yes morphine [id number] Drug Allergy Unknown N/A 10/28/2013 Yes fentanyl [id number] Drug Allergy Unknown N/A 01/24/2016 Yes ketorolac [id number] Drug Allergy Unknown N/A 01/24/2016 Yes MORPHINE [id number] Drug Allergy N/A "RED, BLISTERY SKIN" 09/07/2017 Yes MORPHINE [id number] Drug Allergy Moderate "RED, BLISTERY SKIN" 09/08/2017 Medications There is no data. Problems Date Dx Coded Attending Type Code Diagnosis Diagnosed By 02/08/2008 296.90 MOOD DISORDER 02/08/2008 401.1 HYPERTENSION, BENIGN ESSENTIAL 02/08/2008 493.90 ASTHMA UNSPECIFIED 02/08/2008 GHULAM HERNANDEZ MD 296.90 MOOD DISORDER 02/08/2008 GHULAM HERNANDEZ MD 401.1 HYPERTENSION, BENIGN ESSENTIAL 02/08/2008 GHULAM HERNANDEZ MD 493.90 ASTHMA UNSPECIFIED 02/08/2008 296.90 MOOD DISORDER 02/08/2008 401.1 HYPERTENSION, BENIGN ESSENTIAL 02/08/2008 493.90 ASTHMA UNSPECIFIED 02/08/2008 296.90 MOOD DISORDER 02/08/2008 401.1 HYPERTENSION, BENIGN ESSENTIAL 02/08/2008 493.90 ASTHMA UNSPECIFIED 02/08/2008 296.90 MOOD DISORDER 02/08/2008 401.1 HYPERTENSION, BENIGN ESSENTIAL 02/08/2008 493.90 ASTHMA UNSPECIFIED 02/08/2008 296.90 MOOD DISORDER 02/08/2008 401.1 HYPERTENSION, BENIGN ESSENTIAL 02/08/2008 493.90 ASTHMA UNSPECIFIED 02/08/2008 296.90 MOOD DISORDER 02/08/2008 401.1 HYPERTENSION, BENIGN ESSENTIAL 02/08/2008 493.90 ASTHMA UNSPECIFIED 02/08/2008 296.90 MOOD DISORDER 02/08/2008 401.1 HYPERTENSION, BENIGN ESSENTIAL 02/08/2008 493.90 ASTHMA UNSPECIFIED 02/08/2008 296.90 MOOD DISORDER 02/08/2008 401.1 HYPERTENSION, BENIGN ESSENTIAL 02/08/2008 493.90 ASTHMA UNSPECIFIED 02/08/2008 296.90 MOOD DISORDER 02/08/2008 401.1 HYPERTENSION, BENIGN ESSENTIAL 02/08/2008 493.90 ASTHMA UNSPECIFIED 02/08/2008 MARY LEGAL TRANSCRIBER, KWESI S 296.90 MOOD DISORDER 02/08/2008 MARY LEGAL TRANSCRIBER, KWESI S 401.1 HYPERTENSION, BENIGN ESSENTIAL 02/08/2008 MARY LEGAL TRANSCRIBER, KWESI S 493.90 ASTHMA UNSPECIFIED 02/08/2008 WHITE DDS, BETINA D 296.90 MOOD DISORDER 02/08/2008 WHITE DDS, BETINA D 401.1 HYPERTENSION, BENIGN ESSENTIAL 02/08/2008 WHITE DDS, BETINA D 493.90 ASTHMA UNSPECIFIED 02/08/2008 DUGAN DO, LÓPEZ K 296.90 MOOD DISORDER 02/08/2008 DUGAN DO, LÓPEZ K 401.1 HYPERTENSION, BENIGN ESSENTIAL 02/08/2008 DUGAN DO, LÓPEZ K 493.90 ASTHMA UNSPECIFIED 02/08/2008 DUGAN DO, LÓPEZ K 296.90 MOOD DISORDER 02/08/2008 DUGAN DO, LÓPEZ K 401.1 HYPERTENSION, BENIGN ESSENTIAL 02/08/2008 DUGAN DO, LÓPEZ K 493.90 ASTHMA UNSPECIFIED 02/08/2008 DUGAN DO, LÓPEZ K 296.90 MOOD DISORDER 02/08/2008 DUGAN DO, LÓPEZ K 401.1 HYPERTENSION, BENIGN ESSENTIAL 02/08/2008 DUGAN DO, LÓPEZ K 493.90 ASTHMA UNSPECIFIED 02/08/2008 DUGAN DO, LÓPEZ K 296.90 MOOD DISORDER 02/08/2008 DUGAN DO, LÓPEZ K 401.1 HYPERTENSION, BENIGN ESSENTIAL 02/08/2008 DUGAN DO, LÓPEZ K 493.90 ASTHMA UNSPECIFIED 02/08/2008 DUGAN DO, LÓPEZ K 296.90 MOOD DISORDER 02/08/2008 DUGAN DO, LÓPEZ K 401.1 HYPERTENSION, BENIGN ESSENTIAL 02/08/2008 DUGAN DO, LÓPEZ K 493.90 ASTHMA UNSPECIFIED 02/08/2008 MARIANNA LEGAL TRANSCRIBER, MORIAH R 296.90 MOOD DISORDER 02/08/2008 MARIANNA LEGAL TRANSCRIBER, MORIAH R 401.1 HYPERTENSION, BENIGN ESSENTIAL 02/08/2008 MARIANNA LEGAL TRANSCRIBER, MORIAH R 493.90 ASTHMA UNSPECIFIED 11/13/2009 919.5 SUPERFICIAL INJURY OF OTHER, MULTIPLE, AND UNSPECIFIED SITES, INSECT BITE, NONVENOMOUS, INFECTED 11/13/2009 GHULAM HERNANDEZ MD 919.5 SUPERFICIAL INJURY OF OTHER, MULTIPLE, AND UNSPECIFIED SITES, INSECT BITE, NONVENOMOUS, INFECTED 11/13/2009 919.5 SUPERFICIAL INJURY OF OTHER, MULTIPLE, AND UNSPECIFIED SITES, INSECT BITE, NONVENOMOUS, INFECTED 11/13/2009 919.5 SUPERFICIAL INJURY OF OTHER, MULTIPLE, AND UNSPECIFIED SITES, INSECT BITE, NONVENOMOUS, INFECTED 11/13/2009 919.5 SUPERFICIAL INJURY OF OTHER, MULTIPLE, AND UNSPECIFIED SITES, INSECT BITE, NONVENOMOUS, INFECTED 11/13/2009 919.5 SUPERFICIAL INJURY OF OTHER, MULTIPLE, AND UNSPECIFIED SITES, INSECT BITE, NONVENOMOUS, INFECTED 11/13/2009 919.5 SUPERFICIAL INJURY OF OTHER, MULTIPLE, AND UNSPECIFIED SITES, INSECT BITE, NONVENOMOUS, INFECTED 11/13/2009 919.5 SUPERFICIAL INJURY OF OTHER, MULTIPLE, AND UNSPECIFIED SITES, INSECT BITE, NONVENOMOUS, INFECTED 11/13/2009 919.5 SUPERFICIAL INJURY OF OTHER, MULTIPLE, AND UNSPECIFIED SITES, INSECT BITE, NONVENOMOUS, INFECTED 11/13/2009 919.5 SUPERFICIAL INJURY OF OTHER, MULTIPLE, AND UNSPECIFIED SITES, INSECT BITE, NONVENOMOUS, INFECTED 11/13/2009 MARY GATES, KWESI Man 919.5 SUPERFICIAL INJURY OF OTHER, MULTIPLE, AND UNSPECIFIED SITES, INSECT BITE, NONVENOMOUS, INFECTED 11/13/2009 BETINA JORDAN DDS 919.5 SUPERFICIAL INJURY OF OTHER, MULTIPLE, AND UNSPECIFIED SITES, INSECT BITE , NONVENOMOUS, INFECTED 11/13/2009 LÓPEZ DUGAN DO 919.5 SUPERFICIAL INJURY OF OTHER, MULTIPLE, AND UNSPECIFIED SITES, INSECT BITE, NONVENOMOUS, INFECTED 11/13/2009 LÓPEZ DUGAN DO 919.5 SUPERFICIAL INJURY OF OTHER, MULTIPLE, AND UNSPECIFIED SITES, INSECT BITE, NONVENOMOUS, INFECTED 11/13/2009 LÓPEZ DUGAN DO 919.5 SUPERFICIAL INJURY OF OTHER, MULTIPLE, AND UNSPECIFIED SITES, INSECT BITE, NONVENOMOUS, INFECTED 11/13/2009 DUGAN DO, LÓPEZ K 919.5 SUPERFICIAL INJURY OF OTHER, MULTIPLE, AND UNSPECIFIED SITES, INSECT BITE, NONVENOMOUS, INFECTED 11/13/2009 DUGAN DO, LÓPEZ K 919.5 SUPERFICIAL INJURY OF OTHER, MULTIPLE, AND UNSPECIFIED SITES, INSECT BITE, NONVENOMOUS, INFECTED 11/13/2009 MORIAH CABRAL APRN 919.5 SUPERFICIAL INJURY OF OTHER, MULTIPLE, AND UNSPECIFIED SITES, INSECT BITE , NONVENOMOUS, INFECTED 02/11/2010 338.1 ACUTE PAIN 02/11/2010 724.2 LUMBAGO 02/11/2010 GHULAM HERNANDEZ MD 338.1 ACUTE PAIN 02/11/2010 GHULAM HERNANDEZ MD 724.2 LUMBAGO 02/11/2010 338.1 ACUTE PAIN 02/11/2010 724.2 LUMBAGO 02/11/2010 338.1 ACUTE PAIN 02/11/2010 724.2 LUMBAGO 02/11/2010 338.1 ACUTE PAIN 02/11/2010 724.2 LUMBAGO 02/11/2010 338.1 ACUTE PAIN 02/11/2010 724.2 LUMBAGO 02/11/2010 338.1 ACUTE PAIN 02/11/2010 724.2 LUMBAGO 02/11/2010 338.1 ACUTE PAIN 02/11/2010 724.2 LUMBAGO 02/11/2010 338.1 ACUTE PAIN 02/11/2010 724.2 LUMBAGO 02/11/2010 338.1 ACUTE PAIN 02/11/2010 724.2 LUMBAGO 02/11/2010 KWESI HERNANDEZ APRN S 338.1 ACUTE PAIN 02/11/2010 MARY GATES KWESI S 724.2 LUMBAGO 02/11/2010 BETINA JORDAN DDS 338.1 ACUTE PAIN 02/11/2010 BETINA JORDAN DDS 724.2 LUMBAGO 02/11/2010 DUGAN DO, LÓPEZ K 338.1 ACUTE PAIN 02/11/2010 DUGAN DO, LÓPEZ K 724.2 LUMBAGO 02/11/2010 DUGAN DO, LÓPEZ K 338.1 ACUTE PAIN 02/11/2010 DUGAN DO, LÓPEZ K 724.2 LUMBAGO 02/11/2010 DUGAN DO, LÓPEZ K 338.1 ACUTE PAIN 02/11/2010 DUGAN DO, LÓPEZ K 724.2 LUMBAGO 02/11/2010 DUGAN DO, LÓPEZ K 338.1 ACUTE PAIN 02/11/2010 DUGAN DO, LÓPEZ K 724.2 LUMBAGO 02/11/2010 DUGAN DO, LÓPEZ K 338.1 ACUTE PAIN 02/11/2010 DUGAN DO, LÓPEZ K 724.2 LUMBAGO 02/11/2010 MARIANNA GATES, MORIAH R 338.1 ACUTE PAIN 02/11/2010 MARIANNA MAYENN, MORIAH R 724.2 LUMBAGO 06/26/2010 719.47 PAIN IN JOINT INVOLVING ANKLE AND FOOT 06/26/2010 GHULAM HERNANDEZ MD 719.47 PAIN IN JOINT INVOLVING ANKLE AND FOOT 06/26/2010 719.47 PAIN IN JOINT INVOLVING ANKLE AND FOOT 06/26/2010 719.47 PAIN IN JOINT INVOLVING ANKLE AND FOOT 06/26/2010 719.47 PAIN IN JOINT INVOLVING ANKLE AND FOOT 06/26/2010 719.47 PAIN IN JOINT INVOLVING ANKLE AND FOOT 06/26/2010 719.47 PAIN IN JOINT INVOLVING ANKLE AND FOOT 06/26/2010 719.47 PAIN IN JOINT INVOLVING ANKLE AND FOOT 06/26/2010 719.47 PAIN IN JOINT INVOLVING ANKLE AND FOOT 06/26/2010 719.47 PAIN IN JOINT INVOLVING ANKLE AND FOOT 06/26/2010 KWESI HERNANDEZ APRN 719.47 PAIN IN JOINT INVOLVING ANKLE AND FOOT 06/26/2010 NIKKI WARREN, BETINA Quevedo 719.47 PAIN IN JOINT INVOLVING ANKLE AND FOOT 06/26/2010 DUGAN DO, LÓPEZ K 719.47 PAIN IN JOINT INVOLVING ANKLE AND FOOT 06/26/2010 DUGAN DO, LÓPEZ K 719.47 PAIN IN JOINT INVOLVING ANKLE AND FOOT 06/26/2010 DUGAN DO, LÓPEZ K 719.47 PAIN IN JOINT INVOLVING ANKLE AND FOOT 06/26/2010 DUGAN DO, LÓPEZ K 719.47 PAIN IN JOINT INVOLVING ANKLE AND FOOT 06/26/2010 DUGAN DO, LÓPEZ K 719.47 PAIN IN JOINT INVOLVING ANKLE AND FOOT 06/26/2010 MARIANNA GATES, MORIAH R 719.47 PAIN IN JOINT INVOLVING ANKLE AND FOOT 09/26/2010 719.46 PAIN IN JOINT INVOLVING LOWER LEG 09/26/2010 GHULAM HERNANDEZ MD 719.46 PAIN IN JOINT INVOLVING LOWER LEG 09/26/2010 719.46 PAIN IN JOINT INVOLVING LOWER LEG 09/26/2010 719.46 PAIN IN JOINT INVOLVING LOWER LEG 09/26/2010 719.46 PAIN IN JOINT INVOLVING LOWER LEG 09/26/2010 719.46 Pain In Joint Involving Lower Leg 09/26/2010 719.46 Pain In Joint Involving Lower Leg 09/26/2010 719.46 Pain In Joint Involving Lower Leg 09/26/2010 719.46 Pain In Joint Involving Lower Leg 09/26/2010 719.46 Pain In Joint Involving Lower Leg 09/26/2010 KWESI HERNANDEZ APRN 719.46 Pain In Joint Involving Lower Leg 09/26/2010 BETINA JORDAN DDS 719.46 Pain In Joint Involving Lower Leg 09/26/2010 DUGAN DO, LÓPEZ K 719.46 Pain In Joint Involving Lower Leg 09/26/2010 DUGAN DO, LÓPEZ K 719.46 Pain In Joint Involving Lower Leg 09/26/2010 DUGAN DO, LÓPEZ K 719.46 Pain In Joint Involving Lower Leg 09/26/2010 DUGAN DO, LÓPEZ K 719.46 Pain In Joint Involving Lower Leg 09/26/2010 DUGAN DO, LÓPEZ K 719.46 Pain In Joint Involving Lower Leg 09/26/2010 MORIAH CABRAL APRN 719.46 Pain In Joint Involving Lower Leg 10/10/2010 845.00 UNSPECIFIED SITE OF ANKLE SPRAIN 10/10/2010 GHULAM HERNANDEZ MD 845.00 UNSPECIFIED SITE OF ANKLE SPRAIN 10/10/2010 845.00 UNSPECIFIED SITE OF ANKLE SPRAIN 10/10/2010 845.00 UNSPECIFIED SITE OF ANKLE SPRAIN 10/10/2010 845.00 UNSPECIFIED SITE OF ANKLE SPRAIN 10/10/2010 845.00 UNSPECIFIED SITE OF ANKLE SPRAIN 10/10/2010 845.00 UNSPECIFIED SITE OF ANKLE SPRAIN 10/10/2010 845.00 UNSPECIFIED SITE OF ANKLE SPRAIN 10/10/2010 845.00 UNSPECIFIED SITE OF ANKLE SPRAIN 10/10/2010 845.00 UNSPECIFIED SITE OF ANKLE SPRAIN 10/10/2010 KWESI HERNANDEZ APRN 845.00 UNSPECIFIED SITE OF ANKLE SPRAIN 10/10/2010 WHITE DDS, BETINA D 845.00 UNSPECIFIED SITE OF ANKLE SPRAIN 10/10/2010 DUGAN DO, LÓPEZ K 845.00 UNSPECIFIED SITE OF ANKLE SPRAIN 10/10/2010 DUGAN DO, LÓPEZ K 845.00 UNSPECIFIED SITE OF ANKLE SPRAIN 10/10/2010 DUGAN DO, LÓPEZ K 845.00 UNSPECIFIED SITE OF ANKLE SPRAIN 10/10/2010 DUGAN DO, LÓPEZ K 845.00 UNSPECIFIED SITE OF ANKLE SPRAIN 10/10/2010 DUGAN DO, LÓPEZ K 845.00 UNSPECIFIED SITE OF ANKLE SPRAIN 10/10/2010 MARIANNA LEGAL TRANSCRIBER, MORIAH R 845.00 UNSPECIFIED SITE OF ANKLE SPRAIN 09/17/2011 401.9 Combined Systolic And Diastolic Elevation 09/17/2011 565.0 ANAL FISSURE 09/17/2011 578.1 red blood in bowel movement (hematochezia) 09/17/2011 780.52 insomnia 09/17/2011 787.1 heartburn 09/17/2011 GHULAM HERNANDEZ MD 401.9 Combined Systolic And Diastolic Elevation 09/17/2011 GHULAM HERNANDEZ MD 565.0 ANAL FISSURE 09/17/2011 GHULAM HERNANDEZ MD 578.1 red blood in bowel movement (hematochezia) 09/17/2011 GHULAM HERNANDEZ MD 780.52 insomnia 09/17/2011 GHULAM HERNANDEZ MD 787.1 heartburn 09/17/2011 401.9 Combined Systolic And Diastolic Elevation 09/17/2011 565.0 ANAL FISSURE 09/17/2011 578.1 red blood in bowel movement (hematochezia) 09/17/2011 780.52 insomnia 09/17/2011 787.1 heartburn 09/17/2011 401.9 Combined Systolic And Diastolic Elevation 09/17/2011 565.0 ANAL FISSURE 09/17/2011 578.1 red blood in bowel movement (hematochezia) 09/17/2011 780.52 insomnia 09/17/2011 787.1 heartburn 09/17/2011 401.9 Combined Systolic And Diastolic Elevation 09/17/2011 565.0 ANAL FISSURE 09/17/2011 578.1 red blood in bowel movement (hematochezia) 09/17/2011 780.52 insomnia 09/17/2011 787.1 heartburn 09/17/2011 401.9 Combined Systolic And Diastolic Elevation 09/17/2011 565.0 ANAL FISSURE 09/17/2011 578.1 red blood in bowel movement (hematochezia) 09/17/2011 780.52 insomnia 09/17/2011 787.1 heartburn 09/17/2011 401.9 Combined Systolic And Diastolic Elevation 09/17/2011 565.0 ANAL FISSURE 09/17/2011 578.1 red blood in bowel movement (hematochezia) 09/17/2011 780.52 insomnia 09/17/2011 787.1 heartburn 09/17/2011 401.9 Combined Systolic And Diastolic Elevation 09/17/2011 565.0 ANAL FISSURE 09/17/2011 578.1 red blood in bowel movement (hematochezia) 09/17/2011 780.52 insomnia 09/17/2011 787.1 heartburn 09/17/2011 401.9 Combined Systolic And Diastolic Elevation 09/17/2011 565.0 ANAL FISSURE 09/17/2011 578.1 red blood in bowel movement (hematochezia) 09/17/2011 780.52 insomnia 09/17/2011 787.1 heartburn 09/17/2011 401.9 Combined Systolic And Diastolic Elevation 09/17/2011 565.0 ANAL FISSURE 09/17/2011 578.1 red blood in bowel movement (hematochezia) 09/17/2011 780.52 insomnia 09/17/2011 787.1 heartburn 09/17/2011 MARY LEGAL TRANSCRIBER, KWESI S 401.9 Combined Systolic And Diastolic Elevation 09/17/2011 MARY LEGAL TRANSCRIBER, KWESI S 565.0 ANAL FISSURE 09/17/2011 MARY LEGAL TRANSCRIBER, KWESI S 578.1 red blood in bowel movement (hematochezia) 09/17/2011 MARY LEGAL TRANSCRIBER, KWESI S 780.52 insomnia 09/17/2011 MARY LEGAL TRANSCRIBER, KWESI S 787.1 heartburn 09/17/2011 WHITE DDS, BETINA D 401.9 Combined Systolic And Diastolic Elevation 09/17/2011 WHITE DDS, BETINA D 565.0 ANAL FISSURE 09/17/2011 WHITE DDS, BETINA D 578.1 red blood in bowel movement (hematochezia) 09/17/2011 WHITE DDS, BETINA D 780.52 insomnia 09/17/2011 WHITE DDS, BETINA D 787.1 heartburn 09/17/2011 DUGAN DO, LÓPEZ K 401.9 Combined Systolic And Diastolic Elevation 09/17/2011 DUGAN DO, LÓPEZ K 565.0 ANAL FISSURE 09/17/2011 DUGAN DO, LÓPEZ K 578.1 red blood in bowel movement (hematochezia) 09/17/2011 DUGAN DO, LÓPEZ K 780.52 insomnia 09/17/2011 DUGAN DO, LÓPEZ K 787.1 heartburn 09/17/2011 DUGAN DO, LÓPEZ K 401.9 Combined Systolic And Diastolic Elevation 09/17/2011 DUGAN DO, LÓPEZ K 565.0 ANAL FISSURE 09/17/2011 DUGAN DO, LÓPEZ K 578.1 red blood in bowel movement (hematochezia) 09/17/2011 DUGAN DO, LÓPEZ K 780.52 insomnia 09/17/2011 DUGAN DO, LÓPEZ K 787.1 heartburn 09/17/2011 DUGAN DO, LÓPEZ K 401.9 Combined Systolic And Diastolic Elevation 09/17/2011 DUGAN DO, LÓPEZ K 565.0 ANAL FISSURE 09/17/2011 DUGAN DO, LÓPEZ K 578.1 RED BLOOD IN BOWEL MOVEMENT (HEMATOCHEZIA) 09/17/2011 DUGAN DO, LÓPEZ K 780.52 insomnia 09/17/2011 DUGAN DO, LÓPEZ K 787.1 heartburn 09/17/2011 DUGAN DO, LÓPEZ K 401.9 COMBINED SYSTOLIC AND DIASTOLIC ELEVATION 09/17/2011 DUGAN DO, LÓPEZ K 565.0 ANAL FISSURE 09/17/2011 DUGAN DO, LÓPEZ K 578.1 RED BLOOD IN BOWEL MOVEMENT (HEMATOCHEZIA) 09/17/2011 DUGAN DO, LÓPEZ K 780.52 insomnia 09/17/2011 DUGAN DO, LÓPEZ K 787.1 heartburn 09/17/2011 DUGAN DO, LÓPEZ K 401.9 COMBINED SYSTOLIC AND DIASTOLIC ELEVATION 09/17/2011 DUGAN DO, LÓPEZ K 565.0 ANAL FISSURE 09/17/2011 DUGAN DO, LÓPEZ K 578.1 RED BLOOD IN BOWEL MOVEMENT (HEMATOCHEZIA) 09/17/2011 TALAT DUGAN DOA K 780.52 insomnia 09/17/2011 LÓPEZ DUGAN DO K 787.1 heartburn 09/17/2011 MROIAH CABRAL APRN R 401.9 COMBINED SYSTOLIC AND DIASTOLIC ELEVATION 09/17/2011 MORIAH CABRAL APRN R 565.0 ANAL FISSURE 09/17/2011 MORIAH CABRAL APRN R 578.1 RED BLOOD IN BOWEL MOVEMENT (HEMATOCHEZIA) 09/17/2011 FABIOLA CABRAL APRNINA R 780.52 insomnia 09/17/2011 MORIAH CABRAL APRN R 787.1 heartburn 01/14/2012 790.4 ABNORMAL LFT ( ELEVATED) 01/14/2012 V06.1 TDAP DX 01/14/2012 GHULAM HERNANDEZ MD 790.4 ABNORMAL LFT (ELEVATED) 01/14/2012 GHULAM HERNANDEZ MD V06.1 TDAP DX 01/14/2012 790.4 ABNORMAL LFT ( ELEVATED) 01/14/2012 V06.1 TDAP DX 01/14/2012 790.4 ABNORMAL LFT ( ELEVATED) 01/14/2012 V06.1 TDAP DX 01/14/2012 790.4 ABNORMAL LFT ( ELEVATED) 01/14/2012 V06.1 TDAP DX 01/14/2012 790.4 ABNORMAL LFT ( ELEVATED) 01/14/2012 V06.1 TDAP DX 01/14/2012 790.4 ABNORMAL LFT ( ELEVATED) 01/14/2012 V06.1 TDAP DX 01/14/2012 790.4 ABNORMAL LFT ( ELEVATED) 01/14/2012 V06.1 TDAP DX 01/14/2012 790.4 ABNORMAL LFT ( ELEVATED) 01/14/2012 V06.1 TDAP DX 01/14/2012 790.4 ABNORMAL LFT ( ELEVATED) 01/14/2012 V06.1 TDAP DX 01/14/2012 KWESI HERNANDEZ APRN 790.4 ABNORMAL LFT (ELEVATED) 01/14/2012 KWESI HERNANDEZ APRN V06.1 TDAP DX 01/14/2012 WHITE DDS, BETINA Quevedo 790.4 ABNORMAL LFT (ELEVATED) 01/14/2012 WHITE DDS, BETINA Quevedo V06.1 TDAP DX 01/14/2012 DUGAN DO, LÓPEZ K 790.4 ABNORMAL LFT (ELEVATED) 01/14/2012 DUGAN DO, LÓPEZ K V06.1 TDAP DX 01/14/2012 DUGAN DO, LÓPEZ K 790.4 ABNORMAL LFT (ELEVATED) 01/14/2012 DUGAN DO, LÓPEZ K V06.1 TDAP DX 01/14/2012 DUGAN DO, LÓPEZ K 790.4 ABNORMAL LFT (ELEVATED) 01/14/2012 DUGAN DO, LÓPEZ K V06.1 TDAP DX 01/14/2012 DUGAN DO, LÓPEZ K 790.4 ABNORMAL LFT (ELEVATED) 01/14/2012 DUGAN DO, LÓPEZ K V06.1 TDAP DX 01/14/2012 DUGAN DO, LÓPEZ K 790.4 ABNORMAL LFT (ELEVATED) 01/14/2012 DUGAN DO, LÓPEZ K V06.1 TDAP DX 01/14/2012 FABIOLA CABRAL APRNINA R 790.4 ABNORMAL LFT (ELEVATED) 01/14/2012 MARIANNA GATES MORIAH R V06.1 TDAP DX 09/14/2012 GHULAM HERNANDEZ MD 305.00 NONDEPENDENT ALCOHOL ABUSE UNSPECIFIED DRINKING BEHAVIOR 09/14/2012 GHULAM HERNANDEZ MD 782.1 RASH AND OTHER NONSPECIFIC SKIN ERUPTION 09/14/2012 305.00 NONDEPENDENT ALCOHOL ABUSE UNSPECIFIED DRINKING BEHAVIOR 09/14/2012 782.1 RASH AND OTHER NONSPECIFIC SKIN ERUPTION 09/14/2012 305.00 NONDEPENDENT ALCOHOL ABUSE UNSPECIFIED DRINKING BEHAVIOR 09/14/2012 782.1 RASH AND OTHER NONSPECIFIC SKIN ERUPTION 09/14/2012 305.00 NONDEPENDENT ALCOHOL ABUSE UNSPECIFIED DRINKING BEHAVIOR 09/14/2012 782.1 RASH AND OTHER NONSPECIFIC SKIN ERUPTION 09/14/2012 305.00 NONDEPENDENT ALCOHOL ABUSE UNSPECIFIED DRINKING BEHAVIOR 09/14/2012 782.1 RASH AND OTHER NONSPECIFIC SKIN ERUPTION 09/14/2012 305.00 NONDEPENDENT ALCOHOL ABUSE UNSPECIFIED DRINKING BEHAVIOR 09/14/2012 782.1 RASH AND OTHER NONSPECIFIC SKIN ERUPTION 09/14/2012 305.00 NONDEPENDENT ALCOHOL ABUSE UNSPECIFIED DRINKING BEHAVIOR 09/14/2012 782.1 RASH AND OTHER NONSPECIFIC SKIN ERUPTION 09/14/2012 305.00 NONDEPENDENT ALCOHOL ABUSE UNSPECIFIED DRINKING BEHAVIOR 09/14/2012 782.1 RASH AND OTHER NONSPECIFIC SKIN ERUPTION 09/14/2012 305.00 NONDEPENDENT ALCOHOL ABUSE UNSPECIFIED DRINKING BEHAVIOR 09/14/2012 782.1 RASH AND OTHER NONSPECIFIC SKIN ERUPTION 09/14/2012 MARY MAYENN, KWESI S 305.00 NONDEPENDENT ALCOHOL ABUSE UNSPECIFIED DRINKING BEHAVIOR 09/14/2012 MARY LEGAL TRANSCRIBER, KWESI S 782.1 RASH AND OTHER NONSPECIFIC SKIN ERUPTION 09/14/2012 WHITE DDS, BETINA D 305.00 NONDEPENDENT ALCOHOL ABUSE UNSPECIFIED DRINKING BEHAVIOR 09/14/2012 WHITE DDS, BETINA D 782.1 RASH AND OTHER NONSPECIFIC SKIN ERUPTION 09/14/2012 DUGAN DO, LÓPEZ K 305.00 NONDEPENDENT ALCOHOL ABUSE UNSPECIFIED DRINKING BEHAVIOR 09/14/2012 DUGAN DO, LÓPEZ K 782.1 RASH AND OTHER NONSPECIFIC SKIN ERUPTION 09/14/2012 DUGAN DO, LÓPEZ K 305.00 NONDEPENDENT ALCOHOL ABUSE UNSPECIFIED DRINKING BEHAVIOR 09/14/2012 DUGAN DO, LÓPEZ K 782.1 RASH AND OTHER NONSPECIFIC SKIN ERUPTION 09/14/2012 DUGAN DO, LÓPEZ K 305.00 NONDEPENDENT ALCOHOL ABUSE UNSPECIFIED DRINKING BEHAVIOR 09/14/2012 DUGAN DO, LÓPEZ K 782.1 RASH AND OTHER NONSPECIFIC SKIN ERUPTION 09/14/2012 DUGAN DO, LÓPEZ K 305.00 NONDEPENDENT ALCOHOL ABUSE UNSPECIFIED DRINKING BEHAVIOR 09/14/2012 DUGAN DO, LÓPEZ K 782.1 RASH AND OTHER NONSPECIFIC SKIN ERUPTION 09/14/2012 DUGAN DO, LÓPEZ K 305.00 NONDEPENDENT ALCOHOL ABUSE UNSPECIFIED DRINKING BEHAVIOR 09/14/2012 DUGAN DO, LÓPEZ K 782.1 RASH AND OTHER NONSPECIFIC SKIN ERUPTION 09/14/2012 MARIANNA LEGAL TRANSCRIBER, MORIAH R 305.00 NONDEPENDENT ALCOHOL ABUSE UNSPECIFIED DRINKING BEHAVIOR 09/14/2012 MARIANNA LEGAL TRANSCRIBER, MORIAH R 782.1 RASH AND OTHER NONSPECIFIC SKIN ERUPTION 09/23/2012 303.90 OTHER AND UNSPECIFIED ALCOHOL DEPENDENCE UNSPECIFIED DRINKING BEHAVIOR 09/23/2012 303.90 OTHER AND UNSPECIFIED ALCOHOL DEPENDENCE UNSPECIFIED DRINKING BEHAVIOR 09/23/2012 303.90 OTHER AND UNSPECIFIED ALCOHOL DEPENDENCE UNSPECIFIED DRINKING BEHAVIOR 09/23/2012 303.90 OTHER AND UNSPECIFIED ALCOHOL DEPENDENCE UNSPECIFIED DRINKING BEHAVIOR 09/23/2012 303.90 OTHER AND UNSPECIFIED ALCOHOL DEPENDENCE UNSPECIFIED DRINKING BEHAVIOR 09/23/2012 303.90 OTHER AND UNSPECIFIED ALCOHOL DEPENDENCE UNSPECIFIED DRINKING BEHAVIOR 09/23/2012 303.90 OTHER AND UNSPECIFIED ALCOHOL DEPENDENCE UNSPECIFIED DRINKING BEHAVIOR 09/23/2012 303.90 OTHER AND UNSPECIFIED ALCOHOL DEPENDENCE UNSPECIFIED DRINKING BEHAVIOR 09/23/2012 KWESI HERNNADEZ APRN 303.90 OTHER AND UNSPECIFIED ALCOHOL DEPENDENCE UNSPECIFIED DRINKING BEHAVIOR 09/23/2012 BETINA JORDAN DDS 303.90 OTHER AND UNSPECIFIED ALCOHOL DEPENDENCE UNSPECIFIED DRINKING BEHAVIOR 09/23/2012 DUGAN DO, LÓPEZ K 303.90 OTHER AND UNSPECIFIED ALCOHOL DEPENDENCE UNSPECIFIED DRINKING BEHAVIOR 09/23/2012 DUGAN DO, LÓPEZ K 303.90 OTHER AND UNSPECIFIED ALCOHOL DEPENDENCE UNSPECIFIED DRINKING BEHAVIOR 09/23/2012 DUGAN DO, LÓPEZ K 303.90 OTHER AND UNSPECIFIED ALCOHOL DEPENDENCE UNSPECIFIED DRINKING BEHAVIOR 09/23/2012 DUGAN DO, LÓPEZ K 303.90 OTHER AND UNSPECIFIED ALCOHOL DEPENDENCE UNSPECIFIED DRINKING BEHAVIOR 09/23/2012 DUGAN DO, LÓPEZ K 303.90 OTHER AND UNSPECIFIED ALCOHOL DEPENDENCE UNSPECIFIED DRINKING BEHAVIOR 09/23/2012 MORIAH CABRAL APRN 303.90 OTHER AND UNSPECIFIED ALCOHOL DEPENDENCE UNSPECIFIED DRINKING BEHAVIOR 10/05/2012 303.00 ACUTE ALCOHOLIC INTOXICATION IN ALCOHOLISM UNSPECIFIED DRINKING BEHAVIOR 10/05/2012 303.00 ACUTE ALCOHOLIC INTOXICATION IN ALCOHOLISM UNSPECIFIED DRINKING BEHAVIOR 10/05/2012 303.00 ACUTE ALCOHOLIC INTOXICATION IN ALCOHOLISM UNSPECIFIED DRINKING BEHAVIOR 10/05/2012 303.00 ACUTE ALCOHOLIC INTOXICATION IN ALCOHOLISM UNSPECIFIED DRINKING BEHAVIOR 10/05/2012 303.00 ACUTE ALCOHOLIC INTOXICATION IN ALCOHOLISM UNSPECIFIED DRINKING BEHAVIOR 10/05/2012 303.00 ACUTE ALCOHOLIC INTOXICATION IN ALCOHOLISM UNSPECIFIED DRINKING BEHAVIOR 10/05/2012 303.00 ACUTE ALCOHOLIC INTOXICATION IN ALCOHOLISM UNSPECIFIED DRINKING BEHAVIOR 10/05/2012 KWESI HERNANDEZ APRN 303.00 ACUTE ALCOHOLIC INTOXICATION IN ALCOHOLISM UNSPECIFIED DRINKING BEHAVIOR 10/05/2012 BETINA JORDAN DDS 303.00 ACUTE ALCOHOLIC INTOXICATION IN ALCOHOLISM UNSPECIFIED DRINKING BEHAVIOR 10/05/2012 DUGAN DO, LÓPEZ K 303.00 ACUTE ALCOHOLIC INTOXICATION IN ALCOHOLISM UNSPECIFIED DRINKING BEHAVIOR 10/05/2012 DUGAN DO, LÓPEZ K 303.00 ACUTE ALCOHOLIC INTOXICATION IN ALCOHOLISM UNSPECIFIED DRINKING BEHAVIOR 10/05/2012 DUGAN DO, LÓPEZ K 303.00 ACUTE ALCOHOLIC INTOXICATION IN ALCOHOLISM UNSPECIFIED DRINKING BEHAVIOR 10/05/2012 DUGAN DO, LÓPEZ K 303.00 ACUTE ALCOHOLIC INTOXICATION IN ALCOHOLISM UNSPECIFIED DRINKING BEHAVIOR 10/05/2012 KAILEE DO LÓPEZ K 303.00 ACUTE ALCOHOLIC INTOXICATION IN ALCOHOLISM UNSPECIFIED DRINKING BEHAVIOR 10/05/2012 MORIAH CABRAL APRN R 303.00 ACUTE ALCOHOLIC INTOXICATION IN ALCOHOLISM UNSPECIFIED DRINKING BEHAVIOR 10/21/2012 719.06 EFFUSION OF LOWER LEG JOINT 10/21/2012 719.06 EFFUSION OF LOWER LEG JOINT 10/21/2012 719.06 EFFUSION OF LOWER LEG JOINT 10/21/2012 719.06 EFFUSION OF LOWER LEG JOINT 10/21/2012 KWESI HERNANDEZ APRN 719.06 EFFUSION OF LOWER LEG JOINT 10/21/2012 BETINA JORDAN DDS 719.06 EFFUSION OF LOWER LEG JOINT 10/21/2012 DUGAN DO, LÓPEZ K 719.06 EFFUSION OF LOWER LEG JOINT 10/21/2012 DUGAN DO, LÓPEZ K 719.06 EFFUSION OF LOWER LEG JOINT 10/21/2012 DUGAN DO, LÓPEZ K 719.06 EFFUSION OF LOWER LEG JOINT 10/21/2012 DUGAN DO, LÓPEZ K 719.06 EFFUSION OF LOWER LEG JOINT 10/21/2012 DUGAN DO, LÓPEZ K 719.06 EFFUSION OF LOWER LEG JOINT 10/21/2012 MORIAH CABRAL APRN R 719.06 EFFUSION OF LOWER LEG JOINT 01/12/2013 NORA REYES DOA K Ot 726.71 ACHILLES TENDINITIS 01/12/2013 ERIC RALPH YANIV K Ot 727.06 TENOSYNOVITIS FOOT/ANKLE 01/12/2013 ERIC RALPH YANIV K Ot 729.5 PAIN IN LIMB 02/08/2013 724.3 SCIATICA 02/08/2013 724.3 SCIATICA 02/08/2013 724.3 SCIATICA 02/08/2013 KWESI HERNANDEZ APRN S 724.3 SCIATICA 02/08/2013 BETINA JORDAN DDS 724.3 SCIATICA 02/08/2013 DUGAN DO, LÓPEZ K 724.3 SCIATICA 02/08/2013 DUGAN DO, LÓPEZ K 724.3 SCIATICA 02/08/2013 DUGAN DO, LÓPEZ K 724.3 SCIATICA 02/08/2013 DUGAN DO, LÓPEZ K 724.3 SCIATICA 02/08/2013 DUGAN DO, LÓPEZ K 724.3 SCIATICA 02/08/2013 MARIANNA GATES, MORIAH R 724.3 SCIATICA 02/23/2013 788.5 OLIGURIA AND ANURIA 02/23/2013 788.5 OLIGURIA AND ANURIA 02/23/2013 788.5 OLIGURIA AND ANURIA 02/23/2013 KWESI HERNANDEZ APRN S 788.5 OLIGURIA AND ANURIA 02/23/2013 WHITE DDS, BETINA Quevedo 788.5 OLIGURIA AND ANURIA 02/23/2013 DUGAN DO, LÓPEZ K 788.5 OLIGURIA AND ANURIA 02/23/2013 DUGAN DO, LÓPEZ K 788.5 OLIGURIA AND ANURIA 02/23/2013 DUGAN DO, LÓPEZ K 788.5 OLIGURIA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 (moles/volume) 106 mmol/L 98-107 Carbon dioxide 26 mmol/L 21-32 Serum or plasma anion gap determination (moles/volume) 10 mmol/L 5-14 Serum or plasma urea nitrogen measurement (mass/volume) 9 mg/dL 7-18 Serum or plasma creatinine measurement (mass/volume) 0.64 mg/dL 0.60-1.30 Serum or plasma urea nitrogen/creatinine mass ratio 14 NRG Serum or plasma creatinine measurement with calculation of estimated glomerular filtration rate > NRG Serum or plasma glucose measurement (mass/volume) 108 mg/dL 70-105 Serum or plasma calcium measurement (mass/volume) 9.1 mg/dL 8.5-10.1 Serum or plasma phosphate measurement (mass/volume) - 03/28/17 05:09 Serum or plasma phosphate measurement (mass/volume) 4.2 mg/dL 2.3-4.7 Magnesium - 03/28/17 05:09 Magnesium 1.6 mg/dL 1.8-2.4 Complete blood count (CBC) with automated white blood cell (WBC) differential - 03/29/17 05:10 Blood leukocytes automated count (number/volume) 6.8 10*3/uL 4.3-11.0 Blood erythrocytes automated count (number/volume) 4.34 10*6/uL 4.35-5.85 Venous blood hemoglobin measurement (mass/volume) 13.1 g/dL 13.3-17.7 Blood hematocrit (volume fraction) 39 % 40-54 Automated erythrocyte mean corpuscular volume 90 [foz_us] 80-99 Automated erythrocyte mean corpuscular hemoglobin (mass per erythrocyte) 30 pg 25-34 Automated erythrocyte mean corpuscular hemoglobin concentration measurement ( mass/volume) 33 g/dL 32-36 Automated erythrocyte distribution width ratio 12.5 % 10.0-14.5 Automated blood platelet count (count/volume) 475 10*3/uL 130-400 Automated blood platelet mean volume measurement 8.7 [foz_us] 7.4-10.4 Automated blood neutrophils/100 leukocytes 59 % 42-75 Automated blood lymphocytes/100 leukocytes 30 % 12-44 Blood monocytes/100 leukocytes 11 % 0-12 Automated blood eosinophils/100 leukocytes 0 % 0-10 Automated blood basophils/100 leukocytes 0 % 0-10 Blood neutrophils automated count (number/volume) 4.0 10*3 1.8-7.8 Blood lymphocytes automated count (number/volume) 2.1 10*3 1.0-4.0 Blood monocytes automated count (number/volume) 0.7 10*3 0.0-1.0 Automated eosinophil count 0.0 10*3/uL 0.0-0.3 Automated blood basophil count (count/volume) 0.0 10*3/uL 0.0-0.1 Whole blood basic metabolic panel - 03/29/17 05:10 Serum or plasma sodium measurement (moles/volume) 141 mmol/L 135-145 Serum or plasma potassium measurement (moles/volume) 4.5 mmol/L 3.6-5.0 Serum or plasma chloride measurement (moles/volume) 104 mmol/L 98-107 Carbon dioxide 27 mmol/L 21-32 Serum or plasma anion gap determination (moles/volume) 10 mmol/L 5-14 Serum or plasma urea nitrogen measurement (mass/volume) 13 mg/dL 7-18 Serum or plasma creatinine measurement (mass/volume) 0.76 mg/dL 0.60-1.30 Serum or plasma urea nitrogen/creatinine mass ratio 17 NRG Serum or plasma creatinine measurement with calculation of estimated glomerular filtration rate > NRG Serum or plasma glucose measurement (mass/volume) 115 mg/dL 70-105 Serum or plasma calcium measurement (mass/volume) 9.2 mg/dL 8.5-10.1 Serum or plasma phosphate measurement (mass/volume) - 03/29/17 05:10 Serum or plasma phosphate measurement (mass/volume) 4.6 mg/dL 2.3-4.7 Magnesium - 03/29/17 05:10 Magnesium 2.0 mg/dL 1.8-2.4 Complete blood count (CBC) with automated white blood cell (WBC) differential - 03/30/17 05:21 Blood leukocytes automated count (number/volume) 9.8 10*3/uL 4.3-11.0 Blood erythrocytes automated count (number/volume) 4.52 10*6/uL 4.35-5.85 Venous blood hemoglobin measurement (mass/volume) 13.6 g/dL 13.3-17.7 Blood hematocrit (volume fraction) 41 % 40-54 Automated erythrocyte mean corpuscular volume 91 [foz_us] 80-99 Automated erythrocyte mean corpuscular hemoglobin (mass per erythrocyte) 30 pg 25-34 Automated erythrocyte mean corpuscular hemoglobin concentration measurement ( mass/volume) 33 g/dL 32-36 Automated erythrocyte distribution width ratio 12.7 % 10.0-14.5 Automated blood platelet count (count/volume) 543 10*3/uL 130-400 Automated blood platelet mean volume measurement 9.1 [foz_us] 7.4-10.4 Automated blood neutrophils/100 leukocytes 67 % 42-75 Automated blood lymphocytes/100 leukocytes 24 % 12-44 Blood monocytes/100 leukocytes 9 % 0-12 Automated blood eosinophils/100 leukocytes 0 % 0-10 Automated blood basophils/100 leukocytes 0 % 0-10 Blood neutrophils automated count (number/volume) 6.6 10*3 1.8-7.8 Blood lymphocytes automated count (number/volume) 2.3 10*3 1.0-4.0 Blood monocytes automated count (number/volume) 0.9 10*3 0.0-1.0 Automated eosinophil count 0.0 10*3/uL 0.0-0.3 Automated blood basophil count (count/volume) 0.0 10*3/uL 0.0-0.1 Whole blood basic metabolic panel - 03/30/17 05:21 Serum or plasma sodium measurement (moles/volume) 141 mmol/L 135-145 Serum or plasma potassium measurement (moles/volume) 4.3 mmol/L 3.6-5.0 Serum or plasma chloride measurement (moles/volume) 102 mmol/L 98-107 Carbon dioxide 30 mmol/L 21-32 Serum or plasma anion gap determination (moles/volume) 9 mmol/L 5-14 Serum or plasma urea nitrogen measurement (mass/volume) 13 mg/dL 7-18 Serum or plasma creatinine measurement (mass/volume) 0.80 mg/dL 0.60-1.30 Serum or plasma urea nitrogen/creatinine mass ratio 16 NRG Serum or plasma creatinine measurement with calculation of estimated glomerular filtration rate > NRG Serum or plasma glucose measurement (mass/volume) 102 mg/dL 70-105 Serum or plasma calcium measurement (mass/volume) 9.4 mg/dL 8.5-10.1 Serum or plasma phosphate measurement (mass/volume) - 03/30/17 05:21 Serum or plasma phosphate measurement (mass/volume) 4.2 mg/dL 2.3-4.7 Magnesium - 03/30/17 05:21 Magnesium 1.9 mg/dL 1.8-2.4 Complete blood count (CBC) with automated white blood cell (WBC) differential - 04/28/18 12:20 Blood leukocytes automated count (number/volume) 7.6 10*3/uL 4.3-11.0 Blood erythrocytes automated count (number/volume) 5.29 10*6/uL 4.35-5.85 Venous blood hemoglobin measurement (mass/volume) 16.1 g/dL 13.3-17.7 Blood hematocrit (volume fraction) 47 % 40-54 Automated erythrocyte mean corpuscular volume 88 [foz_us] 80-99 Automated erythrocyte mean corpuscular hemoglobin (mass per erythrocyte) 30 pg 25-34 Automated erythrocyte mean corpuscular hemoglobin concentration measurement ( mass/volume) 35 g/dL 32-36 Automated erythrocyte distribution width ratio 16.3 % 10.0-14.5 Automated blood platelet count (count/volume) 250 10*3/uL 130-400 Automated blood platelet mean volume measurement 9.0 [foz_us] 7.4-10.4 Automated blood neutrophils/100 leukocytes 58 % 42-75 Automated blood lymphocytes/100 leukocytes 33 % 12-44 Blood monocytes/100 leukocytes 10 % 0-12 Automated blood eosinophils/100 leukocytes 0 % 0-10 Automated blood basophils/100 leukocytes 0 % 0-10 Blood neutrophils automated count (number/volume) 4.4 10*3 1.8-7.8 Blood lymphocytes automated count (number/volume) 2.5 10*3 1.0-4.0 Blood monocytes automated count (number/volume) 0.7 10*3 0.0-1.0 Automated eosinophil count 0.0 10*3/uL 0.0-0.3 Automated blood basophil count (count/volume) 0.0 10*3/uL 0.0-0.1 PT panel in platelet poor plasma by coagulation assay - 10/31/17 12:20 Prothrombin time (PT) in platelet poor plasma by coagulation assay 11.7 s 12.2-14.7 INR in platelet poor plasma or blood by coagulation assay 0.9 0.8-1.4 Activated partial thromboplastin time (aPTT) in platelet poor plasma bycoagulation assay - 10/31/17 12:20 Activated partial thromboplastin time (aPTT) in platelet poor plasma bycoagulation assay 27 s 24-35 Comprehensive metabolic panel - 10/31/17 12:20 Serum or plasma sodium measurement (moles/volume) 143 mmol/L 135-145 Serum or plasma potassium measurement (moles/volume) 4.6 mmol/L 3.6-5.0 Serum or plasma chloride measurement (moles/volume) 108 mmol/L 98-107 Carbon dioxide 21 mmol/L 21-32 Serum or plasma anion gap determination (moles/volume) 14 mmol/L 5-14 Serum or plasma urea nitrogen measurement (mass/volume) 12 mg/dL 7-18 Serum or plasma creatinine measurement (mass/volume) 0.81 mg/dL 0.60-1.30 Serum or plasma urea nitrogen/creatinine mass ratio 15 NRG Serum or plasma creatinine measurement with calculation of estimated glomerular filtration rate > NRG Serum or plasma glucose measurement (mass/volume) 132 mg/dL 70-105 Serum or plasma calcium measurement (mass/volume) 8.9 mg/dL 8.5-10.1 Serum or plasma total bilirubin measurement (mass/volume) 0.4 mg/dL 0.1-1.0 Serum or plasma alkaline phosphatase measurement (enzymatic activity/volume) 47 U/L 40-136 Serum or plasma aspartate aminotransferase measurement (enzymatic activity/ volume) 160 U/L 5-34 Serum or plasma alanine aminotransferase measurement (enzymatic activity/volume ) 221 U/L 0-55 Serum or plasma protein measurement (mass/volume) 8.3 g/dL 6.4-8.2 Serum or plasma albumin measurement (mass/volume) 4.5 g/dL 3.2-4.5 Serum or plasma ethanol measurement (mass/volume) - 10/31/17 12:20 Serum or plasma ethanol measurement (mass/volume) 461 mg/dL <10 Acute hepatitis panel - 10/31/17 12:20 Confirmatory quantitative serum or plasma hepatitis B virus surface antigen measurement Non-Reactive Non-Reactive Hepatitis A virus IgM antibody assay Non-Reactive Non- Reactive Hepatitis B virus core IgM antibody assay Non-Reactive Non-Reactive Serum hepatitis C virus antibody detection Non-Reactive Non-Reactive Complete urinalysis with reflex to culture - 10/31/17 12:31 Urine color determination YELLOW NRG Urine clarity determination CLEAR NRG Urine pH measurement by test strip 5 5-9 Specific gravity of urine by test strip 1.010 1.016- 1.022 Urine protein assay by test strip, semi-quantitative NEGATIVE NEGATIVE Urine glucose detection by automated test strip NEGATIVE NEGATIVE Erythrocytes detection in urine sediment by light microscopy NEGATIVE NEGATIVE Urine ketones detection by automated test strip NEGATIVE NEGATIVE Urine nitrite detection by test strip NEGATIVE NEGATIVE Urine total bilirubin detection by test strip NEGATIVE NEGATIVE Urine urobilinogen measurement by automated test strip (mass/volume) NORMAL NORMAL Urine leukocyte esterase detection by dipstick NEGATIVE NEGATIVE Automated urine sediment erythrocyte count by microscopy (number/high power field) NONE NRG Automated urine sediment leukocyte count by microscopy (number/high power field ) NONE NRG Bacteria detection in urine sediment by light microscopy NEGATIVE NRG Squamous epithelial cells detection in urine sediment by light microscopy 0-2 NRG Crystals detection in urine sediment by light microscopy NONE NRG Casts detection in urine sediment by light microscopy NONE NRG Mucus detection in urine sediment by light microscopy NEGATIVE NRG Complete urinalysis with reflex to culture NO NRG Urine drug screening test - 10/31/17 12:31 Urine phencyclidine detection by screening method NEGATIVE NEGATIVE Urine benzodiazepines detection by screening method NEGATIVE NEGATIVE Urine cocaine detection NEGATIVE NEGATIVE Urine amphetamines detection by screening method NEGATIVE NEGATIVE Urine methamphetamine detection by screening method NEGATIVE NEGATIVE Urine cannabinoids detection by screening method NEGATIVE NEGATIVE Urine opiates detection by screening method NEGATIVE NEGATIVE Urine barbiturates detection NEGATIVE NEGATIVE Screening urine tricyclic antidepressants detection NEGATIVE NEGATIVE Urine methadone detection by screening method NEGATIVE NEGATIVE Urine oxycodone detection NEGATIVE NEGATIVE Urine propoxyphene detection NEGATIVE NEGATIVE Encounters ACCT No. Visit Date/Time Discharge Status Pt. Type Provider Facility Loc./Unit Complaint [id number] 09/01/2014 09:24:00 09/01/2014 23:59:59 CLS Outpatient MARIANNA YAJAIRA MORIAH James [id number] 02/28/2014 00:00:00 02/28/2014 23:59:59 CLS Outpatient LÓPEZ DUGAN DO [id number] 02/10/2014 10:32:00 02/10/2014 23:59:59 CLS Outpatient LÓPEZ DUGAN DO [id number] 01/10/2014 09:45:00 01/10/2014 23:59:59 CLS Outpatient LÓPEZ DUGAN DO [id number] 01/09/2014 09:25:00 01/09/2014 23:59:59 CLS Outpatient LÓPEZ DUGAN DO [id number] 11/03/2013 12:25:00 11/03/2013 23:59:59 CLS Outpatient LÓPEZ DUGAN DO [id number] 07/08/2013 09:40:00 07/08/2013 23:59:59 CLS Outpatient BETINA JORDAN DDS [id number] 04/13/2013 13:50:00 04/13/2013 23:59:59 CLS Outpatient KWESI HERANNDEZ APRN [id number] 10/14/2012 12:25:00 10/14/2012 23:59:59 CLS Outpatient [id number] 10/08/2012 10:31:00 10/08/2012 23:59:59 CLS Outpatient [id number] 10/05/2012 07:53:00 10/05/2012 23:59:59 CLS Outpatient [id number] 09/23/2012 10:29:00 09/23/2012 23:59:59 CLS Outpatient [id number] 09/14/2012 08:00:00 09/14/2012 23:59:59 CLS Outpatient GHULAM HERNANDEZ MD [id number] 01/27/2012 11:37:00 01/27/2012 23:59:59 CLS Outpatient [id number] 03/11/2013 09:59:00 Document Registration [id number] 03/02/2013 15:05:00 Document Registration [id number] 02/23/2013 14:34:00 Document Registration [id number] 10/21/2012 15:38:00 Document Registration [id number] 04/11/2015 23:03:04 ACT Document Registration [id number] 04/08/2017 09:40:00 04/08/2017 23:59:59 CLS Outpatient BILLIE FORTUNE MD [facility] [id number] 09/07/2017 18:57:00 09/07/2017 23:59:59 CLS Preadmit [facility] ED [id number] 10/31/2017 12:13:00 10/31/2017 14:32:00 DIS Emergency YANIV REYES DO [facility] ER AMS [id number] 03/25/2017 21:58:00 03/30/2017 12:49:00 DIS Inpatient BILLIE FORTUNE MD [facility] 4TH ETOH;INTOXICATION [id number] 04/10/2016 19:36:00 04/10/2016 20:40:00 DIS Emergency JOSEFINA DYE APRN [facility] ER RT HAND PAIN [id number] 01/24/2016 12:17:00 01/26/2016 08:34:00 DIS Inpatient AKOSUA STARR MD [facility] 4TH ACUTE RENAL FAILURE [id number] 01/12/2016 23:06:00 01/13/2016 00:12:00 DIS Emergency MANFRED MERCADO MD [facility] ER [id number] 11/02/2015 13:10:00 11/02/2015 17:10:00 DIS Inpatient AKOSUA STARR MD [facility] ICU ETOH INTOXICATION [id number] 07/04/2015 14:42:00 07/05/2015 13:31:00 DIS Inpatient BILLIE FORTUNE MD [facility] ICU ETOH ABUSE SUICIDAL IDEATION [id number] 04/11/2015 18:02:00 04/12/2015 13:13:00 DIS Inpatient BILLIE FORTUNE MD [facility] ICU OVERDOSE,ETOH INTOXICATION,SUICIDAL IDEATION [id number] 04/11/2015 23:02:00 04/11/2015 23:02:00 CAN Preadmit YANIV REYES DO [facility] ER PSYCH [id number] 10/28/2013 17:13:00 10/31/2013 12:32:00 DIS Inpatient OMAYRA MELCHOR, MAGDY Almeida [facility] CSD ETOH DETOX [id number] 04/22/2013 13:36:00 04/22/2013 23:59:59 CLS Outpatient SOBIA AGUIAR MD [facility] RAD RT KNEE EFFUSION [id number] 02/23/2013 15:40:00 02/23/2013 18:54:00 DIS Emergency ANGELICA GALLARDO MD [facility] ER DEVERE DEHYDRATION [id number] 01/12/2013 17:29:00 01/12/2013 19:34:00 DIS Emergency YANIV REYES DO [facility] ER L FOOT PAIN/KNOT [id number] 11/09/2012 11:12:00 12/06/2012 08:27:00 DIS Outpatient [id number] 09/23/2017 17:04:00 09/23/2017 21:57:00 DIS Emergency JON MELCHOR, ARELI Torrez [facility] ED [id number] 09/08/2017 11:02:00 09/11/2017 15:10:00 DIS Inpatient CHIQUI FOY DO [facility] 3SE [id number] 04/30/2016 18:05:00 Document Registration
[2017-12-14 20:17] LABS: BASOPHILS % (AUTO) 0 % (0-10); EOSINOPHILS % (AUTO) 0 % (0-10); HEMATOCRIT 42 % (40-54); HEMOGLOBIN 14.6 G/DL (13.3-17.7); LYMPHOCYTES # (AUTO) 2.2 X 10^3 (1.0-4.0); LYMPHOCYTES % (AUTO) 36 % (12-44); MEAN CORPUSCULAR HEMOGLOBIN 31 PG (25-34); MEAN CORPUSCULAR HGB CONC 35 G/DL (32-36); MEAN CORPUSCULAR VOLUME 88 FL (80-99); MEAN PLATELET VOLUME 8.9 FL (7.4-10.4); MONOCYTES # (AUTO) 0.5 X 10^3 (0.0-1.0); MONOCYTES % (AUTO) 8 % (0-12); NEUTROPHILS # (AUTO) 3.5 X 10^3 (1.8-7.8); NEUTROPHILS % (AUTO) 56 % (42-75); PLATELET COUNT 230 10^3/uL (130-400); RED BLOOD COUNT 4.78 10^6/uL (4.35-5.85); RED CELL DISTRIBUTION WIDTH 13.8 % (10.0-14.5); WHITE BLOOD COUNT 6.2 10^3/uL (4.3-11.0)
[2017-12-14 20:27] VITALS: BP 166/126
[2017-12-14 20:34] LABS: ALANINE AMINOTRANSFERASE 58 U/L (0-55); ALBUMIN 4.4 GM/DL (3.2-4.5); ALKALINE PHOSPHATASE 49 U/L (40-136); BILIRUBIN,TOTAL 0.4 MG/DL (0.1-1.0); BUN/CREATININE RATIO 20; CALCIUM 8.6 MG/DL (8.5-10.1); CARBON DIOXIDE 21 MMOL/L (21-32); CHLORIDE 111 MMOL/L (98-107); CREATININE SERUM 0.85 MG/DL (0.60-1.30); GFR ESTIMATED > 60; GLUCOSE 111 MG/DL (70-105); POTASSIUM 3.9 MMOL/L (3.6-5.0); SALICYLATE < 5.0 MG/DL (5.0-20.0); SODIUM 146 MMOL/L (135-145); TOTAL PROTEIN 7.4 GM/DL (6.4-8.2)
[2017-12-14 20:38] LABS: ACETAMINOPHEN < 10 UG/ML (10-30)
== END 2017-12-14 20:27 | disposition left against medical advice (07) ==
LOC: EDUNIT# 18:07 → ER 18:09
DX: R45.851 Suicidal ideations (principal); F10.20 Alcohol dependence, uncomplicated
CPT/HCPCS: 36415; 80053; 80320; 80329; 85025

== ENCOUNTER 2018-05-07 10:21 | Observation (INO) | payer SELFPAY ==
[2018-05-07] VITALS (11 sets, daily range): BP systolic 126–184; BP diastolic 73–124
[~2018-05-07] VITALS: Ht 182.9 cm; Wt 132.1 kg
[~2018-05-07 10:21] MED LIST changes: -AMLO5TAB2 PO; +AMLO5TAB7 PO
--- OUTSIDE RECORDS SUMMARY | 2018-05-07 10:27 | XMS REPORT ---
Author Author DEVIKA BILLIE [facility] Address [address] [place] [address] Care Team Providers Care Substation Operator Transforming Name Role Phone BILLIE FORTUNE Unavailable PROBLEMS Type Condition ICD9-CM Code VSG05-LN Code Onset Dates Condition Status SNOMED Code Problem Low back pain M54.5 Active 847547278 Problem Anxiety F41.9 Active 26805472 Problem Elevated LFTs R79.89 Active 893019643 Problem Pseudogout M11.20 Active 111015340 Problem Pseudogout of left knee M11.262 Active 524934777 Problem Insomnia, unspecified type G47.00 Active 807316267 Problem History of renal failure Z87.448 Active 063726661 Problem Acute idiopathic gout of multiple sites M10.09 Active 56015220 Problem 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 94619059 Problem Excessive drinking alcohol F10.10 Active 686833389 Problem Essential hypertension I10 Active 01525570 Problem Sciatica M54.30 Active 28204067 Problem Marijuana use F12.10 Active 21582821 Problem Right knee pain M25.561 Active 85468550 ALLERGIES No Information ENCOUNTERS Encounter Location Date Diagnosis [place] [id number] [place] [address] 27218- 4180 Dec, Insomnia, unspecified type G47.00 ; Essential hypertension I10 and Anxiety F41.9 [facility] [address] [id number] [address] Dec, [place] [address] [place] [id number] [place] [address] 82579- 2615 Apr, Pseudogout M11.20 ; Insomnia, unspecified type G47.00 ; Essential hypertension I10 and Anxiety F41.9 [place] [address] [place] [address] 24487- 7239 Apr, Pseudogout M11.20 ; Insomnia, unspecified type G47.00 and Pseudogout of left knee M11.262 [facility] [id number] [place] [address] 66531- 2710 Apr, [facility] [address] [place] [id number] [place] [address] [id number] Mar, [facility] [address] [place] [id number] [place] [address] [id number] Mar, [facility] [address] [place] [id number] [place] [address] [id number] Mar, Essential hypertension I10 and Anxiety F41.9 [facility] [address] [place] [address] [id number] [place] [address] 72381 -9933 November, Laceration of left wrist, initial encounter S61.512A [facility] [address] [place] [id number] [place] [address] 07948- 2300 Sep, Essential hypertension I10 [facility] [address] [place] [id number] [place] [address] 20371- 9206 Sep, [facility] [address] [place] [id number] [place] [address] 19742- 1837 Jul, [facility] [address] [place] [id number] [place] [address] 99950- 9155 Jun, [facility] [address] [place] [id number] [place] [address] 61126- 1088 May, [facility] [address] [place] [id number] [place] [address] 07666- 0334 May, [facility] [address] [place] [id number] [place] [address] 29940- 4987 May, [facility] [address] [place] [address] 80407- 8330 Apr, Effusion of right knee M25.461 ; 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 tophus M1A.09X0 ; Essential hypertension I10 ; Right knee pain M25.561 ; Acute idiopathic gout of multiple sites M10.09 and Anxiety F41.9 [place] [address] 67630- 7596 Apr, [place] [address] 10712- 1371 Mar, [place] [address] 68030- 9404 Mar, Essential hypertension I10 ; Anxiety F41.9 ; Peeling skin R23.4 ; 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 tophus M1A.09X0 ; History of renal failure Z87.448 ; Elevated LFTs R79.89 and Insomnia, unspecified type G47.00 [facility] [place] [address] 19104 -2159 Mar, [place] [address] 69572- 1355 Mar, [facility] [place] [address] 52324 -8347 Mar, [facility] [place] [address] 14134 -1913 Feb, [facility] [place] [address] 07240 -8302 Feb, STD exposure Z20.2 ; Contact with and (suspected) exposure to viral hepatitis Z20.5 ; Problems related to high-risk sexual behavior Z72.51 and Tinea cruris B35.[address] 17329- 7580 Feb, Acute gout, unspecified cause, unspecified site M10.9 [place] [address] 76280- 9509 Feb, Essential hypertension I10 and Acute gout of multiple sites , unspecified cause M10.9 [facility] [address] [place] [address] 14573- 5629 Jan, [facility] [address] [place] [id number] [place] [address] 22939- 6378 Jan, [facility] [address] [place] [id number] [place] [address] 11505 -6422 Jan, Hypotension, unspecified hypotension type I95.9 ; Anuria R34 and Dizziness R42 [facility] [address] [place] [id number] [place] [address] 16154- 8792 Jan, [facility] [address] [place] [address] [id number] [place] [address] 68374- 0906 Sep, [facility] [address] [place] [id number] [place] [address] 13584- 5973 Sep, Pain of right sacroiliac joint M53.3 [facility] [address] [place] [address] [id number] [place] [address] 77706- 5950 Sep, Hemorrhoids K64.9 ; Low back pain M54.5 and Peeling skin R23.4 [facility] [address] [place] [id number] [place] [address] 06936- 2867 Sep, [facility] [address] [place] [address] [id number] [place] [address] 80163- 4792 Aug, High ankle sprain of right lower extremity S93.431A and Back pain M54.9 [facility] [address] [place] [id number] [place] [address] 84799- 9016 Aug, [facility] [address] [place] [id number] [place] [address] 44059- 1875 Aug, [facility] [address] [place] [id number] [place] [address] 87955- 3908 May, Right knee pain M25.561 [facility] [address] [place] [address] [id number] [place] [address] 90004- 8719 Dec, Sciatica 724.3 ; Insomnia, unspecified 780.52 ; Excessive drinking alcohol 305.00 ; Hypertension 401.9 and Anxiety 300.00 [facility] [address] [place] [address] [id number] [place] [address] 420372- 0239 Dec, [facility] [address] [place] [id number] [address]- 9756 Oct, [facility] [address] [place] [address] [id number] [place] [address] 83302- 8867 Oct, [facility] [address] [place] [address] [id number] [place] [address] 32795- 0625 Aug, [facility] [address] [place] [address] [id number] [place] [address] 76604- 3206 Aug, [facility] [address] [place] [address] [id number] [place] [address] 32764- 7019 Aug, [facility] [address] [place] [id number] [place] [address] 01282- 9662 Aug, [facility] [address] [place] [id number] [place] [address] 44086- 6112 Jul, [facility] [address] [place] [id number] [place] [address] 99884- 2695 Jul, [facility] [address] [address]- 5115 Jun, [facility] [address] [address]- 4802 Jun, [facility] [address] [address]- 4436 Jun, [facility] [address] [place] [id number] 4315 Jun, [facility] [address] 2814 Jun, [facility] [address] [place] [address] [id number] [place] [address] 90898- 4254 Jun, [facility] [place] [facility] [address] [id number] [place] [address]- 3917 Feb, [facility] [place] [facility] [address] [id number] [place] [address]- 7768 Feb, [facility] [place] [facility] [address] [id number] [place] [address]- 1046 Feb, [facility] [place] [facility] [address] [id number] [place] [address]- 0117 Feb, [facility] [place] [facility] [address] [id number] [place] [address]- 0882 Feb, [facility] [place] [facility] [address] [id number] [place] [address]- 9181 Feb, [facility] [place] [facility] [address] [id number] [place] [address]- 8700 Jan, [facility] [place] [facility] [address] [id number] [place] [address]- 2084 Jan, [facility] [place] [facility] [address] [id number] [place] [address]- 0797 Jan, [facility] [place] [facility] [address] [id number] [place] [address]- 1437 Jan, [facility] [place] [facility] [address] [id number] [place] [address]- 8130 Dec, [facility] [place] [facility] [address] [id number] [place] [address]- 5024 Dec, [facility] [place] [facility] [address] [id number] [place] [address]- 1467 Dec, [facility] [place] [facility] [address] [id number] [place] [address]- 4671 Dec, [facility] [place] [facility] [address] [id number] [place] [address]- 6731 November, [facility] [place] [facility] [address] [id number] [place] [address]- 8436 November, [facility] [address] [id number] [place] [address]- 6517 November, [facility] [place] [facility] [address] [id number] [place] [address]- 2866 November, [facility] [address] [id number] [place] [address]- 6526 November, [facility] [place] [facility] [address] [id number] [place] [address]- 0436 November, [facility] [place] [facility] [address] [id number] [place] [address]- 6874 November, [facility] [place] [facility] [address] [id number] [place] [address]- 3020 November, [facility] [place] [facility] [address] [id number] [place] [address]- 2277 November, [facility] [address] [id number] [place] [address]- 9437 November, [facility] [place] [facility] [address] [id number] [place] [address]- 0896 Oct, [facility] [place] [facility] [address] [id number] [place] [address]- 0728 Oct, [facility] [place] [facility] [address] [id number] [place] [address]- 0413 Oct, [facility] [place] [facility] [address] [id number] [place] [address]- 0426 Oct, [facility] [place] [facility] [address] [id number] [place] [address]- 1766 Sep, [facility] [place] [facility] [address] [id number] [place] [address]- 2546 Sep, [facility] [place] [facility] [address] [id number] [place] [address]- 0523 Apr, [facility] [address] [id number] [place] [address]- 4734 Apr, [facility] [place] [facility] [address] [id number] [place] [address]- 8931 Apr, [facility] [place] [facility] [address] [id number] [place] [address]- 2129 Apr, [facility] [place] [facility] [address] [id number] [place] [address]- 1243 Mar, [facility] [place] [facility] [address] [id number] [place] [address]- 3558 Mar, [facility] [place] [facility] [address] [id number] [place] [address]- 5815 Mar, [facility] [place] [facility] [address] [id number] [place] [address]- 1820 Feb, [facility] [place] [facility] [address] [id number] [place] [address]- 3041 Feb, [facility] [place] [facility] [address] [id number] [place] [address]- 5325 Feb, [facility] [place] [facility] [address] [id number] [place] [address]- 5387 29 Oct, 2012 [facility] [place] [facility] [address] [id number] [place] [address]- 0005 Oct, [facility] [place] [facility] [address] [id number] [address]- 4848 18 Oct, 2012 [facility] [place] [facility] [address] [id number] [place] [address]- 3748 17 Oct, 2012 [facility] [place] [facility] [address] [id number] [place] [address]- 3840 Oct, [facility] [place] [facility] [address] [id number] [place] [address]- 8527 Oct, [facility] [place] [facility] [address] [id number] [place] [address]- 1256 Oct, [facility] [address] [id number] [place] [address]- 3596 Sep, [facility] [place] [facility] [address] [id number] [place] [address]- 1676 Sep, [facility] [place] [facility] [address] [id number] [place] [address]- 6066 Sep, [facility] [place] [facility] [address] [id number] [place] [address]- 1226 Sep, [facility] [place] [facility] [address] [id number] [place] [address]- 8617 Jul, [facility] [place] [facility] [address] [id number] [place] [address]- 2646 Jan, [facility] [address] [id number] [place] [address]- 4766 Jan, [facility] [address] [id number] [place] [address]- 4081 Jan, [facility] [place] [address] [facility] [id number] [id number] Sep, [facility] [address] [id number] [place] [address]- 4326 Sep, [facility] [address] [id number] [place] [address]- 9186 Jul, [facility] [place] [facility] [address] [id number] [place] [address]- 2546 Jun, [facility] [place] [facility] [address] [id number] [place] [address]- 8156 14 May, 2011 [facility] [place] [facility] [address] [id number] [place] [address]- 0476 May, [facility] [place] [facility] [address] [id number] [place] [address]- 5996 May, [facility] [place] [facility] [address] [facility] [id number] [place] [address] 2546 May, [facility] [address] [facility] [id number] [address]- 2169 May, [facility] [id number], [place] [address] 2546 Apr, [facility] [address] [facility] [id number], [place] [address]- 4272 Jun, [facility] [address] [facility] [id number], [place] [address]- 6995 Feb, [facility] [address] [facility] [id number], [place] [address]- 3089 November, IMMUNIZATIONS No Known Immunizations SOCIAL HISTORY Never Assessed REASON FOR VISIT Blood pressure check--[place] PLAN OF CARE VITAL SIGNS Height 72 in 2017-12-15 Heart Rate 110 bpm 2017-12-15 Blood pressure systolic 170 mmHg 2017-12-15 Blood pressure diastolic 100 mmHg 2017-12-15 MEDICATIONS Unknown Medications RESULTS No Results PROCEDURES [...] intoxication 09/02/2012 Hospitalization History Acute Renal Failure--[facility] 01/24/16
--- OUTSIDE RECORDS SUMMARY | 2018-05-07 10:27 | XMS REPORT ---
Author Author DEVIKA BILLIE [facility] Address [address] [place] [address] Care Team Providers Care Corrections Corporal Name Role Phone BILLIE FORTUNE Unavailable PROBLEMS Type Condition ICD9-CM Code ODB09-BI Code Onset Dates Condition Status SNOMED Code Problem Low back pain M54.5 Active 622588259 Problem Anxiety F41.9 Active 52885488 Problem Elevated LFTs R79.89 Active 862259618 Problem Pseudogout M11.20 Active 645017046 Problem Pseudogout of left knee M11.262 Active 447116254 Problem Insomnia, unspecified type G47.00 Active 418944167 Problem History of renal failure Z87.448 Active 860609716 Problem Acute idiopathic gout of multiple sites M10.09 Active 58501367 Problem 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 46737768 Problem Excessive drinking alcohol F10.10 Active 703605314 Problem Essential hypertension I10 Active 47905610 Problem Sciatica M54.30 Active 58063848 Problem Marijuana use F12.10 Active 02025065 Problem Right knee pain M25.561 Active 25816859 ALLERGIES No Information ENCOUNTERS Encounter Location Date Diagnosis [place] [id number] [place] [address] 28101- 2967 Dec, Insomnia, unspecified type G47.00 ; Essential hypertension I10 and Anxiety F41.9 [facility] [place] [address] [place] [address] [id number] [address] Dec, [place] [address] [place] [id number] [place] [address] 99145- 3598 Apr, Pseudogout M11.20 ; Insomnia, unspecified type G47.00 ; Essential hypertension I10 and Anxiety F41.9 [place] [id number] [place] [address] 96036- 6816 Apr, Pseudogout M11.20 ; Insomnia, unspecified type G47.00 and Pseudogout of left knee M11.262 [facility] [place] [address] [place] [address] [id number] [place] [address] 45070- 2395 Apr, [facility] [id number] [place] [address] [id number] Mar, [facility] [address] [id number] [place] [address] [phone] Mar, [facility] [address] [place] [address] [id number] [place] [address] [phone] Mar, Essential hypertension I10 and Anxiety F41.9 [facility] [address] [place] [id number] [place] [address] 17162 -8229 November, Laceration of left wrist, initial encounter S61.512A [facility] [place] [address] [place] [id number] [place] [address] 08295- 8716 Sep, Essential hypertension I10 [facility] [place] [address] [place] [id number] [place] [address] 04524- 1024 Sep, [facility] [place] [address] [place] [id number] [place] [address] 27495- 6274 Jul, [facility] [place] [address] [place] [id number] [place] [address] 26112- 9610 Jun, [facility] [place] [address] [place] [id number] [place] [address] 77881- 3804 May, [facility] [place] [address] [place] [id number] [place] [address] 34417- 3659 May, [facility] [place] [address] [place] [id number] [place] [address] 51361- 6000 May, [facility] [place] [address] [place] [address] 11747- 0455 Apr, Effusion of right knee M25.461 ; 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 tophus M1A.09X0 ; Essential hypertension I10 ; Right knee pain M25.561 ; Acute idiopathic gout of multiple sites M10.09 and Anxiety F41.9 [place] [address] 75646- 8302 Apr, [place] [address] 33069- 2658 Mar, [place] [address] 54239- 7242 Mar, Essential hypertension I10 ; Anxiety F41.9 ; Peeling skin R23.4 ; 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 tophus M1A.09X0 ; History of renal failure Z87.448 ; Elevated LFTs R79.89 and Insomnia, unspecified type G47.00 [facility] [place] [address] 13421 -4858 Mar, [place] [address] 32546- 2968 Mar, [facility] [place] [address] 26803 -7506 Mar, [facility] [place] [address] 46328 -9288 Feb, [facility] [place] [address] 13636 -3656 Feb, STD exposure Z20.2 ; Contact with and (suspected) exposure to viral hepatitis Z20.5 ; Problems related to high-risk sexual behavior Z72.51 and Tinea cruris B35.[address] 09308- 1287 Feb, Acute gout, unspecified cause, unspecified site M10.9 [place] [address] 07325- 9192 Feb, Essential hypertension I10 and Acute gout of multiple sites , unspecified cause M10.9 [facility] [place] [address] [place] [address] 56780- 3908 Jan, [facility] [place] [address] [place] [id number] [place] [address] 38901- 9285 Jan, [facility] [address] [place] [id number] [place] [address] 48388 -6125 Jan, Hypotension, unspecified hypotension type I95.9 ; Anuria R34 and Dizziness R42 [facility] [place] [address] [place] [id number] [place] [address] 11149- 6849 Jan, [facility] [place] [address] [place] [id number] [place] [address] 34365- 5082 Sep, [facility] [place] [address] [place] [id number] [place] [address] 66593- 9242 Sep, Pain of right sacroiliac joint M53.3 [facility] [place] [address] [place] [address] [id number] [place] [address] 40056- 2092 Sep, Hemorrhoids K64.9 ; Low back pain M54.5 and Peeling skin R23.4 [facility] [place] [address] [place] [address] [id number] [place] [address] 29926- 8244 Sep, [facility] [place] [address] [place] [address] [id number] [place] [address] 13898- 4170 Aug, High ankle sprain of right lower extremity S93.431A and Back pain M54.9 [facility] [place] [address] [place] [address] [id number] [place] [address] 81619- 5249 Aug, [facility] [place] [address] [place] [address] [id number] [place] [address] 28804- 5574 Aug, [facility] [place] [address] [place] [id number] [place] [address] 66361- 5970 May, Right knee pain M25.561 [facility] [place] [address] [place] [id number] [place] [address] 51713- 1986 Dec, Sciatica 724.3 ; Excessive drinking alcohol 305.00 ; Insomnia, unspecified 780.52 ; Hypertension 401.9 and Anxiety 300.00 [facility] [place] [address] [place] [address] [id number] [place] [address] 919991- 1304 Dec, [facility] [place] [address] [place] [address] [id number] [address]- 5729 Oct, [facility] [place] [address] [place] [address] [id number] [place] [address] 75111- 2530 Oct, [facility] [place] [address] [place] [id number] [place] [address] 71026- 9142 Aug, [facility] [place] [address] [place] [address] [id number] [place] [address] 02698- 9409 Aug, [facility] [place] [address] [place] [address] [id number] [place] [address] 84437- 8387 Aug, [facility] [place] [address] [place] [id number] [place] [address] 44230- 0421 Aug, [facility] [place] [address] [place] [address] [id number] [place] [address] 09375- 3645 Jul, [facility] [place] [address] [place] [address] [id number] [place] [address] 70586- 1648 Jul, [facility] [place] [address] [address]- 9646 Jun, [facility] [place] [address] [address]- 0306 Jun, [facility] [place] [address] [address]- 4943 Jun, [facility] [place] [address] [place] [id number] 6143 Jun, [facility] [place] [address] 6578 Jun, [facility] [place] [address] [place] [address] [id number] [place] [address] 01115- 4506 Jun, [facility] [place] [facility] [address] [id number] [place] [address]- 3624 Feb, [facility] [place] [facility] [address] [id number] [place] [address]- 9323 Feb, [facility] [place] [facility] [address] [id number] [place] [address]- 1385 Feb, [facility] [place] [facility] [address] [id number] [place] [address]- 1681 Feb, [facility] [place] [facility] [address] [id number] [place] [address]- 5971 Feb, [facility] [place] [facility] [address] [id number] [place] [address]- 9822 Feb, [facility] [place] [facility] [address] [id number] [place] [address]- 3164 Jan, [facility] [place] [facility] [address] [id number] [place] [address]- 8953 Jan, [facility] [place] [facility] [address] [id number] [place] [address]- 6758 Jan, [facility] [place] [facility] [address] [id number] [place] [address]- 9940 Jan, [facility] [place] [facility] [address] [id number] [place] [address]- 1840 Dec, [facility] [place] [facility] [address] [id number] [place] [address]- 0987 Dec, [facility] [place] [facility] [address] [id number] [place] [address]- 2733 Dec, [facility] [place] [facility] [address] [id number] [place] [address]- 7772 Dec, [facility] [place] [facility] [address] [id number] [place] [address]- 1965 November, [facility] [place] [facility] [address] [id number] [place] [address]- 7126 November, [facility] [address] [id number] [place] [address]- 0557 November, [facility] [place] [facility] [address] [id number] [place] [address]- 0036 November, [facility] [address] [id number] [place] [address]- 8676 November, [facility] [place] [facility] [address] [id number] [place] [address]- 9826 November, [facility] [place] [facility] [address] [id number] [place] [address]- 5515 November, [facility] [place] [facility] [address] [id number] [place] [address]- 8860 November, [facility] [place] [facility] [address] [id number] [place] [address]- 9054 November, [facility] [address] [id number] [place] [address]- 4784 November, [facility] [place] [facility] [address] [id number] [place] [address]- 2482 Oct, [facility] [place] [facility] [address] [id number] [place] [address]- 8279 Oct, [facility] [place] [facility] [address] [id number] [place] [address]- 9713 Oct, [facility] [place] [facility] [address] [id number] [place] [address]- 3046 Oct, [facility] [place] [facility] [address] [id number] [place] [address]- 8056 Sep, [facility] [place] [facility] [address] [id number] [place] [address]- 2546 Sep, [facility] [place] [facility] [address] [id number] [place] [address]- 1701 Apr, [facility] [address] [id number] [place] [address]- 4336 Apr, [facility] [place] [facility] [address] [id number] [place] [address]- 3329 Apr, [facility] [place] [facility] [address] [id number] [place] [address]- 2769 Apr, [facility] [place] [facility] [address] [id number] [place] [address]- 3597 Mar, [facility] [place] [facility] [address] [id number] [place] [address]- 4225 Mar, [facility] [place] [facility] [address] [id number] [place] [address]- 4603 Mar, [facility] [place] [facility] [address] [id number] [place] [address]- 8172 Feb, [facility] [place] [facility] [address] [id number] [place] [address]- 7590 Feb, [facility] [place] [facility] [address] [id number] [place] [address]- 9957 Feb, [facility] [place] [facility] [address] [id number] [place] [address]- 0674 29 Oct, 2012 [facility] [place] [facility] [address] [id number] [place] [address]- 2788 Oct, [facility] [place] [facility] [address] [id number], [place] [address]- 4258 18 Oct, 2012 [facility] [place] [facility] [address] [id number] [place] [address]- 0230 17 Oct, 2012 [facility] [place] [facility] [address] [id number] [place] [address]- 0719 Oct, [facility] [place] [facility] [address] [id number] [place] [address]- 5312 Oct, [facility] [place] [facility] [address] [id number] [place] [address]- 7116 Oct, [facility] [address] [id number] [place] [address]- 5246 Sep, [facility] [place] [facility] [address] [id number] [place] [address]- 6776 Sep, [facility] [place] [facility] [address] [id number] [place] [address]- 2036 Sep, [facility] [place] [facility] [address] [id number] [place] [address]- 4971 Sep, [facility] [place] [facility] [address] [id number] [place] [address]- 9072 Jul, [facility] [place] [facility] [address] [id number] [place] [address]- 6856 Jan, [facility] [address] [id number] [place] [address]- 1196 Jan, [facility] [address] [id number] [place] [address]- 8287 Jan, [facility] [place] [address] [facility] [id number] [id number] Sep, [facility] [address] [id number] [place] [address]- 5066 Sep, [facility] [address] [id number] [place] [address]- 7856 Jul, [facility] [place] [facility] [address] [id number] [place] [address]- 2546 Jun, [facility] [place] [facility] [address] [id number] [place] [address]- 5086 14 May, 2011 [facility] [place] [facility] [address] [id number] [place] [address]- 8246 May, [facility] [place] [facility] [address] [id number] [place] [address]- 8716 May, [facility] [place] [facility] [address] [facility] [id number] [place] [address]- 2546 May, [facility] [place] [address] [facility] [id number], [place] [address]- 2546 May, [facility] [place] [address] [facility] [id number], [place] [address]- 2546 Apr, [facility] [place] [address] [facility] [id number], [place] [address]- 2546 Jun, [facility] [place] [address] [facility] [id number], [place] [address]- 2546 Feb, [facility] [place] [address] [facility] [id number], [place] [address]- 0196 November, IMMUNIZATIONS No Known Immunizations SOCIAL HISTORY Never Assessed REASON FOR VISIT Medication Requests PLAN OF CARE VITAL SIGNS MEDICATIONS Medication Instructions Dosage Frequency Start Date End Date Duration Status Lisinopril 40 mg Orally Once a day 1 tablet 24h Apr, 90 days Active Trazodone HCl 150 MG Orally Once a day 1 tablet at bedtime 24h Mar, 30 days Active Toprol XL 100 mg Orally Once a day 1 tablet 24h 90 days Active Amlodipine Besylate 5 MG Orally Once a day 2 tablets 24h Apr, 45 days Active Paxil 20 mg Orally Once a day 2 tablets 24h Sep, 30 days Active RESULTS No Results PROCEDURES [...] intoxication 09/02/2012 Hospitalization History Acute Renal Failure--[facility] 01/24/16
--- OUTSIDE RECORDS SUMMARY | 2018-05-07 10:27 | XMS REPORT ---
Author Author BILLIE FORTUNE [facility] Address [address] [place] [address] Care Team Providers Care Crack Off Person Name Role Phone DEVIKAKARRIE JERNIGANHANY Unavailable PROBLEMS Type Condition ICD9-CM Code UDP92-SH Code Onset Dates Condition Status SNOMED Code Problem Low back pain M54.5 Active 452822742 Problem Anxiety F41.9 Active 37945944 Problem Elevated LFTs R79.89 Active 387208601 Problem Pseudogout M11.20 Active 867684803 Problem Pseudogout of left knee M11.262 Active 528661969 Problem Insomnia, unspecified type G47.00 Active 120210568 Problem History of renal failure Z87.448 Active 030110859 Problem Acute idiopathic gout of multiple sites M10.09 Active 39433991 Problem 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 61745686 Problem Excessive drinking alcohol F10.10 Active 577300046 Problem Essential hypertension I10 Active 27639610 Problem Sciatica M54.30 Active 20442033 Problem Marijuana use F12.10 Active 44845902 Problem Right knee pain M25.561 Active 49589200 ALLERGIES No Information ENCOUNTERS Encounter Location Date Diagnosis [facility] [address] [address] Apr, Pseudogout M11.20 ; Insomnia, unspecified type G47.00 ; Essential hypertension I10 and Anxiety F41.9 [facility] [id number] [place] [address] Apr, Pseudogout M11.20 ; Insomnia, unspecified type G47.00 and Pseudogout of left knee M11.262 [facility] [address] [address] Apr, [facility] [place] [id number] [id number] Mar, [facility] [place] [facility] [id number] [place] [id number] Mar, [facility] [id number] [place] [id number] Mar, Essential hypertension I10 and Anxiety F41.9 [facility] [address] [place] [address] November, Laceration of left wrist, initial encounter S61.512A [facility] [id number] [place] [address] Sep, Essential hypertension I10 [facility] [id number] [place] [address]- [address]597 Sep, [facility] [id number] [place] [address]- 85[address] Jul, [facility] [id number] [place] [address]- 40[address] Jun, [facility] [id number] [place] [address]- 0184 May, [facility] [id number] [place] [address]- 1315 May, [facility] [address] [place] [address]69- 6573 May, [facility] [id number] [place] [address]- [address] Apr, Effusion of right knee M25.461 ; 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 tophus M1A.09X0 ; Essential hypertension I10 ; Right knee pain M25.561 ; Acute idiopathic gout of multiple sites M10.09 and Anxiety F41.9 [facility] [address] [address] Apr, [facility] [address] [address] Mar, [place] [address] [address] Mar, Essential hypertension I10 ; Anxiety F41.9 ; Peeling skin R23.4 ; 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 tophus M1A.09X0 ; History of renal failure Z87.448 ; Elevated LFTs R79.89 and Insomnia, unspecified type G47.00 [facility] [place] [address] [address] Mar, [place] [address] [address] Mar, [facility] W[facility] IN [address] [address] Mar, [facility] [address] [address] Feb, [facility] [address] [address] Feb, STD exposure Z20.2 ; Contact with and (suspected) exposure to viral hepatitis Z20.5 ; Problems related to high-risk sexual behavior Z72.51 and Tinea cruris B35.[address] [address] Feb, Acute gout, unspecified cause, unspecified site M10.9 [place] [id number] [place] [address] Feb, Essential hypertension I10 and Acute gout of multiple sites , unspecified cause M10.9 [place] [address] [address] Jan, [place] [address] [address] Jan, [facility] W[facility] IN [address] [address] Jan, Hypotension, unspecified hypotension type I95.9 ; Anuria R34 and Dizziness R42 [place] [address] [address] Jan, [facility] [id number] [place] [address]- [address] Sep, [place] [address] [address] Sep, Pain of right sacroiliac joint M53.3 [place] [address] [address] Sep, Hemorrhoids K64.9 ; Low back pain M54.5 and Peeling skin R23.4 [place] [address] [address] Sep, [place] [address] [address] Aug, High ankle sprain of right lower extremity S93.431A and Back pain M54.9 [place] [address] [address] Aug, [place] [id number] [place] [address]- [address] Aug, [place] [id number] [place] [address] 266[address] May, Right knee pain M25.561 [place] [id number] [place] [address]- [address] Dec, Sciatica 724.3 ; Excessive drinking alcohol 305.00 ; Insomnia, unspecified 780.52 ; Hypertension 401.9 and Anxiety 300.00 [place] [id number] [place] [address]73- 2245 Dec, [place] [address] [address] 14 Oct, 2014 [facility] [place] [facility] [address] [id number] [place] [address] Oct, [facility] [place] [facility] [address] [id number] [place] [address] Aug, [facility] [place] [facility] [address] [id number] [place] [address] Aug, [facility] [place] [facility] [address] [id number] [place] [address] 85[address] Aug, [facility] [place] [facility] [address] [id number] [place] [address] 39[address] Aug, [facility] [place] [facility] [address] [id number] [place] [address]- 9[address] Jul, [facility] [place] [facility] [address] [id number] [place] [address]- [address] Jul, [facility] [place] [facility] [address] [id number] [place] [address]- [address]92 Jun, [facility] [place] [facility] [address] [id number] [place] [address]- [address] Jun, [facility] [place] [facility] [address] [id number] [place] [address]- 6288 Jun, [facility] [place] [facility] [address] [id number] [place] [address]- 237[address] Jun, [facility] [place] [facility] [address] [id number] [place] [address]- 3631 Jun, [facility] [place] [facility] [address] [id number] [place] [address] Jun, [facility] [place] [facility] [address] [id number] [place] [address]- 3[address] Feb, [facility] [place] [facility] [address] [id number] [place] [address]- 30[address] Feb, [facility] [place] [facility] [address] [id number] [place] [address] 2546 Feb, [facility] [place] [facility] [address] [id number] [place] [address]- 2916 Feb, [facility] [place] [facility] [address] [id number] [place] [address]- 25[address] Feb, [facility] [place] [facility] [address] [id number] [place] [address]- [address] Feb, [facility] [place] [facility] [address] [id number] [place] [address]- [address] Jan, [facility] [place] [facility] [address] [id number] [place] [address]- 3098 Jan, [facility] [place] [facility] [address] [id number] [place] [address]- 7[address] Jan, [facility] [place] [facility] [address] [id number] [place] [address]- 7716 Jan, [facility] [place] [facility] [address] [id number] [place] [address]- 2042 Dec, [facility] [place] [facility] [address] [id number] [place] [address]- 8239 Dec, [facility] [place] [facility] [address] [id number] [place] [address]- 2891 Dec, [facility] [place] [facility] [address] [id number] [place] [address]- 3457 Dec, [facility] [place] [facility] [address] [id number] [place] [address]- 1716 November, [facility] [place] [facility] [address] [id number] [place] [address]- 0546 November, [facility] [place] [facility] [address] [id number] [place] [address]- 2546 November, [facility] [place] [facility] [address] [id number] [place] [address]- 9189 November, [facility] [address] [id number] [place] [address]- 4255 November, [facility] [place] [facility] [address] [id number] [place] [address]- 9743 November, [facility] [place] [facility] [address] [id number] [place] [address] November, [facility] [place] [facility] [address] [id number] [place] [address]- 8703 November, [facility] [place] [facility] [address] [id number] [place] [address]- 6767 November, [facility] [place] [facility] [address] [id number] [place] [address]- 3579 November, [facility] [place] [facility] [address] [id number] [place] [address]- 8389 Oct, [facility] [place] [facility] [address] [id number] [place] [address]- 8049 Oct, [facility] [place] [facility] [address] [id number] [place] [address]- 3756 Oct, [facility] [place] [facility] [address] [id number] [place] [address]- 7240 Oct, [facility] [place] [facility] [address] [id number] [place] [address]- 5525 Sep, [facility] [place] [facility] [address] [id number] [address]- 3[address] Sep, [facility] [place] [facility] [address] [id number] [place] [address]- 9776 Apr, [facility] [place] [facility] [address] [id number] [place] [address]- 4437 Apr, [facility] [place] [facility] [address] [id number] [place] [address]- 7450 Apr, [facility] [place] [facility] [address] [id number] [place] [address]- 64[address] 09 Apr, 2013 [facility] [address] [id number] [place] [address]- 4198 11 Mar, 2013 [facility] [address] [id number] [place] [address]- 6239 06 Mar, 2013 [facility] [address] [id number] [place] [address]- 3809 Mar, [facility] [place] [facility] [address] [id number] [place] [address]- 2952 Feb, [facility] [address] [id number] [place] [address]- 1805 Feb, [facility] [address] [id number] [place] [address]- 4334 Feb, [facility] [address] [id number] [place] [address]- 5342 29 Oct, 2012 [facility] [address] [id number] [place] [address]- 2226 Oct, [facility] [address] [id number] [place] [address]- 6362 18 Oct, 2012 [facility] [address] [id number] [place] [address]- 8646 17 Oct, 2012 [facility] [address] [id number] [place] [address]- 7372 Oct, [facility] [place] [facility] [address] [id number] [place] [address]- 6052 05 Oct, 2012 [facility] [place] [facility] [address] [id number] [place] [address]- 8712 Oct, [facility] [place] [facility] [address] [id number] [place] [address]- 8063 Sep, [facility] [place] [facility] [address] [id number] [place] [address]- 6095 Sep, [facility] [place] [facility] [address] [id number] [place] [address]- 2546 Sep, [facility] [place] [facility] [address] [id number] [place] [address]- 2716 Sep, [facility] [place] [facility] [address] [id number] [place] [address]- 2546 Jul, [facility] [place] [facility] [address] [id number] [place] [address]- 4616 Jan, [facility] [address] [id number] [place] [address]- 2546 Jan, [facility] [address] [id number] [place] [address]- 5526 Jan, [facility] [address] [id number] [place] [id number] Sep, [facility] [address] [id number] [place] [address]- 1916 Sep, [facility] [address] [id number] [place] [address]- 7716 Jul, [facility] [address] [id number] [place] [address]- 4536 Jun, [facility] [address] [id number] [place] [address]- 2546 14 May, 2011 [facility] [place] [facility] [address] [id number] [place] [address]- 2546 May, [facility] [place] [facility] [address] [id number] [place] [address]- 2546 May, [facility] [place] [facility] [address] [id number] [place] [address]- 2546 May, [facility] [place] [facility] [address] [id number] [place] [address]- 2546 May, [facility] [place] [facility] [address] [id number] [place] [address]- 2546 Apr, [facility] [address] [facility] [id number] [place] [address]- 130[address] Jun, [facility] [address] [facility] [id number] [place] [address]- 2546 Feb, [facility] [address] [facility] [id number] [place] [address]- 2546 November, IMMUNIZATIONS No Known Immunizations SOCIAL HISTORY Never Assessed REASON FOR VISIT Refill Requests PLAN OF CARE VITAL SIGNS MEDICATIONS Medication Instructions Dosage Frequency Start Date End Date Duration Status Colchicine 0.6 MG Orally 2 times a day 1 tablet 12h 04 Apr, 2017 Jul, 90 days Active Amlodipine Besylate 10 mg Orally Once a day 1 tablet 24h Apr, 90 days Active Toprol XL 100 mg Orally Once a day 1 tablet 24h 90 days Active Trazodone HCl 150 MG Orally Once a day 1 tablet at bedtime 24h Mar, 90 days Active Lisinopril 40 mg Orally Once a day 1 tablet 24h Apr, 90 days Active Paxil 20 mg Orally Once a day 2 tablets 24h Sep, 90 days Active RESULTS No Results PROCEDURES [...] intoxication 09/02/2012 Hospitalization History Acute Renal Failure--[facility] 01/24/16
--- OUTSIDE RECORDS SUMMARY | 2018-05-07 10:31 | XMS REPORT | Continuity of Care Document ---
Author Author [facility] Organization [facility] Address Unknown Phone Unavailable Care Team Providers Care Traveling Accountant Name Role Phone [facility] OF Insurance Providers Payer Name Policy Number Subscriber Name Relationship Self Pay Shazia Trevino 01 Self / Same As Patient Advance Directives Directive Response Recorded Date Advance Directives N 01/12/13 5:37pm Health Care Power of Speech And Language Tutor N 01/12/13 5:37pm Organ Donor Y 01/12/13 5:37pm Problems No Known Problems or Medical conditions. Family History History Response Recorded Date/Time Hx Family Cancer Y PAT.GRANDPARENTS 09/02 12:42am Hx Family Stroke Y BROTHER 09/02/12 12: 42am Hx Family Hypertension Y BROTHER 12:42am Hx Family Myocardial Infarction Y PAT.GRANPA 09/02/12 12:42am Social History History Response Recorded Date/Time Alcohol Use Past History 01/12/13 5:37pm Recreational Drug Use Y ethol 01/12/13 5: 37pm Recent Foreign Travel N 01/12/13 5:37pm Recent Infectious Disease Exposure N 04/17 5:37pm Hospitalization with Isolation Denies 04/17 5:37pm Sexually Transmitted Disease N 01/12/13 5 :37pm HIV/AIDS N 01/12/13 5:37pm Allergies, Adverse Reactions, Alerts Allergen Type Severity Reaction Last Updated morphine Allergy 09/01/12 Medications Medication Dose Units Route Sig Qty Days Tramadol HCl (Ultram) 50 Mg PO Q4-6HOURS PRN 20 Prednisone 5 Mg PO UD 78 Trimethoprim/Sulfamethoxazole (Bactrim Ds) 1 Ea PO BID 20 Meloxicam 1 Each PO DAILY 30 Lisinopril (Prinivil) 40 Mg PO DAILY 30 Hydrochlorothiazide (Hctz) 25 Mg PO DAILY 30 Trazodone Hcl 300 Mg PO HS Paroxetine Hcl (Paxil) 40 Mg PO DAILY [Percocet] [Trazadone] Immunizations Name Given Type Date of Influenza Vaccine 04/05/12 H Response Recorded Date/Time Status not known Unknown Results No Known Relevant Diagnostic Tests, Laboratory Data and/or Discharge Summary. Procedures Procedure Code Date ALCOHOL DETOXIFICATION 94.62 09/01/12 Encounters Encounter Location Date/Time Departed Emergency Room [facility] 04/17 5:29pm Discharged Inpatient [facility] 10:44pm
--- OUTSIDE RECORDS SUMMARY | 2018-05-07 10:32 | XMS REPORT | Continuity of Care Document ---
Author Author [facility] Organization [facility] Address Unknown Phone Unavailable Care Team Providers Care Rn Forensic Name Role Phone [facility] OF Insurance Providers Payer Name Policy Number Subscriber Name Relationship Self Pay Shazia Trevino 01 Self / Same As Patient Advance Directives Directive Response Recorded Date Advance Directives N 02/23/13 3:42pm Health Care Power of Prime Minister N 02/23/13 3:42pm Organ Donor Y 02/23/13 3:42pm Problems No Known Problems or Medical conditions. Family History History Response Recorded Date/Time Hx Family Cancer Y PAT.GRANDPARENTS 09/02 12:42am Hx Family Stroke Y BROTHER 09/02/12 12: 42am Hx Family Hypertension Y BROTHER 12:42am Hx Family Myocardial Infarction Y PAT.GRANPA 09/02/12 12:42am Social History History Response Recorded Date/Time Alcohol Use Past History 02/23/13 3:42pm Recreational Drug Use N 02/23/13 3:42pm Recent Foreign Travel N 02/23/13 3:42pm Recent Infectious Disease Exposure N 3:42pm Hospitalization with Isolation Denies 3:42pm Allergies, Adverse Reactions, Alerts Allergen Type Severity [...] Recorded Date/Time Status not known Unknown Results Test Date Result Interp. Ref. Range Acetaminophen Level September 01, 2012 7:56pm < 10 UG/ML L 10.0-30.0 Activated Partial Thromboplast Time September 02, 2012 6: 24am 26 SEC N 24-35 Alanine Aminotransferase (ALT/SGPT) January 12, 2013 6:02pm 35 U/L N 30-65 Albumin January 12, 2013 6:02pm 4.0 G/DL N 3.4-5.0 Alkaline Phosphatase January 12, 2013 6:02pm 54 U/L N 50-136 Amylase Level September 01, 2012 7:56pm 44 U/L N 25-115 Aspartate Amino Transf (AST/SGOT) January 12, 2013 6:02pm 13 U/L L 15-37 BUN/Creatinine Ratio January 12, 2013 6:02pm 17 - Basophils # (Auto) January 12, 2013 6:02pm 0.0 10^3/uL N 0.0-0.1 Basophils (%) (Auto) January 12, 2013 6:02pm 0 % N 0-10 Blood Urea Nitrogen January 12, 2013 6:02pm 22 MG/DL H 7-18 Calcium Level January 12, 2013 6:02pm 9.5 MG/DL N 8.5-10.1 Carbon Dioxide Level January 12, 2013 6:02pm 24 MMOL/L N 21-32 Chloride Level January 12, 2013 6:02pm 100 MMOL/L L 101-110 Creatinine January 12, 2013 6:02pm 1.3 MG/ DL N 0.6-1.3 Eosinophils # (Auto) January 12, 2013 6:02pm 0.0 10^3/uL N 0.0-0.3 Eosinophils (%) (Auto) January 12, 2013 6:02pm 0 % N 0-10 Erythrocyte Sedimentation Rate January 12, 2013 6:02pm 47 MM/HR H 0-15 Glucose Level January 12, 2013 6:02pm 133 MG/DL H 74-106 Hematocrit January 12, 2013 6:02pm 36 % L 40-54 Hemoglobin January 12, 2013 6:02pm 12.8 G/ DL L 13.3-17.7 Hepatitis A IgM Antibody September 05, 2012 10:40am NR - Hepatitis B Core IgM Antibody September 05, 2012 10:40am NR - Hepatitis B Surface Antigen September 05, 2012 10:40am NR - Hepatitis C Antibody September 05, 2012 10:40am NR - Lipase October 06, 2008 1:45pm 171 U/L N 114-286 Lymphocytes # (Auto) January 12, 2013 6:02pm 1.2 X 10^3 N 1.0-4.0 Lymphocytes (%) (Auto) January 12, 2013 6:02pm 12 % N 12-44 Magnesium Level September 07, 2012 5:21am 2.1 MG/DL N 1.8-2.4 Mean Corpuscular Hemoglobin January 12, 2013 6:02pm 30 PG N 25-34 Mean Corpuscular Hemoglobin Concent January 12, 2013 6:02pm 36 G/DL N 32-36 Mean Corpuscular Volume January 12, 2013 6:02pm 84 FL N 80-99 Mean Platelet Volume January 12, 2013 6:02pm 10.2 FL N 7.4-10.4 Monocytes # (Auto) January 12, 2013 6:02pm 0.8 X 10^3 N 0.0-1.0 Monocytes (%) (Auto) January 12, 2013 6:02pm 8 % N 0-12 Neutrophils # (Auto) January 12, 2013 6:02pm 7.7 X 10^3 N 1.8-7.8 Neutrophils (%) (Auto) January 12, 2013 6:02pm 79 % H 42-75 Platelet Count January 12, 2013 6:02pm 210 10^3/uL N 130-400 Potassium Level January 12, 2013 6:02pm 3.9 MMOL/L N 3.6-5.0 Prothromb Time International Ratio September 02, 2012 6:24am 1.0 N 0.8-1.4 Prothrombin Time September 02, 2012 6:24am 13.5 SEC N 12.2-14.7 Red Blood Count January 12, 2013 6:02pm 4.30 10^6/uL L 4.35-5.85 Red Cell Distribution Width January 12, 2013 6:02pm 12.9 % N 10.0-14.5 Salicylates Level September 01, 2012 7:56pm < 0.2 MG/DL L 2.8-20.0 Sodium Level January 12, 2013 6:02pm 136 MMOL/L N 135-145 TSH [place] Testing September 01, 2012 7:56pm 1.50 UIU/ML N 0.34-5.60 Total Bilirubin January 12, 2013 6:02pm 0.4 MG/DL N 0.0-1.0 Total Protein January 12, 2013 6:02pm 7.8 G /DL N 6.4-8.2 Ur Tricyclic Antidepressants Screen September 01, 2012 8: 41pm NEGATIVE - Uric Acid January 12, 2013 6:02pm 5.3 MG/ DL N 2.6-7.2 Urine Amphetamines Screen September 01, 2012 8:41pm NEGATIVE - Urine Bacteria September 01, 2012 8:41pm NEGATIVE /HPF - Urine Barbiturates Screen September 01, 2012 8:41pm NEGATIVE - Urine Benzodiazepines Screen September 01, 2012 8:41pm NEGATIVE - Urine Bilirubin September 01, 2012 8:41pm NEGATIVE - Urine Casts September 01, 2012 8:41pm PRESENT /LPF H - Urine Clarity September 01, 2012 8:41pm CLEAR - Urine Cocaine Screen September 01, 2012 8:41pm NEGATIVE - Urine Color September 01, 2012 8:41pm YELLOW - Urine Crystals September 01, 2012 8:41pm NONE /LPF - Urine Culture Indicated September 01, 2012 8:41pm NO - Urine Glucose (UA) September 01, 2012 8:41pm NEGATIVE - Urine Hyaline Casts September 01, 2012 8:41pm 0-2 /LPF H - Urine Ketones September 01, 2012 8:41pm NEGATIVE - Urine Leukocyte Esterase September 01, 2012 8:41pm NEGATIVE - Urine Methamphetamines Screen September 01, 2012 8:41pm NEGATIVE - Urine Mucus September 01, 2012 8:41pm NEGATIVE /LPF - Urine Nitrite September 01, 2012 8:41pm NEGATIVE - Urine Opiates Screen September 01, 2012 8:41pm NEGATIVE - Urine Phencyclidine Screen September 01, 2012 8:41pm NEGATIVE - Urine Propoxyphene Screen September 01, 2012 8:41pm NEGATIVE - Urine Protein September 01, 2012 8:41pm TRACE - Urine RBC September 01, 2012 8:41pm 0-2 / HPF - Urine Specific [place] September 01, 2012 8:41pm 1.015 L - Urine Squamous Epithelial Cells September 01, 2012 8:41pm 2-5 /HPF - Urine Urobilinogen September 01, 2012 8:41pm NORMAL MG/DL - Urine WBC September 01, 2012 8:41pm RARE /HPF - Urine pH September 01, 2012 8:41pm 7 - White Blood Count January 12, 2013 6:02pm 9.7 10^3/uL N 4.3-11.0 Serum Alcohol September 01, 2012 7:56pm 438 MG/DL PH -5 Estimat Glomerular Filtration Rate January 12, 2013 6:02pm > 60 - Urine Oxycodone Screen September 01, 2012 8:41pm NEGATIVE - Urine Methadone Screen September 01, 2012 8:41pm NEGATIVE - Urine Cannabinoids Screen September 01, 2012 8:41pm POSITIVE H - Urine Buprenorphine September 01, 2012 8:41pm NEGATIVE - Urine RBC (Auto) September 01, 2012 8:41pm 1+ H - Procedures Procedure Code Date ALCOHOL DETOXIFICATION 94.62 09/01/12 Encounters Encounter Location Date/Time Registered Emergency Room [facility] 02/23/13 3:40pm Departed Emergency Room [facility] 04/17 5:29pm Discharged Inpatient [facility] 10:44pm
--- OUTSIDE RECORDS SUMMARY | 2018-05-07 10:34 | XMS REPORT | Continuity of Care Document ---
Author Author [facility] Address Unknown Phone Unavailable Allergies Active Description Code Type Severity Reaction Onset Reported/Identified Relationship to Patient Clinical Status Yes morphine Drug Allergy 02/11/2010 Yes morphine Drug Allergy N/A N/A 02/11/2010 Yes morphine [id number] Drug Allergy Unknown N/A 10/28/2013 Yes fentanyl [id number] Drug Allergy Unknown N/A 01/24/2016 Yes ketorolac [id number] Drug Allergy Unknown N/A 01/24/2016 Yes MORPHINE [id number] Drug Allergy N/A "RED, BLISTERY SKIN" 09/07/2017 Yes MORPHINE [id number] Drug Allergy Moderate "RED, BLISTERY SKIN" 09/08/2017 Yes MORPHINE [id number] Drug Allergy Moderate "RED, BLISTERY SKIN" 09/08/2017 [...] ESSENTIAL 02/08/2008 493.90 ASTHMA UNSPECIFIED 02/08/2008 MARY VISUAL DESIGNER, KWESI S 296.90 MOOD DISORDER 02/08/2008 MARY VISUAL DESIGNER, KWESI S 401.1 HYPERTENSION, BENIGN ESSENTIAL 02/08/2008 MARY VISUAL DESIGNER, KWESI S 493.90 ASTHMA UNSPECIFIED 02/08/2008 WHITE [...] K 493.90 ASTHMA UNSPECIFIED 02/08/2008 DUGAN DO, LPÓEZ K 296.90 MOOD DISORDER 02/08/2008 DUGAN DO, LÓPEZ K 401.1 HYPERTENSION, BENIGN ESSENTIAL 02/08/2008 DUGAN DO, LÓPEZ K 493.90 ASTHMA UNSPECIFIED 02/08/2008 DUGAN DO, LÓPEZ K 296.90 MOOD DISORDER 02/08/2008 DUGAN DO, LÓPEZ K 401.1 HYPERTENSION, BENIGN ESSENTIAL 02/08/2008 DUGAN DO, LÓPEZ K 493.90 ASTHMA UNSPECIFIED 02/08/2008 MARIANNA VISUAL DESIGNER, MORIAH R 296.90 MOOD DISORDER 02/08/2008 MARIANNA VISUAL DESIGNER, MORIAH R 401.1 HYPERTENSION, BENIGN ESSENTIAL 02/08/2008 MARIANNA MAYENN, MORIAH R 493.90 ASTHMA UNSPECIFIED 11/13/2009 919.5 [...] UNSPECIFIED SITES, INSECT BITE, NONVENOMOUS, INFECTED 11/13/2009 KWESI HERNANDEZ APRN 919.5 SUPERFICIAL INJURY OF OTHER, MULTIPLE, [...] HERNANDEZ APRN S 338.1 ACUTE PAIN 02/11/2010 ROSY HERNANDEZ APRNNDA S 724.2 LUMBAGO 02/11/2010 BETINA JORDAN DDS 338.1 ACUTE PAIN 02/11/2010 NIKKI HANNASBETINA 724.2 LUMBAGO 02/11/2010 DUGAN DO, LÓPEZ K [...] DO, LÓPEZ K 724.2 LUMBAGO 02/11/2010 MARIANNA VISUAL DESIGNER, MORIAH R 338.1 ACUTE PAIN 02/11/2010 MARIANNA VISUAL DESIGNER, MORIAH R 724.2 LUMBAGO 06/26/2010 719.47 PAIN [...] IN JOINT INVOLVING ANKLE AND FOOT 06/26/2010 BETINA JORDAN DDS 719.47 PAIN IN JOINT INVOLVING ANKLE AND [...] IN JOINT INVOLVING ANKLE AND FOOT 06/26/2010 FABIOLA CABRAL APRNINA R 719.47 PAIN IN JOINT INVOLVING ANKLE [...] Pain In Joint Involving Lower Leg 09/26/2010 NIKKI WARREN, BETINA Quevedo 719.46 Pain In Joint Involving Lower Leg [...] OF ANKLE SPRAIN 10/10/2010 KWESI HERNANDEZ APRN S 845.00 UNSPECIFIED SITE OF ANKLE SPRAIN 10/10/2010 WHITE DDS, BETINA Quevedo 845.00 UNSPECIFIED SITE OF ANKLE SPRAIN 10/10/2010 DUGAN DO, LÓPEZ K 845.00 UNSPECIFIED SITE OF ANKLE SPRAIN 10/10/2010 DUGAN DO, LÓPEZ K 845.00 UNSPECIFIED SITE OF ANKLE SPRAIN 10/10/2010 DUGAN DO, LÓPEZ K 845.00 UNSPECIFIED SITE OF ANKLE SPRAIN 10/10/2010 DUGAN DO, LÓPEZ K 845.00 UNSPECIFIED SITE OF ANKLE SPRAIN 10/10/2010 DUGAN DO, LÓPEZ K 845.00 UNSPECIFIED SITE OF ANKLE SPRAIN 10/10/2010 MORIAH CABRAL APRN R 845.00 UNSPECIFIED SITE OF ANKLE SPRAIN [...] 780.52 insomnia 09/17/2011 787.1 heartburn 09/17/2011 MARY VISUAL DESIGNER, KWESI S 401.9 Combined Systolic And Diastolic Elevation 09/17/2011 MARY VISUAL DESIGNER, KWESI S 565.0 ANAL FISSURE 09/17/2011 MARY VISUAL DESIGNER, KWESI S 578.1 red blood in bowel movement (hematochezia) 09/17/2011 MARY VISUAL DESIGNER, KWESI S 780.52 insomnia 09/17/2011 MARY VISUAL DESIGNER, KWESI S 787.1 heartburn 09/17/2011 WHITE DDS, BETINA D 401.9 Combined Systolic And Diastolic Elevation 09/17/2011 WHITE DDS, BETINA D 565.0 ANAL FISSURE 09/17/2011 WHITE DDS, BETINA D 578.1 red blood in bowel movement (hematochezia) 09/17/2011 WHITE DDS, BETINA D 780.52 insomnia 09/17/2011 WHITE DDS, BTEINA D 787.1 heartburn 09/17/2011 DUGAN DO, LÓPEZ [...] DO, LÓPEZ K 565.0 ANAL FISSURE 09/17/2011 KAILEE RALPH, LÓPEZ K 578.1 RED BLOOD IN BOWEL MOVEMENT (HEMATOCHEZIA) 09/17/2011 KAILEE RALPH, LÓPEZ K 780.52 insomnia 09/17/2011 TALAT DUGAN DOA K 787.1 heartburn 09/17/2011 FABIOLA CABRAL APRNINA R 401.9 COMBINED SYSTOLIC AND DIASTOLIC ELEVATION 09/17/2011 MARIANNA MAYENNFABIOLAMORIAH R 565.0 ANAL FISSURE 09/17/2011 FABIOLA CABRAL APRNINA R 578.1 RED BLOOD IN BOWEL MOVEMENT (HEMATOCHEZIA) 09/17/2011 MARIANNA GATES, MORIAH R 780.52 insomnia 09/17/2011 FABIOLA CABRAL APRNINA R 787.1 heartburn 01/14/2012 790.4 ABNORMAL LFT [...] V06.1 TDAP DX 01/14/2012 WHITE DDS, BETINA D 790.4 ABNORMAL LFT (ELEVATED) 01/14/2012 WHITE DDS, BETINA D V06.1 TDAP DX 01/14/2012 DUGAN DO, LÓPEZ [...] DO, LÓPEZ K V06.1 TDAP DX 01/14/2012 MARIANNA GATES, MORIAH R 790.4 ABNORMAL LFT (ELEVATED) 01/14/2012 MARIANNA [...] AND OTHER NONSPECIFIC SKIN ERUPTION 09/14/2012 MARY MAYENNKWESI S 305.00 NONDEPENDENT ALCOHOL ABUSE UNSPECIFIED DRINKING BEHAVIOR 09/14/2012 MARY MAYENN, KWESI S 782.1 RASH AND OTHER NONSPECIFIC [...] AND OTHER NONSPECIFIC SKIN ERUPTION 09/14/2012 MARIANNA VISUAL DESIGNER, MORIAH R 305.00 NONDEPENDENT ALCOHOL ABUSE UNSPECIFIED DRINKING BEHAVIOR 09/14/2012 MARIANNA MAYENN, MORIAH R 782.1 RASH AND OTHER NONSPECIFIC [...] ALCOHOL DEPENDENCE UNSPECIFIED DRINKING BEHAVIOR 09/23/2012 KWESI HERNANDEZ APRN S 303.90 OTHER AND UNSPECIFIED ALCOHOL DEPENDENCE UNSPECIFIED [...] UNSPECIFIED DRINKING BEHAVIOR 10/05/2012 KWESI HERNANDEZ APRN S 303.00 ACUTE ALCOHOLIC INTOXICATION IN ALCOHOLISM UNSPECIFIED [...] UNSPECIFIED DRINKING BEHAVIOR 10/05/2012 MORIAH CABRAL APRN 303.00 ACUTE ALCOHOLIC INTOXICATION IN ALCOHOLISM UNSPECIFIED DRINKING BEHAVIOR 10/21/2012 719.06 EFFUSION OF LOWER LEG JOINT 10/21/2012 719.06 EFFUSION OF LOWER LEG JOINT 10/21/2012 719.06 EFFUSION OF LOWER LEG JOINT 10/21/2012 719.06 EFFUSION OF LOWER LEG JOINT 10/21/2012 KWESI HERNANDEZ APRN 719.06 EFFUSION OF LOWER LEG JOINT 10/21/2012 BETINA JORDAN DDS 719.06 EFFUSION OF LOWER LEG JOINT 10/21/2012 DUGAN DO LÓPEZ K 719.06 EFFUSION OF LOWER LEG JOINT 10/21/2012 DUGAN DO LÓPEZ K 719.06 EFFUSION OF LOWER LEG JOINT 10/21/2012 DUGAN DOTALATA K 719.06 EFFUSION OF LOWER LEG JOINT 10/21/2012 DUGAN DO, LÓPEZ K 719.06 EFFUSION OF LOWER LEG JOINT 10/21/2012 DUGAN DO, LÓPEZ K 719.06 EFFUSION OF LOWER LEG JOINT 10/21/2012 MORIAH CABRAL APRN R 719.06 EFFUSION OF LOWER LEG JOINT 01/12/2013 NORA REYES DOA K Ot 726.71 ACHILLES TENDINITIS 01/12/2013 NORA REYES DOA K Ot 727.06 TENOSYNOVITIS FOOT/ANKLE 01/12/2013 NORA REYES DOA K Ot 729.5 PAIN IN LIMB 02/08/2013 724.3 SCIATICA 02/08/2013 724.3 SCIATICA 02/08/2013 724.3 SCIATICA 02/08/2013 KWESI HERNANDEZ APRN 724.3 SCIATICA 02/08/2013 BETINA JORDAN DDS 724.3 SCIATICA 02/08/2013 DUGAN DO LÓPEZ K 724.3 SCIATICA 02/08/2013 DUGAN DO LÓPEZ K 724.3 SCIATICA 02/08/2013 DUGAN DO LÓPEZ K 724.3 SCIATICA 02/08/2013 DUGAN DO, LÓPEZ K 724.3 SCIATICA 02/08/2013 DUGAN DO, LÓPEZ K 724.3 SCIATICA 02/08/2013 MORIAH CABRAL APRN R 724.3 SCIATICA 02/23/2013 788.5 OLIGURIA AND ANURIA 02/23/2013 788.5 OLIGURIA AND ANURIA 02/23/2013 788.5 OLIGURIA AND ANURIA 02/23/2013 KWESI HERNANDEZ APRN S 788.5 OLIGURIA AND ANURIA 02/23/2013 WHITE CYNDIS, BETINA Quevedo 788.5 OLIGURIA AND ANURIA 02/23/2013 DGUAN DO, LÓPEZ K 788.5 OLIGURIA AND ANURIA 02/23/2013 DUGAN DO, LÓPEZ K 788.5 OLIGURIA AND ANURIA 02/23/2013 DUGAN DO, LÓPEZ K 788.5 OLIGURIA AND ANURIA 02/23/2013 DUGAN DO, LÓPEZ K 788.5 OLIGURIA AND ANURIA 02/23/2013 DUGAN DO, LÓPEZ K 788.5 OLIGURIA AND ANURIA 02/23/2013 MORIAH CABRAL APRN R 788.5 OLIGURIA AND ANURIA 02/23/2013 PAULINA MELCHOR, ANGELICA Cerrato Ot 276.51 DEHYDRATION 02/23/2013 PAULINA MELCHOR, ANGELICA Cerrato Ot 584.9 ACUTE RENAL FAILURE, UNSPECIFIED 02/23/2013 PAULINA MELCHOR, ANGELICA Cerrato Ot 787.01 NAUSEA WITH VOMITING 02/23/2013 PAULINA MELCHOR, ANGELICA Cerrato Ot 787.91 DIARRHEA 02/23/2013 PAULINA MELCHOR, ANGELICA Cerrato Ot 789.07 ABDOMINAL PAIN, GENERALIZED 04/13/2013 KWESI HERNANDEZ APRN S 729.5 PAIN- ARM 04/13/2013 WHITE DDSBETINA 729.5 PAIN- ARM 04/13/2013 DUGAN DO, LÓPEZ K 729.5 PAIN- ARM 04/13/2013 DUGAN DO, LÓPEZ K 729.5 PAIN- ARM 04/13/2013 DUGAN DO, LÓPEZ K 729.5 PAIN- ARM 04/13/2013 DUGAN DO, LÓPEZ K 729.5 PAIN- ARM 04/13/2013 DUGAN DO, LÓPEZ K 729.5 PAIN- ARM 04/13/2013 MORIAH CABRAL APRN R 729.5 PAIN- ARM 10/31/2013 MAGDY CUTLER MD Ot 291.81 ALCOHOL WITHDRAWAL 10/31/2013 MAGDY CUTLER [...] V03.82 PROPHYLACTIC VACC AGAINST STREPTOCOCCUS 10/31/2013 MAGDY CUTELR MD Ot V15.81 HX OF PAST NONCOMPLIANCE [...] INVOLVING LOWER LEG 01/10/2014 LÓPEZ DUGAN DO K 719.46 PAIN IN JOINT INVOLVING LOWER LEG 01/10/2014 LÓPEZ DUGAN DO 719.46 PAIN IN JOINT INVOLVING LOWER LEG 01/10/2014 MORIAH CABRAL APRN 719.46 PAIN IN JOINT INVOLVING LOWER LEG 02/10/2014 LÓPEZ DUGAN DO K 276.51 DEHYDRATION 02/10/2014 LÓPEZ DUGAN DO K 338.29 OTHER CHRONIC PAIN 02/10/2014 LÓPEZ DUGAN DO K 455.6 UNSPECIFIED HEMORRHOIDS WITHOUT COMPLICATION 02/10/2014 LÓPEZ DUGAN DO 787.91 DIARRHEA 02/10/2014 DUGAN DO, LÓPEZ K 276.51 DEHYDRATION 02/10/2014 TALAT DUGAN DOA K 338.29 OTHER CHRONIC PAIN 02/10/2014 TALAT DUGAN DOA K 455.6 UNSPECIFIED HEMORRHOIDS WITHOUT COMPLICATION 02/10/2014 TALAT DUGAN DOA K 787.91 DIARRHEA 02/10/2014 MARIANNA VISUAL DESIGNER, MORIAH R 276.51 DEHYDRATION 02/10/2014 MARIANNA VISUAL DESIGNER, MORIAH R 338.29 OTHER CHRONIC PAIN 02/10/2014 MARIANNA VISUAL DESIGNER, MORIAH R 455.6 UNSPECIFIED HEMORRHOIDS WITHOUT COMPLICATION 02/10/2014 MARIANNA VISUAL DESIGNER, MORIAH R 787.91 DIARRHEA 08/29/2014 MARIANNA VISUAL DESIGNER, MORIAH R 709.9 UNSPECIFIED DISORDER OF SKIN AND SUBCUTANEOUS TISSUE 04/12/2015 STEFANIA MELCHOR, SOBIA Verdin Ot 719.06 04/12/2015 BILLIE FORTUNE MD, Ot F10.229 ALCOHOL DEPENDENCE WITH INTOXICATION, UN 04/12/2015 BILLIE FORTUNE MD, Ot F32.9 MAJOR DEPRESSIVE DISORDER, SINGLE EPISOD 04/12/2015 BILLIE FORTUNE MD, Ot F41.9 ANXIETY DISORDER, UNSPECIFIED 04/12/2015 BILLIE FORTUNE MD, Ot I10 ESSENTIAL (PRIMARY) HYPERTENSION 04/12/2015 BILLIE FORTUNE MD, Ot R40.20 UNSPECIFIED COMA 04/12/2015 BILLIE FORTUNE MD, Ot R74.0 NONSPEC ELEV OF LEVELS OF TRANSAMNS LA 04/12/2015 BILLIE FORTUNE MD, Ot T43.212A [facility]/NOREPINEPH REUP I 04/12/2015 BILLIE FORTUNE MD, Ot T43.222A [facility] SEROTONIN REUPTAKE INHIBT 04/12/2015 BILLIE FORTUNE MD, Ot T51.0X2A TOXIC EFFECT OF ETHANOL, INTENTIONAL MERI 04/12/2015 BILLIE FORTUNE MD, Ot Y90.8 BLOOD ALCOHOL LEVEL OF 240 MG/100 ML OR 04/12/2015 BILLIE FORTUNE MD Ot Z23 ENCOUNTER FOR IMMUNIZATION 07/05/2015 BILLIE FORTUNE MD, Ot F10.221 ALCOHOL DEPENDENCE WITH INTOXICATION DEL 07/05/2015 BILLIE FORTUNE MD, Ot F17.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 DEPENDENCE, CHEWING TOBACCO, UN 07/05/2015 BILLIE FORTUNE MD Ot F32.9 MAJOR DEPRESSIVE DISORDER, SINGLE EPISOD [...] F10.129 ALCOHOL ABUSE WITH INTOXICATION, UNSPECI 01/13/2016 ROGELIO MELCHOR, MANFRED Reilly Ot S01.511A LACERATION WITHOUT FOREIGN BODY OF [...] MD Ot I10 ESSENTIAL (PRIMARY) HYPERTENSION 01/26/2016 AKOUSA STARR MD Ot M10.072 IDIOPATHIC GOUT, LEFT ANKLE AND FOOT 01/26/2016 AKOSUA STARR MD Ot N17.9 ACUTE KIDNEY FAILURE, UNSPECIFIED 04/10/2016 DYE, PETER J VISUAL DESIGNER Ot I10 ESSENTIAL (PRIMARY) HYPERTENSION 04/10/2016 JOSEFINA DYE VISUAL DESIGNER Ot S69.91XA UNSP INJURY OF RIGHT WRIST, HAND AND FIN 04/10/2016 JOSEFINA DYE VISUAL DESIGNER Ot W22.09XA STRIKING AGAINST OTHER STATIONARY OBJECT 04/10/2016 JOSEFINA DYE VISUAL DESIGNER Ot Y99.8 OTHER EXTERNAL CAUSE STATUS 04/10/2016 JOSEFINA DYE VISUAL DESIGNER Ot Z79.899 OTHER CHUTE GREASER (CURRENT) DRUG THERAPY 04/11/2016 JOSEFINA DYE VISUAL DESIGNER Ot I10 ESSENTIAL (PRIMARY) HYPERTENSION 04/11/2016 JOSEFINA DYE VISUAL DESIGNER Ot S69.91XA UNSP INJURY OF RIGHT WRIST, HAND AND FIN 04/11/2016 JOSEFINA DYE VISUAL DESIGNER Ot W22.09XA STRIKING AGAINST OTHER STATIONARY OBJECT 04/11/2016 JOSEFINA DYE VISUAL DESIGNER Ot Y99.8 OTHER EXTERNAL CAUSE STATUS 04/11/2016 JOSEFINA DYE VISUAL DESIGNER Ot Z79.899 OTHER JAIL (CURRENT) DRUG THERAPY 04/16/2016 JOSEFINA DYE VISUAL DESIGNER Ot I10 ESSENTIAL (PRIMARY) HYPERTENSION 04/16/2016 JOSEFINA DYE VISUAL DESIGNER Ot S69.91XA UNSP INJURY OF RIGHT WRIST, HAND AND FIN 04/16/2016 JOSEFINA DYE VISUAL DESIGNER Ot W22.09XA STRIKING AGAINST OTHER STATIONARY OBJECT 04/16/2016 JOSEFINA DYE VISUAL DESIGNER Ot Y99.8 OTHER EXTERNAL CAUSE STATUS 04/16/2016 JOSEFINA DYE VISUAL DESIGNER Ot Z79.899 OTHER CHUTE GREASER (CURRENT) DRUG THERAPY 03/30/2017 BILLIE FORTUNE MD [...] MG/100 ML OR 03/30/2017 BILLIE FORTUNE MD N Ot Z72.0 TOBACCO USE 03/30/2017 DEVIKA MELCHOR, BILLIE Shen Ot Z79.899 OTHER CHUTE GREASER (CURRENT) DRUG THERAPY 03/30/2017 BILLIE FORTUNE MD Ot Z91.14 PATIENT'S OTHER NONCOMPLIANCE WITH MEDIC 04/06/2017 STEFANIA MELCHOR, SOBIA Verdin Ot 719.06 JOINT EFFUSION-L/LEG 09/11/2017 LAW RALPHCHIQUI Other E66.01 MORBID (SEVERE) OBESITY DUE TO EXCESS CALORIES 09/11/2017 LAW RALPHCHIQUI Other F10.239 ALCOHOL DEPENDENCE WITH WITHDRAWAL, UNSPECIFIED 09/11/2017 LAW RALPHCHIQUI Other F17.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 DEPENDENCE, CHEWING TOBACCO, UNCOMPLICATED 09/11/2017 FOY CHIQUI RALPH Other F32.9 MAJOR DEPRESSIVE DISORDER, SINGLE EPISODE, UNSPECIFIED 09/11/2017 FOY CHIQUI RALPH Other F41.9 ANXIETY DISORDER, UNSPECIFIED 09/11/2017 LAW RALPHCHIQUI Other G47.33 OBSTRUCTIVE SLEEP APNEA (ADULT) (PEDIATRIC) 09/11/2017 LAW RALPHCHIQUI Other I10 ESSENTIAL (PRIMARY) HYPERTENSION 09/11/2017 LAW RALPHCHIQUI Other K76.0 FATTY (CHANGE OF) LIVER, NOT ELSEWHERE CLASSIFIED 09/11/2017 FOY CHIQUI RALPH Other M79.1 MYALGIA 09/11/2017 FOY CHIQUI RALPH Other R07.2 PRECORDIAL PAIN 09/11/2017 LAW RALPHCHIQUI Other R74.0 NONSPEC ELEV OF LEVELS OF TRANSAMNS LACTIC ACID DEHYDRGNSE 09/11/2017 LAW RALPHCHIQUI Other Z68.41 BODY MASS INDEX (BMI) 40.0-44.9, ADULT 09/11/2017 LAW RALPHCHIQUI Other Z71.3 DIETARY COUNSELING AND SURVEILLANCE 09/23/2017 ARELI WEBB MD Other F10.129 ALCOHOL ABUSE WITH INTOXICATION, UNSPECIFIED 09/23/2017 ARELI WEBB MD Other F10.920 ALCOHOL USE, UNSPECIFIED WITH INTOXICATION, UNCOMPLICATED 09/23/2017 ARELI WEBB MD Other F17.290 NICOTINE DEPENDENCE, OTHER TOBACCO PRODUCT, UNCOMPLICATED 09/23/2017 ARELI WEBB MD Other R53.83 OTHER FATIGUE 09/23/2017 JON MELCHOR, ARELI Torrez Other Y90.7 BLOOD ALCOHOL LEVEL OF 200-239 MG/100 ML 10/31/2017 ERIC , YANIV K Ot E11.9 TYPE 2 DIABETES MELLITUS WITHOUT COMPLIC 10/31/2017 ERIC , YANIV K Ot E78.00 PURE HYPERCHOLESTEROLEMIA, UNSPECIFIED 10/31/2017 ERIC DO, YANIV K Ot F10.229 ALCOHOL DEPENDENCE WITH INTOXICATION, UN 10/31/2017 ERIC , YANIV K Ot F12.90 CANNABIS USE, UNSPECIFIED, UNCOMPLICATED 10/31/2017 ERIC DO, YANIV K Ot F32.9 MAJOR DEPRESSIVE DISORDER, SINGLE EPISOD 10/31/2017 ERIC , YANIV K Ot F41.9 ANXIETY DISORDER, UNSPECIFIED 10/31/2017 ERIC RALPH, YANIV K Ot I10 ESSENTIAL (PRIMARY) HYPERTENSION 10/31/2017 ERIC YANIV K Ot J44.9 CHRONIC OBSTRUCTIVE PULMONARY DISEASE, U 10/31/2017 ERIC RALPH YANIV K Ot R41.82 ALTERED MENTAL STATUS, UNSPECIFIED [...] PERSONAL HISTORY OF NICOTINE DEPENDENCE 10/31/2017 ERIC YANIV K Ot Z88.5 ALLERGY STATUS TO NARCOTIC AGENT STATUS 11/02/2017 ERIC RALPH YANIV K Ot E11.9 TYPE 2 DIABETES MELLITUS WITHOUT COMPLIC 11/02/2017 ERIC DO, YANIV K Ot E78.00 PURE HYPERCHOLESTEROLEMIA, UNSPECIFIED 11/02/2017 ERIC DO, YANIV K Ot F10.229 ALCOHOL DEPENDENCE WITH INTOXICATION, UN 11/02/2017 ERIC DO, YANIV K Ot F12.90 CANNABIS USE, UNSPECIFIED, UNCOMPLICATED 11/02/2017 ERIC YANIV K Ot F32.9 MAJOR DEPRESSIVE DISORDER, SINGLE EPISOD 11/02/2017 ERIC YANIV K Ot F41.9 ANXIETY DISORDER, UNSPECIFIED 11/02/2017 YANIV REYES DO Ot I10 ESSENTIAL (PRIMARY) HYPERTENSION 11/02/2017 YANIV REYES DO Ot J44.9 CHRONIC OBSTRUCTIVE PULMONARY DISEASE, U 11/02/2017 YANIV REYES DO Ot R41.82 ALTERED MENTAL STATUS, UNSPECIFIED 11/02/2017 YANIV REYES DO Ot Z82.49 FAMILY HX OF ISCHEM HEART DIS AND OTH DI 11/02/2017 YANIV REYES DO Ot Z87.2 PERSONAL HISTORY OF DISEASES OF THE SKIN 11/02/2017 YANIV REEYS DO Ot Z87.828 PERSONAL HISTORY OF OTH (HEALED) PHYSICA 11/02/2017 YANIV REYES DO Ot Z87.891 PERSONAL HISTORY OF NICOTINE DEPENDENCE 11/02/2017 YANIV REYES DO Ot Z88.5 ALLERGY STATUS TO NARCOTIC AGENT STATUS 12/14/2017 ZAIRA MELCHOR, MYLES J Ot F10.20 ALCOHOL DEPENDENCE, UNCOMPLICATED 12/14/2017 ZAIRA MELCHOR, MYLES J Ot R45.851 SUICIDAL IDEATIONS 12/16/2017 ZAIRA MELCHOR, MYLES J Ot F10.20 ALCOHOL DEPENDENCE, UNCOMPLICATED 12/16/2017 ZAIRA MELCHOR, MYLES J Ot R45.851 SUICIDAL IDEATIONS Procedures Code Description [place] [address] ROUTINE VENIPUNCTURE 09/14/2012 99484 LIVER PANEL (LFT) 09/14/2012 11296 URIC ACID 09/14/2012 38065 THERAPUTIC INJ SQ/IM 09/23/2012 J1885 TORADOL INJ 09/23/2012 [facility] Isabel 10/05/201224844 JOINT INJECTION- LARGE JOINT (SPECIFY MEDCIN DESCRIPTION) 10/08/2012 JOINT INJECTION- LARGE JOINT (SPECIFY MEDCIN DESCRIPTION) 10/14/2012 JOINT INJECTION- LARGE JOINT (SPECIFY MEDCIN DESCRIPTION) 10/21/2012 Physical Physical Therapy, [facility] 10/22/2012 43691 URINE DRUG SCREEN (IN-HOUSE ) 03/02/2013 30685 ROUTINE VENIPUNCTURE 03/11/2013 JOINT INJECTION- LARGE JOINT (SPECIFY MEDCIN DESCRIPTION) 03/11/2013 68951 CMP 03/11/2013 68409 XRAY KNEE RIGHT 3 VIEWS 04/13/2013 51722 XRAY ANKLE R COMP MIN, 3 VIEWS 04/13/2013 94.62 ALCOHOL DETOXIFICATION 10/28/201364552 JOINT INJECTION- LARGE JOINT (SPECIFY MEDCIN DESCRIPTION) [...] resistant Staphylococcus aureus (MRSA) screening culture NEG [facility] Complete blood count (CBC) with automated white [...] automated white blood cell (WBC) differential - 10/31/17 12:20 Blood leukocytes automated count (number/volume) 7.6 [...] automated white blood cell (WBC) differential - 12/14/17 20:07 Blood leukocytes automated count (number/volume) 6.2 10*3/uL 4.3-11.0 Blood erythrocytes automated count (number/volume) 4.78 10*6/uL 4.35-5.85 Venous blood hemoglobin measurement (mass/volume) 14.6 g/dL 13.3-17.7 Blood hematocrit (volume fraction) 42 % 40-54 Automated erythrocyte mean corpuscular volume 88 [foz_us] 80-99 Automated erythrocyte mean corpuscular hemoglobin (mass per erythrocyte) 31 pg 25-34 Automated erythrocyte mean corpuscular hemoglobin concentration measurement ( mass/volume) 35 g/dL 32-36 Automated erythrocyte distribution width ratio 13.8 % 10.0-14.5 Automated blood platelet count (count/volume) 230 10*3/uL 130-400 Automated blood platelet mean volume measurement 8.9 [foz_us] 7.4-10.4 Automated blood neutrophils/100 leukocytes 56 % 42-75 Automated blood lymphocytes/100 leukocytes 36 % 12-44 Blood monocytes/100 leukocytes 8 % 0-12 Automated blood eosinophils/100 leukocytes 0 % 0-10 Automated blood basophils/100 leukocytes 0 % 0-10 Blood neutrophils automated count (number/volume) 3.5 10*3 1.8-7.8 Blood lymphocytes automated count (number/volume) 2.2 10*3 1.0-4.0 Blood monocytes automated count (number/volume) 0.5 10*3 0.0-1.0 Automated eosinophil count 0.0 10*3/uL 0.0-0.3 Automated blood basophil count (count/volume) 0.0 10*3/uL 0.0-0.1 Comprehensive metabolic panel - 12/14/17 20:07 Serum or plasma sodium measurement (moles/volume) 146 mmol/L 135-145 Serum or plasma potassium measurement (moles/volume) 3.9 mmol/L 3.6-5.0 Serum or plasma chloride measurement (moles/volume) 111 mmol/L 98-107 Carbon dioxide 21 mmol/L 21-32 Serum or plasma anion gap determination (moles/volume) 14 mmol/L 5-14 Serum or plasma urea nitrogen measurement (mass/volume) 17 mg/dL 7-18 Serum or plasma creatinine measurement (mass/volume) 0.85 mg/dL 0.60-1.30 Serum or plasma urea nitrogen/creatinine mass ratio 20 NRG Serum or plasma creatinine measurement with calculation of estimated glomerular filtration rate > NRG Serum or plasma glucose measurement (mass/volume) 111 mg/dL 70-105 Serum or plasma calcium measurement (mass/volume) 8.6 mg/dL 8.5-10.1 Serum or plasma total bilirubin measurement (mass/volume) 0.4 mg/dL 0.1-1.0 Serum or plasma alkaline phosphatase measurement (enzymatic activity/volume) 49 U/L 40-136 Serum or plasma aspartate aminotransferase measurement (enzymatic activity/ volume) 52 U/L 5-34 Serum or plasma alanine aminotransferase measurement (enzymatic activity/volume ) 58 U/L 0-55 Serum or plasma protein measurement (mass/volume) 7.4 g/dL 6.4-8.2 Serum or plasma albumin measurement (mass/volume) 4.4 g/dL 3.2-4.5 Serum or plasma salicylates measurement (mass/volume) - 12/14/17 20:07 Serum or plasma salicylates measurement (mass/volume) < mg/dL 5.0-20.0 Serum or plasma acetaminophen measurement (mass/volume) - 12/14/17 20:07 Serum or plasma acetaminophen measurement (mass/volume) < ug/mL 10-30 Serum or plasma ethanol measurement (mass/volume) - 12/14/17 20:07 Serum or plasma ethanol measurement (mass/volume) 320 mg/dL <10 Encounters ACCT No. Visit Date/Time Discharge Status Pt. Type Provider Facility Loc./Unit Complaint [id number] 09/01/2014 09:24:00 09/01/2014 23:59:59 CLS Outpatient MORIAH CABRAL APRN [id number] 02/28/2014 00:00:00 02/28/2014 23:59:59 CLS Outpatient LÓPEZ DUGAN DO [id number] 02/10/2014 10:32:00 02/10/2014 23:59:59 CLS Outpatient LÓPEZ DUGAN DO [id number] 01/10/2014 09:45:00 01/10/2014 23:59:59 CLS Outpatient LÓPEZ DUGAN DO [id number] 01/09/2014 09:25:00 01/09/2014 23:59:59 CLS Outpatient LÓPEZ DUGAN DO [id number] 11/03/2013 12:25:00 11/03/2013 23:59:59 CLS Outpatient LÓPEZ DUGAN DO [id number] 07/08/2013 09:40:00 07/08/2013 23:59:59 CLS Outpatient BETINA JORDAN DDS [id number] 04/13/2013 13:50:00 04/13/2013 23:59:59 CLS Outpatient KWESI HERNANDEZ APRN [id number] 10/14/2012 12:25:00 10/14/2012 23:59:59 CLS Outpatient [id number] 10/08/2012 10:31:00 10/08/2012 23:59:59 CLS Outpatient [id number] 10/05/2012 07:53:00 10/05/2012 23:59:59 CLS Outpatient [id number] 09/23/2012 10:29:00 09/23/2012 23:59:59 CLS Outpatient [id number] 09/14/2012 08:00:00 09/14/2012 23:59:59 CLS Outpatient DAVID MELCHOR, GHULAM [id number] 01/27/2012 11:37:00 01/27/2012 23:59:59 CLS Outpatient [id number] 03/11/2013 09:59:00 Document Registration [id number] 03/02/2013 15:05:00 Document Registration [id number] 02/23/2013 14:34:00 Document Registration [id number] 10/21/2012 15:38:00 Document Registration [email or web address] 04/11/2015 23:03:04 ACT Document Registration [id number] 12/15/2017 16:00:00 12/15/2017 23:59:59 CLS Outpatient BILLIE FORTUNE MD [facility] [id number] 09/07/2017 18:57:00 09/07/2017 23:59:59 CLS Preadmit [facility] ED [id number] 12/14/2017 18:09:00 12/14/2017 20:27:00 DIS Emergency MYLES MENESES MD [facility] ER SUICIDAL, ALCOHOLIC [id number] 10/31/2017 12:13:00 10/31/2017 14:32:00 DIS Emergency YANIV REYES DO [facility] ER AMS [id number] 03/25/2017 21:58:00 03/30/2017 12:49:00 DIS Inpatient BILLIE FORTUNE MD [facility] 4TH ETOH;INTOXICATION [id number] 04/10/2016 19:36:00 04/10/2016 20:40:00 DIS Emergency JOSEFINA DYE APRN [facility] ER RT HAND PAIN [id number] 01/24/2016 12:17:00 01/26/2016 08:34:00 DIS Inpatient AKOSUA STARR MD [facility] 4TH ACUTE RENAL FAILURE [id number] 01/12/2016 23:06:00 01/13/2016 00:12:00 DIS Emergency MANFRED MERCADO MD [facility] ER [id number] 11/02/2015 13:10:00 11/02/2015 17:10:00 DIS Inpatient AKOSUA STARR MD [facility] ICU ETOH INTOXICATION [id number] 07/04/2015 14:42:00 07/05/2015 13:31:00 DIS Inpatient BILLIE FORTUNE MD [facility] ICU ETOH ABUSE SUICIDAL IDEATION [id number] 04/11/2015 18:02:00 04/12/2015 13:13:00 DIS Inpatient BILLIE FORTUNE MD [facility] ICU OVERDOSE,ETOH INTOXICATION,SUICIDAL IDEATION [id number] 04/11/2015 23:02:00 04/11/2015 23:02:00 CAN Preadmit YANIV REYES DO [facility] ER PSYCH [id number] 10/28/2013 17:13:00 10/31/2013 12:32:00 DIS Inpatient MAGDY CUTLER MD [facility] CSD ETOH DETOX [id number] 04/22/2013 13:36:00 04/22/2013 23:59:59 CLS Outpatient SOBIA AGUIAR MD [facility] RAD RT KNEE EFFUSION [id number] 02/23/2013 15:40:00 02/23/2013 18:54:00 DIS Emergency ANGELICA GALLARDO MD [facility] ER DEVERE DEHYDRATION [id number] 01/12/2013 17:29:00 01/12/2013 19:34:00 DIS Emergency YANIV REYES DO [facility] ER L FOOT PAIN/KNOT [id number] 11/09/2012 11:12:00 12/06/2012 08:27:00 DIS Outpatient [id number] 05/07/2018 10:21:00 ACT Emergency ANGELICA GALLARDO MD Via [facility] ER DETOX [id number] 09/23/2017 17:04:00 09/23/2017 21:57:00 DIS Emergency JON MELCHOR, ARELI Torrez [facility] ED [id number] 09/08/2017 11:02:00 09/11/2017 15:10:00 DIS Inpatient CHIQUI FOY DO [facility] 3SE [id number] 04/30/2016 18:05:00 Document Registration [id number] 12/15/2017 15:36:00 Document Registration
[2018-05-07] MEDS ORDERED: NS IV 1000 ML 1,000 ML IV ONE (10:59)
[2018-05-07 11:13] LABS: BASOPHILS % (AUTO) 0 % (0-10); EOSINOPHILS % (AUTO) 0 % (0-10); HEMATOCRIT 42 % (40-54); HEMOGLOBIN 14.9 G/DL (13.3-17.7); LYMPHOCYTES # (AUTO) 1.9 X 10^3 (1.0-4.0); LYMPHOCYTES % (AUTO) 44 % (12-44); MEAN CORPUSCULAR HEMOGLOBIN 31 PG (25-34); MEAN CORPUSCULAR HGB CONC 35 G/DL (32-36); MEAN CORPUSCULAR VOLUME 89 FL (80-99); MEAN PLATELET VOLUME 8.5 FL (7.4-10.4); MONOCYTES # (AUTO) 0.4 X 10^3 (0.0-1.0); MONOCYTES % (AUTO) 10 % (0-12); NEUTROPHILS % (AUTO) 45 % (42-75); PLATELET COUNT 248 10^3/uL (130-400); RED BLOOD COUNT 4.76 10^6/uL (4.35-5.85); RED CELL DISTRIBUTION WIDTH 15.3 % (10.0-14.5); WHITE BLOOD COUNT 4.3 10^3/uL (4.3-11.0)
[2018-05-07] MEDS ORDERED: ONDANSETRON 4 MG/2 ML (SDV) Z0FRAN IVP ONE (11:15)
[2018-05-07] MEDS ORDERED: LORazepam INJ 2 MG/ML (ATIVAN) VIAL IVP ONE ×2 (11:15→12:15)
[2018-05-07 11:29] LABS: ALANINE AMINOTRANSFERASE 235 U/L (0-55); ALBUMIN 4.2 GM/DL (3.2-4.5); ALKALINE PHOSPHATASE 42 U/L (40-136); BILIRUBIN,TOTAL 0.3 MG/DL (0.1-1.0); BUN/CREATININE RATIO 8; CALCIUM 8.8 MG/DL (8.5-10.1); CARBON DIOXIDE 24 MMOL/L (21-32); CHLORIDE 110 MMOL/L (98-107); CREATININE SERUM 0.78 MG/DL (0.60-1.30); GFR ESTIMATED > 60; GLUCOSE 124 MG/DL (70-105); POTASSIUM 3.4 MMOL/L (3.6-5.0); SALICYLATE < 5.0 MG/DL (5.0-20.0); SODIUM 151 MMOL/L (135-145)
[2018-05-07 11:30] LABS: ACETAMINOPHEN < 10 UG/ML (10-30)
--- NOTE | 2018-05-07 12:02 | ED Psychosocial ---
General Chief Complaint: Psych/Social Disorder Stated Complaint: DETOX Nursing Triage Note: PT PRESENTS TO ED WITH FRIEND WITH COMPLAINTS OF DEPRESSION, SUICIDAL IDEATION, AND INCREASING ETOH ABUSE. PT REQUEST DETOX. Source: patient Exam Limitations: no limitations History of Present Illness Date Seen by Provider: May 07, 2018 Time Seen by Provider: 11:00 Initial Comments Patient is a 47-year-old male who was brought into the emergency room by by a friend with increasing depression, suicidal ideation, and heavy drinking, he reports that he just going to drink himself to . He has a long history of mental health problems and alcohol abuse. The patient is very emotional and crying during exam. He reports that he recently lost his father and this was his only support system that he had. He also reports that his father supported him financially and he doesn't want is going to do now. Reports drinking 2 pints of bourbon and has been vomiting and is nauseated now. Allergies and Home Medications Allergies Coded Allergies: fentanyl (Verified Allergy, Unknown, 01/24/16) morphine (Verified Allergy, Unknown, 10/28/13) Home Medications Amlodipine Besylate 5 Mg Tablet, 10 MG PO DAILY, (Reported) LAST RECEIVED #90 TABLETS (45 DAY SUPPLY) FROM REPOSITORY 12-15-17 Lisinopril 40 Mg Tablet, 40 MG PO DAILY, (Reported) LAST RECEIVED #90 12-15-17 FROM THE REPOSITORY Metoprolol Succinate 100 Mg Tab.er.24h, 100 MG PO DAILY, (Reported) LAST RECEIVED #90 FROM REPOSITORY 12-15-17 Paroxetine HCl 20 Mg Tablet, 40 MG PO DAILY, (Reported) LAST FILLED #60 12-15-17 TAKES 2 (20MG) TABLETS Prazosin HCl 2 Mg Capsule, 2 MG PO HS, (Reported) LAST FILLED #30 02-20-18 Quetiapine Fumarate 200 Mg Tablet, 200 MG PO HS, (Reported) LAST FILLED #30 02-20-18 Trazodone HCl 150 Mg Tablet, 150 MG PO HS, (Reported) LAST FILLED #30 12-15-17 Patient Home Medication List Home Medication List Reviewed: Yes Review of Systems Constitutional: no symptoms reported, see HPI Gastrointestinal: see HPI, nausea, vomiting Psychiatric/Neurological: See HPI, Depressed, Emotional Problems, Other ( suicidal ideation, suicide attempt, binge drinking) All Other Systems Reviewed Negative Unless Noted: Yes Past Ggwxpho-Hmsdtp-Jkrnvm Hx Past Med/Social Hx: Reviewed Nursing Past Med/Soc Hx Patient Social History Alcohol Use: Regular Use Number of Drinks Today: 10 Alcohol Beverage of Choice: Beer, Whiskey Recreational Drug Use: Yes Drug of Choice: THC Smoking Status: Never a Smoker Type Used: Smokeless Tobacco 2nd Hand Smoke Exposure: No Recent Foreign Travel: No Contact w/Someone Who Travel: No Recent Infectious Disease Expo: No Recent Hopitalizations: No Physical Abuse: No Sexual Abuse: No Mistreated: No Immunizations Up To Date Tetanus Booster (TDap): Unknown PED Vaccines UTD: Yes Date of Pneumonia Vaccine: Dec 04, 2013 Date of Influenza Vaccine: Apr 11, 2015 Seasonal Allergies Seasonal Allergies: Yes Past Medical History Surgeries: Yes (HAND LACERATION REPAIR) Orthopedic Respiratory: Yes Asthma, COPD Currently Using CPAP: No Currently Using BIPAP: No Cardiac: Yes High Cholesterol, Hypertension Neurological: No Reproductive Disorders: No Sexually Transmitted Disease: No HIV/AIDS: No Genitourinary: Yes Gastrointestinal: No Musculoskeletal: Yes (CHRONIC KNEE PAIN ) Chronic Back Pain Endocrine: Yes Diabetes, Non-Insulin dep HEENT: No Cancer: No Psychosocial: Yes Anxiety, Depression Integumentary: Yes Eczema Blood Disorders: No Adverse Reaction/Blood Tranf: No Family Medical History Reviewed Nursing Family Hx Alcoholism 19 MOTHER Diabetes mellitus 19 FATHER G8 BROTHER Family history: Asthma Family history: Cardiovascular disease 19 FATHER, Onset:50's - 60 (FATHER) Family history: Coronary thrombosis 19 FATHER, Onset:50's - 60 Family history: Diabetes mellitus 19 FATHER, Onset:50's - 60 Family history: Hypertension 19 FATHER, Onset:30's - 40 Hearing loss 19 FATHER, Onset:50's - 60 Heart disease 19 FATHER, Onset:50's - 60 Myocardial infarction G8 BROTHER, Onset:40's - 50 Stroke G8 BROTHER, Onset:40's - 50 No Family History of: Abdominal aortic aneurysm [place]'s disease Alcoholism Aphasia Cancer Cancer of colon Cataract Chest pain Congenital heart disease Congestive heart failure Cystic fibrosis Dementia Dysphagia Family history: Alzheimer's disease Family history: Arthritis Family history: Breast disease Family history: Gastrointestinal disease Family history: Osteoporosis Family history: Thyroid disorder Headache Hereditary disease History of - anemia History of - respiratory disease History of drug abuse Human immunodeficiency virus (HIV) seropositivity Hypercholesterolemia Infertile Kidney disease Malignant neoplasm of lung Parkinson's disease Prostate cancer Psychotic disorder Seizure disorder Tuberculosis Visual impairment Diabetes Physical Exam Vital Signs - First Documented 05/07/18 05/07/18 10:34 11:25 Temp 98.0 Pulse 110 Resp 20 B/P (MAP) 174/118 (136) Pulse Ox 96 O2 Delivery Nasal Cannula O2 Flow Rate 2.00 Capillary Refill : Less Than 3 Seconds Height, Weight, BMI Height: 6'0" Weight: 225lbs. 7.0oz. 102.806002oz; 33.5 BMI Method:Stated General Appearance: WD/WN, no apparent distress Neck: non-tender, full range of motion, supple, normal inspection Respiratory: chest non-tender, lungs clear, normal breath sounds, no respiratory distress, no accessory muscle use, respiratory distress Cardiovascular: normal peripheral pulses, regular rate, rhythm, no edema, no gallop, no JVD, no murmur Gastrointestinal: normal bowel sounds, non tender, soft, no organomegaly, no pulsatile mass Neurologic/Psychiatric: alert, oriented x 3, depressed affect, other (crying on exam.) Appearance/Memory: disheveled Behavior/Eye Contact: cooperative Thoughts/Hallucinations: normal thought pattern Skin: normal color, warm/dry Procedures/Interventions Suture Size: 5-0 Progress/Results/Core Measures Results/Orders Lab Results Laboratory Tests Test 05/07/18 10:48 05/07/18 12:25 Range/Units White Blood Count 4.3 4.3-11.0 10^3/uL Red Blood Count 4.76 4.35-5.85 10^6/uL Hemoglobin 14.9 13.3-17.7 G/DL Hematocrit 42 40-54 % Mean Corpuscular Volume 89 80-99 FL Mean Corpuscular Hemoglobin 31 25-34 PG Mean Corpuscular Hemoglobin Concent 35 32-36 G/DL Red Cell Distribution Width 15.3 H 10.0-14.5 % Platelet Count 248 130-400 10^3/uL Mean Platelet Volume 8.5 7.4-10.4 FL Neutrophils (%) (Auto) 45 42-75 % Lymphocytes (%) (Auto) 44 12-44 % Monocytes (%) (Auto) 10 0-12 % Eosinophils (%) (Auto) 0 0-10 % Basophils (%) (Auto) 0 0-10 % Neutrophils # (Auto) 2.0 1.8-7.8 X 10^3 Lymphocytes # (Auto) 1.9 1.0-4.0 X 10^3 Monocytes # (Auto) 0.4 0.0-1.0 X 10^3 Eosinophils # (Auto) 0.0 0.0-0.3 10^3/uL Basophils # (Auto) 0.0 0.0-0.1 10^3/uL Sodium Level 151 H 135-145 MMOL/L Potassium Level 3.4 L 3.6-5.0 MMOL/L Chloride Level 110 H 98-107 MMOL/L Carbon Dioxide Level 24 21-32 MMOL/L Anion Gap 17 H 5-14 MMOL/L Blood Urea Nitrogen 6 L 7-18 MG/DL Creatinine 0.78 0.60-1.30 MG/DL Estimat Glomerular Filtration Rate > 60 BUN/Creatinine Ratio 8 Glucose Level 124 H 70-105 MG/DL Calcium Level 8.8 8.5-10.1 MG/DL Corrected Calcium 8.6 8.5-10.1 MG/DL Total Bilirubin 0.3 0.1-1.0 MG/DL Aspartate Amino Transf (AST/SGOT) 175 H 5-34 U/L Alanine Aminotransferase (ALT/SGPT) 235 H 0-55 U/L Alkaline Phosphatase 42 40-136 U/L Total Protein 7.0 6.4-8.2 GM/DL Albumin 4.2 3.2-4.5 GM/DL Salicylates Level < 5.0 L 5.0-20.0 MG/DL Acetaminophen Level < 10 L 10-30 UG/ML Serum Alcohol 389 *H <10 MG/DL Urine Color YELLOW Urine Clarity CLEAR Urine pH 7 5-9 Urine Specific [place] 1.005 L 1.016-1.022 Urine Protein NEGATIVE NEGATIVE Urine Glucose (UA) NEGATIVE NEGATIVE Urine Ketones NEGATIVE NEGATIVE Urine Nitrite NEGATIVE NEGATIVE Urine Bilirubin NEGATIVE NEGATIVE Urine Urobilinogen NORMAL NORMAL MG/DL Urine Leukocyte Esterase NEGATIVE NEGATIVE Urine RBC (Auto) NEGATIVE NEGATIVE Urine RBC NONE /HPF Urine WBC NONE /HPF Urine Squamous Epithelial Cells 0-2 /HPF Urine Crystals NONE /LPF Urine Bacteria NEGATIVE /HPF Urine Casts NONE /LPF Urine Mucus NEGATIVE /LPF Urine Culture Indicated NO Urine Opiates Screen NEGATIVE NEGATIVE Urine Oxycodone Screen NEGATIVE NEGATIVE Urine Methadone Screen NEGATIVE NEGATIVE Urine Propoxyphene Screen NEGATIVE NEGATIVE Urine Barbiturates Screen NEGATIVE NEGATIVE Ur Tricyclic Antidepressants Screen NEGATIVE NEGATIVE Urine Phencyclidine Screen NEGATIVE NEGATIVE Urine Amphetamines Screen NEGATIVE NEGATIVE Urine Methamphetamines Screen NEGATIVE NEGATIVE Urine Benzodiazepines Screen NEGATIVE NEGATIVE Urine Cocaine Screen NEGATIVE NEGATIVE Urine Cannabinoids Screen POSITIVE H NEGATIVE My Orders Orders - CÉSAR CARL Ua Culture If Indicated (05/07/18 10:59) Cbc With Automated Diff (05/07/18 10:59) Comprehensive Metabolic Panel (05/07/18 10:59) Alcohol (05/07/18 10:59) Drug Screen Stat (Urine) (05/07/18 10:59) Acetaminophen (05/07/18 10:59) Salicylate (05/07/18 10:59) Ekg Tracing (05/07/18 10:59) Saline Lock/Iv-Start (05/07/18 10:59) Monitor-Rhythm Ecg Trace Only (05/07/18 10:59) Saline Lock/Iv-Start (05/07/18 10:59) Ns Iv 1000 Ml (Sodium Chloride 0.9%) (05/07/18 10:59) Lorazepam Injection (Ativan Injection) (05/07/18 11:15) Ondansetron Injection (Zofran Injectio (05/07/18 11:15) Lorazepam Injection (Ativan Injection) (05/07/18 12:15) Ziprasidone Injection (Geodon Injection) (05/07/18 13:30) Water (Sterile) For Injection (Sterile W (05/07/18 13:22) Medications Given in ED Current Medications Medications Dose Ordered Sig/Jaki Route Start Time Stop Time Status Last Admin Dose Admin Lorazepam 1 mg ONCE ONCE IVP 05/07/18 12:15 05/07/18 12:16 DC 05/07/18 12:15 1 MG Sterile Water 20 ml @ [facility]-MED ONCE .ROUTE 05/07/18 13:22 05/07/18 13:23 DC 05/07/18 13:30 1.2 ML/HR Vital Signs/I&O 05/07/18 05/07/18 05/07/18 05/07/18 13:48 14:00 14:15 14:36 Temp 96.5 97.5 Pulse 78 106 112 Resp 22 19 25 B/P (MAP) 172/119 (136) 173/124 (140) 182/119 (140) Pulse Ox 96 97 96 O2 Delivery Nasal Cannula Room Air Room Air Nasal Cannula O2 Flow Rate 2.00 2.00 05/07/18 05/07/18 05/07/18 05/07/18 15:00 16:00 16:04 16:24 Temp 97.6 Pulse 97 96 Resp 15 22 B/P (MAP) 170/113 (132) 132/86 (101) Pulse Ox 96 96 O2 Delivery Nasal Cannula Nasal Cannula Nasal Cannula Nasal Cannula O2 Flow Rate 2.00 2.00 2.00 2.00 05/07/18 05/07/18 05/07/18 05/07/18 17:00 18:00 19:00 19:00 Pulse 98 101 95 93 Resp 19 14 34 B/P (MAP) 126/73 (90) 175/108 (130) 172/116 (134) Pulse Ox 92 97 97 O2 Delivery Nasal Cannula Nasal Cannula Nasal Cannula O2 Flow Rate 2.00 2.00 2.00 05/07/18 05/07/18 05/07/18 05/07/18 20:00 21:00 21:25 22:00 Pulse 99 102 110 Resp 17 17 16 B/P (MAP) 168/99 (122) 139/91 (107) 144/76 (98) Pulse Ox 96 92 97 O2 Delivery Nasal Cannula Nasal Cannula Nasal Cannula Nasal Cannula O2 Flow Rate 2.00 2.00 4.00 4.00 05/07/18 23:00 Pulse 103 Resp 14 B/P (MAP) 184/100 (128) Pulse Ox 95 O2 Delivery Nasal Cannula Blood Pressure Mean: 136 Initial ECG Impression Date: May 07, 2018 Initial ECG Impression Time: 10:43 Initial ECG Rate: 108 Initial ECG Rhythm: S.Tach Initial ECG Intervals: Normal Initial ECG Impression: Normal Initial ECG Comparisson: Unchanged Comment Review by Dr. Garrison and agrees with above. Departure Communication (Admissions) Time/Spoke to Admitting Phy: 13:[address] Gomez at this time. She agrees to accept the patient to her services with a mental health screening Impression Primary Impression: Suicidal ideation Additional Impression: Alcohol intoxication Disposition: ADMITTED INPATIENT Condition: Stable/Unchanged (ERASED) Admissions Decision to Admit Reason: Admit from ER (General) Decision to Admit/Date: May 07, 2018 Time/Decision to Admit Time: 13:00 Departure-Patient Inst. Referrals: [facility] (PCP/Family) Primary Care Physician CÉSAR CARL May 07, 2018 12:01
[2018-05-07 12:31] LABS: BILIRUBIN,URINE NEGATIVE (NEGATIVE); CLARITY,URINE CLEAR; COLOR,URINE YELLOW; GLUCOSE, URINE (UA) NEGATIVE (NEGATIVE); KETONES,URINE NEGATIVE (NEGATIVE); LEUKOCYTE ESTERASE ,URINE NEGATIVE (NEGATIVE); NITRITE,URINE NEGATIVE (NEGATIVE); PH,URINE 7 (5-9); PROTEIN,URINE NEGATIVE (NEGATIVE); UROBILINOGEN,URINE NORMAL (NORMAL)
[2018-05-07 12:43] LABS: BACTERIA,URINE NEGATIVE /HPF; SQUAMOUS EPITHELIAL CELL,UR 0-2 /HPF
[2018-05-07 12:45] LABS: AMPHETAMINE SCREEN, URINE NEGATIVE (NEGATIVE); BARBITURATE SCREEN URINE NEGATIVE (NEGATIVE); BENZODIAZEPINES SCREEN URINE NEGATIVE (NEGATIVE); CANNABINOID SCREEN, URINE POSITIVE (NEGATIVE); COCAINE SCREEN URINE NEGATIVE (NEGATIVE); METHADONE STAT NEGATIVE (NEGATIVE); METHAMPHETAMINE SCREEN URINE S NEGATIVE (NEGATIVE); OPIATE SCREEN URINE NEGATIVE (NEGATIVE); OXYCODONE STAT NEGATIVE (NEGATIVE); PROPOXYPHENE STAT NEGATIVE (NEGATIVE); TRICYCLIC ANTIDEPRESSANTS SCRE NEGATIVE (NEGATIVE)
[2018-05-07] MEDS ORDERED: WATER (STERILE) FOR INJECTION 20 ML ONE (13:22)
[2018-05-07] MEDS ORDERED: ZIPRASIDONE 20 MG INJ (GEODON) VIAL IM ONE (13:30)
--- OUTSIDE RECORDS SUMMARY | 2018-05-07 13:35 | XMS REPORT | Continuity of Care Document ---
Author Author [facility] Address Unknown Phone Unavailable Allergies Active Description Code Type Severity Reaction Onset Reported/Identified Relationship to Patient Clinical Status Yes morphine Drug Allergy 02/11/2010 Yes morphine Drug Allergy N/A N/A 02/11/2010 Yes morphine [id number] Drug Allergy Unknown N/A 10/28/2013 Yes fentanyl [id number] Drug Allergy Unknown N/A 01/24/2016 Yes ketorolac [id number] Drug Allergy Unknown N/A 01/24/2016 Yes MORPHINE [id number] Drug Allergy N/A "RED, BLISTERY SKIN" 09/07/2017 Yes MORPHINE [id number] Drug Allergy Moderate "RED, BLISTERY SKIN" 09/08/2017 Yes MORPHINE [id number] Drug Allergy Moderate "RED, BLISTERY SKIN" 09/08/2017 [...] ESSENTIAL 02/08/2008 493.90 ASTHMA UNSPECIFIED 02/08/2008 MARY LIQUID LOADER, KWESI S 296.90 MOOD DISORDER 02/08/2008 MARY LIQUID LOADER, KWESI S 401.1 HYPERTENSION, BENIGN ESSENTIAL 02/08/2008 MARY LIQUID LOADER, KWESI S 493.90 ASTHMA UNSPECIFIED 02/08/2008 WHITE [...] LÓPEZ K 493.90 ASTHMA UNSPECIFIED 02/08/2008 MARIANNA LIQUID LOADER, MORIAH R 296.90 MOOD DISORDER 02/08/2008 MARIANNA LIQUID LOADER, MORIAH R 401.1 HYPERTENSION, BENIGN ESSENTIAL 02/08/2008 [...] DO, LÓPEZ K 724.2 LUMBAGO 02/11/2010 MARIANNA LIQUID LOADER, MORIAH R 338.1 ACUTE PAIN 02/11/2010 MARIANNA LIQUID LOADER, MORIAH R 724.2 LUMBAGO 06/26/2010 719.47 PAIN [...] 780.52 insomnia 09/17/2011 787.1 heartburn 09/17/2011 MARY LIQUID LOADER, KWESI S 401.9 Combined Systolic And Diastolic Elevation 09/17/2011 MARY LIQUID LOADER, KWESI S 565.0 ANAL FISSURE 09/17/2011 MARY LIQUID LOADER, KWESI S 578.1 red blood in bowel movement (hematochezia) 09/17/2011 MARY LIQUID LOADER, KWESI S 780.52 insomnia 09/17/2011 MARY LIQUID LOADER, KWESI S 787.1 heartburn 09/17/2011 WHITE DDS, [...] AND OTHER NONSPECIFIC SKIN ERUPTION 09/14/2012 MARIANNA LIQUID LOADER, MORIAH R 305.00 NONDEPENDENT ALCOHOL ABUSE UNSPECIFIED [...] MD Ot 300.00 ANXIETY STATE NOS 10/31/2013 MGADY CUTLER MD Ot 305.01 ALCOHOL ABUSE-CONTINUOUS 10/31/2013 [...] DUGAN DOA K 787.91 DIARRHEA 02/10/2014 MARIANNA LIQUID LOADER, MORIAH R 276.51 DEHYDRATION 02/10/2014 MARIANNA LIQUID LOADER, MORIAH R 338.29 OTHER CHRONIC PAIN 02/10/2014 MARIANNA LIQUID LOADER, MORIAH R 455.6 UNSPECIFIED HEMORRHOIDS WITHOUT COMPLICATION 02/10/2014 MARIANNA LIQUID LOADER, MORIAH R 787.91 DIARRHEA 08/29/2014 MARIANNA LIQUID LOADER, MORIAH R 709.9 UNSPECIFIED DISORDER OF SKIN [...] BILLIE FORTUNE MD, Ot T43.212A [facility]NOREPINEPH REUP I 04/12/2015 BILLIE FORTUNE MD, Ot T43.222A [facility] SEROT[facility]IN REUPTAKE INHIBT 04/12/2015 BILLIE FORTUNE [...] KIDNEY FAILURE, UNSPECIFIED 04/10/2016 DYE, PETER J LIQUID LOADER Ot I10 ESSENTIAL (PRIMARY) HYPERTENSION 04/10/2016 JOSEFINA DYE LIQUID LOADER Ot S69.91XA UNSP INJURY OF RIGHT WRIST, HAND AND FIN 04/10/2016 JOSEFINA DYE LIQUID LOADER Ot W22.09XA STRIKING AGAINST OTHER STATIONARY OBJECT 04/10/2016 JOSEFINA DYE LIQUID LOADER Ot Y99.8 OTHER EXTERNAL CAUSE STATUS 04/10/2016 JOSEFINA DYE LIQUID LOADER Ot Z79.899 OTHER BOOK SALESMAN (CURRENT) DRUG THERAPY 04/11/2016 JOSEFINA DYE LIQUID LOADER Ot I10 ESSENTIAL (PRIMARY) HYPERTENSION 04/11/2016 JOSEFINA DYE LIQUID LOADER Ot S69.91XA UNSP INJURY OF RIGHT WRIST, HAND AND FIN 04/11/2016 JOSEFINA DYE LIQUID LOADER Ot W22.09XA STRIKING AGAINST OTHER STATIONARY OBJECT 04/11/2016 JOSEFINA DYE LIQUID LOADER Ot Y99.8 OTHER EXTERNAL CAUSE STATUS 04/11/2016 JOSEFINA DYE LIQUID LOADER Ot Z79.899 OTHER [facility] (CURRENT) DRUG THERAPY 04/16/2016 JOSEFINA DYE LIQUID LOADER Ot I10 ESSENTIAL (PRIMARY) HYPERTENSION 04/16/2016 JOSEFINA DYE LIQUID LOADER Ot S69.91XA UNSP INJURY OF RIGHT WRIST, HAND AND FIN 04/16/2016 JOSEFINA DYE LIQUID LOADER Ot W22.09XA STRIKING AGAINST OTHER STATIONARY OBJECT 04/16/2016 JOSEFINA DYE LIQUID LOADER Ot Y99.8 OTHER EXTERNAL CAUSE STATUS 04/16/2016 JOSEFINA DYE LIQUID LOADER Ot Z79.899 OTHER BOOK SALESMAN (CURRENT) DRUG THERAPY 03/30/2017 BILLIE FORTUNE MD [...] DEVIKA MELCHOR, BILLIE Shen Ot Z79.899 OTHER BOOK SALESMAN (CURRENT) DRUG THERAPY 03/30/2017 BILLIE FORTUNE MD [...] PERSONAL HISTORY OF NICOTINE DEPENDENCE 11/02/2017 YANIV REEYS DO Ot Z88.5 ALLERGY STATUS TO NARCOTIC AGENT STATUS 12/14/2017 ZAIRA MELCHOR, MYLES J Ot F10.20 ALCOHOL DEPENDENCE, UNCOMPLICATED 12/14/2017 ZAIRA MELCHOR, MYLES J Ot R45.851 SUICIDAL IDEATIONS 12/16/2017 ZAIRA MELCHOR, MYLES J Ot F10.20 ALCOHOL DEPENDENCE, UNCOMPLICATED 12/16/2017 ZAIRA MELCHOR, MYLES J Ot R45.851 SUICIDAL IDEATIONS Procedures Code Description [place] [address] ROUTINE VENIPUNCTURE 09/14/2012 01271 LIVER PANEL (LFT) 09/14/2012 99501 URIC ACID 09/14/2012 91218 THERAPUTIC INJ SQ/IM 09/23/2012 J1885 TORADOL INJ 09/23/2012 [facility] Isabel 10/05/201204624 JOINT INJECTION- LARGE JOINT (SPECIFY MEDCIN DESCRIPTION) 10/08/2012 JOINT INJECTION- LARGE JOINT (SPECIFY MEDCIN DESCRIPTION) 10/14/2012 JOINT INJECTION- LARGE JOINT (SPECIFY MEDCIN DESCRIPTION) 10/21/2012 Physical Physical Therapy, [facility] 10/22/2012 20338 URINE DRUG SCREEN (IN-HOUSE ) 03/02/2013 07608 ROUTINE VENIPUNCTURE 03/11/2013 JOINT INJECTION- LARGE JOINT (SPECIFY MEDCIN DESCRIPTION) 03/11/2013 76567 CMP 03/11/2013 19541 XRAY KNEE RIGHT 3 VIEWS 04/13/2013 76019 XRAY ANKLE R COMP MIN, 3 VIEWS 04/13/2013 94.62 ALCOHOL DETOXIFICATION 10/28/201341386 JOINT INJECTION- LARGE JOINT (SPECIFY MEDCIN DESCRIPTION) [...] resistant Staphylococcus aureus (MRSA) screening culture NEG [facility] Complete blood count (CBC) with automated white [...] plasma ethanol measurement (mass/volume) 320 mg/dL <10 Complete blood count (CBC) with automated white blood cell (WBC) differential - 05/07/18 10:48 Blood leukocytes automated count (number/volume) 4.3 10*3/uL 4.3-11.0 Blood erythrocytes automated count (number/volume) 4.76 10*6/uL 4.35-5.85 Venous blood hemoglobin measurement (mass/volume) 14.9 g/dL 13.3-17.7 Blood hematocrit (volume fraction) 42 % 40-54 Automated erythrocyte mean corpuscular volume 89 [foz_us] 80-99 Automated erythrocyte mean corpuscular hemoglobin (mass per erythrocyte) 31 pg 25-34 Automated erythrocyte mean corpuscular hemoglobin concentration measurement ( mass/volume) 35 g/dL 32-36 Automated erythrocyte distribution width ratio 15.3 % 10.0-14.5 Automated blood platelet count (count/volume) 248 10*3/uL 130-400 Automated blood platelet mean volume measurement 8.5 [foz_us] 7.4-10.4 Automated blood neutrophils/100 leukocytes 45 % 42-75 Automated blood lymphocytes/100 leukocytes 44 % 12-44 Blood monocytes/100 leukocytes 10 % 0-12 Automated blood eosinophils/100 leukocytes 0 % 0-10 Automated blood basophils/100 leukocytes 0 % 0-10 Blood neutrophils automated count (number/volume) 2.0 10*3 1.8-7.8 Blood lymphocytes automated count (number/volume) 1.9 10*3 1.0-4.0 Blood monocytes automated count (number/volume) 0.4 10*3 0.0-1.0 Automated eosinophil count 0.0 10*3/uL 0.0-0.3 Automated blood basophil count (count/volume) 0.0 10*3/uL 0.0-0.1 Comprehensive metabolic panel - 05/07/18 10:48 Serum or plasma sodium measurement (moles/volume) 151 mmol/L 135-145 Serum or plasma potassium measurement (moles/volume) 3.4 mmol/L 3.6-5.0 Serum or plasma chloride measurement (moles/volume) 110 mmol/L 98-107 Carbon dioxide 24 mmol/L 21-32 Serum or plasma anion gap determination (moles/volume) 17 mmol/L 5-14 Serum or plasma urea nitrogen measurement (mass/volume) 6 mg/dL 7-18 Serum or plasma creatinine measurement (mass/volume) 0.78 mg/dL 0.60-1.30 Serum or plasma urea nitrogen/creatinine mass ratio 8 NRG Serum or plasma creatinine measurement with calculation of estimated glomerular filtration rate > NRG Serum or plasma glucose measurement (mass/volume) 124 mg/dL 70-105 Serum or plasma calcium measurement (mass/volume) 8.8 mg/dL 8.5-10.1 Serum or plasma total bilirubin measurement (mass/volume) 0.3 mg/dL 0.1-1.0 Serum or plasma alkaline phosphatase measurement (enzymatic activity/volume) 42 U/L 40-136 Serum or plasma aspartate aminotransferase measurement (enzymatic activity/ volume) 175 U/L 5-34 Serum or plasma alanine aminotransferase measurement (enzymatic activity/volume ) 235 U/L 0-55 Serum or plasma protein measurement (mass/volume) 7.0 g/dL 6.4-8.2 Serum or plasma albumin measurement (mass/volume) 4.2 g/dL 3.2-4.5 CALCIUM CORRECTED 8.6 mg/dL 8.5-10.1 Serum or plasma salicylates measurement (mass/volume) - 05/07/18 10:48 Serum or plasma salicylates measurement (mass/volume) < mg/dL 5.0-20.0 Serum or plasma acetaminophen measurement (mass/volume) - 05/07/18 10:48 Serum or plasma acetaminophen measurement (mass/volume) < ug/mL 10-30 Serum or plasma ethanol measurement (mass/volume) - 05/07/18 10:48 Serum or plasma ethanol measurement (mass/volume) 389 mg/dL <10 Complete urinalysis with reflex to culture - 05/07/18 12:25 Urine color determination YELLOW NRG Urine clarity determination CLEAR NRG Urine pH measurement by test strip 7 5-9 Specific gravity of urine by test strip 1.005 1.016- 1.022 Urine protein assay by test [...] NO NRG Urine drug screening test - 05/07/18 12:25 Urine phencyclidine detection by screening method NEGATIVE [...] Status Pt. Type Provider Facility Loc./Unit Complaint [id number] 09/01/2014 09:24:00 09/01/2014 23:59:59 CLS Outpatient MORIAH CABRAL APRN [id number] 02/28/2014 00:00:00 02/28/2014 23:59:59 CLS Outpatient LÓPEZ DUGAN DO [id number] 02/10/2014 10:32:00 02/10/2014 23:59:59 CLS Outpatient LÓPEZ DUGAN DO [id number] 01/10/2014 09:45:00 01/10/2014 23:59:59 CLS Outpatient LÓPEZ DUGAN DO [id number] 01/09/2014 09:25:00 01/09/2014 23:59:59 CLS Outpatient LÓPEZ DUGAN DO [id number] 11/03/2013 12:25:00 11/03/2013 23:59:59 CLS Outpatient LÓPEZ DUGAN DO [id number] 07/08/2013 09:40:00 07/08/2013 23:59:59 CLS Outpatient BETINA JORDAN DDS [id number] 04/13/2013 13:50:00 04/13/2013 23:59:59 CLS Outpatient KWESI HERNANDEZ APRN [id number] 10/14/2012 12:25:00 10/14/2012 23:59:59 CLS Outpatient [id number] 10/08/2012 10:31:00 10/08/2012 23:59:59 CLS Outpatient [id number] 10/05/2012 07:53:00 10/05/2012 23:59:59 CLS Outpatient [id number] 09/23/2012 10:29:00 09/23/2012 23:59:59 CLS Outpatient [id number] 09/14/2012 08:00:00 09/14/2012 23:59:59 CLS Outpatient DAVID MELCHOR, GHULAM [id number] 01/27/2012 11:37:00 01/27/2012 23:59:59 CLS Outpatient [id number] 03/11/2013 09:59:00 Document Registration [id number] 03/02/2013 15:05:00 Document Registration [id number] 02/23/2013 14:34:00 Document Registration [id number] 10/21/2012 15:38:00 Document Registration [id number] 04/11/2015 23:03:04 ACT Document Registration [id number] 12/15/2017 16:00:00 12/15/2017 23:59:59 CLS Outpatient DEVIKA MELCHOR, BILLIE [facility] [id number] 09/07/2017 18:57:00 09/07/2017 23:59:59 CLS Preadmit [facility] ED [id number] 12/14/2017 18:09:00 12/14/2017 20:27:00 DIS Emergency MYLES MENESES MD [facility] ER SUICIDAL, ALCOHOLIC [id number] 10/31/2017 12:13:00 10/31/2017 14:32:00 DIS Emergency YANIV REYES DO [facility] ER AMS [id number] 03/25/2017 21:58:00 03/30/2017 12:49:00 DIS Inpatient BILLIE FORTUNE MD [facility] 4TH ETOH;INTOXICATION [id number] 04/10/2016 19:36:00 04/10/2016 20:40:00 DIS Emergency JOSEFINA DYE APRN [facility] ER RT HAND PAIN [id number] 01/24/2016 12:17:00 01/26/2016 08:34:00 DIS Inpatient AKOSUA STARR MD [facility] 4TH ACUTE RENAL FAILURE [id number] 01/12/2016 23:06:00 01/13/2016 00:12:00 DIS Emergency MANFRED MERCADO MD [facility] ER [id number] 11/02/2015 13:10:00 11/02/2015 17:10:00 DIS Inpatient AKOSUA STARR MD [facility] ICU ETOH INTOXICATION [id number] 07/04/2015 14:42:00 07/05/2015 13:31:00 DIS Inpatient BILLIE FORTUNE MD [facility] ICU ETOH ABUSE SUICIDAL IDEATION [id number] 04/11/2015 18:02:00 04/12/2015 13:13:00 DIS Inpatient BILLIE FORTUNE MD [facility] ICU OVERDOSE,ETOH INTOXICATION,SUICIDAL IDEATION [id number] 04/11/2015 23:02:00 04/11/2015 23:02:00 CAN Preadmit YANIV REYES DO [facility] ER PSYCH [id number] 10/28/2013 17:13:00 10/31/2013 12:32:00 DIS Inpatient MAGDY CUTLER MD [facility] CSD ETOH DETOX [id number] 04/22/2013 13:36:00 04/22/2013 23:59:59 CLS Outpatient SOBIA AGUIAR MD [facility] RAD RT KNEE EFFUSION [id number] 02/23/2013 15:40:00 02/23/2013 18:54:00 DIS Emergency ANGELICA GALLARDO MD [facility] ER DEVERE DEHYDRATION [id number] 01/12/2013 17:29:00 01/12/2013 19:34:00 DIS Emergency YANIV REYES DO [facility] ER L FOOT PAIN/KNOT [id number] 11/09/2012 11:12:00 12/06/2012 08:27:00 DIS Outpatient [id number] 05/07/2018 13:25:00 ACT Inpatient LÓPEZ DUGAN DO [facility] ICU SUICIDAL IDEATION;ALCOHOL INTOXICATION [id number] 09/23/2017 17:04:00 09/23/2017 21:57:00 DIS Emergency JON MELCHOR, ARELI Torrez [facility] ED [id number] 09/08/2017 11:02:00 09/11/2017 15:10:00 DIS Inpatient CHIQUI FOY DO [facility] 3SE [id number] 04/30/2016 18:05:00 Document Registration [id number] 12/15/2017 15:36:00 Document Registration
[2018-05-07] MEDS ORDERED: 1/2 NS IV SOLUTION 1,000 ML IV PRN (14:12)
[2018-05-07] MEDS ORDERED: ANTACID SUSP 30 ML UDC (MYLANTA) PO PRN (14:15)
[2018-05-07] MEDS ORDERED: ONDANSETRON 4 MG (ZOFRAN) ORAL DISSOLVE TAB SL PRN (14:15)
[2018-05-07] MEDS ORDERED: LORazepam INJ 2 MG/ML (ATIVAN) VIAL IM/IV PRN (14:15)
[2018-05-07] MEDS ORDERED: LORazepam 1 MG (ATIVAN) TAB PO PRN (14:15)
[2018-05-07] MEDS ORDERED: D5 1/2 NS 1000 ML IV SOLUTION 1,000 ML IV PRN (14:15)
[2018-05-07] MEDS ORDERED: LORazepam INJ 2 MG/ML (ATIVAN) VIAL IV PRN (14:15)
[2018-05-07] MEDS ORDERED: SENNA W/DOCUSATE (SENOKOT S) TABLET PO PRN (14:15)
[2018-05-07] MEDS ORDERED: ONDANSETRON 4 MG/2 ML (SDV) Z0FRAN IV PRN ×2 (14:15)
[2018-05-07] MEDS ORDERED: AMLO5TAB7 PO (15:07)
[2018-05-07] MEDS ORDERED: METO-395 PO (15:07)
[2018-05-07] MEDS ORDERED: QUET200T PO (15:07)
[2018-05-07] MEDS ORDERED: LISI40TA PO (15:07)
[2018-05-07] MEDS ORDERED: PRAZ2CAP2 PO (15:07)
[2018-05-07] MEDS ORDERED: TRAZ150T72 PO (15:07)
[2018-05-07] MEDS: NS IV 1000 ML 1,000 ML IV SCH (15:29)
[2018-05-07] MEDS: amLODIPine 10 MG (NORVASC) TAB PO SCH (16:17)
[2018-05-07] MEDS: meTOprolol SUCCINATE 100 MG (TOPROL XL) TAB PO SCH (16:17)
[2018-05-07] MEDS: lisINopril 40 MG (PRINIVIL) TABLET PO SCH (16:17)
[2018-05-07] MEDS: THIAMINE INJECTION 100 MG, FOLIC ACID INJECTION 1 MG, MAGNESIUM SULFATE 2 GM, VITAMIN M... IV SCH ×5 (16:34)
[2018-05-07] MEDS: LORazepam INJ 2 MG/ML (ATIVAN) VIAL IV PRN ×2 (18:49→22:43)
[2018-05-07] MEDS ORDERED: FLU QUADRIvalent (5+ YOA) 2018-2019 (AFLURIA) 0.5 ML IM ONE (20:00)
[2018-05-07] MEDS ORDERED: NON-FORMULARY MEDICATION 1 EA EA (Prazosin HCl 2 MG) PO SCH (21:00)
[2018-05-07] MEDS ORDERED: QUEtiapine 200 MG (SEROquel) TAB IMMEDIATE RELEASE PO SCH (21:00)
[2018-05-07] MEDS ORDERED: traZODone 150 MG (DESYREL) TABLET PO SCH (21:00)
[2018-05-08] VITALS (12 sets, daily range): BP systolic 116–153; BP diastolic 61–104
[2018-05-08 04:30] LABS: BASOPHILS % (AUTO) 0 % (0-10); EOSINOPHILS % (AUTO) 0 % (0-10); HEMATOCRIT 37 % (40-54); HEMOGLOBIN 12.6 G/DL (13.3-17.7); LYMPHOCYTES # (AUTO) 1.5 X 10^3 (1.0-4.0); LYMPHOCYTES % (AUTO) 32 % (12-44); MEAN CORPUSCULAR HEMOGLOBIN 31 PG (25-34); MEAN CORPUSCULAR HGB CONC 34 G/DL (32-36); MEAN CORPUSCULAR VOLUME 91 FL (80-99); MEAN PLATELET VOLUME 8.7 FL (7.4-10.4); MONOCYTES # (AUTO) 0.4 X 10^3 (0.0-1.0); MONOCYTES % (AUTO) 8 % (0-12); NEUTROPHILS # (AUTO) 2.7 X 10^3 (1.8-7.8); NEUTROPHILS % (AUTO) 60 % (42-75); PLATELET COUNT 182 10^3/uL (130-400); RED BLOOD COUNT 4.08 10^6/uL (4.35-5.85); RED CELL DISTRIBUTION WIDTH 14.8 % (10.0-14.5); WHITE BLOOD COUNT 4.6 10^3/uL (4.3-11.0)
[2018-05-08 04:41] LABS: ALANINE AMINOTRANSFERASE 195 U/L (0-55); ALBUMIN 3.6 GM/DL (3.2-4.5); ALKALINE PHOSPHATASE 35 U/L (40-136); BILIRUBIN,TOTAL 0.4 MG/DL (0.1-1.0); BUN/CREATININE RATIO 8; CALCIUM 7.8 MG/DL (8.5-10.1); CARBON DIOXIDE 26 MMOL/L (21-32); CHLORIDE 106 MMOL/L (98-107); CREATININE SERUM 0.83 MG/DL (0.60-1.30); GFR ESTIMATED > 60; GLUCOSE 87 MG/DL (70-105); POTASSIUM 3.4 MMOL/L (3.6-5.0); SODIUM 143 MMOL/L (135-145); TOTAL PROTEIN 5.8 GM/DL (6.4-8.2)
[2018-05-08] MEDS: NS IV 1000 ML 1,000 ML IV SCH ×2 (06:15→09:33)
[2018-05-08] MEDS ORDERED: KCL 20 MEQ TAB (K-DUR) PO SCH (07:48)
[2018-05-08] MEDS ORDERED: FLU QUADRIvalent (5+ YOA) 2018-2019 (AFLURIA) 0.5 ML IM ONE (07:49)
[2018-05-08] MEDS: POTASSIUM CL 10MEQ/50ML IVPB 50 ML IV SCH ×2 (07:52→08:03)
[2018-05-08] MEDS: meTOprolol SUCCINATE 100 MG (TOPROL XL) TAB PO SCH (07:54)
[2018-05-08] MEDS: lisINopril 40 MG (PRINIVIL) TABLET PO SCH (07:54)
[2018-05-08] MEDS: amLODIPine 10 MG (NORVASC) TAB PO SCH (07:54)
[2018-05-08] MEDS: LORazepam INJ 2 MG/ML (ATIVAN) VIAL IV PRN ×2 (07:54→10:20)
[2018-05-08 08:00] LABS: MAGNESIUM 1.8 MG/DL (1.8-2.4); PHOSPHORUS 4.2 MG/DL (2.3-4.7)
[2018-05-08] MEDS ORDERED: PARoxetine 20 MG (PAXIL) TAB PO SCH (09:00)
[2018-05-08] MEDS ORDERED: NON-FORMULARY MEDICATION 1 EA EA (Amlodipine Besylate 10 MG) PO SCH (09:00)
[2018-05-08] MEDS: THIAMINE INJECTION 100 MG, FOLIC ACID INJECTION 1 MG, MAGNESIUM SULFATE 2 GM, VITAMIN M... IV SCH ×5 (09:32)
--- NOTE | 2018-05-08 12:19 | Discharge Instructions ---
Discharge [facility] Discharge Medications Continued Medications: Amlodipine Besylate (Amlodipine Besylate) 5 Mg Tablet 10 MG PO DAILY, TAB LAST RECEIVED #90 TABLETS (45 DAY SUPPLY) FROM REPOSITORY 12-15-17 Lisinopril (Lisinopril) 40 Mg Tablet 40 MG PO DAILY, TAB LAST RECEIVED #90 12-15-17 FROM THE REPOSITORY Metoprolol Succinate (Metoprolol Succinate) 100 Mg Tab.er.24h 100 MG PO DAILY, TAB LAST RECEIVED #90 FROM REPOSITORY 12-15-17 Paroxetine HCl (Paroxetine HCl) 20 Mg Tablet 40 MG PO DAILY, TAB LAST FILLED #60 12-15-17 TAKES 2 (20MG) TABLETS Prazosin HCl (Prazosin HCl) 2 Mg Capsule 2 MG PO HS, CAP LAST FILLED #30 02-20-18 Quetiapine Fumarate (Seroquel) 200 Mg Tablet 200 MG PO HS, TAB LAST FILLED #30 02-20-18 Trazodone HCl (Trazodone HCl) 150 Mg Tablet 150 MG PO HS, TAB LAST FILLED #30 12-15-17 Patient Instructions Goal/Follow Up Appt: Follow up with Dr. Mireles 05/10/18 at 1:20pm. [facility] will follow up with you on Thursday as well. Activity & Diet Discharge Diet: No Restrictions LÓPEZ DUGAN DO May 08, 2018 12:19
[2018-05-09] MEDS ORDERED: POTASSIUM CL 10MEQ/50ML IVPB 50 ML IV SCH (06:00)
[2018-05-09] MEDS ORDERED: MAGNESIUM 1 GM/100 ML IVPB 100 ML IV SCH (06:00)
== END 2018-05-08 12:16 | disposition home or self-care (01) ==
LOC: ER 10:21 → EDUNIT# 10:21 → ICU 13:25 → UNDOADMOB 13:25 → ICU 14:01 → UNDODISOB 05-08 12:52
PROVIDERS: ADMIT Family Medicine; ATTEND Family Medicine
DX: R45.851 Suicidal ideations (principal); F10.229 Alcohol dependence with intoxication, unspecified; F32.9 Major depressive disorder, single episode, unspecified; F17.290 Nicotine dependence, other tobacco product, uncomplicated; J44.9 Chronic obstructive pulmonary disease, unspecified; Z79.899 Other long term (current) drug therapy; E78.00 Pure hypercholesterolemia, unspecified; I10 Essential (primary) hypertension; E11.9 Type 2 diabetes mellitus without complications; F41.9 Anxiety disorder, unspecified; Z23 Encounter for immunization
CPT/HCPCS: 36415; 51701; 80053; 80306; 80320; 80329; 81000; 83735; 84100; 85025; 87081; 90686; 93005; 93041; 96361; 96372; 96374; 96375; 96376; G0378

== ENCOUNTER 2019-02-16 14:29 | Emergency (ER) | payer SELFPAY ==
[~2019-02-16] VITALS: Ht 182.9 cm; Wt 117.9 kg
[~2019-02-16 14:29] MED LIST changes: -AMLO5TAB7 PO; +AMLO5TAB9 PO; +PRAZ2CAP2 PO; +QUET200T PO
--- NOTE | 2019-02-16 14:40 | ED Chest Pain ---
General Stated Complaint: ARM NUMBNESS;CHEST PAIN;DIZZINESS;N/V/D Source: patient Exam Limitations: no limitations History of Present Illness Date Seen by Provider: Feb 16, 2019 Time Seen by Provider: 14:38 Initial Comments To ER with reports of a three-day history of constant left-sided chest pain, intermittent numbness of both arms, some shortness of breath; nausea and diarrhea for 8 days. No fevers or chills. He initially presented to [facility] and was referred here for further workup. He is a nonsmoker. Not diabetic. No history personally of heart disease but his father and brother have had heart attacks at about his age. He rates the pain at 8 out of 10 described as an aching sensation. Timing/Duration: 3-4 days Severity/Quality: moderate Location: central [facility] po AIR CREW SUPERVISOR: No NTG SL AIR CREW SUPERVISOR: No Associated Symptoms: nausea/vomiting, shortness of breath Allergies and Home Medications Allergies Coded Allergies: fentanyl (Verified Allergy, Unknown, 01/24/16) morphine (Verified Allergy, Unknown, 10/28/13) Home Medications Amlodipine Besylate 5 Mg Tablet, 10 MG PO DAILY, (Reported) LAST RECEIVED #90 TABLETS (45 DAY SUPPLY) FROM REPOSITORY 12-15-17 Lisinopril 40 Mg Tablet, 40 MG PO DAILY, (Reported) LAST RECEIVED #90 12-15-17 FROM THE REPOSITORY Metoprolol Succinate 100 Mg Tab.er.24h, 100 MG PO DAILY, (Reported) LAST RECEIVED #90 FROM REPOSITORY 12-15-17 Paroxetine HCl 20 Mg Tablet, 40 MG PO DAILY, (Reported) LAST FILLED #60 12-15-17 TAKES 2 (20MG) TABLETS Prazosin HCl 2 Mg Capsule, 2 MG PO HS, (Reported) LAST FILLED #30 02-20-18 Quetiapine Fumarate 200 Mg Tablet, 200 MG PO HS, (Reported) LAST FILLED #30 02-20-18 Trazodone HCl 150 Mg Tablet, 150 MG PO HS, (Reported) LAST FILLED #30 12-15-17 Patient Home Medication List Home Medication List Reviewed: Yes Review of Systems Review of Systems Constitutional: see HPI EENTM: No Symptoms Reported Respiratory: No Symptoms Reported Cardiovascular: See HPI, Chest Pain Gastrointestinal: See HPI, Abdominal Pain Genitourinary: No Symptoms Reported Musculoskeletal: no symptoms reported Skin: no symptoms reported Psychiatric/Neurological: No Symptoms Reported Endocrine: No Symptoms Reported Past Yeycnwv-Npfavu-Auemdv Hx Patient Social History Alcohol Beverage of Choice: Beer, Whiskey Drug of Choice: THC Type Used: Smokeless Tobacco 2nd Hand Smoke Exposure: No Recent Foreign Travel: No Contact w/Someone Who Travel: No Recent Hopitalizations: No Immunizations Up To Date Tetanus Booster (TDap): Unknown PED Vaccines UTD: Yes Date of Pneumonia Vaccine: Dec 04, 2013 Date of Influenza Vaccine: Apr 11, 2015 Seasonal Allergies Seasonal Allergies: Yes Past Medical History Surgeries: Yes (HAND LACERATION REPAIR) Orthopedic Respiratory: Yes Asthma, COPD Currently Using CPAP: No Currently Using BIPAP: No Cardiac: Yes High Cholesterol, Hypertension Neurological: No Reproductive Disorders: No Sexually Transmitted Disease: No HIV/AIDS: No Genitourinary: Yes Gastrointestinal: No Musculoskeletal: Yes (CHRONIC KNEE PAIN ) Chronic Back Pain Endocrine: Yes Diabetes, Non-Insulin dep HEENT: No Cancer: No Psychosocial: Yes Anxiety, Depression Integumentary: Yes Eczema Blood Disorders: No Adverse Reaction/Blood Tranf: No Family Medical History Alcoholism 19 MOTHER Diabetes mellitus 19 FATHER G8 BROTHER Family history: Asthma Family history: Cardiovascular disease 19 FATHER, Onset:50's - 60 (FATHER) Family history: Coronary thrombosis 19 FATHER, Onset:50's - 60 Family history: Diabetes mellitus 19 FATHER, Onset:50's - 60 Family history: Hypertension 19 FATHER, Onset:30's - 40 Hearing loss 19 FATHER, Onset:50's - 60 Heart disease 19 FATHER, Onset:50's - 60 Myocardial infarction G8 BROTHER, Onset:40's - 50 Stroke G8 BROTHER, Onset:40's - 50 No Family History of: Abdominal aortic aneurysm Wilcox's disease Alcoholism Aphasia Cancer Cancer of colon Cataract Chest pain Congenital heart disease Congestive heart failure Cystic fibrosis Dementia Dysphagia Family history: Alzheimer's disease Family history: Arthritis Family history: Breast disease Family history: Gastrointestinal disease Family history: Osteoporosis Family history: Thyroid disorder Headache Hereditary disease History of - anemia History of - respiratory disease History of drug abuse Human immunodeficiency virus (HIV) seropositivity Hypercholesterolemia Infertile Kidney disease Malignant neoplasm of lung Parkinson's disease Prostate cancer Psychotic disorder Seizure disorder Tuberculosis Visual impairment Diabetes Physical Exam Vital Signs Vital Signs - First Documented 02/16/19 15:03 Temp 98.8 Pulse 58 Resp 16 B/P (MAP) 116/82 (93) Pulse Ox 100 O2 Delivery Room Air Capillary Refill : Height, Weight, BMI Height: 6'0.00" Weight: 291lbs. 3.2oz. 132.422235nd; 39.5 BMI Method:Stated General Appearance: No Apparent Distress, WD/WN HEENT: PERRL/EOMI, TMs Normal Respiratory: Normal Breath Sounds, No Accessory Muscle Use, No Respiratory Distress Cardiovascular: Regular Rate, Rhythm, Normal Peripheral Pulses Gastrointestinal: Normal Bowel Sounds, Non Tender, Soft Neurologic/Psychiatric: Alert, Oriented x3 Skin: Normal Color, Warm/Dry Procedures/Interventions Suture Size: 5-0 Progress/Results/Core Measures Results/Orders Lab Results Laboratory Tests Test 02/16/19 14:50 02/16/19 17:05 Range/Units White Blood Count 8.1 4.3-11.0 10^3/uL Red Blood Count 4.90 4.35-5.85 10^6/uL Hemoglobin 15.0 13.3-17.7 G/DL Hematocrit 42 40-54 % Mean Corpuscular Volume 85 80-99 FL Mean Corpuscular Hemoglobin 31 25-34 PG Mean Corpuscular Hemoglobin Concent 36 32-36 G/DL Red Cell Distribution Width 13.6 10.0-14.5 % Platelet Count 296 130-400 10^3/uL Mean Platelet Volume 10.2 7.4-10.4 FL Neutrophils (%) (Auto) 71 42-75 % Lymphocytes (%) (Auto) 20 12-44 % Monocytes (%) (Auto) 9 0-12 % Eosinophils (%) (Auto) 0 0-10 % Basophils (%) (Auto) 0 0-10 % Neutrophils # (Auto) 5.8 1.8-7.8 X 10^3 Lymphocytes # (Auto) 1.6 1.0-4.0 X 10^3 Monocytes # (Auto) 0.7 0.0-1.0 X 10^3 Eosinophils # (Auto) 0.0 0.0-0.3 10^3/uL Basophils # (Auto) 0.0 0.0-0.1 10^3/uL Prothrombin Time 13.4 12.2-14.7 SEC INR Comment 1.0 0.8-1.4 Activated Partial Thromboplast Time 26 24-35 SEC Sodium Level 139 135-145 MMOL/L Potassium Level 3.8 3.6-5.0 MMOL/L Chloride Level 111 H 98-107 MMOL/L Carbon Dioxide Level 18 L 21-32 MMOL/L Anion Gap 10 5-14 MMOL/L Blood Urea Nitrogen 30 H 7-18 MG/DL Creatinine 1.22 0.60-1.30 MG/DL Estimat Glomerular Filtration Rate > 60 BUN/Creatinine Ratio 25 Glucose Level 120 H 70-105 MG/DL Calcium Level 9.1 8.5-10.1 MG/DL Corrected Calcium 8.7 8.5-10.1 MG/DL Magnesium Level 2.0 1.6-2.4 MG/DL Total Bilirubin 0.7 0.1-1.0 MG/DL Aspartate Amino Transf (AST/SGOT) 13 5-34 U/L Alanine Aminotransferase (ALT/SGPT) 16 0-55 U/L Alkaline Phosphatase 35 L 40-136 U/L Myoglobin 38.5 10.0-92.0 NG/ML Troponin I < 0.028 < 0.028 <0.028 NG/ML Total Protein 8.1 6.4-8.2 GM/DL Albumin 4.5 3.2-4.5 GM/DL Lipase 27 8-78 U/L Serum Alcohol < 10 <10 MG/DL My Orders Orders - JOSEFINA DYE CORPORATE DRIVER Cbc With Automated Diff (02/16/19 14:36) Magnesium (02/16/19 14:36) Chest 1 View, Ap/Pa Only (02/16/19 14:36) Cardiac Profile 1 (02/16/19 14:36) Comprehensive Metabolic Panel (02/16/19 14:36) Myoglobin Serum (02/16/19 14:36) Protime With Inr (02/16/19 14:36) Partial Thromboplastin Time (02/16/19 14:36) O2 (02/16/19 14:36) Monitor-Rhythm Ecg Trace Only (02/16/19 14:36) Lipid Panel (02/17/19 06:00) Ed Iv/Invasive Line Start (02/16/19 14:36) Lipase (02/16/19 14:36) Nitroglycerin 0.4 Mg Btl 25's (Nitrostat (02/16/19 14:45) Aspirin Chewable Tablet (Baby Aspirin Ch (02/16/19 14:45) Lactated Ringers (Lr 1000 Ml Iv Solution (02/16/19 14:45) Alcohol (02/16/19 14:37) Troponin I (02/16/19 16:40) Medications Given in ED Current Medications Medications Dose Ordered Sig/Jaki Route Start Time Stop Time Status Last Admin Dose Admin Aspirin 324 mg ONCE ONCE PO 02/16/19 14:45 02/16/19 14:46 DC 02/16/19 14:58 324 MG Nitroglycerin 0.4 mg UD PRN SL 02/16/19 14:45 02/16/19 14:58 0.4 MG Vital Signs/I&O 02/16/19 02/16/19 15:03 15:03 Temp 98.8 Pulse 58 Resp 16 B/P (MAP) 116/82 (93) Pulse Ox 100 O2 Delivery Room Air Departure Communication (Admissions) Patient states at this time (1600) symptoms are better, states that he does suffer from anxiety and feel that could be a contributing factor to his symptom s. We'll repeat a troponin at the two-hour nicolás. If negative discharge home. Impression Primary Impression: Chest pain Qualified Codes: R07.9 - Chest pain, unspecified Additional Impression: Nausea vomiting and diarrhea Disposition: HOME, SELF-CARE Condition: Stable Departure-Patient Inst. Decision time for Depature: 17:40 Referrals: [facility] (PCP/Family) Primary Care Physician Patient Instructions: Chest Pain (DC) Add. Discharge Instructions: 1. Return to ER for any concerns 2. Follow-up with your doctor next week 3. JOSEFINA DYE CORPORATE DRIVER Feb 16, 2019 14:40
[2019-02-16] MEDS ORDERED: LACTATED RINGERS 1,000 ML IV SCH (14:45)
[2019-02-16] MEDS ORDERED: NITROGLYCERIN 0.4 MG SL TABS BTL 25'S SL PRN (14:45)
[2019-02-16] MEDS ORDERED: ASPIRIN 81 MG CHEW (CHILDREN'S ASA) PO ONE (14:45)
[2019-02-16 15:18] LABS: BASOPHILS % (AUTO) 0 % (0-10); EOSINOPHILS % (AUTO) 0 % (0-10); HEMATOCRIT 42 % (40-54); LYMPHOCYTES # (AUTO) 1.6 X 10^3 (1.0-4.0); LYMPHOCYTES % (AUTO) 20 % (12-44); MEAN CORPUSCULAR HEMOGLOBIN 31 PG (25-34); MEAN CORPUSCULAR HGB CONC 36 G/DL (32-36); MEAN CORPUSCULAR VOLUME 85 FL (80-99); MEAN PLATELET VOLUME 10.2 FL (7.4-10.4); MONOCYTES # (AUTO) 0.7 X 10^3 (0.0-1.0); MONOCYTES % (AUTO) 9 % (0-12); NEUTROPHILS # (AUTO) 5.8 X 10^3 (1.8-7.8); NEUTROPHILS % (AUTO) 71 % (42-75); PLATELET COUNT 296 10^3/uL (130-400); RED CELL DISTRIBUTION WIDTH 13.6 % (10.0-14.5); WHITE BLOOD COUNT 8.1 10^3/uL (4.3-11.0)
--- NOTE | 2019-02-16 15:29 | Diagnostic Imaging Report ---
INDICATION: Left-sided chest pain. EXAMINATION: Portable chest at 3:14 p.m. FINDINGS: Heart size and pulmonary vascularity are normal. Lungs are clear. There are no effusions or pneumothoraces. IMPRESSION: Negative chest. Dictated by: Dictated on workstation # [id number]
[2019-02-16 15:31] LABS: PROTHROMBIN TIME PATIENT 13.4 SEC (12.2-14.7)
[2019-02-16 15:41] LABS: ALANINE AMINOTRANSFERASE 16 U/L (0-55); ALBUMIN 4.5 GM/DL (3.2-4.5); ALKALINE PHOSPHATASE 35 U/L (40-136); BILIRUBIN,TOTAL 0.7 MG/DL (0.1-1.0); BUN/CREATININE RATIO 25; CALCIUM 9.1 MG/DL (8.5-10.1); CARBON DIOXIDE 18 MMOL/L (21-32); CHLORIDE 111 MMOL/L (98-107); CREATININE SERUM 1.22 MG/DL (0.60-1.30); GFR ESTIMATED > 60; GLUCOSE 120 MG/DL (70-105); LIPASE 27 U/L (8-78); POTASSIUM 3.8 MMOL/L (3.6-5.0); SODIUM 139 MMOL/L (135-145); TOTAL PROTEIN 8.1 GM/DL (6.4-8.2)
[2019-02-16 17:50] VITALS: BP 125/99
== END 2019-02-16 17:50 | disposition home or self-care (01) ==
LOC: EDUNIT# 14:29 → ER 14:30
DX: R07.9 Chest pain, unspecified (principal); R11.2 Nausea with vomiting, unspecified; R19.7 Diarrhea, unspecified; J44.9 Chronic obstructive pulmonary disease, unspecified; I10 Essential (primary) hypertension; E78.00 Pure hypercholesterolemia, unspecified; E11.9 Type 2 diabetes mellitus without complications; F41.9 Anxiety disorder, unspecified; F32.9 Major depressive disorder, single episode, unspecified; Z82.49 Family history of ischemic heart disease and other diseases of the circulatory system; Z88.5 Allergy status to narcotic agent
CPT/HCPCS: 36415; 71045; 80053; 80320; 83690; 83735; 83874; 84484; 85025; 85610; 85730; 93005; 93041

== ENCOUNTER 2019-03-10 19:00 | Inpatient (IN) | payer SELFPAY ==
[~2019-03-10] VITALS: Ht 182.9 cm; Wt 129.9 kg
[2019-03-10] VITALS (7 sets, daily range): BP systolic 115–157; BP diastolic 79–113
--- NOTE | 2019-03-10 19:00 | NUR ---
BROUGHT IN BY [facility] UNRESPONSIVE. FOUND ON GROUND BEHIND GAS STATION. NS INFUSING VIA LWRIST 20GA IV. 1905- 16FR ZAZUETA PLACED. PT REMAINS UNRESPONSIVE. 1909 2MG NARCAN GIVEN SIVP. 1916 NPA PLACED IN LEFT NARE. PT REMAINS UNRESPONSIVE. DECISION TO INTUBATE BY ERP. 1930- 20MG ETOMIDATE GIVEN SIVP, 100MG SUCCINYLCHOLINE GIVEN IV. 1931- 50MG SUCCINYLCHOLINE GIVEN IV. 1933- 5MG VERSED GIVEN IV. 1934 PT INTUBATED BY MILKA HARDINP #8 OETT 24CM AT TEETH.
[2019-03-10] MEDS ORDERED: LACTATED RINGERS 1,000 ML IV ONE ×2 (19:10→19:52)
[2019-03-10] MEDS ORDERED: NALOXONE 2 MG/2 ML (NARCAN) SYR IV ONE (19:15)
[2019-03-10 19:24] LABS: BILIRUBIN,URINE NEGATIVE (NEGATIVE); CLARITY,URINE CLEAR; COLOR,URINE YELLOW; GLUCOSE, URINE (UA) NEGATIVE (NEGATIVE); KETONES,URINE NEGATIVE (NEGATIVE); LEUKOCYTE ESTERASE ,URINE NEGATIVE (NEGATIVE); NITRITE,URINE NEGATIVE (NEGATIVE); PH,URINE 5 (5-9); PROTEIN,URINE NEGATIVE (NEGATIVE); UROBILINOGEN,URINE NORMAL (NORMAL)
[2019-03-10 19:25] LABS: BASOPHILS % (AUTO) 0 % (0-10); EOSINOPHILS % (AUTO) 0 % (0-10); HEMATOCRIT 43 % (40-54); LYMPHOCYTES # (AUTO) 2.7 X 10^3 (1.0-4.0); LYMPHOCYTES % (AUTO) 33 % (12-44); MEAN CORPUSCULAR HEMOGLOBIN 31 PG (25-34); MEAN CORPUSCULAR HGB CONC 35 G/DL (32-36); MEAN CORPUSCULAR VOLUME 88 FL (80-99); MEAN PLATELET VOLUME 8.9 FL (7.4-10.4); MONOCYTES # (AUTO) 0.6 X 10^3 (0.0-1.0); MONOCYTES % (AUTO) 8 % (0-12); NEUTROPHILS % (AUTO) 60 % (42-75); PLATELET COUNT 278 10^3/uL (130-400); RED CELL DISTRIBUTION WIDTH 13.4 % (10.0-14.5); WHITE BLOOD COUNT 8.3 10^3/uL (4.3-11.0)
[2019-03-10 19:27] LABS: ABG BASE EXCESS -1.2 MMOL/L (-2.5-2.5); ABG OXYGEN SATURATION 97 % (94-100); ABG PCO2 58 MMHG (35-45); ABG PO2 107 MMHG (79-93); ABG TCO2 26.9 MMOL/L (21.0-31.0)
[2019-03-10 19:39] LABS: ABG PH 7.26 (7.37-7.43); ALLENS TEST YES-POS; INSPIRED O2 2; PATIENT TEMP 97.8; VENTILATOR NO
[2019-03-10 19:40] LABS: BACTERIA,URINE NEGATIVE /HPF
[2019-03-10 19:43] LABS: AMPHETAMINE SCREEN, URINE NEGATIVE (NEGATIVE); BARBITURATE SCREEN URINE NEGATIVE (NEGATIVE); BENZODIAZEPINES SCREEN URINE NEGATIVE (NEGATIVE); CANNABINOID SCREEN, URINE POSITIVE (NEGATIVE); COCAINE SCREEN URINE NEGATIVE (NEGATIVE); METHADONE STAT NEGATIVE (NEGATIVE); METHAMPHETAMINE SCREEN URINE S NEGATIVE (NEGATIVE); OPIATE SCREEN URINE NEGATIVE (NEGATIVE); OXYCODONE STAT NEGATIVE (NEGATIVE); PROPOXYPHENE STAT NEGATIVE (NEGATIVE); TRICYCLIC ANTIDEPRESSANTS SCRE NEGATIVE (NEGATIVE)
[2019-03-10] MEDS ORDERED: PROPOFOL DRIP (ICU) 100 ML IV ONE (19:44)
[2019-03-10 19:48] LABS: ALANINE AMINOTRANSFERASE 18 U/L (0-55); ALBUMIN 4.7 GM/DL (3.2-4.5); ALKALINE PHOSPHATASE 42 U/L (40-136); AMYLASE 62 U/L (25-125); BILIRUBIN,TOTAL 0.3 MG/DL (0.1-1.0); BUN/CREATININE RATIO 14; CALCIUM 8.8 MG/DL (8.5-10.1); CARBON DIOXIDE 25 MMOL/L (21-32); CHLORIDE 109 MMOL/L (98-107); CREATINE KINASE 138 U/L (30-200); CREATININE SERUM 0.84 MG/DL (0.60-1.30); GFR ESTIMATED > 60; GLUCOSE 127 MG/DL (70-105); LIPASE 39 U/L (8-78); MAGNESIUM 2.2 MG/DL (1.6-2.4); POTASSIUM 3.3 MMOL/L (3.6-5.0); SODIUM 148 MMOL/L (135-145); TOTAL PROTEIN 8.1 GM/DL (6.4-8.2)
[2019-03-10 19:49] LABS: ACETAMINOPHEN < 10 UG/ML (10-30)
[2019-03-10 19:55] LABS: CREATINE KINASE MB 1.7 NG/ML (<6.6)
[2019-03-10] MEDS: PROPOFOL DRIP (ICU) 100 ML IV SCH ×2 (19:55→22:39)
[2019-03-10] MEDS ORDERED: PROPOFOL INJECTION 50 ML IV SCH (20:00)
--- NOTE | 2019-03-10 20:00 | NUR ---
DIPROVAN GTT INCREASED TO 20MCG/KG/MIN, PT TAKEN TO CT WITH RT/RAD STAFF. 2014- PT BACK FROM CT. 2019- RIGHT NGT PLACED. DIPROVAN GTT INCREASED TO 30MCG/KG/MIN 2029- DIPROVAN GTT INCREASED TO 40MCG/KG/MIN.
[2019-03-10 20:07] LABS: INR 0.9 (0.8-1.4); PROTHROMBIN TIME PATIENT 12.4 SEC (12.2-14.7)
--- NOTE | 2019-03-10 20:18 | Diagnostic Imaging Report ---
INDICATION: Unresponsive. EXAMINATION: A single view of the pelvis was obtained and is somewhat underpenetrated due to portable technique and large body habitus. FINDINGS: No fracture, dislocation or other abnormality is seen. IMPRESSION: No abnormality is seen. Dictated by: Dictated on workstation # [id number]
[2019-03-10] MEDS: D5 1/2 NS W/KCL 20 MEQ/L 1,000 ML IV SCH ×3 (20:29→22:14)
--- NOTE | 2019-03-10 20:30 | Diagnostic Imaging Report ---
PROCEDURE: CT head and CT cervical spine without contrast. TECHNIQUE: Multiple contiguous axial images were obtained through the brain and cervical spine without the use of intravenous contrast. Sagittal and coronal reformations through the cervical spine were then performed. Auto Exposure Controls were utilized during the CT exam to meet ALARA standards for radiation dose reduction. INDICATION: Found unresponsive. FINDINGS: The ventricles are normal in size, shape and position. There is no acute parenchymal hemorrhage, edema or mass. There is no extra-axial mass or hemorrhage. No skull fracture is seen. There is paranasal sinus disease present. There is normal height and alignment of the cervical vertebral bodies. There is disc space narrowing at C5-6. No fracture or other acute abnormality is seen. IMPRESSION: 1. CT of the head shows paranasal sinus disease with no acute intracranial abnormality. 2. CT of the cervical spine shows no acute abnormality. Dictated by: Dictated on workstation # [id number]
--- NOTE | 2019-03-10 20:36 | ED General ---
General Chief Complaint: Unresponsive Stated Complaint: UNRESPONSIVE Nursing Triage Note: BROUGHT IN BY [facility] UNRESPONSIVE. Nursing Sepsis Screen: No Definite Risk Source of Information: EMS, Old Records Exam Limitations: Other (PT IS OBTUNDED) History of Present Illness Date Seen by Provider: Mar 10, 2019 Time Seen by Provider: 19:08 Initial Comments PT ARRIVES VIA EMS PT DOES NOT HAVE ANY IDENTIFICATION, BUT BYSTANDERS ARE FAMILIAR WITH PT AND REPORT HIS NAME PT IS A KNOWN ALCOHOLIC, AND IS VERY FAMILIAR TO STAFF AT LOCAL [facility], HE BUYS LARGE AMOUNTS OF ALCOHOL THERE BYSTANDERS REPORTEDLY "HEARD A THUD" BEHIND THE GAS STATION AND FOUND PT UNRESPONSIVE ON THE GROUND BEHIND THE GAS STATION--WAS NOT WITNESSED LAST KNOWN WELL TIME IS NOT KNOWN PT IS OBTUNDED WITH SNOROUS BREATHING EMS REPORT THAT INITIAL O2 SAT WAS 89%, PUT TO 95% ON 2L/NC ACCUCHECK 138 BY EMS NO OTHER INFORMATION IS OBTAINABLE AT THIS TIME PT HAS HAD MULTIPLE PREVIOUS VISITS HERE, AND NEARLY ALL INVOLVED ALCOHOL INTOXICATION, WITH PT'S LEVEL BEING > 400 EVERY TIME NO REPORTED HISTORY OF WITHDRAWL SEIZURES, BUT HAS HAD DT'S, PER OLD RECORDS HAS BEEN ADMITTED TO [facility] MULTIPLE TIMES AND HAS BEEN REFERRED TO [facility] OUTPATIENT SUBSTANCE ABUSE PROGRAM WELL. PT WAS HERE 02/16/19 FOR CHEST PAIN --TREATED AND DISMISSED PT IMMEDIATELY PLACED IN CERVICAL COLLAR ON ARRIVAL PCP: JASON, PER OLD RECORDS. Allergies and Home Medications Allergies Coded Allergies: fentanyl (Verified Allergy, Unknown, 01/24/16) morphine (Verified Allergy, Unknown, 10/28/13) Home Medications Amlodipine Besylate 5 Mg Tablet, 10 MG PO DAILY, (Reported) LAST RECEIVED #90 TABLETS (45 DAY SUPPLY) FROM REPOSITORY 12-15-17 Lisinopril 40 Mg Tablet, 40 MG PO DAILY, (Reported) LAST RECEIVED #90 12-15-17 FROM THE REPOSITORY Metoprolol Succinate 100 Mg Tab.er.24h, 100 MG PO DAILY, (Reported) LAST RECEIVED #90 FROM REPOSITORY 12-15-17 Paroxetine HCl 20 Mg Tablet, 40 MG PO DAILY, (Reported) LAST FILLED #60 12-15-17 TAKES 2 (20MG) TABLETS Prazosin HCl 2 Mg Capsule, 2 MG PO HS, (Reported) LAST FILLED #30 18 Quetiapine Fumarate 200 Mg Tablet, 200 MG PO HS, (Reported) LAST FILLED #30 8-18-18 Trazodone HCl 150 Mg Tablet, 150 MG PO HS, (Reported) LAST FILLED #30 12-15-17 Patient Home Medication List Home Medication List Reviewed: Yes Review of Systems Review of Systems Constitutional: other (UNABLE TO OBTAIN) Past Akjpeoj-Rardyr-Rosgzo Hx Patient Social History Alcohol Use: Regular Use (VERY HEAVY USE) Number of Drinks Today: GG Alcohol Beverage of Choice: Beer, Whiskey Recreational Drug Use: Yes (THC) Drug of Choice: THC Smoking Status: Former Smoker (PER OLD CHARTS, SMOKED < 1 PPD, QUIT IN 20'S ) Type Used: Cigarettes, Smokeless Tobacco 2nd Hand Smoke Exposure: No Recent Foreign Travel: No Contact w/Someone Who Travel: No Recent Infectious Disease Expo: No Recent Hopitalizations: No (UNK) Physical Abuse: No Sexual Abuse: No Mistreated: No Fear: No Immunizations Up To Date Tetanus Booster (TDap): Unknown PED Vaccines UTD: Yes Date of Pneumonia Vaccine: Dec 04, 2013 Date of Influenza Vaccine: Apr 11, 2015 Seasonal Allergies Seasonal Allergies: Yes Past Medical History Surgeries: Yes (HAND LACERATION REPAIR) Orthopedic Respiratory: Yes Asthma, COPD Currently Using CPAP: No Currently Using BIPAP: No Cardiac: Yes High Cholesterol, Hypertension Neurological: No Reproductive Disorders: No Sexually Transmitted Disease: No HIV/AIDS: No Genitourinary: Yes (ACUTE RENAL FAILURE IN 2016--DEHYDRATION; LEFT KIDNEY INJURY 10/01/08--NO SURGERY) Renal Failure Gastrointestinal: No Musculoskeletal: Yes (CHRONIC KNEE PAIN ; PSEUDOGOUT) Chronic Back Pain Endocrine: Yes Diabetes, Non-Insulin dep HEENT: No Cancer: No Psychosocial: Yes (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; POLYSUBSTANCE ABUSE) Anxiety, Suicide Attempts, Depression Nursing Suicide Risk Notes: UNRESPONSIVE, DATA RECALLED FROM PREVIOUS VISITS Integumentary: Yes Eczema Blood Disorders: No Adverse Reaction/Blood Tranf: No Family Medical History Alcoholism 19 MOTHER Diabetes mellitus 19 FATHER G8 BROTHER Family history: Asthma Family history: Cardiovascular disease 19 FATHER, Onset:50's - 60 (FATHER) Family history: Coronary thrombosis 19 FATHER, Onset:50's - 60 Family history: Diabetes mellitus 19 FATHER, Onset:50's - 60 Family history: Hypertension 19 FATHER, Onset:30's - 40 Hearing loss 19 FATHER, Onset:50's - 60 Heart disease 19 FATHER, Onset:50's - 60 Myocardial infarction G8 BROTHER, Onset:40's - 50 Stroke G8 BROTHER, Onset:40's - 50 No Family History of: Abdominal aortic aneurysm [place]'s disease Alcoholism Aphasia Cancer Cancer of colon Cataract Chest pain Congenital heart disease Congestive heart failure Cystic fibrosis Dementia Dysphagia Family history: Alzheimer's disease Family history: Arthritis Family history: Breast disease Family history: Gastrointestinal disease Family history: Osteoporosis Family history: Thyroid disorder Headache Hereditary disease History of - anemia History of - respiratory disease History of drug abuse Human immunodeficiency virus (HIV) seropositivity Hypercholesterolemia Infertile Kidney disease Malignant neoplasm of lung Parkinson's disease Prostate cancer Psychotic disorder Seizure disorder Tuberculosis Visual impairment Diabetes Physical Exam Vital Signs Vital Signs - First Documented 03/10/19 03/10/19 19:00 21:45 Temp 97.8 Pulse 105 Resp 11 B/P (MAP) 163/107 (125) Pulse Ox 95 O2 Delivery Nasal Cannula O2 Flow Rate 2.00 FiO2 50 Capillary Refill : Less Than 3 Seconds Height, Weight, BMI Height: 6'0.00" Weight: 260lbs. 3.2oz. [id number]; 39.5 BMI Method:Estimated General Appearance: Other (OBTUNDED WITH SNOROUS BREATHING, NON-RESPONSIVE TO PAINFUL STIMULI ON ARRIVAL; UNKEMPT, DIRTY, MALODOROUS) HEENT: Other (PUPILS 2-3 MM AND VERY SLOW; POOR DENTITION; NO OBVIOUS INTRA- ORAL INJURY, DIFFICULTY HANDLING SECRETIONS; ? MILD RAISED CONTUSION TO RIGHT OCCIPITAL AREA--LIMITED EXAM, C-COLLAR IS IN PLACE. NO BLEEDING) Respiratory: Respiratory Distress, Other (SNOROUS BREATHING, LABORED BREATHING) Cardiovascular: No Murmur, Normal Peripheral Pulses, Tachycardia Gastrointestinal: Soft Extremity: Normal Capillary Refill, No Pedal Edema Neurologic/Psychiatric: Other (OBTUNDED) Skin: Warm/Dry Focused Exam Lactate Level 03/10/19 19:42: Lactic Acid Level 2.47*H 03/10/19 21:35: Lactic Acid Level 2.39*H 03/11/19 06:25: Lactic Acid Level Laboratory Tests Test 03/11/19 06:25 Procedures/Interventions Reason for Intubation: INABILITY TO MAINTAIN AIRWAY Date of ETT Placement: Mar 10, 2019 Time of ETT Placement: 1934 Tube Size: 8.00 Medications: Etomidate, Propofol, Rocuronium, Succinylcholine, Versed Positive End Tide CO2: Yes Breath Sounds after Intubation: bilateral-equal Intubation Complications: no complications Post Intubation Xray: Yes Suture Size: 5-0 Progress/Results/Core Measures Suspected Sepsis Recent Fever Within 48 Hours: No Infection Criteria Present: None New/Unexplained Altered Menta: No Sepsis Screen: No Definite Risk SIRS Temperature:97.8 Pulse: 105 Respiratory Rate: 12 Laboratory Tests 03/10/19 19:00: White Blood Count 8.3 03/11/19 02:55: White Blood Count 7.4 Blood Pressure 152 /92 Mean: 112 03/10/19 19:42: Lactic Acid Level 2.47*H 03/10/19 21:35: Lactic Acid Level 2.39*H 03/11/19 06:25: Laboratory Tests 03/10/19 19:00: Creatinine 0.84, Platelet Count 278, Total Bilirubin 0.3 03/10/19 19:42: INR Comment 0.9 03/11/19 02:55: Creatinine 0.73, Platelet Count 226, Total Bilirubin 0.4 Results/Orders Lab Results Laboratory Tests Test 03/10/19 19:00 03/10/19 19:14 03/10/19 19:20 03/10/19 19:42 Range/Units White Blood Count 8.3 4.3-11.0 10^3/uL Red Blood Count 4.88 4.35-5.85 10^6/uL Hemoglobin 15.0 13.3-17.7 G/DL Hematocrit 43 40-54 % Mean Corpuscular Volume 88 80-99 FL Mean Corpuscular Hemoglobin 31 25-34 PG Mean Corpuscular Hemoglobin Concent 35 32-36 G/DL Red Cell Distribution Width 13.4 10.0-14.5 % Platelet Count 278 130-400 10^3/uL Mean Platelet Volume 8.9 7.4-10.4 FL Neutrophils (%) (Auto) 60 42-75 % Lymphocytes (%) (Auto) 33 12-44 % Monocytes (%) (Auto) 8 0-12 % Eosinophils (%) (Auto) 0 0-10 % Basophils (%) (Auto) 0 0-10 % Neutrophils # (Auto) 5.0 1.8-7.8 X 10^3 Lymphocytes # (Auto) 2.7 1.0-4.0 X 10^3 Monocytes # (Auto) 0.6 0.0-1.0 X 10^3 Eosinophils # (Auto) 0.0 0.0-0.3 10^3/uL Basophils # (Auto) 0.0 0.0-0.1 10^3/uL Sodium Level 148 H 135-145 MMOL/L Potassium Level 3.3 L 3.6-5.0 MMOL/L Chloride Level 109 H 98-107 MMOL/L Carbon Dioxide Level 25 21-32 MMOL/L Anion Gap 14 5-14 MMOL/L Blood Urea Nitrogen 12 7-18 MG/DL Creatinine 0.84 0.60-1.30 MG/DL Estimat Glomerular Filtration Rate > 60 BUN/Creatinine Ratio 14 Glucose Level 127 H 70-105 MG/DL Calcium Level 8.8 8.5-10.1 MG/DL Corrected Calcium 8.5-10.1 MG/DL Magnesium Level 2.2 1.6-2.4 MG/DL Total Bilirubin 0.3 0.1-1.0 MG/DL Aspartate Amino Transf (AST/SGOT) 19 5-34 U/L Alanine Aminotransferase (ALT/SGPT) 18 0-55 U/L Alkaline Phosphatase 42 40-136 U/L Total Creatine Kinase 138 30-200 U/L Creatine Kinase MB 1.7 <6.6 NG/ML Myoglobin 30.8 10.0-92.0 NG/ML Troponin I < 0.028 <0.028 NG/ML B-Type Natriuretic Peptide 10.0 <100.0 PG/ML Total Protein 8.1 6.4-8.2 GM/DL Albumin 4.7 H 3.2-4.5 GM/DL Amylase Level 62 25-125 U/L Lipase 39 8-78 U/L Acetaminophen Level < 10 L 10-30 UG/ML Serum Alcohol 487 *H <10 MG/DL Urine Color YELLOW Urine Clarity CLEAR Urine pH 5 5-9 Urine Specific Patrick 1.010 L 1.016-1.022 Urine Protein NEGATIVE NEGATIVE Urine Glucose (UA) NEGATIVE NEGATIVE Urine Ketones NEGATIVE NEGATIVE Urine Nitrite NEGATIVE NEGATIVE Urine Bilirubin NEGATIVE NEGATIVE Urine Urobilinogen NORMAL NORMAL MG/DL Urine Leukocyte Esterase NEGATIVE NEGATIVE Urine RBC (Auto) NEGATIVE NEGATIVE Urine RBC NONE /HPF Urine WBC NONE /HPF Urine Crystals NONE /LPF Urine Bacteria NEGATIVE /HPF Urine Casts NONE /LPF Urine Mucus NEGATIVE /LPF Urine Culture Indicated NO Urine Opiates Screen NEGATIVE NEGATIVE Urine Oxycodone Screen NEGATIVE NEGATIVE Urine Methadone Screen NEGATIVE NEGATIVE Urine Propoxyphene Screen NEGATIVE NEGATIVE Urine Barbiturates Screen NEGATIVE NEGATIVE Ur Tricyclic Antidepressants Screen NEGATIVE NEGATIVE Urine Phencyclidine Screen NEGATIVE NEGATIVE Urine Amphetamines Screen NEGATIVE NEGATIVE Urine Methamphetamines Screen NEGATIVE NEGATIVE Urine Benzodiazepines Screen NEGATIVE NEGATIVE Urine Cocaine Screen NEGATIVE NEGATIVE Urine Cannabinoids Screen POSITIVE H NEGATIVE Blood Gas Puncture Site RT RAD Blood Gas Patient Temperature 97.8 Arterial Blood pH 7.26 *L 7.37-7.43 Arterial Blood Partial Pressure CO2 58 H 35-45 MMHG Arterial Blood Partial Pressure O2 107 H 79-93 MMHG Arterial Blood HCO3 25 23-27 MMOL/L Arterial Blood Total CO2 26.9 21.0-31.0 MMOL/L Arterial Blood Oxygen Saturation 97 94-100 % Arterial Blood Base Excess -1.2 -2.5-2.5 MMOL/L West Test YES-POS Blood Gas Ventilator Setting NO Blood Gas Inspired Oxygen 2 Prothrombin Time 12.4 12.2-14.7 SEC INR Comment 0.9 0.8-1.4 Activated Partial Thromboplast Time 25 24-35 SEC Lactic Acid Level 2.47 *H 0.50-2.00 MMOL/L Test 03/10/19 20:58 03/10/19 21:35 03/11/19 00:44 03/11/19 02:55 Range/Units Blood Gas Puncture Site RT RAD Blood Gas Patient Temperature 97.2 Arterial Blood pH 7.25 *L 7.37-7.43 Arterial Blood Partial Pressure CO2 61 H 35-45 MMHG Arterial Blood Partial Pressure O2 233 H 79-93 MMHG Arterial Blood HCO3 26 23-27 MMOL/L Arterial Blood Total CO2 27.7 21.0-31.0 MMOL/L Arterial Blood Oxygen Saturation 100 94-100 % Arterial Blood Base Excess -0.8 -2.5-2.5 MMOL/L West Test YES-POS Blood Gas Ventilator Setting YES Blood Gas Inspired Oxygen 20 Lactic Acid Level 2.39 *H 0.50-2.00 MMOL/L Glucometer 174 H 70-110 MG/DL White Blood Count 7.4 4.3-11.0 10^3/uL Red Blood Count 4.29 L 4.35-5.85 10^6/uL Hemoglobin 12.9 L 13.3-17.7 G/DL Hematocrit 38 L 40-54 % Mean Corpuscular Volume 88 80-99 FL Mean Corpuscular Hemoglobin 30 25-34 PG Mean Corpuscular Hemoglobin Concent 34 32-36 G/DL Red Cell Distribution Width 13.5 10.0-14.5 % Platelet Count 226 130-400 10^3/uL Mean Platelet Volume 8.7 7.4-10.4 FL Neutrophils (%) (Auto) 59 42-75 % Lymphocytes (%) (Auto) 35 12-44 % Monocytes (%) (Auto) 7 0-12 % Eosinophils (%) (Auto) 0 0-10 % Basophils (%) (Auto) 0 0-10 % Neutrophils # (Auto) 4.3 1.8-7.8 X 10^3 Lymphocytes # (Auto) 2.6 1.0-4.0 X 10^3 Monocytes # (Auto) 0.5 0.0-1.0 X 10^3 Eosinophils # (Auto) 0.0 0.0-0.3 10^3/uL Basophils # (Auto) 0.0 0.0-0.1 10^3/uL Sodium Level 147 H 135-145 MMOL/L Potassium Level 3.8 3.6-5.0 MMOL/L Chloride Level 111 H 98-107 MMOL/L Carbon Dioxide Level 23 21-32 MMOL/L Anion Gap 13 5-14 MMOL/L Blood Urea Nitrogen 10 7-18 MG/DL Creatinine 0.73 0.60-1.30 MG/DL Estimat Glomerular Filtration Rate > 60 BUN/Creatinine Ratio 14 Glucose Level 114 H 70-105 MG/DL Calcium Level 7.9 L 8.5-10.1 MG/DL Corrected Calcium 8.0 L 8.5-10.1 MG/DL Phosphorus Level 2.6 2.3-4.7 MG/DL Magnesium Level 1.7 1.6-2.4 MG/DL Total Bilirubin 0.4 0.1-1.0 MG/DL Aspartate Amino Transf (AST/SGOT) 18 5-34 U/L Alanine Aminotransferase (ALT/SGPT) 17 0-55 U/L Alkaline Phosphatase 30 L 40-136 U/L Total Protein 6.6 6.4-8.2 GM/DL Albumin 3.9 3.2-4.5 GM/DL Test 03/11/19 03:20 03/11/19 06:25 Range/Units Blood Gas Puncture Site RIGHT RADIAL Blood Gas Patient Temperature 97.9 Arterial Blood pH 7.38 7.37-7.43 Arterial Blood Partial Pressure CO2 44 35-45 MMHG Arterial Blood Partial Pressure O2 58 L 79-93 MMHG Arterial Blood HCO3 26 23-27 MMOL/L Arterial Blood Total CO2 26.9 21.0-31.0 MMOL/L Arterial Blood Oxygen Saturation 90 L 94-100 % Arterial Blood Base Excess 1.0 -2.5-2.5 MMOL/L West Test YES-POS Blood Gas Ventilator Setting YES Blood Gas Inspired Oxygen 30% My Orders Orders - YANIV REYES DO Ed Iv/Invasive Line Start (03/10/19 19:10) Ekg Tracing (03/10/19 19:10) Catheter(Urinary) Insert & Ass 03,15 (03/10/19 19:10) O2 (03/10/19 19:10) Monitor-Rhythm Ecg Trace Only (03/10/19 19:10) Cervical Collar (03/10/19 19:10) Acetaminophen (03/10/19 19:10) Alcohol (03/10/19 19:10) Amylase (03/10/19 19:10) Arterial Blood Gas (03/10/19 19:10) BNP (03/10/19 19:10) Cbc With Automated Diff (03/10/19 19:10) Comprehensive Metabolic Panel (03/10/19 19:10) Creatine Kinase (03/10/19 19:10) Creatine Kinase Mb (03/10/19 19:10) Drug Screen Stat (Urine) (03/10/19 19:10) Lactic Acid Analyzer (03/10/19 19:10) Lipase (03/10/19 19:10) Magnesium (03/10/19 19:10) Protime With Inr (03/10/19 19:10) Partial Thromboplastin Time (03/10/19 19:10) Troponin I (03/10/19 19:10) Ua Culture If Indicated (03/10/19 19:10) Myoglobin Serum (03/10/19 19:10) Chest 1 View, Ap/Pa Only (03/10/19 19:10) Pelvis (03/10/19 19:10) Ed Iv/Invasive Line Start (03/10/19 19:10) Lactated Ringers (Lr 1000 Ml Iv Solution (03/10/19 19:10) Naloxone Injection (Narcan Injection) (03/10/19 19:15) Ct Head/Cervical Spine Wo (03/10/19 19:20) Propofol Injection (Diprivan Injection) (03/10/19 20:00) Ng Tube Insert & Assessment (03/10/19 19:51) Ed Iv/Invasive Line Start (03/10/19 19:52) Lactated Ringers (Lr 1000 Ml Iv Solution (03/10/19 19:52) Propofol Drip (Icu) (Diprivan Drip (Icu) (03/10/19 19:44) Propofol Drip (Icu) (Diprivan Drip (Icu) (03/10/19 20:00) Sedation Communication Q48H (03/10/19 19:52) Sputum Culture (03/10/19 19:54) D5 1/2 Ns W/Kcl 20 Meq/L (Dextrose 5%/0. (03/10/19 20:30) Chest 1 View, Ap/Pa Only (03/10/19 ) Arterial Blood Gas (03/10/19 20:58) Labetalol Injection (Normodyne Injection (03/10/19 21:15) Medications Given in ED Current Medications Medications Dose Ordered Sig/Jaki Route Start Time Stop Time Status Last Admin Dose Admin Lactated Ringer's 1,000 ml @ 0 mls/hr Q0M ONCE IV 03/10/19 19:10 03/10/19 19:13 DC 03/10/19 19:30 0 MLS/HR Lactated Ringer's 1,000 ml @ 0 mls/hr Q0M ONCE IV 03/10/19 19:52 03/10/19 19:53 DC 03/10/19 20:16 0 MLS/HR Naloxone HCl 2 mg ONCE ONCE IV 03/10/19 19:15 03/10/19 19:16 DC 03/10/19 19:10 2 MG Vital Signs/I&O 03/10/19 03/10/19 03/10/19 03/10/19 19:00 19:00 19:55 21:06 Temp 97.8 97.1 Pulse 105 105 98 Resp 11 12 20 B/P (MAP) 163/107 (125) 152/92 169/111 (130) Pulse Ox 95 95 98 99 O2 Delivery Nasal Cannula Nasal Cannula Mechanical Ventilator O2 Flow Rate 2.00 2.00 03/10/19 03/10/19 03/10/19 03/10/19 21:30 21:31 21:45 21:45 Temp 97.6 Pulse 79 73 77 Resp 20 20 18 B/P (MAP) 150/101 (117) 149/105 (120) Pulse Ox 97 96 96 O2 Delivery Mechanical Ventilator Mechanical Ventilator O2 Flow Rate 50.00 50.00 FiO2 50 03/10/19 03/10/19 03/10/19 03/10/19 22:00 22:00 22:15 22:30 Pulse 75 77 76 Resp 19 19 20 B/P (MAP) 157/113 (128) 129/90 (103) 116/82 (93) Pulse Ox 95 94 93 O2 Delivery Mechanical Ventilator Mechanical Ventilator Mechanical Ventilator Mechanical Ventilator O2 Flow Rate 50.00 50.00 50.00 FiO2 50 03/10/19 03/10/19 03/10/19 03/11/19 22:39 22:45 23:00 00:00 Pulse 73 73 73 Resp 19 20 20 B/P (MAP) 116/82 117/79 (92) 115/81 (92) 116/85 (95) Pulse Ox 94 94 97 O2 Delivery Mechanical Ventilator Mechanical Ventilator Mechanical Ventilator O2 Flow Rate 50.00 50.00 50.00 03/11/19 03/11/19 03/11/19 03/11/19 00:00 00:20 01:00 01:00 Temp 97.2 Pulse 77 77 Resp 20 B/P (MAP) 132/91 (105) Pulse Ox 97 98 O2 Delivery Mechanical Ventilator Mechanical Ventilator O2 Flow Rate 50.00 FiO2 50 03/11/19 03/11/19 03/11/19 03/11/19 01:09 02:00 02:10 02:19 Pulse 82 81 Resp 19 20 B/P (MAP) 132/91 147/99 (115) Pulse Ox 98 98 O2 Delivery Mechanical Ventilator Mechanical Ventilator O2 Flow Rate 50.00 30.00 FiO2 50 03/11/19 03/11/19 03/11/19 03/11/19 03:00 03:11 04:00 04:10 Pulse 89 91 Resp 20 20 B/P (MAP) 137/90 (106) 137/90 142/100 (114) Pulse Ox 92 94 96 O2 Delivery Mechanical Ventilator Mechanical Ventilator Mechanical Ventilator O2 Flow Rate 30.00 30.00 FiO2 30 03/11/19 03/11/19 03/11/19 03/11/19 04:14 05:00 05:22 06:00 Temp 97.9 Pulse 96 94 Resp 20 19 B/P (MAP) 150/104 (119) 147/108 157/103 (121) Pulse Ox 94 92 O2 Delivery Mechanical Ventilator Mechanical Ventilator O2 Flow Rate 30.00 30.00 03/11/19 06:27 Pulse 93 Resp 20 Pulse Ox 94 FiO2 30 03/11/19 00:00 Intake Total 1800 ml Balance 1800 ml Capillary Refill : Less Than 3 Seconds Blood Pressure Mean: 112 Progress Note : Progress Note NASAL TRUMPET PLACED, WITH MINIMAL IMPROVEMENT IN SNOROUS BREATHING PT GIVEN NARCAN AT SAME TIME PT HAD VERY BRIEF EYE OPENING, MOVEMENT OF ALL EXTREMITIES, THEN QUICKLY WENT BACK TO SNOROUS BREATHING PT INTUBATED TO PROTECT AIRWAY PT REMAINED IN CERVICAL COLLAR NO DETERIORATION IN PT'S CONDITION DURING ER STAY PT BP REMAINED ELEVATED, EVEN AFTER INTUBATION, SO LABETALOL GIVEN WITH SOME IMPROVEMENT ECG Initial ECG Impression Date: Mar 10, 2019 Initial ECG Impression Time: 19:17 Initial ECG Rate: 124 Initial ECG Rhythm: S.Tach Diagnostic Imaging Comments CXR--ET TUBE IN PLACE, NO ACUTE PROCESS, PENDING RADIOLOGIST REVIEW CT HEAD/CERVICAL SPINE--NO ACUTE PROCESS, PER RADIOLOGIST REPORTS AT 2031 Reviewed: Reviewed by Me Critical Care Note Critical Care Start Time: 19:08 Total Time (minutes) 60 Departure Communication (Admissions) 2031--CALLED DR. FORTUNE, MESSAGE LEFT ON CELL 2035--SPOKE WITH DR. TRIPP FOR PULMONOLOGY/CRITICAL CARE CONSULT 236--SPOKE WITH DR. FORTUNE, ACCEPTS PT FOR ADMIT. SHE IS VERY FAMILIAR WITH PT, WHO IS VERY NON-COMPLIANT IN ALL ASPECTS OF CARE Impression Primary Impression: ALTERED MENTAL STATUS--OBTUNDED Additional Impressions: Alcohol intoxication UNWITNESSED FALL VS SYNCOPE Head contusion Acute respiratory failure Acidosis NIDDM Illicit drug use Disposition: ADMITTED INPATIENT Condition: Critical Admissions Decision to Admit Reason: Admit from ER (General) Decision to Admit/Date: Mar 10, 2019 Time/Decision to Admit Time: 20:40 Departure-Patient Inst. Referrals: [facility] [place] Primary Care Physician YANIV REYES DO Mar 10, 2019 20:36
--- NOTE | 2019-03-10 20:51 | NUR ---
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 his friend anne greer will be keeping the dog.
--- NOTE | 2019-03-10 21:01 | Diagnostic Imaging Report ---
INDICATION: Intubation Supine portable chest shows normal heart size and vascularity. The lungs are clear. There is no effusion or pneumothorax. ET tube is present and appears in good position. IMPRESSION: Satisfactory ET tube placement. Dictated by: Dictated on workstation # [id number]
[2019-03-10 21:04] LABS: ABG BASE EXCESS -0.8 MMOL/L (-2.5-2.5); ABG OXYGEN SATURATION 100 % (94-100); ABG PCO2 61 MMHG (35-45); ABG PO2 233 MMHG (79-93); ABG TCO2 27.7 MMOL/L (21.0-31.0)
[2019-03-10 21:08] LABS: ABG PH 7.25 (7.37-7.43)
[2019-03-10 21:09] LABS: ALLENS TEST YES-POS; INSPIRED O2 20; PATIENT TEMP 97.2; VENTILATOR YES
[2019-03-10] MEDS ORDERED: LABETALOL HCL 20 MG/4 ML VIAL IV ONE (21:15)
--- NOTE | 2019-03-10 21:30 | NUR ---
PT IS SEDATED AND INTUBATED. PT UNABLE TO ANSWER ADMISSION QUESTIONS.
[2019-03-10] MEDS ORDERED: ONDANSETRON 4 MG (ZOFRAN) ORAL DISSOLVE TAB SL PRN (21:45)
[2019-03-10] MEDS ORDERED: ONDANSETRON 4 MG/2 ML (SDV) Z0FRAN IV PRN (21:45)
[2019-03-10] MEDS ORDERED: ANTACID SUSP 30 ML UDC (MYLANTA) PO PRN (21:45)
[2019-03-10] MEDS ORDERED: LORazepam INJ 2 MG/ML (ATIVAN) VIAL IM/IV PRN (21:45)
[2019-03-10] MEDS ORDERED: SENNA W/DOCUSATE (SENOKOT S) TABLET PO PRN (21:45)
[2019-03-10] MEDS ORDERED: LORazepam 1 MG (ATIVAN) TAB PO PRN (21:45)
[2019-03-10] MEDS ORDERED: PROPOFOL DRIP (ICU) 100 ML IV SCH (22:00)
[2019-03-10] MEDS: PANTOPRAZOLE 40 MG (PROTONIX) VIAL IV SCH (22:08)
[2019-03-11] VITALS (29 sets, daily range): BP systolic 81–159; BP diastolic 50–107
[2019-03-11] MEDS: PROPOFOL DRIP (ICU) 100 ML IV SCH ×9 (01:09→22:51)
[2019-03-11] MEDS: D5 1/2 NS W/KCL 20 MEQ/L 1,000 ML IV SCH ×7 (03:12→23:15)
[2019-03-11 03:18] LABS: BASOPHILS % (AUTO) 0 % (0-10); EOSINOPHILS % (AUTO) 0 % (0-10); HEMATOCRIT 38 % (40-54); HEMOGLOBIN 12.9 G/DL (13.3-17.7); LYMPHOCYTES # (AUTO) 2.6 X 10^3 (1.0-4.0); LYMPHOCYTES % (AUTO) 35 % (12-44); MEAN CORPUSCULAR HEMOGLOBIN 30 PG (25-34); MEAN CORPUSCULAR HGB CONC 34 G/DL (32-36); MEAN CORPUSCULAR VOLUME 88 FL (80-99); MEAN PLATELET VOLUME 8.7 FL (7.4-10.4); MONOCYTES # (AUTO) 0.5 X 10^3 (0.0-1.0); MONOCYTES % (AUTO) 7 % (0-12); NEUTROPHILS # (AUTO) 4.3 X 10^3 (1.8-7.8); NEUTROPHILS % (AUTO) 59 % (42-75); PLATELET COUNT 226 10^3/uL (130-400); RED CELL DISTRIBUTION WIDTH 13.5 % (10.0-14.5); WHITE BLOOD COUNT 7.4 10^3/uL (4.3-11.0)
[2019-03-11 03:27] LABS: ABG OXYGEN SATURATION 90 % (94-100); ABG PCO2 44 MMHG (35-45); ABG PH 7.38 (7.37-7.43); ABG PO2 58 MMHG (79-93); ABG TCO2 26.9 MMOL/L (21.0-31.0); ALLENS TEST YES-POS
[2019-03-11 03:28] LABS: INSPIRED O2 30%; PATIENT TEMP 97.9; VENTILATOR YES
[2019-03-11 03:40] LABS: ALANINE AMINOTRANSFERASE 17 U/L (0-55); ALBUMIN 3.9 GM/DL (3.2-4.5); ALKALINE PHOSPHATASE 30 U/L (40-136); BILIRUBIN,TOTAL 0.4 MG/DL (0.1-1.0); BUN/CREATININE RATIO 14; CALCIUM 7.9 MG/DL (8.5-10.1); CARBON DIOXIDE 23 MMOL/L (21-32); CHLORIDE 111 MMOL/L (98-107); CREATININE SERUM 0.73 MG/DL (0.60-1.30); GFR ESTIMATED > 60; GLUCOSE 114 MG/DL (70-105); MAGNESIUM 1.7 MG/DL (1.6-2.4); PHOSPHORUS 2.6 MG/DL (2.3-4.7); POTASSIUM 3.8 MMOL/L (3.6-5.0); SODIUM 147 MMOL/L (135-145); TOTAL PROTEIN 6.6 GM/DL (6.4-8.2)
--- NOTE | 2019-03-11 03:41 | Pulmonary Consultation ---
NU VOGEL,MED STUDENT 03/11/19 0340: History of Present Illness History of Present Illness Date of Consultation 03/11/19 03:35 Time Seen by Provider: 03:35 Date of Admission Found unconscious on the ground Allergies and Home Medications Allergies Coded Allergies: fentanyl (Verified Allergy, Unknown, 01/24/16) morphine (Verified Allergy, Unknown, 10/28/13) Home Medications Amlodipine Besylate 5 Mg Tablet, 10 MG PO DAILY, (Reported) LAST RECEIVED #90 TABLETS (45 DAY SUPPLY) FROM REPOSITORY 12-15-17 Lisinopril 40 Mg Tablet, 40 MG PO DAILY, (Reported) LAST RECEIVED #90 12-15-17 FROM THE REPOSITORY Metoprolol Succinate 100 Mg Tab.er.24h, 100 MG PO DAILY, (Reported) LAST RECEIVED #90 FROM REPOSITORY 12-15-17 Paroxetine HCl 20 Mg Tablet, 40 MG PO DAILY, (Reported) LAST FILLED #60 12-15-17 TAKES 2 (20MG) TABLETS Prazosin HCl 2 Mg Capsule, 2 MG PO HS, (Reported) LAST FILLED #30 02-20-18 Quetiapine Fumarate 200 Mg Tablet, 200 MG PO HS, (Reported) LAST FILLED #30 02-20-18 Trazodone HCl 150 Mg Tablet, 150 MG PO HS, (Reported) LAST FILLED #30 12-15-17 Past Udcvnpo-Gjuzzf-Iypwye Hx Patient Social History Alcohol Use: Regular Use Number of Drinks Today: GG Alcohol Beverage of Choice: Beer, Whiskey Recreational Drug Use: Yes Drug of Choice: THC Smoking Status: Unknown if Ever Smoked Type Used: Smokeless Tobacco 2nd Hand Smoke Exposure: No Recent Foreign Travel: No Contact w/Someone Who Travel: No Recent Infectious Disease Expo: No Recent Hopitalizations: No (UNK) Physical Abuse: No Sexual Abuse: No Mistreated: No Fear: No Immunizations Up To Date Tetanus Booster (TDap): Unknown PED Vaccines UTD: Yes Date of Pneumonia Vaccine: Dec 04, 2013 Date of Influenza Vaccine: Apr 11, 2015 Seasonal Allergies Seasonal Allergies: Yes Past Medical History Surgeries: Yes (HAND LACERATION REPAIR) Orthopedic Respiratory: Yes Asthma, COPD Currently Using CPAP: No Currently Using BIPAP: No Cardiac: Yes High Cholesterol, Hypertension Neurological: No Reproductive Disorders: No Sexually Transmitted Disease: No HIV/AIDS: No Genitourinary: Yes Gastrointestinal: No Musculoskeletal: Yes (CHRONIC KNEE PAIN ) Chronic Back Pain Endocrine: Yes Diabetes, Non-Insulin dep HEENT: No Cancer: No Psychosocial: Yes Anxiety, Depression Nursing Suicide Risk Notes: UNRESPONSIVE, DATA RECALLED FROM PREVIOUS VISITS Integumentary: Yes Eczema Blood Disorders: No Adverse Reaction/Blood Tranf: No Family Medical History Alcoholism 19 MOTHER Diabetes mellitus 19 FATHER G8 BROTHER Family history: Asthma Family history: Cardiovascular disease 19 FATHER, Onset:50's - 60 (FATHER) Family history: Coronary thrombosis 19 FATHER, Onset:50's - 60 Family history: Diabetes mellitus 19 FATHER, Onset:50's - 60 Family history: Hypertension 19 FATHER, Onset:30's - 40 Hearing loss 19 FATHER, Onset:50's - 60 Heart disease 19 FATHER, Onset:50's - 60 Myocardial infarction G8 BROTHER, Onset:40's - 50 Stroke G8 BROTHER, Onset:40's - 50 No Family History of: Abdominal aortic aneurysm Perkins's disease Alcoholism Aphasia Cancer Cancer of colon Cataract Chest pain Congenital heart disease Congestive heart failure Cystic fibrosis Dementia Dysphagia Family history: Alzheimer's disease Family history: Arthritis Family history: Breast disease Family history: Gastrointestinal disease Family history: Osteoporosis Family history: Thyroid disorder Headache Hereditary disease History of - anemia History of - respiratory disease History of drug abuse Human immunodeficiency virus (HIV) seropositivity Hypercholesterolemia Infertile Kidney disease Malignant neoplasm of lung Parkinson's disease Prostate cancer Psychotic disorder Seizure disorder Tuberculosis Visual impairment Diabetes Sepsis Event Evaluation Height, Weight, BMI Height: 6'0.00" Weight: 274lbs. 0.1oz. 124.875650wk; 37.2 BMI Method:Estimated Exam Exam Vital Signs Date Time Temp Pulse Resp B/P (MAP) Pulse Ox O2 Delivery O2 Flow Rate FiO2 03/11/19 03:11 137/90 03/11/19 03:00 89 20 137/90 (106) 92 Mechanical Ventilator 30.00 03/11/19 02:19 81 20 98 50 03/11/19 02:10 Mechanical Ventilator 30.00 03/11/19 02:00 82 19 147/99 (115) 98 Mechanical Ventilator 50.00 03/11/19 01:09 132/91 03/11/19 01:00 77 20 132/91 (105) 98 Mechanical Ventilator 50.00 03/11/19 01:00 77 03/11/19 00:20 97 Mechanical Ventilator 50 03/11/19 00:00 97.2 03/11/19 00:00 73 20 116/85 (95) 97 Mechanical Ventilator 50.00 03/10/19 23:00 73 20 115/81 (92) 94 Mechanical Ventilator 50.00 03/10/19 22:45 73 19 117/79 (92) 94 Mechanical Ventilator 50.00 03/10/19 22:39 116/82 03/10/19 22:30 76 20 116/82 (93) 93 Mechanical Ventilator 50.00 03/10/19 22:15 77 19 129/90 (103) 94 Mechanical Ventilator 50.00 03/10/19 22:00 Mechanical Ventilator 50 03/10/19 22:00 75 19 157/113 (128) 95 Mechanical Ventilator 50.00 03/10/19 21:45 77 18 149/105 (120) 96 Mechanical Ventilator 50.00 03/10/19 21:45 73 20 96 50 03/10/19 21:31 79 03/10/19 21:30 97.6 20 150/101 (117) 97 Mechanical Ventilator 50.00 03/10/19 21:06 97.1 98 20 169/111 (130) 99 Mechanical Ventilator 03/10/19 19:55 105 12 152/92 98 03/10/19 19:00 97.8 105 11 163/107 (125) 95 Nasal Cannula 2.00 03/10/19 19:00 95 Nasal Cannula 2.00 I & O 03/11/19 07:00 Intake Total 1800 ml Output Total 1650 ml Balance 150 ml Height & Weight Height: 6'0.00" Weight: 274lbs. 0.1oz. 124.300783sf; 37.2 BMI Method:Estimated Capillary Refill: Less Than 3 Seconds Results Lab Laboratory Tests 03/10/19 19:00 03/11/19 02:55 Assessment/Plan Assessment/Plan unconscious after falling - likely d/t EtOH intoxication - Airway management = on a ventilator - protect C-spine - head and neck CT - BMP/ CBC w. diff/ toxicology/ ABG - give NS - CIWA protocol - CXR and abdominal/pelvic x-ray SIRS - blood cultures - CXR/abdominal/pelvic x-ray respiratory acidosis with suspected metabolic acidosis - lactic acid = - elevated x 2 labs (2.47, 2.39) - hypercapnia - MODESTO ANDERSON DO 03/11/19 0561: History of Present Illness History of Present Illness Time Seen by Provider: 04:36 History of Present Illness 48yo with hx of alcohol and suicidal attempts presented to ED after being found unresponsive behind a [employer]. People around heard a "thud" and then found him unresponsive. Pt actually skipped his alcohol dependance class yesterday. Pt was unresponsive in ED and was intubated for airway protection. He currently has a C Coller on. Head CT/Cervical Ct was negative. He does have a strong hx of al cohol withdrawal in the past. All information obtained from chart. I am consulted for ICU management. Allergies and Home Medications Allergies Coded Allergies: fentanyl (Verified Allergy, Unknown, 01/24/16) morphine (Verified Allergy, Unknown, 10/28/13) Home Medications Amlodipine Besylate 5 Mg Tablet, 10 MG PO DAILY, (Reported) LAST RECEIVED #90 TABLETS (45 DAY SUPPLY) FROM REPOSITORY 12-15-17 Lisinopril 40 Mg Tablet, 40 MG PO DAILY, (Reported) LAST RECEIVED #90 12-15-17 FROM THE REPOSITORY Metoprolol Succinate 100 Mg Tab.er.24h, 100 MG PO DAILY, (Reported) LAST RECEIVED #90 FROM REPOSITORY 12-15-17 Paroxetine HCl 20 Mg Tablet, 40 MG PO DAILY, (Reported) LAST FILLED #60 12-15-17 TAKES 2 (20MG) TABLETS Prazosin HCl 2 Mg Capsule, 2 MG PO HS, (Reported) LAST FILLED #30 02-20-18 Quetiapine Fumarate 200 Mg Tablet, 200 MG PO HS, (Reported) LAST FILLED #30 02-20-18 Trazodone HCl 150 Mg Tablet, 150 MG PO HS, (Reported) LAST FILLED #30 12-15-17 Past Jvvxxvl-Owsadx-Hpnltl Hx Family Medical History Alcoholism 19 MOTHER Diabetes mellitus 19 FATHER G8 BROTHER Family history: Asthma Family history: Cardiovascular disease 19 FATHER, Onset:50's - 60 (FATHER) Family history: Coronary thrombosis 19 FATHER, Onset:50's - 60 Family history: Diabetes mellitus 19 FATHER, Onset:50's - 60 Family history: Hypertension 19 FATHER, Onset:30's - 40 Hearing loss 19 FATHER, Onset:50's - 60 Heart disease 19 FATHER, Onset:50's - 60 Myocardial infarction G8 BROTHER, Onset:40's - 50 Stroke G8 BROTHER, Onset:40's - 50 No Family History of: Abdominal aortic aneurysm Rodrick's disease Alcoholism Aphasia Cancer Cancer of colon Cataract Chest pain Congenital heart disease Congestive heart failure Cystic fibrosis Dementia Dysphagia Family history: Alzheimer's disease Family history: Arthritis Family history: Breast disease Family history: Gastrointestinal disease Family history: Osteoporosis Family history: Thyroid disorder Headache Hereditary disease History of - anemia History of - respiratory disease History of drug abuse Human immunodeficiency virus (HIV) seropositivity Hypercholesterolemia Infertile Kidney disease Malignant neoplasm of lung Parkinson's disease Prostate cancer Psychotic disorder Seizure disorder Tuberculosis Visual impairment Review of Systems Time Seen by Provider: 05:06 Exam Exam General Appearance: Other (sedated on vent) HEENT: PERRL/EOMI, Pharynx Normal Neck: Full Range of Motion, Non Tender, Supple Respiratory: Chest Non Tender, No Accessory Muscle Use, No Respiratory D istress, Decreased Breath Sounds Cardiovascular: Regular Rate, Rhythm, No Edema Capillary Refill: Less Than 3 Seconds Gastrointestinal: normal bowel sounds, non tender, soft Extremity: Normal Capillary Refill, No Pedal Edema Skin: Normal Color, Warm/Dry Lymphatic: No Adenopathy Assessment/Plan Assessment/Plan Acute respiratory failure secondary to ETOH intoxication -Start TF -CIWA protocol -Currently on Propofol. Will Add Precedex to limit propofol -Monitor -Wean sedation as tolerated -Sedation vacation Q shift to access MS unconscious after falling - likely d/t EtOH intoxication - protect C-spine - head and neck CT is negative - CIWA protocol HTN -Start Po home Lopressor, and lisinopril -PRN hydralazine -Monitor metabolic Lactic acidosis -Continue IVF -repeat LA Hypernatremia -Cont D5 1/2 -Monitor Marijuana use -Education - Anemia -Monitor Supervisory-Addendum Brief Verification & Attestation Participated in pt care: history Personally performed: exam Care discussed with: Medical Student Procedures: n/a Verification and Attestation of Medical Student E/M Service A medical student performed and documented this service in my presence. I reviewed and verified all information documented by the medical student and made modifications to such information, when appropriate. I personally performed the physical exam and medical decision making. Modesto Anderson, Mar 11, 2019,06:12 NU VOGEL,MED STUDENT Mar 11, 2019 03:40 MODESTO ANDERSON DO Mar 11, 2019 04:41
[2019-03-11] MEDS: KCL 20 MEQ TAB (K-DUR) PO SCH (04:17)
[2019-03-11] MEDS: MAGNESIUM 1 GM/100 ML IVPB 100 ML IV SCH ×3 (04:17→06:23)
[2019-03-11] MEDS: POTASSIUM CL 10MEQ/50ML IVPB 50 ML IV SCH (04:17)
[2019-03-11] MEDS ORDERED: NS (IVPB) 50 ML ONE (05:29)
[2019-03-11] MEDS ORDERED: DEXMEDETOMIDINE INJECTION 200 MCG in NS (IVPB) 50 ML IV SCH (05:30)
[2019-03-11] MEDS ORDERED: LACTATED RINGERS 1,000 ML IV ONE ×2 (06:53→09:11)
--- NOTE | 2019-03-11 08:06 | Diagnostic Imaging Report ---
INDICATION: Dyspnea. Frontal chest obtained at 3:21 a.m. and compared to 02/16/2019. FINDINGS: There is cardiomegaly. There is very poor inspiration similar to study. There is no definite focal infiltrate. There is ET tube in place with tip overlying mid trachea. NG tube is not well seen distally but appears to overlie the stomach. IMPRESSION: Very poor inspiration. ET tube tip overlies mid trachea. NG tube is seen with tip probably in the stomach but not well-seen. There is no focal infiltrate. Dictated by: Dictated on workstation # [id number]
--- NOTE | 2019-03-11 08:17 | Occ Therapy Progress Note ---
Therapy Progress Note PT IS SEDATED AND INTUBATED. OT will continue to follow. TERRI WOODWARD OT Mar 11, 2019 08:17
--- NOTE | 2019-03-11 08:19 | Physical Therapy Progress Note ---
Therapy Progress Note Patient currently sedated and on ventilator. PT to assess patient when medically stable and able to actively participate with therapy. KHALIF GARCIA PT Mar 11, 2019 08:19
[2019-03-11] MEDS: lisINopril 20 MG (PRINIVIL) TABLET PO SCH (08:28)
[2019-03-11] MEDS: DEXMEDETOMIDINE INJECTION 1,000 MCG in NS (IVPB) 240 ML IV SCH ×4 (08:28→23:50)
[2019-03-11] MEDS: meTOprolol TARTRATE 50 MG (LOPRESSOR) TAB PO SCH ×2 (08:28→21:01)
[2019-03-11] MEDS: PANTOPRAZOLE 40 MG (PROTONIX) VIAL IV SCH (08:28)
[2019-03-11] MEDS ORDERED: SUCCINYLCHOLINE INJ 100 MG/5 ML SYR INJ ONE (08:30)
[2019-03-11] MEDS ORDERED: ETOMIDATE IV SOLN 20 MG/10 ML VIAL IV ONE (08:30)
[2019-03-11] MEDS ORDERED: ROCURONIUM 10 MG/ML 5 ML SYRINGE IV ONE (08:30)
[2019-03-11] MEDS ORDERED: MIDAZOLAM 5 MG/5 ML (VERSED) VIAL INJ ONE (08:30)
[2019-03-11] MEDS ORDERED: THIAMINE INJECTION 100 MG, FOLIC ACID INJECTION 1 MG, MAGNESIUM SULFATE 2 GM, VITAMIN M... IV SCH ×5 (09:00)
[2019-03-11] MEDS ORDERED: PANTOPRAZOLE 40 MG (PROTONIX) VIAL IV SCH (09:00)
[2019-03-11] MEDS: LORazepam INJ 2 MG/ML (ATIVAN) VIAL IV PRN ×3 (11:25→19:32)
--- NOTE | 2019-03-11 12:02 | Diagnostic Imaging Report ---
Portable semierect AP chest at 1133 hours. INDICATION: ET tube placement. FINDINGS: As noted on the prior exam performed earlier today at 3:21 AM, there is an ET tube in place. The tip of the ET tube seems similar in position to the prior exam overlying the midportion of tracheal air shadow. The NG line noted on the prior study is also again visualized on this exam. The tip of NG line appears to overlie the gastric body/antrum. There is a better inspiratory effort on this study than on the previous exam. The heart size is within normal limits and the lungs seem to be generally clear and well aerated. There is elevation of the right hemidiaphragm. The mediastinum is not widened. The osseous structures are intact. IMPRESSION: 1. The ET tube tip appears to be in good position overlying the midportion of the tracheal air shadow. The tip of the NG line seems to be in the region of the gastric body/antrum. If further evaluation is desired, then abdomen exam would be recommended. 2. There is no acute cardiopulmonary abnormality noted. Dictated by: Dictated on workstation # [id number]
--- NOTE | 2019-03-11 13:48 | History & Physical ---
HPI History of Present Illness: 48 yo male found unconscious [place] a gas station. Found to have severely elevated blood alcohol level and somnolence requiring intubation in the ER. Date seen by provider: Mar 11, 2019 Time Seen by Provider: 09:50 Attending Physician Billie Mireles MD PCP [place] Consult Date of Admission Mar 10, 2019 at 20:40 Home Medications Home Medications Reviewed patient Home Medication Reconciliation performed by pharmacy medication reconciliations health physics technician and/or nursing. Patients Allergies have been reviewed. Allergies Coded Allergies: fentanyl (Verified Allergy, Unknown, 01/24/16) morphine (Verified Allergy, Unknown, 10/28/13) [id number] Hx Patient Social History Alcohol Use: Regular Use (VERY HEAVY USE) Recreational Drug Use: Yes (THC) Drug of Choice: THC Smoking Status: Former Smoker (PER OLD CHARTS, SMOKED < 1 PPD, QUIT IN 20'S ) Former smoker/When Quit: Jul 06, 2002 Type Used: Cigarettes, Smokeless Tobacco 2nd Hand Smoke Exposure: No Recent Foreign Travel: No Contact w/other who traveled: No Recent Hopitalizations: No (UNK) Recent Infectious Disease Expo: No Immunizations Up To Date Tetanus Booster (TDap): Unknown Date of Pneumonia Vaccine: Dec 04, 2013 Date of Influenza Vaccine: Apr 11, 2015 Past Medical History Past Medical History 1. Alcoholism 2. Transaminitis 3. Hypertension 4. Depression/Anxiety 5. History of suicide attempt with overdose 04/19 and reported suicide attempt 12-30 per police Past Surgical History 1. Lac Repair Family Medical History Significant Family History: Diabetes Family History: Alcoholism 19 MOTHER Diabetes mellitus 19 FATHER G8 BROTHER Family history: Asthma Family history: Cardiovascular disease 19 FATHER, Onset:50's - 60 (FATHER) Family history: Coronary thrombosis 19 FATHER, Onset:50's - 60 Family history: Diabetes mellitus 19 FATHER, Onset:50's - 60 Family history: Hypertension 19 FATHER, Onset:30's - 40 Hearing loss 19 FATHER, Onset:50's - 60 Heart disease 19 FATHER, Onset:50's - 60 Myocardial infarction G8 BROTHER, Onset:40's - 50 Stroke G8 BROTHER, Onset:40's - 50 No Family History of: Abdominal aortic aneurysm Rodrick's disease Alcoholism Aphasia Cancer Cancer of colon Cataract Chest pain Congenital heart disease Congestive heart failure Cystic fibrosis Dementia Dysphagia Family history: Alzheimer's disease Family history: Arthritis Family history: Breast disease Family history: Gastrointestinal disease Family history: Osteoporosis Family history: Thyroid disorder Headache Hereditary disease History of - anemia History of - respiratory disease History of drug abuse Human immunodeficiency virus (HIV) seropositivity Hypercholesterolemia Infertile Kidney disease Malignant neoplasm of lung Parkinson's disease Prostate cancer Psychotic disorder Seizure disorder Tuberculosis Visual impairment Review of Systems (CHC) Constitutional: other (unable to obtain due to patient condition) Reviewed Test Results Reviewed Test Results Lab Laboratory Tests Test 03/10/19 19:00 03/10/19 19:14 03/10/19 19:20 03/10/19 19:42 Range/Units White Blood Count 8.3 4.3-11.0 10^3/uL Red Blood Count 4.88 4.35-5.85 10^6/uL Hemoglobin 15.0 13.3-17.7 G/DL Hematocrit 43 40-54 % Mean Corpuscular Volume 88 80-99 FL Mean Corpuscular Hemoglobin 31 25-34 PG Mean Corpuscular Hemoglobin Concent 35 32-36 G/DL Red Cell Distribution Width 13.4 10.0-14.5 % Platelet Count 278 130-400 10^3/uL Mean Platelet Volume 8.9 7.4-10.4 FL Neutrophils (%) (Auto) 60 42-75 % Lymphocytes (%) (Auto) 33 12-44 % Monocytes (%) (Auto) 8 0-12 % Eosinophils (%) (Auto) 0 0-10 % Basophils (%) (Auto) 0 0-10 % Neutrophils # (Auto) 5.0 1.8-7.8 X 10^3 Lymphocytes # (Auto) 2.7 1.0-4.0 X 10^3 Monocytes # (Auto) 0.6 0.0-1.0 X 10^3 Eosinophils # (Auto) 0.0 0.0-0.3 10^3/uL Basophils # (Auto) 0.0 0.0-0.1 10^3/uL Sodium Level 148 H 135-145 MMOL/L Potassium Level 3.3 L 3.6-5.0 MMOL/L Chloride Level 109 H 98-107 MMOL/L Carbon Dioxide Level 25 21-32 MMOL/L Anion Gap 14 5-14 MMOL/L Blood Urea Nitrogen 12 7-18 MG/DL Creatinine 0.84 0.60-1.30 MG/DL Estimat Glomerular Filtration Rate > 60 BUN/Creatinine Ratio 14 Glucose Level 127 H 70-105 MG/DL Calcium Level 8.8 8.5-10.1 MG/DL Corrected Calcium 8.5-10.1 MG/DL Magnesium Level 2.2 1.6-2.4 MG/DL Total Bilirubin 0.3 0.1-1.0 MG/DL Aspartate Amino Transf (AST/SGOT) 19 5-34 U/L Alanine Aminotransferase (ALT/SGPT) 18 0-55 U/L Alkaline Phosphatase 42 40-136 U/L Total Creatine Kinase 138 30-200 U/L Creatine Kinase MB 1.7 <6.6 NG/ML Myoglobin 30.8 10.0-92.0 NG/ML Troponin I < 0.028 <0.028 NG/ML B-Type Natriuretic Peptide 10.0 <100.0 PG/ML Total Protein 8.1 6.4-8.2 GM/DL Albumin 4.7 H 3.2-4.5 GM/DL Amylase Level 62 25-125 U/L Lipase 39 8-78 U/L Acetaminophen Level < 10 L 10-30 UG/ML Serum Alcohol 487 *H <10 MG/DL Urine Color YELLOW Urine Clarity CLEAR Urine pH 5 5-9 Urine Specific Clay 1.010 L 1.016-1.022 Urine Protein NEGATIVE NEGATIVE Urine Glucose (UA) NEGATIVE NEGATIVE Urine Ketones NEGATIVE NEGATIVE Urine Nitrite NEGATIVE NEGATIVE Urine Bilirubin NEGATIVE NEGATIVE Urine Urobilinogen NORMAL NORMAL MG/DL Urine Leukocyte Esterase NEGATIVE NEGATIVE Urine RBC (Auto) NEGATIVE NEGATIVE Urine RBC NONE /HPF Urine WBC NONE /HPF Urine Crystals NONE /LPF Urine Bacteria NEGATIVE /HPF Urine Casts NONE /LPF Urine Mucus NEGATIVE /LPF Urine Culture Indicated NO Urine Opiates Screen NEGATIVE NEGATIVE Urine Oxycodone Screen NEGATIVE NEGATIVE Urine Methadone Screen NEGATIVE NEGATIVE Urine Propoxyphene Screen NEGATIVE NEGATIVE Urine Barbiturates Screen NEGATIVE NEGATIVE Ur Tricyclic Antidepressants Screen NEGATIVE NEGATIVE Urine Phencyclidine Screen NEGATIVE NEGATIVE Urine Amphetamines Screen NEGATIVE NEGATIVE Urine Methamphetamines Screen NEGATIVE NEGATIVE Urine Benzodiazepines Screen NEGATIVE NEGATIVE Urine Cocaine Screen NEGATIVE NEGATIVE Urine Cannabinoids Screen POSITIVE H NEGATIVE Blood Gas Puncture Site RT RAD Blood Gas Patient Temperature 97.8 Arterial Blood pH 7.26 *L 7.37-7.43 Arterial Blood Partial Pressure CO2 58 H 35-45 MMHG Arterial Blood Partial Pressure O2 107 H 79-93 MMHG Arterial Blood HCO3 25 23-27 MMOL/L Arterial Blood Total CO2 26.9 21.0-31.0 MMOL/L Arterial Blood Oxygen Saturation 97 94-100 % Arterial Blood Base Excess -1.2 -2.5-2.5 MMOL/L West Test YES-POS Blood Gas Ventilator Setting NO Blood Gas Inspired Oxygen 2 Prothrombin Time 12.4 12.2-14.7 SEC INR Comment 0.9 0.8-1.4 Activated Partial Thromboplast Time 25 24-35 SEC Lactic Acid Level 2.47 *H 0.50-2.00 MMOL/L Test 03/10/19 20:58 03/10/19 21:35 03/11/19 00:44 03/11/19 02:55 Range/Units Blood Gas Puncture Site RT RAD Blood Gas Patient Temperature 97.2 Arterial Blood pH 7.25 *L 7.37-7.43 Arterial Blood Partial Pressure CO2 61 H 35-45 MMHG Arterial Blood Partial Pressure O2 233 H 79-93 MMHG Arterial Blood HCO3 26 23-27 MMOL/L Arterial Blood Total CO2 27.7 21.0-31.0 MMOL/L Arterial Blood Oxygen Saturation 100 94-100 % Arterial Blood Base Excess -0.8 -2.5-2.5 MMOL/L West Test YES-POS Blood Gas Ventilator Setting YES Blood Gas Inspired Oxygen 20 Lactic Acid Level 2.39 *H 0.50-2.00 MMOL/L Glucometer 174 H 70-110 MG/DL White Blood Count 7.4 4.3-11.0 10^3/uL Red Blood Count 4.29 L 4.35-5.85 10^6/uL Hemoglobin 12.9 L 13.3-17.7 G/DL Hematocrit 38 L 40-54 % Mean Corpuscular Volume 88 80-99 FL Mean Corpuscular Hemoglobin 30 25-34 PG Mean Corpuscular Hemoglobin Concent 34 32-36 G/DL Red Cell Distribution Width 13.5 10.0-14.5 % Platelet Count 226 130-400 10^3/uL Mean Platelet Volume 8.7 7.4-10.4 FL Neutrophils (%) (Auto) 59 42-75 % Lymphocytes (%) (Auto) 35 12-44 % Monocytes (%) (Auto) 7 0-12 % Eosinophils (%) (Auto) 0 0-10 % Basophils (%) (Auto) 0 0-10 % Neutrophils # (Auto) 4.3 1.8-7.8 X 10^3 Lymphocytes # (Auto) 2.6 1.0-4.0 X 10^3 Monocytes # (Auto) 0.5 0.0-1.0 X 10^3 Eosinophils # (Auto) 0.0 0.0-0.3 10^3/uL Basophils # (Auto) 0.0 0.0-0.1 10^3/uL Sodium Level 147 H 135-145 MMOL/L Potassium Level 3.8 3.6-5.0 MMOL/L Chloride Level 111 H 98-107 MMOL/L Carbon Dioxide Level 23 21-32 MMOL/L Anion Gap 13 5-14 MMOL/L Blood Urea Nitrogen 10 7-18 MG/DL Creatinine 0.73 0.60-1.30 MG/DL Estimat Glomerular Filtration Rate > 60 BUN/Creatinine Ratio 14 Glucose Level 114 H 70-105 MG/DL Calcium Level 7.9 L 8.5-10.1 MG/DL Corrected Calcium 8.0 L 8.5-10.1 MG/DL Phosphorus Level 2.6 2.3-4.7 MG/DL Magnesium Level 1.7 1.6-2.4 MG/DL Total Bilirubin 0.4 0.1-1.0 MG/DL Aspartate Amino Transf (AST/SGOT) 18 5-34 U/L Alanine Aminotransferase (ALT/SGPT) 17 0-55 U/L Alkaline Phosphatase 30 L 40-136 U/L Total Protein 6.6 6.4-8.2 GM/DL Albumin 3.9 3.2-4.5 GM/DL Test 03/11/19 03:20 03/11/19 06:25 03/11/19 08:30 03/11/19 11:55 Range/Units Blood Gas Puncture Site RIGHT RADIAL Blood Gas Patient Temperature 97.9 Arterial Blood pH 7.38 7.37-7.43 Arterial Blood Partial Pressure CO2 44 35-45 MMHG Arterial Blood Partial Pressure O2 58 L 79-93 MMHG Arterial Blood HCO3 26 23-27 MMOL/L Arterial Blood Total CO2 26.9 21.0-31.0 MMOL/L Arterial Blood Oxygen Saturation 90 L 94-100 % Arterial Blood Base Excess 1.0 -2.5-2.5 MMOL/L West Test YES-POS Blood Gas Ventilator Setting YES Blood Gas Inspired Oxygen 30% Lactic Acid Level 2.71 *H 3.64 *H 0.50-2.00 MMOL/L Glucometer 133 H 70-110 MG/DL Radiology CT head and C spine: Paranasal sinus disease, no other acute abnormalities CXR unremarkable Pelvis x-ray no fracture Physical Exam-(CHC) Physical Exam Vital Signs VS - Last 72 Hours, by Label 03/10/19 03/10/19 03/10/19 03/10/19 19:00 19:00 19:55 21:06 Temp 97.8 97.1 Pulse 105 105 98 Resp 11 12 20 B/P (MAP) 163/107 (125) 152/92 169/111 (130) Pulse Ox 95 95 98 99 O2 Delivery Nasal Cannula Nasal Cannula Mechanical Ventilator O2 Flow Rate 2.00 2.00 03/10/19 03/10/19 03/10/19 03/10/19 21:30 21:31 21:45 21:45 Temp 97.6 Pulse 79 73 77 Resp 20 20 18 B/P (MAP) 150/101 (117) 149/105 (120) Pulse Ox 97 96 96 O2 Delivery Mechanical Ventilator Mechanical Ventilator O2 Flow Rate 50.00 50.00 FiO2 50 03/10/19 03/10/19 03/10/19 03/10/19 22:00 22:00 22:15 22:30 Pulse 75 77 76 Resp 19 19 20 B/P (MAP) 157/113 (128) 129/90 (103) 116/82 (93) Pulse Ox 95 94 93 O2 Delivery Mechanical Ventilator Mechanical Ventilator Mechanical Ventilator Mechanical Ventilator O2 Flow Rate 50.00 50.00 50.00 FiO2 50 03/10/19 03/10/19 03/10/19 03/11/19 22:39 22:45 23:00 00:00 Pulse 73 73 73 Resp 19 20 20 B/P (MAP) 116/82 117/79 (92) 115/81 (92) 116/85 (95) Pulse Ox 94 94 97 O2 Delivery Mechanical Ventilator Mechanical Ventilator Mechanical Ventilator O2 Flow Rate 50.00 50.00 50.00 03/11/19 03/11/19 03/11/19 03/11/19 00:00 00:20 01:00 01:00 Temp 97.2 Pulse 77 77 Resp 20 B/P (MAP) 132/91 (105) Pulse Ox 97 98 O2 Delivery Mechanical Ventilator Mechanical Ventilator O2 Flow Rate 50.00 FiO2 50 03/11/19 03/11/19 03/11/19 03/11/19 01:09 02:00 02:10 02:19 Pulse 82 81 Resp 19 20 B/P (MAP) 132/91 147/99 (115) Pulse Ox 98 98 O2 Delivery Mechanical Ventilator Mechanical Ventilator O2 Flow Rate 50.00 30.00 FiO2 50 03/11/19 03/11/19 03/11/19 03/11/19 03:00 03:11 04:00 04:10 Pulse 89 91 Resp 20 20 B/P (MAP) 137/90 (106) 137/90 142/100 (114) Pulse Ox 92 94 96 O2 Delivery Mechanical Ventilator Mechanical Ventilator Mechanical Ventilator O2 Flow Rate 30.00 30.00 FiO2 30 03/11/19 03/11/19 03/11/19 03/11/19 04:14 05:00 05:22 06:00 Temp 97.9 Pulse 96 94 Resp 20 19 B/P (MAP) 150/104 (119) 147/108 157/103 (121) Pulse Ox 94 92 O2 Delivery Mechanical Ventilator Mechanical Ventilator O2 Flow Rate 30.00 30.00 03/11/19 03/11/19 03/11/19 03/11/19 06:27 07:00 07:00 07:33 Pulse 93 86 87 Resp 20 20 B/P (MAP) 127/84 (98) 121/85 Pulse Ox 94 93 O2 Delivery Mechanical Ventilator O2 Flow Rate 30.00 FiO2 30 03/11/19 03/11/19 03/11/19 03/11/19 08:00 08:00 09:00 10:00 Pulse 75 67 63 Resp 20 20 19 B/P (MAP) 119/78 (92) 102/68 (79) 90/61 (71) Pulse Ox 96 94 95 95 O2 Delivery Mechanical Ventilator Mechanical Ventilator Mechanical Ventilator Mechanical Ventilator O2 Flow Rate 30.00 30.00 30.00 FiO2 30 03/11/19 03/11/19 03/11/19 03/11/19 10:01 10:23 12:00 12:00 Temp 97.9 Pulse 63 Resp 20 B/P (MAP) 90/61 Pulse Ox 93 96 O2 Delivery Mechanical Ventilator FiO2 30 35 03/11/19 13:37 B/P (MAP) 97/60 Capillary Refill : Less Than 3 Seconds General Appearance: other (sedated, intubated) Respiratory: lungs clear, normal breath sounds Cardiovascular: regular rate, rhythm, no murmur Gastrointestinal: normal bowel sounds, non tender, soft Extremities: no pedal edema Skin: normal color, warm/dry Assessment/Plan Assessment/Plan Admission Status: Inpatient Order (span 2 midnights) Reason for Inpatient Admission: Severe alcohol intoxication requiring intubation. (1) Alcohol intoxication Status: Acute Assessment & Plan: Severe with EtOH level over 400 on admit, requiring intubation due to sedation unable to protect airway. LEXI, alcohol withdrawal protocol. (2) Acute respiratory failure Status: Acute Assessment & Plan: Intubated in ER, improving with mechanical ventilation. Management per Dr. Anderson. Qualifiers: Qualified Codes: J96.02 - Acute respiratory failure with hypercapnia (3) Acidosis Status: Acute Assessment & Plan: Secondary to hypercapnea and lactic acidosis. Improved this am after mechanical ventilation. (4) Hypertension Status: Chronic Assessment & Plan: Resume home meds. Qualifiers: Qualified Codes: I10 - Essential (primary) hypertension (5) Hypernatremia Status: Acute Assessment & Plan: D51/2NS (6) Hypokalemia Status: Resolved Assessment & Plan: Resolved with IVF overnight. (7) Lactic acid acidosis Status: Acute Assessment & Plan: Recheck. No sign of infection. (8) DVT prophylaxis Status: Acute Assessment & Plan: Enoxaparin Clinical Quality Measures DVT/VTE Risk/Contraindication: Risk Factor Score Per Nursin RFS Level Per Nursing on Admit: 4+=Very High BILLIE MIRELES MD Mar 11, 2019 13:48
[2019-03-11] MEDS: ENOXAPARIN 40 MG/0.4 ML (LOVENOX) SYR SQ SCH (14:06)
--- NOTE | 2019-03-11 15:38 | NUR ---
UNABLE TO SPEAK WITH THE PATIENT ABOUT HIS MEDICATIONS. I CALLED [facility] AND THE ONLY MEDICATION THEY HAVE DISPENSED RECENTLY IS PRAZOSIN 2MG HS #30 02-17-19 PRIOR TO THAT THEY HAVE NOT FILLED ANYTHING SINCE MAY. I CALLED EARLIER TODAY AND LEFT A MESSAGE WITH [facility] TO SEE IF THE PATIENT HAS RECEIVED ANY MEDICATIONS THROUGH THE REPOSITORY. THEY HAVE NOT RETURNED MY CALL AT THIS TIME. I WILL UPDATE WHEN THEY DO. Addendum: 03/14/19 at 1105 by JLUIS MURRY [facility] CALLED BACK THIS MORNING AND SPOKE WITH CARTER AT [facility]. SHE STATES THE PATIENT WAS SEEN ON 02-17-19 FOR THE FIRST TIME IN OVER A YEAR. AT THAT VISIT THEY DID GIVE HIM FROM THE REPOSITORY THE FOLLOWING: AMLODIPINE 10MG #90 LISINOPRIL 40MG #90 PAXIL 20MG #90 FAMOTIDINE 40MG #90 HE WAS ALSO PRESCRIBED PRAZOSIN WHICH I HAD ALREADY VERIFIED THE PHARMACY FILLED. THEY DID NOT PRESCRIBED METOPROLOL, SEROQUEL, OR TRAZODONE SO I DID NOT INCLUDE THEM ON THE MED REC AT THIS TIME.
[2019-03-11] MEDS ORDERED: LACTATED RINGERS 1,000 ML IV NR (17:35)
[2019-03-11] MEDS: inSUlin ASPART (NovoLOG) 1 UNIT/0.01 ML (CHARGE PER UNIT) SC SCH (18:13)
[2019-03-11 18:16] LABS: BASOPHILS % (AUTO) 0 % (0-10); EOSINOPHILS % (AUTO) 0 % (0-10); HEMATOCRIT 34 % (40-54); HEMOGLOBIN 11.7 G/DL (13.3-17.7); LYMPHOCYTES # (AUTO) 1.3 X 10^3 (1.0-4.0); LYMPHOCYTES % (AUTO) 20 % (12-44); MEAN CORPUSCULAR HEMOGLOBIN 31 PG (25-34); MEAN CORPUSCULAR HGB CONC 35 G/DL (32-36); MEAN CORPUSCULAR VOLUME 89 FL (80-99); MONOCYTES # (AUTO) 0.5 X 10^3 (0.0-1.0); MONOCYTES % (AUTO) 7 % (0-12); NEUTROPHILS # (AUTO) 4.8 X 10^3 (1.8-7.8); NEUTROPHILS % (AUTO) 72 % (42-75); PLATELET COUNT 156 10^3/uL (130-400); RED CELL DISTRIBUTION WIDTH 13.1 % (10.0-14.5); WHITE BLOOD COUNT 6.6 10^3/uL (4.3-11.0)
[2019-03-11 18:37] LABS: ALANINE AMINOTRANSFERASE 14 U/L (0-55); ALBUMIN 3.5 GM/DL (3.2-4.5); ALKALINE PHOSPHATASE 31 U/L (40-136); BILIRUBIN,TOTAL 0.4 MG/DL (0.1-1.0); BUN/CREATININE RATIO 14; CALCIUM 7.8 MG/DL (8.5-10.1); CARBON DIOXIDE 25 MMOL/L (21-32); CHLORIDE 111 MMOL/L (98-107); CREATININE SERUM 0.76 MG/DL (0.60-1.30); GFR ESTIMATED > 60; GLUCOSE 110 MG/DL (70-105); MAGNESIUM 2.1 MG/DL (1.6-2.4); PHOSPHORUS 2.9 MG/DL (2.3-4.7); POTASSIUM 4.2 MMOL/L (3.6-5.0); SODIUM 142 MMOL/L (135-145); TOTAL PROTEIN 5.9 GM/DL (6.4-8.2)
[2019-03-11] MEDS: QUEtiapine 100 MG (SEROquel) TAB IMMEDIATE RELEASE PO SCH (20:35)
[2019-03-12] VITALS (30 sets, daily range): BP systolic 99–152; BP diastolic 64–106
[2019-03-12] MEDS: inSUlin ASPART (NovoLOG) 1 UNIT/0.01 ML (CHARGE PER UNIT) SC SCH ×5 (00:04→23:43)
[2019-03-12] MEDS: PROPOFOL DRIP (ICU) 100 ML IV SCH ×10 (01:34→22:26)
[2019-03-12] MEDS: LORazepam INJ 2 MG/ML (ATIVAN) VIAL IV PRN (02:35)
[2019-03-12 03:05] LABS: ABG BASE EXCESS 0.3 MMOL/L (-2.5-2.5); ABG OXYGEN SATURATION 97 % (94-100); ABG PCO2 37 MMHG (35-45); ABG PH 7.43 (7.37-7.43); ABG PO2 76 MMHG (79-93); ABG TCO2 25.4 MMOL/L (21.0-31.0)
[2019-03-12 03:13] LABS: ALLENS TEST YES-POS; INSPIRED O2 35%; PATIENT TEMP 97.5; VENTILATOR YES
[2019-03-12 03:44] LABS: BASOPHILS % (AUTO) 0 % (0-10); EOSINOPHILS % (AUTO) 0 % (0-10); HEMATOCRIT 35 % (40-54); HEMOGLOBIN 11.6 G/DL (13.3-17.7); LYMPHOCYTES # (AUTO) 1.3 X 10^3 (1.0-4.0); LYMPHOCYTES % (AUTO) 24 % (12-44); MEAN CORPUSCULAR HEMOGLOBIN 30 PG (25-34); MEAN CORPUSCULAR HGB CONC 34 G/DL (32-36); MEAN CORPUSCULAR VOLUME 89 FL (80-99); MONOCYTES # (AUTO) 0.4 X 10^3 (0.0-1.0); MONOCYTES % (AUTO) 8 % (0-12); NEUTROPHILS # (AUTO) 3.6 X 10^3 (1.8-7.8); NEUTROPHILS % (AUTO) 68 % (42-75); PLATELET COUNT 143 10^3/uL (130-400); RED CELL DISTRIBUTION WIDTH 12.8 % (10.0-14.5); WHITE BLOOD COUNT 5.3 10^3/uL (4.3-11.0)
[2019-03-12 04:06] LABS: BUN/CREATININE RATIO 14; CARBON DIOXIDE 24 MMOL/L (21-32); CHLORIDE 110 MMOL/L (98-107); CREATININE SERUM 0.73 MG/DL (0.60-1.30); GFR ESTIMATED > 60; GLUCOSE 127 MG/DL (70-105); POTASSIUM 3.9 MMOL/L (3.6-5.0); SODIUM 143 MMOL/L (135-145)
[2019-03-12] MEDS: D5 1/2 NS W/KCL 20 MEQ/L 1,000 ML IV SCH ×2 (05:58→18:55)
[2019-03-12] MEDS: POTASSIUM CL 10MEQ/50ML IVPB 50 ML IV SCH (06:10)
[2019-03-12] MEDS: MAGNESIUM 1 GM/100 ML IVPB 100 ML IV SCH (06:11)
[2019-03-12] MEDS: KCL 20 MEQ TAB (K-DUR) PO SCH (06:11)
--- NOTE | 2019-03-12 06:42 | Pulmonary Progress Note ---
Subjective Time Seen by a Provider: 06:49 Subjective/Events-last exam Pt is sedated on vent. Sepsis Event Evaluation Height, Weight, BMI Height: 6'0.00" Weight: 299lbs. 0.4oz. 135.769229ak; 37.2 BMI Method:Estimated Focused Exam Lactate Level 03/11/19 06:25: Lactic Acid Level 2.71*H 03/11/19 08:30: Lactic Acid Level 3.64*H 03/11/19 18:02: Lactic Acid Level 1.74 Exam Exam Vital Signs Date Time Temp Pulse Resp B/P (MAP) Pulse Ox O2 Delivery O2 Flow Rate FiO2 03/12/19 06:13 50 20 95 32 03/12/19 05:00 51 20 127/94 (105) 93 Mechanical Ventilator 32.00 03/12/19 04:18 121/85 03/12/19 04:00 96 Mechanical Ventilator 32 03/12/19 04:00 97.5 03/12/19 04:00 51 19 121/85 (97) 92 Mechanical Ventilator 32.00 03/12/19 03:24 Mechanical Ventilator 32.00 03/12/19 03:15 51 20 96 32 03/12/19 03:00 49 20 137/99 (112) 96 Mechanical Ventilator 35.00 03/12/19 02:00 51 20 138/96 (110) 96 Mechanical Ventilator 35.00 03/12/19 01:34 139/100 03/12/19 01:00 52 20 135/95 (108) 96 Mechanical Ventilator 35.00 03/12/19 01:00 53 03/12/19 00:00 96 Mechanical Ventilator 35 03/12/19 00:00 53 19 137/93 (108) 95 Mechanical Ventilator 35.00 03/11/19 23:59 97.0 03/11/19 23:00 55 20 135/92 (106) 95 Mechanical Ventilator 35.00 03/11/19 22:51 133/96 03/11/19 22:00 57 19 132/92 (105) 94 Mechanical Ventilator 35.00 03/11/19 22:00 56 20 95 35 03/11/19 21:00 58 19 133/91 (105) 93 Mechanical Ventilator 35.00 03/11/19 20:10 60 124/82 03/11/19 20:00 96 Mechanical Ventilator 35 03/11/19 20:00 62 19 124/82 (96) 93 Mechanical Ventilator 35.00 03/11/19 20:00 97.5 03/11/19 19:10 62 20 93 35 03/11/19 19:00 62 20 125/84 (98) 93 Mechanical Ventilator 35.00 03/11/19 19:00 63 03/11/19 18:00 65 20 106/75 (85) 92 Mechanical Ventilator 30.00 03/11/19 17:11 111/75 03/11/19 17:00 67 21 111/75 (87) 93 Mechanical Ventilator 30.00 03/11/19 16:00 96 Mechanical Ventilator 35 03/11/19 16:00 98.0 03/11/19 16:00 67 21 100/66 (77) 93 Mechanical Ventilator 30.00 03/11/19 15:00 67 22 98/65 (76) 93 Mechanical Ventilator 30.00 03/11/19 14:25 67 22 94 35 03/11/19 14:00 65 20 98/62 (74) 94 Mechanical Ventilator 30.00 03/11/19 13:37 97/60 03/11/19 13:00 66 21 95/60 (72) 92 Mechanical Ventilator 30.00 03/11/19 13:00 66 03/11/19 12:00 68 22 81/50 (60) 92 Mechanical Ventilator 30.00 03/11/19 12:00 97.9 03/11/19 12:00 96 Mechanical Ventilator 35 03/11/19 11:30 35 03/11/19 11:00 63 20 94/58 (70) 95 Mechanical Ventilator 30.00 03/11/19 10:23 63 20 93 30 03/11/19 10:01 90/61 03/11/19 10:00 63 19 90/61 (71) 95 Mechanical Ventilator 30.00 03/11/19 09:00 67 20 102/68 (79) 95 Mechanical Ventilator 30.00 03/11/19 08:00 75 20 119/78 (92) 94 Mechanical Ventilator 30.00 03/11/19 08:00 96 Mechanical Ventilator 30 03/11/19 07:33 121/85 03/11/19 07:00 87 20 127/84 (98) 93 Mechanical Ventilator 30.00 03/11/19 07:00 86 I & O 03/12/19 06:59 Intake Total 7780 ml Output Total 1975 ml Balance 5805 ml Height & Weight Height: 6'0.00" Weight: 299lbs. 0.4oz. 135.828651np; 37.2 BMI Method:Estimated General Appearance: Other (OBTUNDED WITH SNOROUS BREATHING, NON-RESPONSIVE TO PAINFUL STIMULI ON ARRIVAL; UNKEMPT, DIRTY, MALODOROUS) HEENT: Other (PUPILS 2-3 MM AND VERY SLOW; POOR DENTITION; NO OBVIOUS INTRA- ORAL INJURY, DIFFICULTY HANDLING SECRETIONS; ? MILD RAISED CONTUSION TO RIGHT OCCIPITAL AREA--LIMITED EXAM, C-COLLAR IS IN PLACE. NO BLEEDING) Neck: Full Range of Motion, Non Tender, Supple Respiratory: Respiratory Distress, Other (SNOROUS BREATHING, LABORED BREATHING) Cardiovascular: No Murmur, Normal Peripheral Pulses, Tachycardia Capillary Refill: Less Than 3 Seconds Gastrointestinal: normal bowel sounds, non tender, soft Extremity: Normal Capillary Refill, No Pedal Edema Neurologic/Psychiatric: Other (OBTUNDED) Skin: Warm/Dry Lymphatic: No Adenopathy Results Lab Laboratory Tests 03/10/19 19:00 03/11/19 02:55 03/11/19 18:02 03/12/19 03:33 Assessment/Plan Assessment/Plan Acute respiratory failure secondary to ETOH intoxication -Will plan on leaving pt sedated on vent until Thursday or Thursday secondary to alcohol withdrawal. - TF - increase to 30 cc/hr -CIRI protocol -Currently on Propofol Precedex, and PRN Ativan -Monitor -Wean sedation as tolerated -Sedation vacation Q shift to access MS unconscious after falling - likely d/t EtOH intoxication - protect C-spine - head and neck CT is negative - CIWA protocol HTN - home Lopressor, and lisinopril -PRN hydralazine -Monitor metabolic Lactic acidosis - resolved -Monitor Hypernatremia-- resolved -Monitor Marijuana use -Education - Anemia -Monitor LITA TRIPP DO Mar 12, 2019 06:42
--- NOTE | 2019-03-12 06:54 | Diagnostic Imaging Report ---
Portable semiupright AP chest at 3:41. Indication: Dyspnea. Findings: There is shallow inspiration when compared to prior film of 03/11/2019. Allowing for this technical factor, the heart size is stable. The lungs remain clear. There is still no sign of failure, pneumonia or pleural effusion. There is persistent elevation right hemidiaphragm. The mediastinum is not widened. The osseous structures are intact. The supportive tubes and lines appear in good position. Impression: Stable chest. There has been no adverse change since the prior exam. Dictated by: Dictated on workstation # [id number]
[2019-03-12] MEDS: DEXMEDETOMIDINE INJECTION 1,000 MCG in NS (IVPB) 240 ML IV SCH ×2 (07:01→21:31)
--- NOTE | 2019-03-12 09:26 | Progress Note - Hospitalist ---
Subjective HPI/CC On Admission Date Seen by Provider: Mar 12, 2019 Time Seen by Provider: 07:00 Subjective/Events-last exam Patient sedated on vent appears to be in no acute distress. Nursing staff report no care problems. Focused Exam Lactate Level 03/11/19 06:25: Lactic Acid Level 2.71*H 03/11/19 08:30: Lactic Acid Level 3.64*H 03/11/19 18:02: Lactic Acid Level 1.74 Objective Exam Vital Signs Vital Signs Date Time Temp Pulse Resp B/P (MAP) Pulse Ox O2 Delivery O2 Flow Rate FiO2 03/12/19 09:00 50 20 146/105 (119) 94 Mechanical Ventilator 32.00 03/12/19 08:00 32 03/12/19 07:00 96.4 Capillary Refill : Less Than 3 Seconds General Appearance: No Apparent Distress, Obese Respiratory: No Accessory Muscle Use, No Respiratory Distress, Other (Sonorous rhonchi noted anteriorly on the vent, no wheezing) Cardiovascular: Regular Rate, Rhythm, No Edema, No Gallop, No JVD, No Murmur Extremity: Other (1-2+ edema of both hands trace pedal edema) Results/Procedures Lab Laboratory Tests 03/11/19 18:02 03/12/19 03:33 Patient resulted labs reviewed. Assessment/Plan Assessment and Plan Assess & Plan/Chief Complaint (1) Alcohol intoxication Status: Acute Assessment & Plan: Severe with EtOH level over 400 on admit, requiring intubation due to sedation unable to protect airway. Per Dr. Anderson in light of the fact the patient has history of severe withdrawal continue sedation on events until Thursday to help control withdrawal symptoms. (2) Acute respiratory failure Status: Acute Assessment & Plan: Intubated in ER, improving with mechanical ventilation. Management per Dr. Anderson. Qualifiers: Qualified Codes: J96.02 - Acute respiratory failure with hypercapnia (3) Acidosis Status: Acute Assessment & Plan: Secondary to hypercapnea and lactic acidosis. Improved this am after mechanical ventilation. (4) Hypertension Status: Chronic Assessment & Plan: Resume home meds. Qualifiers: Qualified Codes: I10 - Essential (primary) hypertension (5) Hypernatremia Status: Acute Assessment & Plan: D51/2NS (6) Hypokalemia Status: Resolved Assessment & Plan: Resolved with IVF overnight. (7) Lactic acid acidosis Status: Acute Assessment & Plan: Recheck. No sign of infection. (8) DVT prophylaxis Status: Acute Assessment & Plan: Enoxaparin Critical Care Critically Ill Patient Clinical Quality Measures DVT/VTE Risk/Contraindication: Risk Factor Score Per Nursin RFS Level Per Nursing on Admit: 4+=Very High SUNDAY TYSON MD Mar 12, 2019 09:26
[2019-03-12] MEDS: THIAMINE INJECTION 100 MG, FOLIC ACID INJECTION 1 MG, MAGNESIUM SULFATE 2 GM, VITAMIN M... IV SCH ×5 (09:30)
[2019-03-12] MEDS: PANTOPRAZOLE 40 MG (PROTONIX) VIAL IV SCH (09:30)
[2019-03-12] MEDS: meTOprolol TARTRATE 50 MG (LOPRESSOR) TAB PO SCH ×2 (09:31→20:09)
[2019-03-12] MEDS: lisINopril 20 MG (PRINIVIL) TABLET PO SCH (09:31)
--- NOTE | 2019-03-12 11:41 | Consultation - Surgery ---
History of Present Illness History of Present Illness Patient Consulted On(tonie/time) 03/12/19 11:35 Time Seen by Provider: 11:25 History of Present Illness Surgery asked to consult regarding C-collar and ?? Trauma consult; I was just informed today of this consult. 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 Allergies and Home Medications Allergies Coded Allergies: fentanyl (Verified Allergy, Unknown, 01/24/16) morphine (Verified Allergy, Unknown, 10/28/13) Home Medications Amlodipine Besylate 5 Mg Tablet, 10 MG PO DAILY, (Reported) LAST RECEIVED #90 TABLETS (45 DAY SUPPLY) FROM REPOSITORY 12-15-17 Lisinopril 40 Mg Tablet, 40 MG PO DAILY, (Reported) LAST RECEIVED #90 12-15-17 FROM THE REPOSITORY Metoprolol Succinate 100 Mg Tab.er.24h, 100 MG PO DAILY, (Reported) LAST RECEIVED #90 FROM REPOSITORY 12-15-17 Paroxetine HCl 20 Mg Tablet, 40 MG PO DAILY, (Reported) LAST FILLED #60 12-15-17 TAKES 2 (20MG) TABLETS Prazosin HCl 2 Mg Capsule, 2 MG PO HS, (Reported) Quetiapine Fumarate 200 Mg Tablet, 200 MG PO HS, (Reported) LAST FILLED #30 18 Trazodone HCl 150 Mg Tablet, 150 MG PO HS, (Reported) LAST FILLED #30 12-15-17 Patient Home Medication List Home Medication List Reviewed: Yes Past Nxyezae-Lnnqdt-Dxzzxu Hx Patient Social History Alcohol Use: Regular Use (VERY HEAVY USE) Number of Drinks Today: GG Recreational Drug Use: Yes (THC) Drug of Choice: THC Smoking Status: Former Smoker (PER OLD CHARTS, SMOKED < 1 PPD, QUIT IN 20'S ) Type Used: Cigarettes, Smokeless Tobacco 2nd Hand Smoke Exposure: No Recent Foreign Travel: No Contact w/Someone Who Travel: No Recent Infectious Disease Expo: No Recent Hopitalizations: No (UNK) Immunizations Up To Date Tetanus Booster (TDap): Unknown PED Vaccines UTD: Yes Date of Pneumonia Vaccine: Dec 04, 2013 Date of Influenza Vaccine: Apr 11, 2015 Seasonal Allergies Seasonal Allergies: Yes Surgeries History of Surgeries: Yes (HAND LACERATION REPAIR) Surgeries: Orthopedic Respiratory History of Respiratory Disorde: Yes Respiratory Disorders: Asthma, COPD Cardiovascular History of Cardiac Disorders: Yes Cardiac Disorders: High Cholesterol, Hypertension Neurological History of Neurological Disord: No Reproductive System Hx Reproductive Disorders: No Sexually Transmitted Disease: No HIV/AIDS: No Genitourinary History of Genitourinary Disor: Yes (ACUTE RENAL FAILURE IN 2016--DEHYDRATION; LEFT KIDNEY INJURY 10/01/08--NO SURGERY) Genitourinary Disorders: Renal Failure Gastrointestinal History of Gastrointestinal Di: No Musculoskeletal History of Musculoskeletal Dis: Yes (CHRONIC KNEE PAIN ; PSEUDOGOUT) Musculoskeletal Disorders: Chronic Back Pain Endocrine History of Endocrine Disorders: Yes Endocrine Disorders: Diabetes, Non-Insulin dep HEENT History of HEENT Disorders: No Cancer History of Cancer: No Psychosocial History of Psychiatric Problem: Yes (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; POLYSUBSTANCE ABUSE) Behavioral Health Disorders: Anxiety, Suicide Attempts, Depression Integumentary History of Skin or Integumenta: Yes Skin/Integumentary Disorders: Eczema Blood Transfusions History of Blood Disorders: No Adverse Reaction to a Blood Tr: No Family Medical History Significant Family History: CAD Under 55 Years Old, CAD Over 55 Years Old, Diabetes, Hypertension, Stroke Family Medial History: Alcoholism 19 MOTHER Diabetes mellitus 19 FATHER G8 BROTHER Family history: Asthma Family history: Cardiovascular disease 19 FATHER, Onset:50's - 60 (FATHER) Family history: Coronary thrombosis 19 FATHER, Onset:50's - 60 Family history: Diabetes mellitus 19 FATHER, Onset:50's - 60 Family history: Hypertension 19 FATHER, Onset:30's - 40 Hearing loss 19 FATHER, Onset:50's - 60 Heart disease 19 FATHER, Onset:50's - 60 Myocardial infarction G8 BROTHER, Onset:40's - 50 Stroke G8 BROTHER, Onset:40's - 50 No Family History of: Abdominal aortic aneurysm Rodrick's disease Alcoholism Aphasia Cancer Cancer of colon Cataract Chest pain Congenital heart disease Congestive heart failure Cystic fibrosis Dementia Dysphagia Family history: Alzheimer's disease Family history: Arthritis Family history: Breast disease Family history: Gastrointestinal disease Family history: Osteoporosis Family history: Thyroid disorder Headache Hereditary disease History of - anemia History of - respiratory disease History of drug abuse Human immunodeficiency virus (HIV) seropositivity Hypercholesterolemia Infertile Kidney disease Malignant neoplasm of lung Parkinson's disease Prostate cancer Psychotic disorder Seizure disorder Tuberculosis Visual impairment Review of Systems-General ROS-Unable to Obtain: Pt sedated on vent Physical Exam-General Problems Physical Exam Vital Signs Vital Signs - First Documented 03/10/19 03/10/19 19:00 21:45 Temp 97.8 Pulse 105 Resp 11 B/P (MAP) 163/107 (125) Pulse Ox 95 O2 Delivery Nasal Cannula O2 Flow Rate 2.00 FiO2 50 Capillary Refill : Less Than 3 Seconds General Appearance: WD/WN, other (pt sedated on vent) Eyes: Bilateral Eye PERRL, Bilateral Eye EOMI HEENT: No pale conjunctivae (R), No pale conjunctivae (L); other (small lump posterior occipital area, no blood, behind right ear) Neck: No carotid bruit; other (c-collar in place) Respiratory: lungs clear, normal breath sounds, no respiratory distress, no accessory muscle use Cardiovascular: no murmur, bradycardia Gastrointestinal: normal bowel sounds, soft, no organomegaly, no pulsatile mass Extremities: no pedal edema, normal capillary refill, other (pt has some edema in his hands) Neurologic/Psychiatric: other (pt sedated on vent) Skin: normal color, warm/dry Lymphatic: no adenopathy (neck, axilla, groin) Data Review Labs Laboratory Tests 03/11/19 11:55: Glucometer 133H 03/11/19 18:02: White Blood Count 6.6, Red Blood Count 3.79L, Hemoglobin 11.7L, Hematocrit 34L, Mean Corpuscular Volume 89, Mean Corpuscular Hemoglobin 31, Mean Corpuscular Hemoglobin Concent 35, Red Cell Distribution Width 13.1, Platelet Count 156, Mean Platelet Volume 9.0, Neutrophils (%) (Auto) 72, Lymphocytes (%) (Auto) 20, Monocytes (%) (Auto) 7, Eosinophils (%) (Auto) 0, Basophils (%) (Auto) 0, Neutrophils # (Auto) 4.8, Lymphocytes # (Auto) 1.3, Monocytes # (Auto) 0.5, Eosinophils # (Auto) 0.0, Basophils # (Auto) 0.0, Sodium Level 142, Potassium Level 4.2, Chloride Level 111H, Carbon Dioxide Level 25, Anion Gap 6, Blood Urea Nitrogen 11, Creatinine 0.76, Estimat Glomerular Filtration Rate > 60, BUN/Creatinine Ratio 14, Glucose Level 110H, Lactic Acid Level 1.74, Calcium Level 7.8L, Corrected Calcium 8.2L, Phosphorus Level 2.9, Magnesium Level 2.1, Total Bilirubin 0.4, Aspartate Amino Transf (AST/SGOT) 13, Alanine Aminotransferase (ALT/SGPT) 14, Alkaline Phosphatase 31L, Total Protein 5.9L, Albumin 3.5 03/11/19 18:07: Glucometer 111H 03/12/19 02:55: Blood Gas Puncture Site RIGHT RADIAL, Blood Gas Patient Temperature 97.5, Arterial Blood pH 7.43, Arterial Blood Partial Pressure CO2 37, Arterial Blood Partial Pressure O2 76L, Arterial Blood HCO3 24, Arterial Blood Total CO2 25.4, Arterial Blood Oxygen Saturation 97, Arterial Blood Base Excess 0.3, West Test YES-POS, Blood Gas Ventilator Setting YES, Blood Gas Inspired Oxygen 35% 03/12/19 03:33: White Blood Count 5.3, Red Blood Count 3.90L, Hemoglobin 11.6L, Hematocrit 35L, Mean Corpuscular Volume 89, Mean Corpuscular Hemoglobin 30, Mean Corpuscular Hemoglobin Concent 34, Red Cell Distribution Width 12.8, Platelet Count 143, Nan n Platelet Volume 9.0, Neutrophils (%) (Auto) 68, Lymphocytes (%) (Auto) 24, Monocytes (%) (Auto) 8, Eosinophils (%) (Auto) 0, Basophils (%) (Auto) 0, Neutrophils # (Auto) 3.6, Lymphocytes # (Auto) 1.3, Monocytes # (Auto) 0.4, Eosinophils # (Auto) 0.0, Basophils # (Auto) 0.0, Sodium Level 143, Potassium Level 3.9, Chloride Level 110H, Carbon Dioxide Level 24, Anion Gap 9, Blood Urea Nitrogen 10, Creatinine 0.73, Estimat Glomerular Filtration Rate > 60, BUN/Creatinine Ratio 14, Glucose Level 127H, Calcium Level 8.0L, Phosphorus Level 3.0, Magnesium Level 2.0 Microbiology 03/10/19 MRSA Screen - Final, Complete MRSA not isolated Radiology CT HEAD/CERVICAL SPINE WO PROCEDURE: CT head and CT cervical spine without contrast. TECHNIQUE: Multiple contiguous axial images were obtained through the brain and cervical spine without the use of intravenous contrast. Sagittal and coronal reformations through the cervical spine were then performed. Auto Exposure Controls were utilized during the CT exam to meet ALARA standards for radiation dose reduction. INDICATION: Found unresponsive. FINDINGS: The ventricles are normal in size, shape and position. There is no acute parenchymal hemorrhage, edema or mass. There is no extra-axial mass or hemorrhage. No skull fracture is seen. There is paranasal sinus disease present. There is normal height and alignment of the cervical vertebral bodies. There is disc space narrowing at C5-6. No fracture or other acute abnormality is seen. IMPRESSION: 1. CT of the head shows paranasal sinus disease with no acute intracranial abnormality. 2. CT of the cervical spine shows no acute abnormality. Assessment/Plan Assessment/Plan Assessment/Plan Unwitnessed Fall with small lump Right Occipital area, with C-Collar placed for safety. CT of head and neck shows no acute bony abnormality. C-Collar will be removed and I will sign off. Clinical Quality Measures DVT/VTE Risk/Contraindication: Risk Factor Score Per Nursin RFS Level Per Nursing on Admit: 4+=Very High RADHA BEASLEY DO Mar 12, 2019 11:41
--- NOTE | 2019-03-12 13:17 | Physical Therapy Progress Note ---
Therapy Progress Note Nurse requests to hold physical therapy. Patient has been highly agitated and pulling at tubes and lines when awake. He is currently medicated and sleeping. Will re-assess when patient is showing fewier signs of agitation. TUAN MYERS PT Mar 12, 2019 13:17
[2019-03-12] MEDS: ENOXAPARIN 40 MG/0.4 ML (LOVENOX) SYR SQ SCH (14:45)
[2019-03-12] MEDS: QUEtiapine 100 MG (SEROquel) TAB IMMEDIATE RELEASE PO SCH (20:09)
[2019-03-13] VITALS (33 sets, daily range): BP systolic 102–148; BP diastolic 71–106
[2019-03-13] MEDS: PROPOFOL DRIP (ICU) 100 ML IV SCH ×10 (00:51→23:34)
[2019-03-13 03:45] LABS: ABG BASE EXCESS -1.6 MMOL/L (-2.5-2.5); ABG OXYGEN SATURATION 97 % (94-100); ABG PCO2 33 MMHG (35-45); ABG PH 7.44 (7.37-7.43); ABG PO2 78 MMHG (79-93); ABG TCO2 23.1 MMOL/L (21.0-31.0)
[2019-03-13 03:54] LABS: ALLENS TEST YES-POS; INSPIRED O2 28%; VENTILATOR YES
[2019-03-13 04:13] LABS: BASOPHILS % (AUTO) 0 % (0-10); EOSINOPHILS % (AUTO) 0 % (0-10); HEMATOCRIT 35 % (40-54); HEMOGLOBIN 11.9 G/DL (13.3-17.7); LYMPHOCYTES # (AUTO) 0.9 X 10^3 (1.0-4.0); LYMPHOCYTES % (AUTO) 16 % (12-44); MEAN CORPUSCULAR HEMOGLOBIN 30 PG (25-34); MEAN CORPUSCULAR HGB CONC 34 G/DL (32-36); MEAN CORPUSCULAR VOLUME 89 FL (80-99); MEAN PLATELET VOLUME 9.6 FL (7.4-10.4); MONOCYTES # (AUTO) 0.3 X 10^3 (0.0-1.0); MONOCYTES % (AUTO) 5 % (0-12); NEUTROPHILS # (AUTO) 4.4 X 10^3 (1.8-7.8); NEUTROPHILS % (AUTO) 78 % (42-75); PLATELET COUNT 154 10^3/uL (130-400); RED CELL DISTRIBUTION WIDTH 13.1 % (10.0-14.5); WHITE BLOOD COUNT 5.7 10^3/uL (4.3-11.0)
[2019-03-13 04:24] LABS: BUN/CREATININE RATIO 8; CALCIUM 8.7 MG/DL (8.5-10.1); CARBON DIOXIDE 22 MMOL/L (21-32); CHLORIDE 114 MMOL/L (98-107); CREATININE SERUM 0.75 MG/DL (0.60-1.30); GFR ESTIMATED > 60; GLUCOSE 126 MG/DL (70-105); PHOSPHORUS 2.8 MG/DL (2.3-4.7); POTASSIUM 3.7 MMOL/L (3.6-5.0); SODIUM 146 MMOL/L (135-145)
[2019-03-13] MEDS: POTASSIUM CL 10MEQ/50ML IVPB 50 ML IV SCH ×5 (04:37→08:10)
[2019-03-13] MEDS: MAGNESIUM 1 GM/100 ML IVPB 100 ML IV SCH (04:37)
[2019-03-13] MEDS: KCL 20 MEQ TAB (K-DUR) PO SCH (04:37)
[2019-03-13] MEDS: inSUlin ASPART (NovoLOG) 1 UNIT/0.01 ML (CHARGE PER UNIT) SC SCH ×4 (04:38→23:36)
--- NOTE | 2019-03-13 06:52 | Diagnostic Imaging Report ---
Indication: Shortness of breath, intubated. Comparison: 03/12/2019 Findings: Single view of the chest demonstrates ET tube in the midtrachea. There is an NG tube within the stomach. The heart is prominent but stable. There is some increasing infiltrate in the left hilum. This could be due to positioning. Followup recommended. There is no pneumothorax or effusion. Osseous structures stable. Impression: 1. Stable support lines. 2. Increasing infiltrates in the left hilar region. Dictated by: Dictated on workstation # [id number]
--- NOTE | 2019-03-13 07:01 | Pulmonary Progress Note ---
Subjective Time Seen by a Provider: 07:37 Subjective/Events-last exam Intubated on vent Sepsis Event Evaluation Height, Weight, BMI Height: 6'0.00" Weight: 299lbs. 0.4oz. 135.253266my; 37.2 BMI Method:Estimated Focused Exam Lactate Level 03/11/19 06:25: Lactic Acid Level 2.71*H 03/11/19 08:30: Lactic Acid Level 3.64*H 03/11/19 18:02: Lactic Acid Level 1.74 Exam Exam Vital Signs Date Time Temp Pulse Resp B/P (MAP) Pulse Ox O2 Delivery O2 Flow Rate FiO2 03/13/19 06:23 53 20 96 28 03/13/19 06:00 53 19 109/76 (87) 97 Mechanical Ventilator 28.00 03/13/19 05:26 55 102/72 03/13/19 05:00 57 19 102/72 (82) 97 Mechanical Ventilator 28.00 03/13/19 04:00 98 Mechanical Ventilator 28 03/13/19 04:00 64 21 120/85 (97) 97 Mechanical Ventilator 28.00 03/13/19 03:00 52 20 147/104 (118) 96 Mechanical Ventilator 28.00 03/13/19 02:51 51 145/100 03/13/19 02:29 50 20 95 28 03/13/19 02:00 50 19 138/98 (111) 95 Mechanical Ventilator 28.00 03/13/19 01:00 50 03/13/19 01:00 50 19 135/96 (109) 95 Mechanical Ventilator 28.00 03/13/19 00:51 53 139/97 03/13/19 00:00 51 19 138/100 (113) 95 Mechanical Ventilator 28.00 03/13/19 00:00 95 Mechanical Ventilator 28 03/12/19 23:00 52 19 126/92 (103) 94 Mechanical Ventilator 28.00 03/12/19 22:26 53 127/95 03/12/19 22:00 54 19 127/95 (106) 91 Mechanical Ventilator 28.00 03/12/19 21:38 53 20 96 28 03/12/19 21:00 53 20 135/100 (112) 96 Mechanical Ventilator 28.00 03/12/19 20:02 55 150/106 Mechanical Ventilator 28.00 03/12/19 20:00 97.5 03/12/19 20:00 53 20 150/106 (121) 99 Mechanical Ventilator 28.00 03/12/19 20:00 96 Mechanical Ventilator 28 03/12/19 19:11 53 20 95 28 03/12/19 19:00 53 03/12/19 19:00 53 20 130/95 (107) 96 Mechanical Ventilator 28.00 03/12/19 18:00 56 19 149/104 (119) 97 Mechanical Ventilator 28.00 03/12/19 17:30 20 03/12/19 17:00 57 19 128/89 (102) 93 Mechanical Ventilator 28.00 03/12/19 16:00 98.6 03/12/19 16:00 93 Mechanical Ventilator 28 03/12/19 16:00 67 20 152/104 (120) 94 Mechanical Ventilator 28.00 03/12/19 15:30 20 03/12/19 15:00 58 122/79 (93) 89 Mechanical Ventilator 28.00 03/12/19 14:30 Mechanical Ventilator 28.00 03/12/19 14:25 52 20 98 28 03/12/19 14:00 51 20 138/96 (110) 98 Mechanical Ventilator 32.00 03/12/19 13:30 20 03/12/19 13:00 125/82 (96) Mechanical Ventilator 32.00 03/12/19 13:00 52 03/12/19 12:00 98.2 03/12/19 12:00 50 19 118/78 (91) 97 Mechanical Ventilator 32.00 03/12/19 12:00 93 Mechanical Ventilator 28 03/12/19 11:30 20 03/12/19 11:00 51 20 116/71 (86) 97 Mechanical Ventilator 32.00 03/12/19 10:27 47 20 95 32 03/12/19 10:00 50 20 133/94 (107) 95 Mechanical Ventilator 32.00 03/12/19 09:31 50 20 144/100 94 Mechanical Ventilator 32.00 03/12/19 09:00 50 20 146/105 (119) 94 Mechanical Ventilator 32.00 03/12/19 08:00 50 20 146/104 (118) 95 Mechanical Ventilator 32.00 03/12/19 08:00 56 20 146/104 (118) 95 Mechanical Ventilator 32.00 03/12/19 08:00 95 Mechanical Ventilator 32 03/12/19 07:02 135/100 03/12/19 07:00 97.4 03/12/19 07:00 51 03/12/19 07:00 96.4 50 20 135/100 (112) 95 Mechanical Ventilator 32.00 03/12/19 07:00 51 19 135/100 (112) 95 Mechanical Ventilator 32.00 I & O 03/13/19 07:00 Intake Total 2410 ml Output Total 4900 ml Balance -2490 ml Height & Weight Height: 6'0.00" Weight: 299lbs. 0.4oz. 135.893873je; 37.2 BMI Method:Estimated General Appearance: No Apparent Distress, Obese HEENT: Other (ET tube in place) Neck: Full Range of Motion, Non Tender, Supple Respiratory: No Accessory Muscle Use, No Respiratory Distress, Decreased Breath Sounds Cardiovascular: Regular Rate, Rhythm, No Edema, No Gallop, No JVD, No Murmur Capillary Refill: Less Than 3 Seconds Gastrointestinal: normal bowel sounds, soft, no organomegaly, no pulsatile mass Extremity: Other (1-2+ edema of both hands trace pedal edema) Skin: Warm/Dry Lymphatic: No Adenopathy Results Lab Laboratory Tests 03/11/19 18:02 03/12/19 03:33 03/13/19 03:32 Assessment/Plan Assessment/Plan Acute respiratory failure secondary to ETOH intoxication -Will plan on leaving pt sedated on vent until Thursday - TF - increase to 30 cc/hr -CIWA protocol -Currently on Propofol Precedex, and PRN Ativan -Monitor -Wean sedation as tolerated -Sedation vacation Q shift to access HI -Decrease IVF to 30cc/hr -Give lasix 40mg IV x 1 unconscious after falling - likely d/t EtOH intoxication - protect C-spine - head and neck CT is negative - CIWA protocol HTN - home Lopressor, and lisinopril -PRN hydralazine -Monitor metabolic Lactic acidosis - resolved -Monitor Hypernatremia-- resolved -Monitor Marijuana use -Education - Anemia -Monitor LITA TRIPP DO Mar 13, 2019 07:01
[2019-03-13] MEDS ORDERED: FUROSEMIDE 40 MG/4 ML INJ (LASIX) IVP NR (07:38)
--- NOTE | 2019-03-13 07:58 | Progress Note - Hospitalist ---
Subjective HPI/CC On Admission Date Seen by Provider: Mar 13, 2019 Time Seen by Provider: 07:20 Subjective/Events-last exam Patient sedated on ventilator no care problems noted per staff. Focused Exam Lactate Level 03/11/19 06:25: Lactic Acid Level 2.71*H 03/11/19 08:30: Lactic Acid Level 3.64*H 03/11/19 18:02: Lactic Acid Level 1.74 Objective Exam Vital Signs Vital Signs Date Time Temp Pulse Resp B/P (MAP) Pulse Ox O2 Delivery O2 Flow Rate FiO2 03/13/19 06:23 53 20 96 28 03/13/19 06:00 109/76 (87) Mechanical Ventilator 28.00 03/13/19 04:00 97.2 Capillary Refill : Less Than 3 Seconds General Appearance: No Apparent Distress Respiratory: Lungs Clear, Normal Breath Sounds, No Accessory Muscle Use, No Respiratory Distress Cardiovascular: Regular Rate, Rhythm, No Edema, No Gallop, No JVD, No Murmur, Normal Peripheral Pulses Gastrointestinal: Normal Bowel Sounds, Soft Extremity: Other (2+ edema of the upper extremities trace of lower extremities unchanged from yesterday. Extremities are warm) Results/Procedures Lab Laboratory Tests 03/13/19 03:32 Patient resulted labs reviewed. Assessment/Plan Assessment and Plan Assess & Plan/Chief Complaint (1) Alcohol intoxication Status: Acute Assessment & Plan: Severe with EtOH level over 400 on admit, requiring in tubation due to sedation unable to protect airway. Per Dr. Anderson in light of the fact the patient has history of severe withdrawal continue sedation on vent until Thursday to help control withdrawal symptoms. Possible early pulmonary edema IV fluids being decreased. (2) Acute respiratory failure Status: Acute Assessment & Plan: Intubated in ER, improving with mechanical ventilation. Management per Dr. Anderson. Qualifiers: Qualified Codes: J96.02 - Acute respiratory failure with hypercapnia (3) Acidosis Status: Acute Assessment & Plan: Secondary to hypercapnea and lactic acidosis. Improved this am after mechanical ventilation. (4) Hypertension Status: Chronic Assessment & Plan: Resume home meds. Qualifiers: Qualified Codes: I10 - Essential (primary) hypertension (5) Hypernatremia Status: Acute Assessment & Plan: D51/2NS (6) Hypokalemia Status: Resolved Assessment & Plan: Resolved with IVF overnight. (7) Lactic acid acidosis Status: Acute Assessment & Plan: Recheck. No sign of infection. (8) DVT prophylaxis Status: Acute Assessment & Plan: Enoxaparin Critical Care Critically Ill Patient Clinical Quality Measures DVT/VTE Risk/Contraindication: Risk Factor Score Per Nursin RFS Level Per Nursing on Admit: 4+=Very High SUNDAY TYSON MD Mar 13, 2019 07:58
[2019-03-13] MEDS: THIAMINE INJECTION 100 MG, FOLIC ACID INJECTION 1 MG, MAGNESIUM SULFATE 2 GM, VITAMIN M... IV SCH ×5 (08:22)
[2019-03-13] MEDS: meTOprolol TARTRATE 50 MG (LOPRESSOR) TAB PO SCH ×2 (08:53→20:33)
[2019-03-13] MEDS: lisINopril 20 MG (PRINIVIL) TABLET PO SCH (08:53)
[2019-03-13] MEDS: PANTOPRAZOLE 40 MG (PROTONIX) VIAL IV SCH (08:53)
[2019-03-13] MEDS: RT-ALBUTEROL/IPRATROPIUM 3 ML (DUONEB) VIAL INH SCH ×4 (10:23→22:25)
[2019-03-13] MEDS: D5 1/2 NS W/KCL 20 MEQ/L 1,000 ML IV SCH (10:47)
[2019-03-13] MEDS ORDERED: RT-ALBUTEROL/IPRATROPIUM 3 ML (DUONEB) VIAL INH PRN (12:00)
--- NOTE | 2019-03-13 12:59 | NUR ---
patient is on vent and o2 was decreased from 28% to 21% but had a desat to 89% so RN had increased O2 to 25%
[2019-03-13] MEDS: ENOXAPARIN 40 MG/0.4 ML (LOVENOX) SYR SQ SCH (13:12)
[2019-03-13] MEDS: DEXMEDETOMIDINE INJECTION 1,000 MCG in NS (IVPB) 240 ML IV SCH ×2 (13:28→22:03)
[2019-03-13] MEDS: QUEtiapine 100 MG (SEROquel) TAB IMMEDIATE RELEASE PO SCH (20:33)
[2019-03-14] VITALS (25 sets, daily range): BP systolic 111–179; BP diastolic 79–121
[2019-03-14] MEDS: RT-ALBUTEROL/IPRATROPIUM 3 ML (DUONEB) VIAL INH SCH ×6 (01:56→22:38)
[2019-03-14 03:19] LABS: ABG BASE EXCESS 1.6 MMOL/L (-2.5-2.5); ABG OXYGEN SATURATION 91 % (94-100); ABG PCO2 38 MMHG (35-45); ABG PH 7.44 (7.37-7.43); ABG PO2 55 MMHG (79-93); ABG TCO2 26.7 MMOL/L (21.0-31.0)
[2019-03-14 03:21] LABS: ALLENS TEST YES-POS; INSPIRED O2 21%; PATIENT TEMP 97.7; VENTILATOR YES
[2019-03-14 03:46] LABS: BASOPHILS % (AUTO) 0 % (0-10); EOSINOPHILS % (AUTO) 0 % (0-10); HEMATOCRIT 36 % (40-54); HEMOGLOBIN 12.1 G/DL (13.3-17.7); LYMPHOCYTES % (AUTO) 18 % (12-44); MEAN CORPUSCULAR HEMOGLOBIN 30 PG (25-34); MEAN CORPUSCULAR HGB CONC 33 G/DL (32-36); MEAN CORPUSCULAR VOLUME 90 FL (80-99); MEAN PLATELET VOLUME 9.8 FL (7.4-10.4); MONOCYTES # (AUTO) 0.3 X 10^3 (0.0-1.0); MONOCYTES % (AUTO) 6 % (0-12); NEUTROPHILS # (AUTO) 4.3 X 10^3 (1.8-7.8); NEUTROPHILS % (AUTO) 76 % (42-75); PLATELET COUNT 139 10^3/uL (130-400); RED CELL DISTRIBUTION WIDTH 13.4 % (10.0-14.5); WHITE BLOOD COUNT 5.6 10^3/uL (4.3-11.0)
--- NOTE | 2019-03-14 03:59 | Pulmonary Progress Note ---
NU VOGEL,MED STUDENT 03/14/19 0358: Subjective Date Seen by a Provider: Mar 14, 2019 Time Seen by a Provider: 03:45 Subjective/Events-last exam Patient is sedated with propofol and is on a ventilator. From nurse; is sedated and when she tried to lower his propofol the patient became agitated. the nurse also suctioned 700mL of fluid from patients NG tube Sepsis Event Evaluation Height, Weight, BMI Height: 6'0.00" Weight: 309lbs. 9.0oz. 140.793663uf; 37.2 BMI Method:Estimated Focused Exam Lactate Level 03/11/19 06:25: Lactic Acid Level 2.71*H 03/11/19 08:30: Lactic Acid Level 3.64*H 03/11/19 18:02: Lactic Acid Level 1.74 Exam Exam Vital Signs Date Time Temp Pulse Resp B/P (MAP) Pulse Ox O2 Delivery O2 Flow Rate FiO2 03/14/19 02:05 Mechanical Ventilator 21.00 03/14/19 01:56 61 17 96 21 03/14/19 01:00 62 15 144/102 (116) 96 Mechanical Ventilator 25.00 03/14/19 01:00 63 03/14/19 00:00 64 16 137/98 (111) 94 Mechanical Ventilator 25.00 03/14/19 00:00 95 Mechanical Ventilator 28 03/13/19 23:43 96.8 03/13/19 23:34 133/93 03/13/19 23:00 64 16 131/87 (102) 94 Mechanical Ventilator 25.00 03/13/19 22:28 Mechanical Ventilator 25.00 03/13/19 22:25 60 16 96 25 03/13/19 22:00 62 16 139/99 (112) 96 Mechanical Ventilator 28.00 03/13/19 21:00 64 16 136/100 (112) 95 Mechanical Ventilator 28.00 03/13/19 20:49 138/101 03/13/19 20:00 97.0 03/13/19 20:00 65 22 140/102 (115) 94 Mechanical Ventilator 28.00 03/13/19 20:00 95 Mechanical Ventilator 28 03/13/19 19:26 61 03/13/19 19:20 60 16 97 30 03/13/19 19:00 62 19 144/96 (112) 96 Mechanical Ventilator 28.00 03/13/19 18:14 148/106 03/13/19 18:00 62 21 148/106 (120) 96 Mechanical Ventilator 30.00 03/13/19 17:00 63 18 136/99 (111) 96 Mechanical Ventilator 30.00 03/13/19 16:00 93 Mechanical Ventilator 30 03/13/19 16:00 97.2 03/13/19 16:00 65 19 126/84 (98) 93 Mechanical Ventilator 30.00 03/13/19 15:49 120/88 03/13/19 15:00 68 25 126/96 (106) 92 Mechanical Ventilator 30.00 03/13/19 14:35 Mechanical Ventilator 30.00 03/13/19 14:12 61 16 95 25 03/13/19 14:00 61 17 123/83 (96) 95 Mechanical Ventilator 25.00 03/13/19 13:11 121/89 03/13/19 13:00 63 17 121/89 (100) 94 Mechanical Ventilator 25.00 03/13/19 13:00 63 03/13/19 12:57 62 19 94 25 03/13/19 12:00 64 20 120/79 (93) 92 Mechanical Ventilator 25.00 03/13/19 12:00 97.4 03/13/19 12:00 91 Mechanical Ventilator 25 03/13/19 11:19 Mechanical Ventilator 25.00 03/13/19 11:00 71 24 112/71 (85) 90 Mechanical Ventilator 21.00 03/13/19 10:46 110/76 03/13/19 10:23 78 27 92 21 03/13/19 10:00 71 15 112/72 (85) 89 Mechanical Ventilator 21.00 03/13/19 09:00 59 22 109/78 (88) 96 Mechanical Ventilator 21.00 03/13/19 08:44 57 98 28 03/13/19 08:32 Mechanical Ventilator 21.00 03/13/19 08:22 57 22 98 28 03/13/19 08:21 121/82 03/13/19 08:00 97.2 03/13/19 08:00 98 Mechanical Ventilator 28 03/13/19 08:00 56 17 121/82 (95) 99 Mechanical Ventilator 28.00 03/13/19 07:00 54 15 115/84 (94) 99 Mechanical Ventilator 28.00 03/13/19 07:00 54 9/8/19 06:23 53 20 96 28 03/13/19 06:00 53 19 109/76 (87) 97 Mechanical Ventilator 28.00 03/13/19 05:26 55 102/72 03/13/19 05:00 57 19 102/72 (82) 97 Mechanical Ventilator 28.00 03/13/19 04:00 98 Mechanical Ventilator 28 03/13/19 04:00 97.2 03/13/19 04:00 64 21 120/85 (97) 97 Mechanical Ventilator 28.00 I & O 03/14/19 07:00 Intake Total 3625.2 ml Output Total 4300 ml Balance -674.8 ml Height & Weight Height: 6'0.00" Weight: 309lbs. 9.0oz. 140.055544yu; 37.2 BMI Method:Estimated General Appearance: No Apparent Distress HEENT: Other (PUPILS 2-3 MM AND VERY SLOW; POOR DENTITION; NO OBVIOUS INTRA- ORAL INJURY, DIFFICULTY HANDLING SECRETIONS; ? MILD RAISED CONTUSION TO RIGHT OCCIPITAL AREA--LIMITED EXAM, C-COLLAR IS IN PLACE. NO BLEEDING) Neck: Full Range of Motion, Non Tender, Supple Respiratory: Lungs Clear, Normal Breath Sounds, No Accessory Muscle Use, No Respiratory Distress Cardiovascular: Regular Rate, Rhythm, No Edema, No Gallop, No JVD, No Murmur, Normal Peripheral Pulses Capillary Refill: Less Than 3 Seconds Peripheral Pulses: 2+ Dorsalis Pedis (R), 2+ Left Dors-Pedis (L), 2+ Radial Pulses (R), 2+ Radial Pulses (L) Gastrointestinal: normal bowel sounds, soft, no organomegaly, no pulsatile mass Extremity: No Pedal Edema, Other (2+ edema of the upper extremities trace of lower extremities unchanged from yesterday. Extremities are warm) Neurologic/Psychiatric: Other (OBTUNDED) Skin: Warm/Dry Lymphatic: No Adenopathy Results Lab Laboratory Tests 03/13/19 03:32 Assessment/Plan Assessment/Plan EtOH intoxication - resolved EtOH withdraw - continue precedex - if extubated to preform CIWA score LITA ANDERSON DO 03/14/19 0422: Subjective Date Seen by a Provider: Mar 14, 2019 Time Seen by a Provider: 04:17 Subjective/Events-last exam Pt is sedated on vent. Exam Exam General Appearance: No Apparent Distress HEENT: Other (ET tube in place ) Neck: Full Range of Motion, Non Tender, Supple Respiratory: Lungs Clear, Normal Breath Sounds, No Accessory Muscle Use, No Respiratory Distress Cardiovascular: Regular Rate, Rhythm, No Edema, No Gallop, No JVD, No Murmur, Normal Peripheral Pulses Gastrointestinal: soft, no organomegaly, no pulsatile mass Extremity: No Pedal Edema Skin: Warm/Dry Lymphatic: No Adenopathy Assessment/Plan Assessment/Plan Acute respiratory failure secondary to ETOH intoxication -Will D/C propofol and continue precedex. -Give OG Metoprolol and Lisinopril now. - TF -Hold TF -CIWA protocol -Currently on Propofol Precedex, and PRN Ativan -Monitor -IVF- - hep lock Suspected aspiration on TF per RN. -increased sputum production -Repeat Sputum C&S -Start Zosyn IV unconscious after falling - likely d/t EtOH intoxication -C Spine collar has been D/C'd - CIWA protocol HTN - home Lopressor, and lisinopril -PRN hydralazine -Monitor Hypernatremia-- -Monitor Marijuana use -Education - Anemia -Monitor Supervisory-Addendum Brief Verification & Attestation Participated in pt care: history Personally performed: exam Care discussed with: Medical Student Procedures: n/a Verification and Attestation of Medical Student E/M Service A medical student performed and documented this service in my presence. I reviewed and verified all information documented by the medical student and made modifications to such information, when appropriate. I personally performed the physical exam and medical decision making. Lita Anderson, Mar 14, 2019,05:01 NU VOGEL,MED STUDENT Mar 14, 2019 03:58 LITA ANDERSON DO Mar 14, 2019 04:22
[2019-03-14 04:12] LABS: BUN/CREATININE RATIO 10; CALCIUM 9.2 MG/DL (8.5-10.1); CARBON DIOXIDE 24 MMOL/L (21-32); CHLORIDE 111 MMOL/L (98-107); CREATININE SERUM 0.82 MG/DL (0.60-1.30); GFR ESTIMATED > 60; GLUCOSE 113 MG/DL (70-105); MAGNESIUM 1.8 MG/DL (1.6-2.4); PHOSPHORUS 4.5 MG/DL (2.3-4.7); POTASSIUM 3.7 MMOL/L (3.6-5.0); SODIUM 147 MMOL/L (135-145)
[2019-03-14] MEDS ORDERED: LORazepam INJ 2 MG/ML (ATIVAN) VIAL IV PRN (04:30)
[2019-03-14] MEDS ORDERED: ONDANSETRON 4 MG/2 ML (SDV) Z0FRAN IV PRN (04:30)
[2019-03-14] MEDS ORDERED: PROMETHAZINE INJ 25 MG/ML (PHENERGAN) AMP IVP PRN (04:30)
[2019-03-14] MEDS ORDERED: FUROSEMIDE 40 MG/4 ML INJ (LASIX) IVP ONE (04:30)
[2019-03-14] MEDS: DEXMEDETOMIDINE INJECTION 1,000 MCG in NS (IVPB) 240 ML IV SCH ×4 (04:35→22:40)
[2019-03-14] MEDS: POTASSIUM CL 10MEQ/50ML IVPB 50 ML IV SCH ×6 (04:59→08:56)
[2019-03-14] MEDS: MAGNESIUM 1 GM/100 ML IVPB 100 ML IV SCH ×3 (04:59→06:25)
[2019-03-14] MEDS: PROPOFOL DRIP (ICU) 100 ML IV SCH (05:00)
[2019-03-14] MEDS ORDERED: lisINopril 40 MG (PRINIVIL) TABLET ONE (05:18)
[2019-03-14] MEDS: lisINopril 20 MG (PRINIVIL) TABLET PO SCH (05:27)
[2019-03-14] MEDS: meTOprolol TARTRATE 50 MG (LOPRESSOR) TAB PO SCH ×2 (05:28→20:37)
[2019-03-14] MEDS ORDERED: PIPERACILLIN/TAZO 4.5 GM VIAL (ZOSYN) IV ONE (05:56)
[2019-03-14] MEDS: inSUlin ASPART (NovoLOG) 1 UNIT/0.01 ML (CHARGE PER UNIT) SC SCH ×3 (05:57→17:19)
[2019-03-14] MEDS: KCL 20 MEQ TAB (K-DUR) PO SCH (05:57)
[2019-03-14] MEDS: PIPERACILLIN/TAZOBACTAM (BULK) 4.5 GM in NS (IVPB) 100 ML IV SCH ×3 (06:11→20:37)
--- NOTE | 2019-03-14 07:42 | Diagnostic Imaging Report ---
INDICATION: Intubation. EXAMINATION: Portable supine views was obtained. FINDINGS: Normal heart size and vascularity. The lungs are clear. There is no effusion or pneumothorax. An ET tube is present in good position. IMPRESSION: Satisfactory ET tube placement. No acute abnormality is seen. Dictated by: Dictated on workstation # [id number]
--- NOTE | 2019-03-14 08:02 | NUR ---
Pt extubated with RT Millicent, Arsen, med student, this RN, et Sintia Link RN at bedside. Pt able to cough et verbalize. Restraints removed. Pt denies needs. Dr. Anderson notified.
--- NOTE | 2019-03-14 08:05 | Diagnostic Imaging Report ---
INDICATION: Dyspnea. Compared 03/13/19. FINDINGS: ET tube above the chris. OG catheter goes beneath the diaphragm. There is mild basilar atelectasis with no focal pulmonary consolidation. IMPRESSION: Support apparatus projects in good alignment. No acute cardiopulmonary abnormality apparent. Dictated by: Dictated on workstation # [id number]
--- NOTE | 2019-03-14 08:09 | Physical Therapy Progress Note ---
Therapy Progress Note Patient currently sedated and on mechanical vent. No PT indicated at this time. KHALIF GARCIA PT Mar 14, 2019 08:09
--- NOTE | 2019-03-14 08:38 | Occ Therapy Progress Note ---
Therapy Progress Note Pt. continues on mechanical ventilation at this time. Will continue to monitor pt. and provide services for skilled treatment after extubation. 0830 ZENOBIA CHUNG OT Mar 14, 2019 08:38
[2019-03-14] MEDS: PANTOPRAZOLE 40 MG (PROTONIX) VIAL IV SCH (08:55)
[2019-03-14] MEDS: ENOXAPARIN 40 MG/0.4 ML (LOVENOX) SYR SQ SCH ×2 (08:57→20:36)
[2019-03-14] MEDS: HALOPERIDOL 5 MG/ML (HALDOL) AMP IV PRN ×2 (09:07→20:36)
--- NOTE | 2019-03-14 09:15 | NUR ---
Spoke with DR. Alicea regarding HTN despise morning oral anti-HTN meds given prior to extubation. Order for IV labetolol x1 given.
[2019-03-14] MEDS ORDERED: LABETALOL HCL 20 MG/4 ML VIAL IV ONE (09:30)
--- NOTE | 2019-03-14 10:24 | Speech Therapy Progress Note ---
Therapy Progress Note ST attempted to complete BDE, however patient is not alert enough at this time to complete. ST to follow up this afternoon. DEE HERNANDEZ Mar 14, 2019 10:24
[2019-03-14] MEDS ORDERED: FAMO40TA6 PO (11:02)
[2019-03-14] MEDS: LORazepam INJ 2 MG/ML (ATIVAN) VIAL IVP PRN ×2 (11:32→19:33)
[2019-03-14] MEDS: hydrALAZINE (APESOLINE) 20 MG/ML VIAL IV PRN ×2 (11:33→18:14)
--- NOTE | 2019-03-14 11:36 | NUR ---
Pt pulled luevano catheter out et peripheral IV to lt chest out. Pressure held to penis et new catheter 16Fr inserted by RITIKA Nievessupervisor welding equipment repairer. Pt cleaned. Catheter drainage pale yellow urine. Dr. Alicea notified Addendum: 03/14/19 at 1411 by TYRA NUNO RN et notified of continued HTN
--- NOTE | 2019-03-14 13:00 | NUR ---
Dr. Alicea et Dr. Anderson notified of continued HTN
[2019-03-14] MEDS: HYDROmorphone 2 MG/ML VIAL (DILAUDID) IV PRN ×2 (13:28→22:16)
[2019-03-14] MEDS: ENALAPRILAT 2.5 MG/2 ML (VASOTEC) VIAL IV PRN (14:01)
--- NOTE | 2019-03-14 14:34 | Speech Therapy Progress Note ---
Therapy Progress Note ST followed up on patient status. Patient continues to be unable to participate in a BDE. Patient will be seen tomorrow. DEE HERNANDEZ Mar 14, 2019 14:34
[2019-03-14] MEDS: QUEtiapine 100 MG (SEROquel) TAB IMMEDIATE RELEASE PO SCH (20:37)
--- NOTE | 2019-03-14 21:00 | Progress Note ---
Subjective Subjective/Events-last exam Extubated this AM. Confused. NPO. Review of Systems Unable to answer appropriately Objective Exam Last Set of Vital Signs Vital Signs Date Time Temp Pulse Resp B/P (MAP) Pulse Ox O2 Delivery O2 Flow Rate FiO2 03/14/19 20:00 93 156/113 (127) 94 Nasal Cannula 2.00 03/14/19 19:00 16 03/14/19 17:18 37.0 03/14/19 08:00 21 Capillary Refill : Less Than 3 Seconds I&O Intake and Output 03/14/19 00:00 Intake Total 4615.2 ml Output Total 5500 ml Balance -884.8 ml Intake Oral 240 ml IV Total 3815.2 ml Tube Feeding 360 ml Other 200 ml Output Urine Total 5500 ml # Bowel Movements 2 General: Alert, Mild Distress Lungs: Other (crackles bilaterally, normal work of breathing, + basilar wheezing) Heart: Regular Rate, No Murmurs Abdomen: Normal Bowel Sounds, Soft, No Tenderness, No Masses Extremities: No Edema, No Tenderness/Swelling Skin: No Rashes, No Breakdown Neuro: Other (confused and combative at times) Results/Procedures Lab Laboratory Tests 03/13/19 23:36: Glucometer 178H 03/14/19 03:14: Blood Gas Puncture Site RIGHT RADIAL, Blood Gas Patient Temperature 97.7, Arterial Blood pH 7.44H, Arterial Blood Partial Pressure CO2 38, Arterial Blood Partial Pressure O2 55L, Arterial Blood HCO3 26, Arterial Blood Total CO2 26.7, Arterial Blood Oxygen Saturation 91L, Arterial Blood Base Excess 1.6, West Test YES-POS, Blood Gas Ventilator Setting YES, Blood Gas Inspired Oxygen 21% 03/14/19 03:20: White Blood Count 5.6, Red Blood Count 4.04L, Hemoglobin 12.1L, Hematocrit 36L, Mean Corpuscular Volume 90, Mean Corpuscular Hemoglobin 30, Mean Corpuscular Hemoglobin Concent 33, Red Cell Distribution Width 13.4, Platelet Count 139, Mean Platelet Volume 9.8, Neutrophils (%) (Auto) 76H, Lymphocytes (%) (Auto) 18, Monocytes (%) (Auto) 6, Eosinophils (%) (Auto) 0, Basophils (%) (Auto) 0, Neutrophils # (Auto) 4.3, Lymphocytes # (Auto) 1.0, Monocytes # (Auto) 0.3, Eosinophils # (Auto) 0.0, Basophils # (Auto) 0.0, Sodium Level 147H, Potassium Level 3.7, Chloride Level 111H, Carbon Dioxide Level 24, Anion Gap 12, Blood Urea Nitrogen 8, Creatinine 0.82, Estimat Glomerular Filtration Rate > 60, BUN/Creatinine Ratio 10, Glucose Level 113H, Calcium Level 9.2, Phosphorus Level 4.5, Magnesium Level 1.8 03/14/19 11:47: Glucometer 79 03/14/19 17:17: Glucometer 114H Microbiology 03/10/19 MRSA Screen - Final, Complete MRSA not isolated Radiology CT HEAD/CERVICAL SPINE WO PROCEDURE: CT head and CT cervical spine without contrast. TECHNIQUE: Multiple contiguous axial images were obtained through the brain and cervical spine without the use of intravenous contrast. Sagittal and coronal reformations through the cervical spine were then performed. Auto Exposure Controls were utilized during the CT exam to meet ALARA standards for radiation dose reduction. INDICATION: Found unresponsive. FINDINGS: The ventricles are normal in size, shape and position. There is no acute parenchymal hemorrhage, edema or mass. There is no extra-axial mass or hemorrhage. No skull fracture is seen. There is paranasal sinus disease present. There is normal height and alignment of the cervical vertebral bodies. There is disc space narrowing at C5-6. No fracture or other acute abnormality is seen. IMPRESSION: 1. CT of the head shows paranasal sinus disease with no acute intracranial abnormality. 2. CT of the cervical spine shows no acute abnormality. Assessment/Plan Assessment/Plan (1) Alcohol intoxication Status: Acute Assessment & Plan: Severe with EtOH level over 400 on admit, requiring intubation due to sedation unable to protect airway. WA, alcohol withdrawal protocol. 03/14: Extubated this AM, combative at times, PRN Ativan, Haldol (2) Acute respiratory failure Status: Acute Assessment & Plan: Intubated in ER, improving with mechanical ventilation. Management per Dr. Anderson. Qualifiers: Qualified Codes: J96.02 - Acute respiratory failure with hypercapnia (3) Acidosis Status: Acute Assessment & Plan: Secondary to hypercapnea and lactic acidosis. Improved this am after mechanical ventilation. (4) Hypertension Status: Chronic Assessment & Plan: Resume home meds. Qualifiers: Qualified Codes: I10 - Essential (primary) hypertension (5) Hypernatremia Status: Acute Assessment & Plan: D51/2NS (6) Hypokalemia Status: Resolved Assessment & Plan: Resolved with IVF overnight. (7) Lactic acid acidosis Status: Acute Assessment & Plan: Recheck. No sign of infection. (8) DVT prophylaxis Status: Acute Assessment & Plan: Enoxaparin Clinical Quality Measures DVT/VTE Risk/Contraindication: Risk Factor Score Per Nursin RFS Level Per Nursing on Admit: 4+=Very High KENZIE CLEMENS MD Mar 14, 2019 21:00
[2019-03-15] VITALS (26 sets, daily range): BP systolic 119–202; BP diastolic 76–119
[2019-03-15] MEDS: inSUlin ASPART (NovoLOG) 1 UNIT/0.01 ML (CHARGE PER UNIT) SC SCH ×5 (00:09→23:53)
[2019-03-15] MEDS: ENALAPRILAT 2.5 MG/2 ML (VASOTEC) VIAL IV PRN ×2 (00:37→08:13)
[2019-03-15] MEDS: LORazepam INJ 2 MG/ML (ATIVAN) VIAL IVP PRN ×3 (01:45→13:40)
[2019-03-15] MEDS: RT-ALBUTEROL/IPRATROPIUM 3 ML (DUONEB) VIAL INH SCH ×6 (02:14→21:57)
[2019-03-15 03:33] LABS: BASOPHILS % (AUTO) 0 % (0-10); EOSINOPHILS % (AUTO) 0 % (0-10); HEMATOCRIT 34 % (40-54); HEMOGLOBIN 11.5 G/DL (13.3-17.7); LYMPHOCYTES # (AUTO) 1.2 X 10^3 (1.0-4.0); LYMPHOCYTES % (AUTO) 19 % (12-44); MEAN CORPUSCULAR HEMOGLOBIN 30 PG (25-34); MEAN CORPUSCULAR HGB CONC 34 G/DL (32-36); MEAN CORPUSCULAR VOLUME 89 FL (80-99); MEAN PLATELET VOLUME 9.4 FL (7.4-10.4); MONOCYTES # (AUTO) 0.4 X 10^3 (0.0-1.0); MONOCYTES % (AUTO) 7 % (0-12); NEUTROPHILS # (AUTO) 4.7 X 10^3 (1.8-7.8); NEUTROPHILS % (AUTO) 75 % (42-75); PLATELET COUNT 159 10^3/uL (130-400); RED CELL DISTRIBUTION WIDTH 13.2 % (10.0-14.5); WHITE BLOOD COUNT 6.3 10^3/uL (4.3-11.0)
[2019-03-15 03:51] LABS: BUN/CREATININE RATIO 10; CALCIUM 8.8 MG/DL (8.5-10.1); CARBON DIOXIDE 25 MMOL/L (21-32); CHLORIDE 107 MMOL/L (98-107); CREATININE SERUM 0.84 MG/DL (0.60-1.30); GFR ESTIMATED > 60; GLUCOSE 104 MG/DL (70-105); MAGNESIUM 1.7 MG/DL (1.6-2.4); PHOSPHORUS 5.1 MG/DL (2.3-4.7); POTASSIUM 3.1 MMOL/L (3.6-5.0); SODIUM 145 MMOL/L (135-145)
[2019-03-15] MEDS: MAGNESIUM 1 GM/100 ML IVPB 100 ML IV SCH ×3 (04:04→05:19)
[2019-03-15] MEDS: POTASSIUM CL 10MEQ/50ML IVPB 50 ML IV SCH ×9 (04:04→08:15)
[2019-03-15] MEDS: KCL 20 MEQ TAB (K-DUR) PO SCH (04:05)
[2019-03-15] MEDS: DEXMEDETOMIDINE INJECTION 1,000 MCG in NS (IVPB) 240 ML IV SCH ×3 (04:07→19:20)
[2019-03-15] MEDS: hydrALAZINE (APESOLINE) 20 MG/ML VIAL IV PRN ×2 (04:41→10:34)
[2019-03-15] MEDS: PIPERACILLIN/TAZOBACTAM (BULK) 4.5 GM in NS (IVPB) 100 ML IV SCH ×3 (04:59→20:45)
--- NOTE | 2019-03-15 05:06 | Pulmonary Progress Note ---
Subjective Time Seen by a Provider: 05:18 Subjective/Events-last exam Pt is sedate. He was extubated yesterday. Sepsis Event Evaluation Height, Weight, BMI Height: 6'0.00" Weight: 300lbs. 0.6oz. 136.715988ms; 37.2 BMI Method:Estimated Exam Exam Vital Signs Date Time Temp Pulse Resp B/P (MAP) Pulse Ox O2 Delivery O2 Flow Rate FiO2 03/15/19 04:09 93 Nasal Cannula 2.00 03/15/19 04:00 84 18 160/117 (131) 93 Nasal Cannula 2.00 03/15/19 04:00 36.8 03/15/19 03:00 88 23 154/109 (124) 94 Nasal Cannula 2.00 03/15/19 02:14 93 Nasal Cannula 2.00 03/15/19 02:00 86 17 145/100 (115) 95 Nasal Cannula 2.00 03/15/19 01:00 90 32 155/113 (127) 94 Nasal Cannula 2.00 03/15/19 01:00 89 03/15/19 00:00 93 Nasal Cannula 2.00 03/15/19 00:00 92 17 159/112 (128) 93 Nasal Cannula 2.00 03/14/19 23:59 36.8 03/14/19 23:00 89 20 153/98 (116) 92 Nasal Cannula 2.00 03/14/19 22:38 93 Nasal Cannula 2.00 03/14/19 22:00 93 148/105 (119) 91 Nasal Cannula 2.00 03/14/19 21:00 92 157/105 (122) 92 Nasal Cannula 2.00 03/14/19 20:00 37.0 03/14/19 20:00 93 156/113 (127) 94 Nasal Cannula 2.00 03/14/19 19:46 94 Nasal Cannula 2.00 03/14/19 19:00 99 16 155/99 (117) 94 Nasal Cannula 2.00 03/14/19 19:00 98 03/14/19 18:53 95 Nasal Cannula 2.00 03/14/19 18:00 96 16 148/104 (119) 95 Nasal Cannula 2.00 03/14/19 17:27 Nasal Cannula 2.00 03/14/19 17:18 37.0 03/14/19 17:00 98 24 151/113 (126) 90 Room Air 03/14/19 16:00 102 25 148/108 (121) 98 Room Air 03/14/19 16:00 100 Room Air 03/14/19 15:10 92 Room Air 03/14/19 15:00 97 27 137/101 (113) 97 Room Air 03/14/19 14:00 99 17 170/115 (133) 100 Room Air 03/14/19 13:00 99 28 179/117 (137) 100 Room Air 03/14/19 12:33 92 03/14/19 12:00 90 31 171/121 (138) 100 Room Air 03/14/19 11:49 100 Room Air 03/14/19 11:48 36.19763 03/14/19 11:00 90 19 139/112 (121) 98 Room Air 03/14/19 10:20 98 Room Air 03/14/19 10:00 81 28 163/114 (130) 98 Room Air 03/14/19 09:00 83 14 158/115 (129) 97 Nasal Cannula 2.00 03/14/19 08:02 95 Nasal Cannula 2.00 03/14/19 08:00 82 19 127/85 (99) 90 Nasal Cannula 2.00 03/14/19 08:00 89 Mechanical Ventilator 21 03/14/19 07:39 36.22868 03/14/19 07:00 76 03/14/19 07:00 75 15 111/79 (90) 91 Mechanical Ventilator 21.00 03/14/19 06:18 70 16 91 21 03/14/19 06:00 73 16 121/86 (98) 91 Mechanical Ventilator 21.00 I & O 03/15/19 07:00 Intake Total 2030 ml Output Total 4400 ml Balance -2370 ml Height & Weight Height: 6'0.00" Weight: 300lbs. 0.6oz. 136.415467jo; 37.2 BMI Method:Estimated General Appearance: No Apparent Distress, Obese, Other (sedate) Neck: Full Range of Motion, Non Tender, Supple Respiratory: No Accessory Muscle Use, No Respiratory Distress, Decreased Breath Sounds Cardiovascular: Regular Rate, Rhythm, No Edema, No Gallop, No JVD, No Murmur Capillary Refill: Less Than 3 Seconds Peripheral Pulses: 2+ Dorsalis Pedis (R), 2+ Left Dors-Pedis (L), 2+ Radial Pulses (R), 2+ Radial Pulses (L) Gastrointestinal: normal bowel sounds, soft, no organomegaly, no pulsatile mass Extremity: Other (1-2+ edema of both hands trace pedal edema) Neurologic/Psychiatric: Depressed Affect Skin: Warm/Dry Lymphatic: No Adenopathy Results Lab Laboratory Tests 03/14/19 03:20 03/15/19 03:15 Assessment/Plan Assessment/Plan Acute respiratory failure secondary to ETOH intoxication -improving -Extubated yesterday -D/C precedex -CIWA protocol -Monitor Suspected aspiration on TF per RN. -increased sputum production -Repeat Sputum C&S pending -Continue Zosyn IV HTN - home Lopressor, and lisinopril -PRN hydralazine -Monitor Hypernatremia-- -Monitor unconscious after falling - likely d/t EtOH intoxication -C Spine collar has been D/C'd - protocol Marijuana use -Education - Anemia -Monitor LITA TRIPP DO Mar 15, 2019 05:05
[2019-03-15] MEDS: HALOPERIDOL 5 MG/ML (HALDOL) AMP IV PRN (05:10)
[2019-03-15] MEDS ORDERED: HALOPERIDOL 5 MG/ML (HALDOL) AMP IV PRN (05:15)
[2019-03-15] MEDS: D5 1/2 NS W/KCL 20 MEQ/L 1,000 ML IV SCH (05:59)
[2019-03-15] MEDS: ENOXAPARIN 40 MG/0.4 ML (LOVENOX) SYR SQ SCH (08:13)
[2019-03-15] MEDS: PANTOPRAZOLE 40 MG (PROTONIX) VIAL IV SCH (08:13)
[2019-03-15] MEDS: meTOprolol TARTRATE 50 MG (LOPRESSOR) TAB PO SCH ×2 (08:20→21:16)
[2019-03-15] MEDS: lisINopril 20 MG (PRINIVIL) TABLET PO SCH (08:20)
--- NOTE | 2019-03-15 09:43 | Diagnostic Imaging Report ---
EXAMINATION: Chest, 1 view. HISTORY: Shortness of breath. COMPARISON: 03/25/2019. FINDINGS: The endotracheal tube has been removed. The lung volumes are small with bibasilar atelectasis. No pleural effusion or pneumothorax. The heart size is normal for technique. IMPRESSION: Small lung volumes with bibasilar atelectasis. Dictated by: Dictated on workstation # [id number]
--- NOTE | 2019-03-15 09:48 | Physical Therapy Evaluation ---
PT Evaluation-General Medical Diagnosis Admission Date Mar 10, 2019 at 20:40 Medical Diagnosis: AMS/respiratory failure Onset Date: Mar 10, 2019 Therapy Diagnosis Therapy Diagnosis: debility/weakness Height/Weight Height (Feet): 6 Height (Inches): 0.00 Weight (Pounds): 290 Weight (Ounces): 0.4 Precautions Precautions/Isolations: Aspiration, Fall Prevention, Standard Precautions Referral Physician: Paulette Reason for Referral: Evaluation/Treatment Medical History Pertinent Medical History: Alcoholism, COPD, DM, HTN Current History ED after found unresponsive behind Gurpreet's Reviewed History: Yes Social History Home: Single Level Current Living Status: Alone Prior/Core FIM Prior Level of Function Therapy Code Descriptions/Definitions Functional [place] Measure: 0=Not Assessed/NA 4=Minimal Assistance 1=Total Assistance 5=Supervision or Setup 2=Maximal Assistance 6=Modified [place] 3=Moderate Assistance 7=Complete [place] Therapy Quality Codes: 6 Independent with activity with or without an assistive device 5 Patient requires set up or clean up by helper. Patient completes activity by themselves 4 Supervision or touching assist (CGA). [place] provide cues , steadying assist 3 The helper provides less than half the effort to complete the activity 2 The helper provides more than half the effort to complete the activity 1 Dependent. The helper does all the effort to complete an activity 7 Patient refused to complete or attempt activity 9 The patient did not perform the activity before the current illness or injury 88 Not attempted due to Medical conditions or safety concerns Functional Abilities and Goals: Independent: Patient completed the activities by him/herself, with or without an assistive device, with no assistance from a helper. Needed Some Help: Patient needed partial assistance from another person to complete activities. Dependent: A helper completed the activities for the patient. Unknown: Not Applicable: Bed Mobility: 7 Transfers (B,C,W/C) (FIM): 7 Gait: 7 Stairs: 7 Indoor Mobility (Ambulation): Independent Stairs: Independent Prior Devices Use: None PT Evaluation-Current Subjective Patient is very lethargic, however, agrees to PT. Pain Numeric Pain Scale: 0-No Pain Location: No Pain Reported Objective Patient Orientation: Person, Eyes Open Problem Solving: Fair Attachments: Oxygen, [place] Catheter, IV ROM/Strength ROM Lower Extremities bilateral LE WFL Strength Lower Extremities 4-/5 grossly bilateral LE Integumentary/Posture Integumentary refer to nursing notes Bowel Incontinence: No Bladder Incontinence: [place] Cath Posture WFL Neuromuscular (Tone, Coordination, Reflexes) grossly intact Sensory Vision: Functional Hearing: Functional Sensation Right Lower Extremit: Impaired Sensation Left Lower Extremity: Impaired Transfers Therapy Code Descriptions/Definitions Functional [place] Measure: 0=Not Assessed/NA 4=Minimal Assistance 1=Total Assistance 5=Supervision or Setup 2=Maximal Assistance 6=Modified [place] 3=Moderate Assistance 7=Complete [place] Transfers (B, C, W/C) (FIM): 5 Scootin Rollin Supine to/from Sit: 5 not safe to perform sit to stand due to lethargy from sedation Gait Mode of Locomotion: Walk Anticipated Mode of Locomotion: Walk Balance Sitting Static: Normal Sitting Dynamic: Normal Assessment/Needs 48 y.o. male, will benefit from skilled PT to address functional strength and mobility to improve current LOF. PT to begin ambulation in 1-2 days when sedation has worn off. Patient is limited with gross motor skills due to weakness and inactivity. Rehab Potential: Fair PT Nursing Home Goals Nursing Home Goals PT Nursing Home Goals Time Frame: Mar 26, 2019 Transfers (B,C,W/C) (FIM): 7 Gait (FIM): 7 Gait distance (FIM): 3=150 ft Distance: 200' Gait Level of Assist: 7 Gait Assistive Device: None PT Plan Problem List Problem List: Activity Tolerance, Functional Strength, Safety, Balance, Gait, Transfer, Bed Mobility Treatment/Plan Treatment Plan: Continue Plan of Care Treatment Plan: Bed Mobility, Education, Functional Activity Alexia, Functional Strength, Gait, Safety, Therapeutic Exercise, Transfers Treatment Duration: Mar 26, 2019 Frequency: 6 times per week Estimated Hrs Per Day: .25 hour per day Patient and/or Family Agrees t: Yes Time/GCodes Time In: 810 Time Out: 828 Total Billed Treatment Time: 18 Total Billed Treatment 1 visit EVMod 18 min KHALIF GARCIA PT Mar 15, 2019 09:48
[2019-03-15] MEDS: HYDROmorphone 2 MG/ML VIAL (DILAUDID) IV PRN ×2 (11:15→19:46)
--- NOTE | 2019-03-15 11:33 | NUR ---
Notified Dr. Anderson of pt's continually increasing HR (130s) et BP (185/113), despite available prn meds. Order to start cardene received.
[2019-03-15] MEDS: ENALAPRILAT 2.5 MG/2 ML (VASOTEC) VIAL IV SCH ×2 (12:16→18:30)
[2019-03-15] MEDS: niCARdipine IV 50 MG in NS (IVPB) 230 ML IV SCH ×2 (12:16→22:30)
--- NOTE | 2019-03-15 12:45 | NUR ---
Dr. Alicea at bedside et updated on pt status et VS
--- NOTE | 2019-03-15 13:43 | NUR ---
Dr. Anderson notified of continued HR increasing to 140s. Order to re-start precedex at 1.5mg/kg/hour et to put pt back on CIWA protocol
[2019-03-15] MEDS ORDERED: 1/2 NS IV SOLUTION 1,000 ML IV PRN (13:54)
[2019-03-15] MEDS ORDERED: LORazepam INJ 2 MG/ML (ATIVAN) VIAL IM/IV PRN (14:00)
[2019-03-15] MEDS ORDERED: LORazepam INJ 2 MG/ML (ATIVAN) VIAL IV PRN (14:00)
[2019-03-15] MEDS ORDERED: ONDANSETRON 4 MG/2 ML (SDV) Z0FRAN IV PRN (14:00)
[2019-03-15] MEDS ORDERED: ONDANSETRON 4 MG (ZOFRAN) ORAL DISSOLVE TAB SL PRN (14:00)
[2019-03-15] MEDS ORDERED: SENNA W/DOCUSATE (SENOKOT S) TABLET PO PRN (14:00)
[2019-03-15] MEDS ORDERED: LORazepam 1 MG (ATIVAN) TAB PO PRN (14:00)
[2019-03-15] MEDS ORDERED: D5 1/2 NS 1000 ML IV SOLUTION 1,000 ML IV PRN (14:00)
[2019-03-15] MEDS ORDERED: ANTACID SUSP 30 ML UDC (MYLANTA) PO PRN (14:00)
--- NOTE | 2019-03-15 14:22 | Diagnostic Imaging Report ---
INDICATION: PICC line placement. TIME OF EXAM: 1:59 p.m. COMPARISON: Correlation is made with prior chest from earlier the same day. FINDINGS: Right upper extremity PICC line has been placed and has the tip overlying the SVC. Right hemidiaphragm is chronically elevated with right basilar subsegmental atelectasis. Heart size is stable. No effusion or pneumothorax is seen. IMPRESSION: 1. Right upper extremity PICC line placement. 2. Right basilar subsegmental atelectasis. Dictated by: Dictated on workstation # [id number]
--- NOTE | 2019-03-15 14:23 | ST Dysphagia Evaluation ---
Speech Evaluation-General Medical Diagnosis AMS/respiratory failure Onset Date: Mar 10, 2019 Therapy Diagnosis Therapy Diagnosis: Oropharyngeal Dysphagia Precautions Precautions: Aspiration Precautions/Isolations: Aspiration, Fall Prevention, Standard Precautions Referral Referring Physician: Dr. Anderson Reason for Referral: Evaluation/Treatment Medical History Pertinent Medical History: Alcoholism, COPD, DM, HTN Alcoholism, DM, HTN, COPD Current History AMS/Respiratory Failure Reviewed History: Yes Social History Home: Single Level Current Living Status: Alone Speech PLF/Current-Dysphagia Prior Level of Function The patient lived alone and was independent for his daily needs. Subjective The patient was cooperative with the Bedside Dysphagia Evaluation. Cognitive Status Patient Orientation: Person Oral Motor Skills Dentition: Natural Ability to Follow Directions: Fair Patient was NPO pending the BDE Oral Expression Ability: Moderate Impairment Voice Voice Phonatory-Based Quality: Harsh, Hoarse Face Facial Symmetry: Symmetrical Oral-Facial Assessment Oral-Facial Dentition: Normal Labial Seal Description: Normal Smile: Poor Coordination Puff Cheeks: Reduced Strength Lingual Protrusion: Normal Lingual ROM: Normal Lingual Strength: Normal Pharynx Velopharyngeal Move.: Normal Volitional Dry Swallow: Yes Can Clear Throat Volitionally: Yes Dysphagia Evaluation Consistencies Presented: Regular, Thin Liquid, Mechanical Soft, Pureed Oral phase within functional limits Pharyngeal phase within functional limits Dietary Recommendations: Regular Liquid Recommendations: Thin Swallowing Precautions: Alternate Liquids/Solids, Liquids from Straw, Small Bites and Sips, Sitting Upright 90 Degrees, Sitting 90 Degrees 30 Post Intake Dysphagia Evaluation Summary The patient was admitted to the hospital after being found unconscious. He has a history of suicide attempts and alcoholism. The patient was intubated upon arrival and was extubated yesterday morning. ST made attempts twice to complete the BDE but was unable to complete due to patient sedation. The patient was evaluated at bedside for swallow function and determination of the least restrictive diet. The patient was presented thin of 1/2 tsp x2 and via straw of small sips x2 without difficulty. Presentations of puree, mechanical soft and regular were given without s/s of aspiration. The patient will be on a regular diet with thin liquids. This information was provided to his nurse and written on the white board in his room. Barriers to Learning Patient has been going through withdrawal and has been sedated during his hospital stay. Speech Short Term Goals Short Term Goals Short Term Goals 1) The patient will tolerate least restrictive diet without s/s of aspiration at 90% or greater. 2) The patient/caregivers will utilize compensatory strategies as trained with 90% or greater with minimal cues. Speech Shuttle Car Operator Goals Care Home Goals The patient will maintain adequate nutrition/hydration via safe effective swallow function. Speech-Plan Patient/Family Goals Patient/Family Goals: The patient's plan is unknown at this time. Treatment Plan Speech Therapy Treatment Plan: Continue Plan of Care The patient will receive skilled dysphagia therapy. Treatment Duration: Mar 18, 2019 Frequency: 2 times per week Estimated Hrs Per Day: .25 hour per day Rehab Potential: Fair Barriers to Learning: Patient has been going through withdrawal and has been sedated during his hospital stay. Pt/Family Agrees to Plan: Yes Safety Risks/Education Teaching Recipient: Patient Teaching Methods: Discussion Response to Teaching: Verbalize Understanding Education Topics Provided: Diet level order and safety of intake Time Speech Therapy Time In: 13:25 Speech Therapy Time Out: 13:40 Total Billed Time: 15 Billed Treatment Time 1, DEE Bacon Mar 15, 2019 14:23
--- NOTE | 2019-03-15 14:38 | Occ Therapy Progress Note ---
Therapy Progress Note NSG request hold therapy this date secondary to increase HR (141BPM's) and pt being lethargic. OT will attempt next day. TERRI WOODWARD OT Mar 15, 2019 14:37
--- NOTE | 2019-03-15 15:55 | NUR ---
CM/SS, respond to consult now that patient is weaned from vent. Visited with unit RN, patient heart rate high at this time. Defer interview until more stable. RN reports that patient has had visitors, one support person is apparently in a substance counselor role and had been providing case management activities over the past two weeks. Journeyman Mechanic asked that staff attempt to get names and contacts as it pertains to his support system and post hospital network. Patient's father Davin Cristobal Laci Sr 03/22/2018, perhaps significant, since his father had tried to support patient financially and parentally through long-standing substance issues. Patient has received inpatient treatment at [facility] multiple times. Will discuss patient outlook and goals when able. Following.
--- NOTE | 2019-03-15 18:56 | Progress Note ---
Subjective Subjective/Events-last exam Patient much improved this AM. Less combative. Answering questions appropriately. Speech eval pending for PO intake. Review of Systems General: Malaise Pulmonary: Dyspnea, Cough Cardiovascular: No: Chest Pain, Palpitations Gastrointestinal: No: Nausea, Vomiting, Abdominal Pain, Diarrhea, Constipation Genitourinary: No Dysuria, No Frequency Neurological: Other (Headache) Objective Exam Last Set of Vital Signs Vital Signs Date Time Temp Pulse Resp B/P (MAP) Pulse Ox O2 Delivery O2 Flow Rate FiO2 03/15/19 18:00 93 33 148/109 (122) 96 Nasal Cannula 3.00 03/15/19 16:18 37.1 03/14/19 08:00 21 Capillary Refill : Less Than 3 Seconds I&O Intake and Output 03/15/19 00:00 Intake Total 2160 ml Output Total 5875 ml Balance -3715 ml Intake Oral 340 ml IV Total 1820 ml Output Urine Total 5025 ml Gastric Drainage Total 850 ml General: Alert, Cooperative, No Acute Distress Lungs: Clear to Auscultation, Normal Air Movement Heart: Regular Rate, No Murmurs Abdomen: Normal Bowel Sounds, Soft, No Tenderness, No Masses Extremities: Other (2+ pitting edema bilaterally) Skin: No Rashes, No Breakdown Neuro: Normal Speech, Sensation Intact, Cranial Nerves 3-12 NL Results/Procedures Lab Laboratory Tests 03/15/19 00:00: Glucometer 107 03/15/19 03:15: White Blood Count 6.3, Red Blood Count 3.85L, Hemoglobin 11.5L, Hematocrit 34L, Mean Corpuscular Volume 89, Mean Corpuscular Hemoglobin 30, Mean Corpuscular Hemoglobin Concent 34, Red Cell Distribution Width 13.2, Platelet Count 159, Mean Platelet Volume 9.4, Neutrophils (%) (Auto) 75, Lymphocytes (%) (Auto) 19, Monocytes (%) (Auto) 7, Eosinophils (%) (Auto) 0, Basophils (%) (Auto) 0, Neutrophils # (Auto) 4.7, Lymphocytes # (Auto) 1.2, Monocytes # (Auto) 0.4, Eosinophils # (Auto) 0.0, Basophils # (Auto) 0.0, Sodium Level 145, Potassium Level 3.1L, Chloride Level 107, Carbon Dioxide Level 25, Anion Gap 13, Blood Urea Nitrogen 8, Creatinine 0.84, Estimat Glomerular Filtration Rate > 60, BUN/Creatinine Ratio 10, Glucose Level 104, Calcium Level 8.8, Phosphorus Level 5.1H, Magnesium Level 1.7 03/15/19 11:21: Glucometer 111H 03/15/19 17:19: Glucometer 104 Microbiology 03/14/19 Gram Stain - Final, Resulted 03/14/19 Sputum Culture - Preliminary, Resulted Usual upper respiratory theron Radiology CT HEAD/CERVICAL SPINE WO PROCEDURE: CT head and CT cervical spine without contrast. TECHNIQUE: Multiple contiguous axial images were obtained through the brain and cervical spine without the use of intravenous contrast. Sagittal and coronal reformations through the cervical spine were then performed. Auto Exposure Controls were utilized during the CT exam to meet ALARA standards for radiation dose reduction. INDICATION: Found unresponsive. FINDINGS: The ventricles are normal in size, shape and position. There is no acute parenchymal hemorrhage, edema or mass. There is no extra-axial mass or hemorrhage. No skull fracture is seen. There is paranasal sinus disease present. There is normal height and alignment of the cervical vertebral bodies. There is disc space narrowing at C5-6. No fracture or other acute abnormality is seen. IMPRESSION: 1. CT of the head shows paranasal sinus disease with no acute intracranial abnormality. 2. CT of the cervical spine shows no acute abnormality. Assessment/Plan Assessment/Plan (1) Alcohol intoxication Status: Acute Assessment & Plan: Severe with EtOH level over 400 on admit, requiring intubation due to sedation unable to protect airway. [facility], alcohol withdrawal protocol. 03/14: Extubated this AM, combative at times, PRN Ativan, Haldol 03/15: awake and less combative, continues to require precedex and PRN ativan (2) Acute respiratory failure Status: Acute Assessment & Plan: Intubated in ER, improving with mechanical ventilation. Management per Dr. Anderson. 03/15: Extubated yesterday, Continue MAT protocol Qualifiers: Qualified Codes: J96.02 - Acute respiratory failure with hypercapnia (3) Acidosis Status: Acute Assessment & Plan: Secondary to hypercapnea and lactic acidosis. Improved this am after mechanical ventilation. (4) Hypertension Status: Chronic Assessment & Plan: Resume home meds. 03/15: Cardene drip started today Qualifiers: Qualified Codes: I10 - Essential (primary) hypertension (5) Hypernatremia Status: Resolved Assessment & Plan: D51/2NS (6) Hypokalemia Status: Resolved Assessment & Plan: Resolved with IVF overnight. (7) Lactic acid acidosis Status: Resolved Assessment & Plan: Recheck. No sign of infection. (8) DVT prophylaxis Status: Acute Assessment & Plan: Enoxaparin Clinical Quality Measures DVT/VTE Risk/Contraindication: Risk Factor Score Per Nursin RFS Level Per Nursing on Admit: 4+=Very High KENZIE CLEMENS MD Mar 15, 2019 18:56
[2019-03-15] MEDS: QUEtiapine 100 MG (SEROquel) TAB IMMEDIATE RELEASE PO SCH (21:16)
[2019-03-16] VITALS (21 sets, daily range): BP systolic 128–174; BP diastolic 70–112
[2019-03-16] MEDS: ENALAPRILAT 2.5 MG/2 ML (VASOTEC) VIAL IV SCH ×4 (00:05→18:21)
[2019-03-16] MEDS: DEXMEDETOMIDINE INJECTION 1,000 MCG in NS (IVPB) 240 ML IV SCH ×5 (00:11→20:50)
[2019-03-16] MEDS: LORazepam INJ 2 MG/ML (ATIVAN) VIAL IVP PRN ×2 (01:23→12:06)
[2019-03-16] MEDS: RT-ALBUTEROL/IPRATROPIUM 3 ML (DUONEB) VIAL INH SCH ×5 (01:59→19:43)
[2019-03-16 03:04] LABS: BASOPHILS % (AUTO) 0 % (0-10); EOSINOPHILS % (AUTO) 0 % (0-10); HEMATOCRIT 31 % (40-54); HEMOGLOBIN 10.8 G/DL (13.3-17.7); LYMPHOCYTES # (AUTO) 1.1 X 10^3 (1.0-4.0); LYMPHOCYTES % (AUTO) 15 % (12-44); MEAN CORPUSCULAR HEMOGLOBIN 30 PG (25-34); MEAN CORPUSCULAR HGB CONC 34 G/DL (32-36); MEAN CORPUSCULAR VOLUME 88 FL (80-99); MEAN PLATELET VOLUME 9.1 FL (7.4-10.4); MONOCYTES # (AUTO) 0.7 X 10^3 (0.0-1.0); MONOCYTES % (AUTO) 9 % (0-12); NEUTROPHILS # (AUTO) 5.4 X 10^3 (1.8-7.8); NEUTROPHILS % (AUTO) 75 % (42-75); PLATELET COUNT 161 10^3/uL (130-400); RED CELL DISTRIBUTION WIDTH 12.8 % (10.0-14.5); WHITE BLOOD COUNT 7.2 10^3/uL (4.3-11.0)
[2019-03-16 03:30] LABS: BUN/CREATININE RATIO 14; CALCIUM 9.2 MG/DL (8.5-10.1); CARBON DIOXIDE 23 MMOL/L (21-32); CHLORIDE 105 MMOL/L (98-107); CREATININE SERUM 0.78 MG/DL (0.60-1.30); GFR ESTIMATED > 60; GLUCOSE 127 MG/DL (70-105); PHOSPHORUS 3.5 MG/DL (2.3-4.7); POTASSIUM 3.9 MMOL/L (3.6-5.0); SODIUM 138 MMOL/L (135-145)
--- NOTE | 2019-03-16 03:34 | Pulmonary Progress Note ---
NU VOGEL,MED STUDENT 03/16/19 0334: Subjective Date Seen by a Provider: Mar 16, 2019 Time Seen by a Provider: 03:29 Subjective/Events-last exam Patient was asleep and not awoken. According to nurse, the patient has sleep most of the night and only required ativan and dilaudid occasionily through the night; patient has not complained/mentioned anything warranting further investigation. Sepsis Event Evaluation Height, Weight, BMI Height: 6'0.00" Weight: 290lbs. 0.4oz. [id number]; 37.2 BMI Method:Estimated Exam Exam Vital Signs Date Time Temp Pulse Resp B/P (MAP) Pulse Ox O2 Delivery O2 Flow Rate FiO2 03/16/19 03:21 95 Nasal Cannula 3.00 03/16/19 03:00 70 17 142/102 (115) 100 Room Air 03/16/19 02:00 75 21 155/100 (118) 100 Room Air 03/16/19 01:57 100 Room Air 03/16/19 01:30 72 28 139/88 (105) 100 Room Air 03/16/19 01:00 78 03/16/19 01:00 78 18 163/112 (129) 100 Room Air 03/16/19 00:00 80 17 144/99 (114) 97 Room Air 03/15/19 23:57 95 Nasal Cannula 3.00 03/15/19 23:00 82 19 138/92 (107) 99 Room Air 03/15/19 22:00 89 22 133/90 (104) 100 Room Air 03/15/19 21:57 99 Room Air 03/15/19 21:40 37.8 98 155/113 (127) 03/15/19 21:00 89 22 133/90 (104) Room Air 03/15/19 20:00 86 22 132/76 (94) Room Air 03/15/19 20:00 95 Nasal Cannula 3.00 03/15/19 19:00 96 03/15/19 19:00 96 22 137/90 (106) Room Air 03/15/19 18:00 93 33 148/109 (122) 96 Nasal Cannula 3.00 03/15/19 17:00 87 23 121/93 (102) 92 Nasal Cannula 3.00 03/15/19 16:18 37.1 103 20 131/90 (104) 03/15/19 16:00 108 23 131/90 (104) 93 Nasal Cannula 3.00 03/15/19 16:00 95 Nasal Cannula 3.00 03/15/19 15:19 92 Nasal Cannula 3.00 03/15/19 15:00 122 10 119/86 (97) 94 Nasal Cannula 3.00 03/15/19 14:05 94 Nasal Cannula 3.00 03/15/19 14:00 146 26 202/118 (146) 98 Nasal Cannula 3.00 03/15/19 13:03 138 03/15/19 13:00 137 27 172/108 (129) 93 Nasal Cannula 2.00 03/15/19 12:00 96 Nasal Cannula 2.00 03/15/19 11:56 37.6 130 22 185/113 (137) 93 03/15/19 11:50 38.2 133 27 166/111 (129) 93 Nasal Cannula 2.00 03/15/19 11:00 131 38 184/113 (136) 88 Nasal Cannula 2.00 03/15/19 10:11 93 Room Air 03/15/19 10:00 107 29 193/118 (143) 96 Nasal Cannula 2.00 03/15/19 09:00 153/106 (122) Nasal Cannula 2.00 03/15/19 08:00 92 21 148/101 (117) 95 Nasal Cannula 2.00 03/15/19 08:00 95 Nasal Cannula 2.00 03/15/19 07:00 87 29 94 Nasal Cannula 2.00 03/15/19 07:00 88 03/15/19 06:25 94 Nasal Cannula 2.00 03/15/19 06:00 84 14 142/84 (103) 95 Nasal Cannula 2.00 03/15/19 05:00 82 23 161/119 (133) 92 Nasal Cannula 2.00 03/15/19 04:09 93 Nasal Cannula 2.00 03/15/19 04:00 84 18 160/117 (131) 93 Nasal Cannula 2.00 03/15/19 04:00 36.8 I & O 03/16/19 07:00 Intake Total 1320 ml Output Total 3525 ml Balance -2205 ml Height & Weight Height: 6'0.00" Weight: 290lbs. 0.4oz. 131.631972ri; 37.2 BMI Method:Estimated General Appearance: No Apparent Distress, Obese, Other (sedate) Neck: Full Range of Motion, Non Tender, Supple Respiratory: Chest Non Tender, Lungs Clear, Normal Breath Sounds, No Accessory Muscle Use, No Respiratory Distress Cardiovascular: Regular Rate, Rhythm, No Edema, No Gallop, No JVD, No Murmur Capillary Refill: Less Than 3 Seconds Peripheral Pulses: 2+ Dorsalis Pedis (R), 2+ Left Dors-Pedis (L), 2+ Radial Pulses (R), 2+ Radial Pulses (L) Gastrointestinal: normal bowel sounds, soft, no organomegaly, no pulsatile mass Extremity: Normal Range of Motion, Non Tender, No Calf Tenderness, Pedal Edema, Other (1-2+ edema of both hands trace pedal edema) Neurologic/Psychiatric: Depressed Affect Skin: Warm/Dry Lymphatic: No Adenopathy Results Lab Laboratory Tests 03/15/19 03:15 03/16/19 02:58 Assessment/Plan Assessment/Plan Acute respiratory failure secondary to ETOH intoxication -improving - precedex @ .5 ml/hr -[facility] protocol - oxygen = 3L nasal canula at night -Monitor Suspected aspiration on TF per RN. -increased sputum production -Repeat Sputum C&S pending -Continue Zosyn IV HTN - home Lopressor, and lisinopril -PRN hydralazine - Nicardipine -Monitor unconscious after falling - likely d/t EtOH intoxication -C Spine collar has been D/C'd - [facility] protocol Marijuana use -Education - Anemia -Monitor - trending down LITA ANDERSON DO 03/16/19 0525: Subjective Time Seen by a Provider: 05:20 Subjective/Events-last exam Pt is lethargic. Exam Exam General Appearance: No Apparent Distress, Obese, Other (sedate) Neck: Full Range of Motion, Non Tender, Supple Respiratory: Chest Non Tender, Lungs Clear, Normal Breath Sounds, No Accessory Muscle Use, No Respiratory Distress Cardiovascular: Regular Rate, Rhythm, No Edema, No Gallop, No JVD, No Murmur Gastrointestinal: normal bowel sounds, soft, no organomegaly, no pulsatile mass Extremity: Normal Range of Motion, Non Tender, No Calf Tenderness, Pedal Edema, Other (1-2+ edema of both hands trace pedal edema) Neurologic/Psychiatric: Depressed Affect Skin: Warm/Dry Lymphatic: No Adenopathy Assessment/Plan Assessment/Plan Acute respiratory failure secondary to ETOH intoxication -improving - precedex currently max -[facility] protocol - oxygen = 3L nasal canula at night -Monitor Suspected aspiration on TF per RN. -increased sputum production -Repeat Sputum C&S pending -Continue Zosyn IV HTN - home Lopressor, and lisinopril -PRN hydralazine - Nicardipine -Monitor unconscious after falling - likely d/t EtOH intoxication -C Spine collar has been D/C'd - [facility] protocol Marijuana use -Education - Anemia -Monitor - trending down Supervisory-Addendum Brief Verification & Attestation Participated in pt care: history Personally performed: exam, history Care discussed with: Medical Student Procedures: n/a Verification and Attestation of Medical Student E/M Service A medical student performed and documented this service in my presence. I reviewed and verified all information documented by the medical student and made modifications to such information, when appropriate. I personally performed the physical exam and medical decision making. Lita Anderson, Mar 16, 2019,05:30 NU VOGEL,MED STUDENT Mar 16, 2019 03:34 LITA ANDERSON DO Mar 16, 2019 05:25
[2019-03-16] MEDS: POTASSIUM CL 10MEQ/50ML IVPB 50 ML IV SCH ×3 (03:39→06:38)
[2019-03-16] MEDS: MAGNESIUM 1 GM/100 ML IVPB 100 ML IV SCH (03:39)
[2019-03-16] MEDS: KCL 20 MEQ TAB (K-DUR) PO SCH (03:47)
[2019-03-16] MEDS: hydrALAZINE (APESOLINE) 20 MG/ML VIAL IV PRN (04:20)
[2019-03-16] MEDS: PIPERACILLIN/TAZOBACTAM (BULK) 4.5 GM in NS (IVPB) 100 ML IV SCH ×3 (04:46→20:49)
[2019-03-16] MEDS: inSUlin ASPART (NovoLOG) 1 UNIT/0.01 ML (CHARGE PER UNIT) SC SCH ×3 (05:25→18:54)
[2019-03-16] MEDS ORDERED: FUROSEMIDE 40 MG/4 ML INJ (LASIX) IVP ONE (05:30)
[2019-03-16] MEDS: D5 1/2 NS W/KCL 20 MEQ/L 1,000 ML IV SCH ×2 (05:50→15:17)
--- NOTE | 2019-03-16 07:12 | Diagnostic Imaging Report ---
INDICATION: Dyspnea. TECHNIQUE: Single frontal view of the chest. COMPARISON: 03/15/2019 FINDINGS: Lung volumes are low. No focal consolidation is seen. The tip of the right PICC line projects over the low SVC. There is mild cardiomegaly. There is no pleural effusion or pneumothorax seen. IMPRESSION: Markedly low lung volumes with no focal consolidation seen. Dictated by: Dictated on workstation # [id number]
--- NOTE | 2019-03-16 07:30 | NUR ---
Report received and patient care assumed by this RN. Pt is drowsy in bed, mumbled speech. He is A/O to self and situation. He believes it is 1997. Pt follows commands and is appropriate. He answers all questions. VSS at this time. Monitoring closely.
[2019-03-16] MEDS: niCARdipine IV 50 MG in NS (IVPB) 230 ML IV SCH ×2 (08:36→18:54)
[2019-03-16] MEDS: lisINopril 20 MG (PRINIVIL) TABLET PO SCH (09:12)
[2019-03-16] MEDS: ENOXAPARIN 40 MG/0.4 ML (LOVENOX) SYR SQ SCH (09:12)
[2019-03-16] MEDS: PANTOPRAZOLE 40 MG (PROTONIX) VIAL IV SCH (09:12)
[2019-03-16] MEDS: meTOprolol TARTRATE 50 MG (LOPRESSOR) TAB PO SCH ×2 (09:12→20:50)
--- NOTE | 2019-03-16 10:39 | Physical Therapy Daily Note ---
PT Daily Note-Current Subjective Patient on commode pre tx, agrees to PT, has no complaints of pain. Nurse cleans patient. Appearance Patient in recliner post tx with nurse call, phone, tray, chair alarm on, all needs met. Mental Status Patient Orientation: Person, Confused Attachments: Oxygen, Hidaglo Catheter, IV Transfers Therapy Code Descriptions/Definitions Functional Fishers Measure: 0=Not Assessed/NA 4=Minimal Assistance 1=Total Assistance 5=Supervision or Setup 2=Maximal Assistance 6=Modified Fishers 3=Moderate Assistance 7=Complete Fishers Therapy Quality Codes: 6 Independent with activity with or without an assistive device 5 Patient requires set up or clean up by helper. Patient completes activity by themselves 4 Supervision or touching assist (CGA). Dixon provide cues , steadying assist 3 The helper provides less than half the effort to complete the activity 2 The helper provides more than half the effort to complete the activity 1 Dependent. The helper does all the effort to complete an activity 7 Patient refused to complete or attempt activity 9 The patient did not perform the activity before the current illness or injury 88 Not attempted due to Medical conditions or safety concerns Transfers (B, C, W/C) (FIM): 4 Sit to/from Stand: 4 CGA, cues for safety and positioning Gait Training Gait (FIM): 1 Distance: 25' Gait Level of Assist: 4 Gait Persons Needed: 1 Gait Assistive Device: FWW slow, unsteady, needs cues to keep feet in the walker Exercises Seated Therapy Exercises: Ankle pumps, Long arc quads Seated Reps: 15 Treatments transfers, ambulation, LE exercise Assessment Current Status: Fair Progress improved ambulation, fall risk, impulsive and confused PT Group Home Goals Mileage Clerk Goals PT Group Home Goals Time Frame: Mar 26, 2019 Transfers (B,C,W/C) (FIM): 7 Gait (FIM): 7 Gait distance (FIM): 3=150 ft Distance: 200' Gait Level of Assist: 7 Gait Assistive Device: None PT Plan Problem List Problem List: Activity Tolerance, Functional Strength, Safety, Balance, Gait, Transfer, Bed Mobility Treatment/Plan Treatment Plan: Continue Plan of Care Treatment Plan: Bed Mobility, Education, Functional Activity Alexia, Functional Strength, Gait, Safety, Therapeutic Exercise, Transfers Treatment Duration: Mar 26, 2019 Frequency: 6 times per week Estimated Hrs Per Day: .25 hour per day Patient and/or Family Agrees t: Yes Safety Risks/Education Patient Education: Gait Training, Transfer Techniques, Correct Positioning, Safety Issues Teaching Recipient: Patient Teaching Methods: Demonstration, Discussion Response to Teaching: Reinforcement Needed Time/GCodes Time In: 1020 Time Out: 1034 Total Billed Treatment Time: 14 Total Billed Treatment 1 visit FA Yandy' SENIA HAWLEY PT Mar 16, 2019 10:39
--- NOTE | 2019-03-16 11:15 | NUR ---
Pastoral care visit.
--- NOTE | 2019-03-16 11:27 | Occupational Therapy Eval ---
OT Evaluation-General/PLF Medical Diagnosis Admission Date Mar 10, 2019 at 20:40 Medical Diagnosis: AMS/respiratory failure Onset Date: Mar 10, 2019 Therapy Diagnosis Therapy Diagnosis: impaired ADLS and mobility Height/Weight Height (Feet): 6 Height (Inches): 0.00 Weight (Pounds): 286 Weight (Ounces): 7.0 Precautions Precautions/Isolations: Aspiration, Fall Prevention, Standard Precautions Safety Interventions: Bed Exit Alarm Weight Bear Status Weight Bearing Restriction: Weight Bearing/Tolerated Referral Physician: Paulette Referral Reason: Activity Tolerance, Self Care, Evaluation/Treatment, Strengthening/ROM Medical History Pertinent Medical History: Alcoholism, COPD, DM, HTN Reviewed History: Yes Social History Home: Single Level Current Living Status: Alone Entry Into Home: Stairs Without Railing Steps Into Home: 2 ADL-Prior Level of Function Therapy Code Descriptions/Definitions Functional [place] Measure: 0=Not Assessed/NA 4=Minimal Assistance 1=Total Assistance 5=Supervision or Setup 2=Maximal Assistance 6=Modified [place] 3=Moderate Assistance 7=Complete [place] Therapy Quality Codes: 6 Independent with activity with or without an assistive device 5 Patient requires set up or clean up by helper. Patient completes activity by themselves 4 Supervision or touching assist (CGA). [place] provide cues , steadying assist 3 The helper provides less than half the effort to complete the activity 2 The helper provides more than half the effort to complete the activity 1 Dependent. The helper does all the effort to complete an activity 7 Patient refused to complete or attempt activity 9 The patient did not perform the activity before the current illness or injury 88 Not attempted due to Medical conditions or safety concerns Functional Abilities and Goals: Independent: Patient completed the activities by him/herself, with or without an assistive device, with no assistance from a helper. Needed Some Help: Patient needed partial assistance from another person to complete activities. Dependent: A helper completed the activities for the patient. 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 pt agreed to OT eval session. pt reports no pain. Appearance pt became emotion during session. stating his father recently passes away and he does know how he will be able to pay his eclectic bills this month since he is in the hospital/ Mental Status/Objective Attachments: [place] Catheter, IV, Telemetry Current Glasses/Contacts: No Hearing Aids: No Hand Dominance: Right Upper Extremity ROM WNL Upper Extremity Coordination WNL Upper Extremity Sensation WNL Upper Extremity Strength WNL ADL-Treatment Therapy Code Descriptions/Definitions Functional [place] Measure: 0=Not Assessed/NA 4=Minimal Assistance 1=Total Assistance 5=Supervision or Setup 2=Maximal Assistance 6=Modified [place] 3=Moderate Assistance 7=Complete [place] Therapy Quality Codes: 6 Independent with activity with or without an assistive device 5 Patient requires set up or clean up by helper. Patient completes activity by themselves 4 Supervision or touching assist (CGA). [place] provide cues , steadying assist 3 The helper provides less than half the effort to complete the activity 2 The helper provides more than half the effort to complete the activity 1 Dependent. The helper does all the effort to complete an activity 7 Patient refused to complete or attempt activity 9 The patient did not perform the activity before the current illness or injury 88 Not attempted due to Medical conditions or safety concerns Grooming (FIM): 5 (set up seated) Lower Body Dressing (FIM): 5 (barbara socks seated. ) Transfers (B, C, W/C) (FIM): 4 (use of RW and CGA for safety/ balance. ) Education OT Patient Education: Progress toward Goal/Update tx plan OT Short Term Goals Short Term Goals Grooming(FIM): 6 1=Demonstrate adherence to instructed precautions during ADL tasks. 2=Patient will verbalize/demonstrate understanding of assistive devices/modifications for ADL. 3=Patient will improve strength/tolerance for activity to enable patient to perform ADL's. OT Equine Breeder Goals Equine Breeder Goals Eating (FIM): 6 Grooming(FIM): 6 Bathing(FIM): 6 Upper Body Dressing(FIM): 6 Lower Body Dressing(FIM): 6 Toileting(FIM): 6 Transfers (B,C,W/C) (FIM): 6 Toilet/Commode Transfer(FIM): 6 Additional Goals: 1-Demonstrate ADL Tasks, 2-Verbalize Understanding, 3- ImproveStrength/Alexia 1=Demonstrate adherence to instructed precautions during ADL tasks. 2=Patient will verbalize/demonstrate understanding of assistive devices/ modifications for ADL. 3=Patient will improve strength/tolerance for activity to enable patient to perform ADL's. OT Education/Plan Problem List/Assessment Assessment: Decreased Activ Tolerance, Decreased Safety Aware, Decreased UE Strength, Impaired Funct Balance, Impaired I ADL's, Impaired Self-Care Skills Discharge Recommendations Plan/Recommendations: Continue POC Therapy Discharge Recommendati: Post Acute OT Treatment Plan/Plan of Care Treatment,Training & Education: Yes Patient would benefit from OT for education, treatment and training to promote independence in ADL's, mobility, safety and/or upper extremity function for ADL's. Plan of Care: ADL Retraining, Functional Mobility, Group Exercise/Act as Ind, UE Funct Exercise/Act Treatment Duration: Mar 30, 2019 Frequency: 5 times per week Estimated Hrs Per Day: .25 hour per day Agreement: Yes Rehab Potential: Fair Time/GCodes Start Time: 11:05 Stop Time: 11:25 Billed Treatment Time EVM 20 minutes TERRI WOODWARD OT Mar 16, 2019 11:27
--- NOTE | 2019-03-16 12:15 | NUR ---
Pt assisted from bed to chair with x 1 assist. He is tearful and states he is anxious. He is tearful about his home status and feels that his electric might get shut off today. SS is ordered.
--- NOTE | 2019-03-16 13:50 | NUR ---
Pt resting with eyes closed at this time. He is pulling off pulse ox cable and taking off bp cuff. Advised patient to try and leave these on. He voices understanding. Pulse ox put on forehead.
--- NOTE | 2019-03-16 15:07 | Progress Note ---
Subjective Subjective/Events-last exam Patient alert and awake this AM. Tolerating PO diet. Patient is tearful this AM when talking about his father. States that everyone in his family has an alcohol or substance abuse problem. States that 6 months ago he was drinking much more then he is now. States that at that time he was drinking whiskey but unable to quantify. Now drinking 3-4 tall boy beers 3-4 days per week. States that he is interested in an outpatient program. Denies previous Rehab experiences. Review of Systems Pulmonary: Cough Cardiovascular: No: Chest Pain, Palpitations Gastrointestinal: No: Nausea, Vomiting, Abdominal Pain, Diarrhea, Constipation Neurological: Weakness Objective Exam Last Set of Vital Signs Vital Signs Date Time Temp Pulse Resp B/P (MAP) Pulse Ox O2 Delivery O2 Flow Rate FiO2 03/16/19 13:30 85 18 151/70 (97) Room Air 03/16/19 12:00 93 03/16/19 10:47 36.8 03/16/19 03:21 3.00 03/14/19 08:00 21 Capillary Refill : Less Than 3 Seconds I&O Intake and Output 03/16/19 00:00 Intake Total 1690 ml Output Total 3875 ml Balance -2185 ml Intake Oral 350 ml IV Total 1340 ml Output Urine Total 3875 ml General: Alert, Oriented X3, Cooperative, Other (tearful during visit) Lungs: Clear to Auscultation, Normal Air Movement Heart: Regular Rate, No Murmurs Abdomen: Normal Bowel Sounds, Soft, No Tenderness, No Masses Extremities: Other (1+ pitting edema bilaterally LE) Skin: No Rashes, No Breakdown Neuro: Normal Speech, Strength at 5/5 X4 Ext, Sensation Intact, Cranial Nerves 3-12 NL Results/Procedures Lab Laboratory Tests 03/15/19 17:19: Glucometer 104 03/15/19 23:50: Glucometer 117H 03/16/19 02:58: White Blood Count 7.2, Red Blood Count 3.58L, Hemoglobin 10.8L, Hematocrit 31L, Mean Corpuscular Volume 88, Mean Corpuscular Hemoglobin 30, Mean Corpuscular Hemoglobin Concent 34, Red Cell Distribution Width 12.8, Platelet Count 161, Mean Platelet Volume 9.1, Neutrophils (%) (Auto) 75, Lymphocytes (%) (Auto) 15, Monocytes (%) (Auto) 9, Eosinophils (%) (Auto) 0, Basophils (%) (Auto) 0, Neutrophils # (Auto) 5.4, Lymphocytes # (Auto) 1.1, Monocytes # (Auto) 0.7, Eosinophils # (Auto) 0.0, Basophils # (Auto) 0.0, Sodium Level 138, Potassium Level 3.9, Chloride Level 105, Carbon Dioxide Level 23, Anion Gap 10, Blood Urea Nitrogen 11, Creatinine 0.78, Estimat Glomerular Filtration Rate > 60, BUN/Creatinine Ratio 14, Glucose Level 127H, Calcium Level 9.2, Phosphorus Level 3.5, Magnesium Level 2.0, B-Type Natriuretic Peptide 109.1H Microbiology 03/14/19 Gram Stain - Final, Resulted 03/14/19 Sputum Culture - Preliminary, Resulted Usual upper respiratory theron Radiology CT HEAD/CERVICAL SPINE WO PROCEDURE: CT head and CT cervical spine without contrast. TECHNIQUE: Multiple contiguous axial images were obtained through the brain and cervical spine without the use of intravenous contrast. Sagittal and coronal reformations through the cervical spine were then performed. Auto Exposure Controls were utilized during the CT exam to meet ALARA standards for radiation dose reduction. INDICATION: Found unresponsive. FINDINGS: The ventricles are normal in size, shape and position. There is no acute parenchymal hemorrhage, edema or mass. There is no extra-axial mass or hemorrhage. No skull fracture is seen. There is paranasal sinus disease present. There is normal height and alignment of the cervical vertebral bodies. There is disc space narrowing at C5-6. No fracture or other acute abnormality is seen. IMPRESSION: 1. CT of the head shows paranasal sinus disease with no acute intracranial abnormality. 2. CT of the cervical spine shows no acute abnormality. Assessment/Plan Assessment/Plan (1) Alcohol intoxication Status: Acute Assessment & Plan: Severe with EtOH level over 400 on admit, requiring intubation due to sedation unable to protect airway. CIWA, alcohol withdrawal protocol. 03/14: Extubated this AM, combative at times, PRN Ativan, Haldol 03/15: awake and less combative, continues to require precedex and PRN ativan 03/16: Off all sedation and cardene, states that he is interested in outpatient ATS treatment, plan to set up at discharge with [facility] (2) Acute respiratory failure Status: Acute Assessment & Plan: Intubated in ER, improving with mechanical ventilation. Management per Dr. Anderson. 03/15: Extubated yesterday, Continue MAT protocol 03/16: Resolved, Continue MAT, On RA Qualifiers: Qualified Codes: J96.02 - Acute respiratory failure with hypercapnia (3) Acidosis Status: Acute Assessment & Plan: Secondary to hypercapnea and lactic acidosis. Improved this am after mechanical ventilation. (4) Hypertension Status: Chronic Assessment & Plan: Resume home meds. 03/15: Cardene drip started today 03/16: Off Cardene, Controlled on PO meds Qualifiers: Qualified Codes: I10 - Essential (primary) hypertension (5) Hypernatremia Status: Resolved Assessment & Plan: D51/2NS (6) Hypokalemia Status: Resolved Assessment & Plan: Resolved with IVF overnight. (7) Lactic acid acidosis Status: Resolved Assessment & Plan: Recheck. No sign of infection. (8) DVT prophylaxis Status: Acute Assessment & Plan: Enoxaparin Clinical Quality Measures DVT/VTE Risk/Contraindication: Risk Factor Score Per Nursin RFS Level Per Nursing on Admit: 4+=Very High KENZIE CLEMENS MD Mar 16, 2019 15:07
--- NOTE | 2019-03-16 15:09 | NUR ---
CM/SS. Went to visit patient and he is snoring/sleeping, discussed with RN and decided to let him rest. He has reportedly been emotional this day about his utilities which can not be remedied at this time. Reviewed history with [facility] and discussed post hospital care plan with Dr. Alicea. Tentatively, she plans to partner with Dr. Anderson about medical stability and discharge, then facilitate a same-day intake for patient at [facility] with [facility] Treatment Program. Dr. Alieca indicates patient has agreed to voluntarily participate and expressed his desire for help. Additionally, he has appointments scheduled for 03/21/19 for Rx review and 03/22/19 for psychologist intake. These will be reviewed by [facility] staff for appropriateness re relative care plan. Will followup in a.m. to visit with patient and assist with coordination of services as needed.
[2019-03-16] MEDS: QUEtiapine 100 MG (SEROquel) TAB IMMEDIATE RELEASE PO SCH (20:50)
[2019-03-16] MEDS: HYDROmorphone 2 MG/ML VIAL (DILAUDID) IV PRN (20:51)
[2019-03-17] VITALS (10 sets, daily range): BP systolic 115–168; BP diastolic 58–113
[2019-03-17] MEDS: ENALAPRILAT 2.5 MG/2 ML (VASOTEC) VIAL IV SCH ×2 (01:16→06:33)
[2019-03-17] MEDS: DEXMEDETOMIDINE INJECTION 1,000 MCG in NS (IVPB) 240 ML IV SCH (01:28)
[2019-03-17] MEDS: RT-ALBUTEROL/IPRATROPIUM 3 ML (DUONEB) VIAL INH SCH ×3 (02:09→15:32)
[2019-03-17 03:01] LABS: BASOPHILS % (AUTO) 0 % (0-10); EOSINOPHILS % (AUTO) 0 % (0-10); HEMATOCRIT 30 % (40-54); HEMOGLOBIN 10.4 G/DL (13.3-17.7); LYMPHOCYTES # (AUTO) 1.4 X 10^3 (1.0-4.0); LYMPHOCYTES % (AUTO) 21 % (12-44); MEAN CORPUSCULAR HEMOGLOBIN 30 PG (25-34); MEAN CORPUSCULAR HGB CONC 35 G/DL (32-36); MEAN CORPUSCULAR VOLUME 86 FL (80-99); MEAN PLATELET VOLUME 8.7 FL (7.4-10.4); MONOCYTES # (AUTO) 0.9 X 10^3 (0.0-1.0); MONOCYTES % (AUTO) 13 % (0-12); NEUTROPHILS # (AUTO) 4.4 X 10^3 (1.8-7.8); NEUTROPHILS % (AUTO) 65 % (42-75); PLATELET COUNT 188 10^3/uL (130-400); RED CELL DISTRIBUTION WIDTH 12.7 % (10.0-14.5); WHITE BLOOD COUNT 6.7 10^3/uL (4.3-11.0)
[2019-03-17 03:35] LABS: BUN/CREATININE RATIO 13; CALCIUM 9.4 MG/DL (8.5-10.1); CARBON DIOXIDE 23 MMOL/L (21-32); CHLORIDE 108 MMOL/L (98-107); CREATININE SERUM 0.82 MG/DL (0.60-1.30); GFR ESTIMATED > 60; GLUCOSE 113 MG/DL (70-105); MAGNESIUM 1.8 MG/DL (1.6-2.4); PHOSPHORUS 4.1 MG/DL (2.3-4.7); POTASSIUM 3.4 MMOL/L (3.6-5.0); SODIUM 141 MMOL/L (135-145)
[2019-03-17] MEDS: POTASSIUM CL 10MEQ/50ML IVPB 50 ML IV SCH ×7 (03:47→07:45)
[2019-03-17] MEDS: MAGNESIUM 1 GM/100 ML IVPB 100 ML IV SCH (03:47)
[2019-03-17] MEDS: KCL 20 MEQ TAB (K-DUR) PO SCH (03:48)
[2019-03-17] MEDS: niCARdipine IV 50 MG in NS (IVPB) 230 ML IV SCH (03:59)
[2019-03-17] MEDS: PIPERACILLIN/TAZOBACTAM (BULK) 4.5 GM in NS (IVPB) 100 ML IV SCH ×2 (04:18→13:25)
[2019-03-17] MEDS: HYDROmorphone 2 MG/ML VIAL (DILAUDID) IV PRN ×2 (04:29→07:44)
[2019-03-17] MEDS ORDERED: MAGNESIUM 1 GM/100 ML IVPB 100 ML IV ONE (05:30)
--- NOTE | 2019-03-17 06:43 | Pulmonary Progress Note ---
Subjective Time Seen by a Provider: 06:42 Subjective/Events-last exam No problems noted. Pt appears to be sedated. Sepsis Event Evaluation Height, Weight, BMI Height: 6'0.00" Weight: 286lbs. 7.0oz. 129.435177df; 37.2 BMI Method:Estimated Exam Exam Vital Signs Date Time Temp Pulse Resp B/P (MAP) Pulse Ox O2 Delivery O2 Flow Rate FiO2 03/17/19 06:00 64 15 133/87 (102) 100 Room Air 03/17/19 05:00 67 15 136/92 (107) 100 Room Air 03/17/19 04:00 35.8 03/17/19 04:00 93 Room Air 03/17/19 04:00 69 24 100 Room Air 03/17/19 03:00 63 10 151/113 (126) 100 Room Air 03/17/19 02:00 67 16 151/101 (118) 98 Room Air 03/17/19 01:00 66 26 165/110 (128) 93 Room Air 03/17/19 01:00 68 03/17/19 00:00 36.8 03/17/19 00:00 66 17 168/109 (128) 98 Room Air 03/17/19 00:00 93 Room Air 03/16/19 23:00 71 23 Room Air 03/16/19 22:00 75 22 145/72 (96) 96 Room Air 03/16/19 21:00 73 17 163/99 (120) 94 Room Air 03/16/19 20:00 93 Room Air 03/16/19 20:00 69 18 171/94 (119) 92 Room Air 03/16/19 19:43 99 Room Air 03/16/19 19:00 37.2 03/16/19 19:00 78 03/16/19 19:00 80 20 174/110 (131) 94 Room Air 03/16/19 18:00 76 10 169/102 (124) 99 Room Air 03/16/19 17:00 82 8 128/96 (107) 100 Room Air 03/16/19 16:15 93 Room Air 03/16/19 16:00 89 14 140/88 (105) Room Air 03/16/19 15:33 100 Room Air 03/16/19 14:00 37.0 03/16/19 13:30 85 18 151/70 (97) Room Air 03/16/19 13:00 76 03/16/19 12:00 93 Room Air 03/16/19 11:00 84 26 145/88 (107) 96 Room Air 03/16/19 10:47 36.8 86 96 03/16/19 10:47 96 Room Air 03/16/19 09:00 84 27 136/102 (113) Room Air 03/16/19 08:00 78 30 140/99 (113) 94 Room Air 03/16/19 07:45 37.0 03/16/19 07:30 93 Room Air 03/16/19 07:01 77 03/16/19 07:00 77 24 142/96 (111) 94 Room Air 03/16/19 06:47 95 Room Air I & O 03/17/19 07:00 Intake Total 4520 ml Output Total 6350 ml Balance -1830 ml Height & Weight Height: 6'0.00" Weight: 286lbs. 7.0oz. 129.098531rz; 37.2 BMI Method:Estimated General Appearance: No Apparent Distress, Obese, Other (sedate) Neck: Full Range of Motion, Non Tender, Supple Respiratory: Chest Non Tender, Lungs Clear, Normal Breath Sounds, No Accessory Muscle Use, No Respiratory Distress Cardiovascular: Regular Rate, Rhythm, No Edema, No Gallop, No JVD, No Murmur Capillary Refill: Less Than 3 Seconds Peripheral Pulses: 2+ Dorsalis Pedis (R), 2+ Left Dors-Pedis (L), 2+ Radial Pulses (R), 2+ Radial Pulses (L) Gastrointestinal: normal bowel sounds, soft, no organomegaly, no pulsatile mass Extremity: Normal Range of Motion, Non Tender, No Calf Tenderness, Pedal Edema, Other (1-2+ edema of both hands trace pedal edema) Neurologic/Psychiatric: Depressed Affect Skin: Warm/Dry Lymphatic: No Adenopathy Results Lab Laboratory Tests 03/16/19 02:58 03/17/19 02:54 Assessment/Plan Assessment/Plan Acute respiratory failure secondary to ETOH intoxication -improving -[facility] protocol -D/C precedex and continue to monitor - oxygen = 3L nasal canula at night -Monitor Suspected aspiration on TF per RN. -increased sputum production -Repeat Sputum C&S pending -Continue Zosyn IV x 5 days then D/C Hypokalemia -Replace HTN - home Lopressor, and lisinopril -PRN hydralazine -Monitor unconscious after falling - likely d/t EtOH intoxication -C Spine collar has been D/C'd - [facility] protocol Marijuana use -Education - Anemia -Monitor - trending down LITA TRIPP DO Mar 17, 2019 06:43
[2019-03-17] MEDS: ENOXAPARIN 40 MG/0.4 ML (LOVENOX) SYR SQ SCH (08:42)
[2019-03-17] MEDS: lisINopril 20 MG (PRINIVIL) TABLET PO SCH (08:42)
[2019-03-17] MEDS: meTOprolol TARTRATE 50 MG (LOPRESSOR) TAB PO SCH (08:42)
[2019-03-17] MEDS ORDERED: PANTOPRAZOLE 40 MG (PROTONIX) TAB PO SCH (09:00)
[2019-03-17] MEDS ORDERED: ACETAMINOPHEN 500 MG TAB (TYLENOL) PO PRN (09:30)
--- NOTE | 2019-03-17 09:59 | Diagnostic Imaging Report ---
Portable semierect AP chest at 3:01. Indication: Dyspnea Findings: There are shallow inspirations. Allowing for this technical factor, the cardiomegaly noted on the prior exam of 03/16/2019 is again evident and no different. The lungs remain generally clear although the right lung base is difficult to assess due to elevation of the right hemidiaphragm. The mediastinum is not widened. The osseous structures are intact. Impression: Stable chest. There has been no adverse change since the prior exam. Dictated by: Dictated on workstation # [id number]
--- NOTE | 2019-03-17 10:45 | NUR ---
Patient transferred to [facility] per W/C accompanied by ICUsmasha. Patient and family notified and understand transfer. Personal belongings with patient. Report given to THIS RN FROM [facility] AT 1001.
--- NOTE | 2019-03-17 10:50 | NUR ---
PATIENT TRANSFERRED TO 4TH FLOOR AT THIS TIME WITH VIA PHYSICIAL THERAPY. PERSONAL BELONGINGS SENT WITH PATIENT. REPORT GIVEN TO MONALISA YOST, TO ASSUME CARE OF PATIENT.
--- NOTE | 2019-03-17 10:50 | NUR ---
PT TO ROOM PER P.T. -- WHEN THIS RN IN ASSESSING PT -- PT WA ASKED IS HE WAS STILL HAVING SUICIDAL THOUGHTS -- PT DENIED - PT ASKED TO ADVISE STAFF IF HE HAS ANY SUICIDAL THOUGHTS HE VOICED HE WOULD -- THIS RN ASKED PT TO VERBALLY AGREE TO NOT ACT ON ANY SUICIDAL TENDENCIES 00 HE AGREED
--- NOTE | 2019-03-17 11:13 | Physical Therapy Daily Note ---
PT Daily Note-Current Subjective Patient is alert and oriented and agrees to PT. He reports stiffness in back due to fall prior to admit. Pain Numeric Pain Scale: 5-Moderate Pain Location: Lower Location Body Site: Back Pain Description: Ache Mental Status Patient Orientation: Normal For Age Transfers Therapy Code Descriptions/Definitions Functional [place] Measure: 0=Not Assessed/NA 4=Minimal Assistance 1=Total Assistance 5=Supervision or Setup 2=Maximal Assistance 6=Modified [place] 3=Moderate Assistance 7=Complete [place] Therapy Quality Codes: 6 Independent with activity with or without an assistive device 5 Patient requires set up or clean up by helper. Patient completes activity by themselves 4 Supervision or touching assist (CGA). [place] provide cues , steadying assist 3 The helper provides less than half the effort to complete the activity 2 The helper provides more than half the effort to complete the activity 1 Dependent. The helper does all the effort to complete an activity 7 Patient refused to complete or attempt activity 9 The patient did not perform the activity before the current illness or injury 88 Not attempted due to Medical conditions or safety concerns Transfers (B, C, W/C) (FIM): 4 Scootin Rollin Supine to/from Sit: 5 Sit to/from Stand: 4 Bed to/from Chair: 4 CGA for safety/noted WBOS Gait Training Gait (FIM): 4 Distance (FIM): 3=150 ft Distance: 200' x 1/100' x 1 Gait Level of Assist: 4 Gait Persons Needed: 1 Gait Assistive Device: FWW CGA for safety/WBOS with FWW use with gait training/cues for body placement in FWW Assessment Patient transferred to room 411 with PT. Patient requires 3 standing recovery periods due to fatigue due to inactivity x 1 week. PT to increase activity as tolerated by patient. RN notified of telesitter in his room in ICU. PT Manager Retirement Goals Manager Retirement Goals PT Longterm Goals Time Frame: Mar 26, 2019 Transfers (B,C,W/C) (FIM): 7 Gait (FIM): 7 Gait distance (FIM): 3=150 ft Distance: 200' Gait Level of Assist: 7 Gait Assistive Device: None PT Plan Treatment/Plan Treatment Plan: Continue Plan of Care Treatment Plan: Bed Mobility, Education, Functional Activity Alexia, Functional Strength, Gait, Safety, Therapeutic Exercise, Transfers Treatment Duration: Mar 26, 2019 Frequency: 6 times per week Estimated Hrs Per Day: .25 hour per day Patient and/or Family Agrees t: Yes Time/GCodes Time In: 1033 Time Out: 1055 Total Billed Treatment Time: 23 Total Billed Treatment 1 visit GT x 2 23 min KHALIF GARCIA PT Mar 17, 2019 11:13
--- NOTE | 2019-03-17 11:15 | NUR ---
Adan BROUGHT TELE SITTER IN ROOM -- PT VOICED THAT WAS OK WITH HIM --
--- NOTE | 2019-03-17 11:48 | Occupational Ther Daily Note ---
OT Current Status-Daily Note Subjective Pt. reports that his feet are "sore," but does not give a pain level. States, "its just because I have been in bed for days." Agrees to work with OT. Appearance Pt. in bed. Has just transferred to 4th floor. Mental Status/Objective Patient Orientation: Person, Place Therapy Code Descriptions/Definitions Functional [place] Measure: 0=Not Assessed/NA 4=Minimal Assistance 1=Total Assistance 5=Supervision or Setup 2=Maximal Assistance 6=Modified [place] 3=Moderate Assistance 7=Complete [place] Attachments: IV ADL-Treatment Bathing (FIM): 4 (CGA in stance to dry all parts. Pt. able to dry his feet by sitting down. Pt. showered.) Lower Body Dressing (FIM): 4 (Pt. able to doff slipper socks. Able to don left sock and attempted to don right. Able to get right sock onto front of foot, but unable to pull the rest of way.) Transfers (B, C, W/C) (FIM): 4 Shower Transfer(FIM): 4 Other Treatment Pt. able to transfer supine-sit with SBA, and sit-stand with min assist. Ambulated to shower with CGA. After showering, pt. ambulated back to bed with CGA. Transferred to bed. Tele sitter in room and notified nursing pt. back to bed. Rails up and alarm set. All needs met. Pt. ordering lunch. Education OT Patient Education: Correct positioning, Modified ADL techniques, Progress toward Goal/Update tx plan, Purpose of tx/functional activities, Reviewed precautions, Rehab process, Transfer techniques Teaching Recipient: Patient Teaching Methods: Demonstration, Discussion Response to Teaching: Verbalize Understanding, Return Demonstration OT Short Term Goals Short Term Goals Grooming(FIM): 6 1=Demonstrate adherence to instructed precautions during ADL tasks. 2=Patient will verbalize/demonstrate understanding of assistive devices/modifications for ADL. 3=Patient will improve strength/tolerance for activity to enable patient to perform ADL's. OT Detention Goals Detention Goals Eating (FIM): 6 Grooming(FIM): 6 Bathing(FIM): 6 Upper Body Dressing(FIM): 6 Lower Body Dressing(FIM): 6 Toileting(FIM): 6 Transfers (B,C,W/C) (FIM): 6 Toilet/Commode Transfer(FIM): 6 Additional Goals: 1-Demonstrate ADL Tasks, 2-Verbalize Understanding, 3- ImproveStrength/Alexia 1=Demonstrate adherence to instructed precautions during ADL tasks. 2=Patient will verbalize/demonstrate understanding of assistive devices/modifications for ADL. 3=Patient will improve strength/tolerance for activity to enable patient to perform ADL's. OT Education/Plan Problem List/Assessment Assessment: Decreased Activ Tolerance, Dependent Transfers, Impaired Funct Balance, Impaired I ADL's, Impaired Self-Care Skills Discharge Recommendations Plan/Recommendations: Continue POC Therapy Discharge Recommendati: Post Acute OT Treatment Plan/Plan of Care Treatment,Training & Education: Yes Patient would benefit from OT for education, treatment and training to promote independence in ADL's, mobility, safety and/or upper extremity function for ADL's. Plan of Care: ADL Retraining, Functional Mobility, Group Exercise/Act as Ind, UE Funct Exercise/Act Treatment Duration: Mar 30, 2019 Frequency: 5 times per week Estimated Hrs Per Day: .25 hour per day Agreement: Yes Rehab Potential: Good Time/GCodes Start Time: 11:10 Stop Time: 11:37 Total Time Billed (hr/min): 27 Billed Treatment Time 1, ADL x 2 ZENOBIA CHUNG OT Mar 17, 2019 11:48
--- NOTE | 2019-03-17 13:07 | NUR ---
CM/SS. Physician indicates patient has first appointment with [facility] tomorrow at 1400 and that he would need transport from [facility] to [facility]. TRANSPORT: Scheduled with [facility] for 1300 prompt, patient to be picked up at Outpatient Entrance. Updated RN. [facility] anticipates approx 3 hours of assessment/intervention with patient, [facility] to transport patient home when care is completed.
[2019-03-17] MEDS ORDERED: TAMSULOSIN 0.4 MG (FLOMAX) CAP PO SCH (18:00)
--- NOTE | 2019-03-17 19:04 | Progress Note ---
Subjective Subjective/Events-last exam Doing well this AM off all sedation. transfer patient to med surg. Tolerating PO diet, ambulation. Review of Systems Pulmonary: Cough Cardiovascular: No: Chest Pain, Palpitations, Edema Gastrointestinal: No: Nausea, Vomiting, Abdominal Pain, Diarrhea, Constipation Genitourinary: No Dysuria, No Frequency Neurological: Weakness Objective Exam Last Set of Vital Signs Vital Signs Date Time Temp Pulse Resp B/P (MAP) Pulse Ox O2 Delivery O2 Flow Rate FiO2 03/17/19 17:15 36.2 85 18 115/78 95 Room Air 03/16/19 03:21 3.00 03/14/19 08:00 21 Capillary Refill : Less Than 3 Seconds I&O Intake and Output 03/17/19 00:00 Intake Total 3690 ml Output Total 5125 ml Balance -1435 ml Intake Oral 1550 ml IV Total 2140 ml Output Urine Total 5125 ml # Bowel Movements 1 General: Alert, Oriented X3, Cooperative, No Acute Distress HEENT: Mucous Memb Moist/Ney Lungs: Clear to Auscultation, Normal Air Movement Heart: Regular Rate, No Murmurs Abdomen: Normal Bowel Sounds, Soft, No Tenderness, No Masses Extremities: No Edema, No Tenderness/Swelling Results/Procedures Lab Laboratory Tests 03/17/19 02:54: White Blood Count 6.7, Red Blood Count 3.48L, Hemoglobin 10.4L, Hematocrit 30L, Mean Corpuscular Volume 86, Mean Corpuscular Hemoglobin 30, Mean Corpuscular Hemoglobin Concent 35, Red Cell Distribution Width 12.7, Platelet Count 188, Mean Platelet Volume 8.7, Neutrophils (%) (Auto) 65, Lymphocytes (%) (Auto) 21, Monocytes (%) (Auto) 13H, Eosinophils (%) (Auto) 0, Basophils (%) (Auto) 0, Neutrophils # (Auto) 4.4, Lymphocytes # (Auto) 1.4, Monocytes # (Auto) 0.9, Eosinophils # (Auto) 0.0, Basophils # (Auto) 0.0, Sodium Level 141, Potassium Level 3.4L, Chloride Level 108H, Carbon Dioxide Level 23, Anion Gap 10, Blood Urea Nitrogen 11, Creatinine 0.82, Estimat Glomerular Filtration Rate > 60, BUN /Creatinine Ratio 13, Glucose Level 113H, Calcium Level 9.4, Phosphorus Level 4.1, Magnesium Level 1.8 Microbiology 03/14/19 Gram Stain - Final, Complete 03/14/19 Sputum Culture - Final, Complete Usual upper respiratory theron Radiology CT HEAD/CERVICAL SPINE WO PROCEDURE: CT head and CT cervical spine without contrast. TECHNIQUE: Multiple contiguous axial images were obtained through the brain and cervical spine without the use of intravenous contrast. Sagittal and coronal reformations through the cervical spine were then performed. Auto Exposure Controls were utilized during the CT exam to meet ALARA standards for radiation dose reduction. INDICATION: Found unresponsive. FINDINGS: The ventricles are normal in size, shape and position. There is no acute parenchymal hemorrhage, edema or mass. There is no extra-axial mass or hemorrhage. No skull fracture is seen. There is paranasal sinus disease present. There is normal height and alignment of the cervical vertebral bodies. There is disc space narrowing at C5-6. No fracture or other acute abnormality is seen. IMPRESSION: 1. CT of the head shows paranasal sinus disease with no acute intracranial abnormality. 2. CT of the cervical spine shows no acute abnormality. Assessment/Plan Assessment/Plan (1) Alcohol intoxication Status: Acute Assessment & Plan: Severe with EtOH level over 400 on admit, requiring intubation due to sedation unable to protect airway. LEXI, alcohol withdrawal protocol. 03/14: Extubated this AM, combative at times, PRN Ativan, Haldol 03/15: awake and less combative, continues to require precedex and PRN ativan 03/16: Off all sedation and cardene, states that he is interested in outpatient ATS treatment, plan to set up at discharge with [facility] ATS 03/17: Intake appts with ATS at [facility] tomorrow 240 (2) Acute respiratory failure Status: Resolved Assessment & Plan: Intubated in ER, improving with mechanical ventilation. Management per Dr. Anderson. 03/15: Extubated yesterday, Continue MAT protocol 03/16: Resolved, Continue MAT, On RA Qualifiers: Qualified Codes: J96.02 - Acute respiratory failure with hypercapnia (3) Acidosis Status: Resolved Assessment & Plan: Secondary to hypercapnea and lactic acidosis. Improved this am after mechanical ventilation. (4) Hypertension Status: Chronic Assessment & Plan: Resume home meds. 03/15: Cardene drip started today 03/16: Off Cardene, Controlled on PO meds Qualifiers: Qualified Codes: I10 - Essential (primary) hypertension (5) Hypernatremia Status: Resolved Assessment & Plan: D51/2NS (6) Hypokalemia Status: Resolved Assessment & Plan: Resolved with IVF overnight. (7) Lactic acid acidosis Status: Resolved Assessment & Plan: Recheck. No sign of infection. (8) DVT prophylaxis Status: Acute Assessment & Plan: Enoxaparin Clinical Quality Measures DVT/VTE Risk/Contraindication: Risk Factor Score Per Nursin RFS Level Per Nursing on Admit: 4+=Very High KENZIE CLEMENS MD Mar 17, 2019 19:04
--- NOTE | 2019-03-17 19:10 | Short Stay Summary-Hospitalist ---
Short Stay Diagnosis D/C Date Mar 17, 2019 at 17:15 (1) Respiratory failure (2) Lactic acid acidosis (3) Alcohol intoxication (4) Hypernatremia (5) Hypertension Clinical Quality Measures DVT/VTE Risk/Contraindication: Risk Factor Score Per Nursin RFS Level Per Nursing on Admit: 4+=Very High KENZIE CLEMENS MD Mar 17, 2019 19:10
== END 2019-03-17 17:15 | disposition left against medical advice (07) | DRG 208 ==
LOC: EDUNIT# 19:08 → ER 19:09 → ICU 20:40 → 4TH 03-17 11:11
PROVIDERS: ADMIT Family Medicine; ATTEND Family Medicine
PROC: 5A1945Z Respiratory Ventilation, 24-96 Consecutive Hours (ICD-10-PCS; principal; 2019-03-10)
PROC: 0BH17EZ Insertion of Endotracheal Airway into Trachea, Via Natural or Artificial Opening (ICD-10-PCS; 2019-03-10)
DX: J96.02 Acute respiratory failure with hypercapnia (principal); F10.229 Alcohol dependence with intoxication, unspecified; F10.239 Alcohol dependence with withdrawal, unspecified; Y90.8 Blood alcohol level of 240 mg/100 ml or more; E87.2 Acidosis; E87.0 Hyperosmolality and hypernatremia; S00.03XA Contusion of scalp, initial encounter; J44.9 Chronic obstructive pulmonary disease, unspecified; I10 Essential (primary) hypertension; E78.00 Pure hypercholesterolemia, unspecified; J30.2 Other seasonal allergic rhinitis; E11.9 Type 2 diabetes mellitus without complications; F41.9 Anxiety disorder, unspecified; F32.9 Major depressive disorder, single episode, unspecified; E87.6 Hypokalemia; D64.9 Anemia, unspecified; M54.9 Dorsalgia, unspecified; L30.9 Dermatitis, unspecified; Z91.19 Patient's noncompliance with other medical treatment and regimen; F12.90 Cannabis use, unspecified, uncomplicated; Z87.891 Personal history of nicotine dependence; Z91.5 Personal history of self-harm; W19.XXXA Unspecified fall, initial encounter; Y92.29 Other specified public building as the place of occurrence of the external cause; Z88.5 Allergy status to narcotic agent
CPT/HCPCS: 31500; 36415; 36569; 51702; 70450; 71045; 72125; 72170; 76937; 80048; 80053; 80306; 80320; 80329; 81000; 82150; 82550; 82553; 82805; 82962; 83605; 83690; 83735; 83874; 83880; 84100; 84484; 85025; 85610; 85730; 87070; 87081; 87205; 93005; 93041; 94002; 94003; 94640; 94760; 94799; 96361; 96374; 96375; 99291; 99292

== ENCOUNTER 2019-04-19 21:30 | Emergency (ER) | payer SELFPAY ==
[~2019-04-19] VITALS: Ht 185 cm; Wt 104.0 kg
[~2019-04-19 21:30] MED LIST changes: +FAMO40TA6 PO
[2019-04-19] MEDS ORDERED: NS IV 1000 ML 1,000 ML IV SCH (22:00)
--- NOTE | 2019-04-19 22:01 | ED General ---
General Stated Complaint: DRUNK Source of Information: Patient Exam Limitations: No Limitations (JOSEFINA DYE APRN) History of Present Illness Date Seen by Provider: Apr 19, 2019 Time Seen by Provider: 21:59 Initial Comments To ER per EMS from [employer] parking lot where he was found to be unresponsive in his car, apparently police frequently have to deal with him there due to alcoholism. Timing/Duration: 1-2 Days Severity: Moderate Associated Systoms: Denies Symptoms (JOSEFINA DYE APRN) Allergies and Home Medications Allergies Coded Allergies: fentanyl (Verified Allergy, Unknown, 01/24/16) morphine (Verified Allergy, Unknown, 10/28/13) Home Medications Amlodipine Besylate 5 Mg Tablet, 10 MG PO DAILY, (Reported) Famotidine 40 Mg Tablet, 40 MG PO DAILY, (Reported) Lisinopril 40 Mg Tablet, 40 MG PO DAILY, (Reported) Paroxetine HCl 20 Mg Tablet, 40 MG PO DAILY, (Reported) Prazosin HCl 2 Mg Capsule, 2 MG PO HS, (Reported) Patient Home Medication List Home Medication List Reviewed: Yes (JOSEFINA DYE APRN) Review of Systems Review of Systems Constitutional: see HPI, other (unable to obtain due to mental status no I called her and she said she called back but she was starting an IV and that was about) (JOSEFINA DYE APRN) Past Ioyxzlj-Yqwkub-Luicrj Hx Patient Social History Alcohol Beverage of Choice: Beer, Whiskey Drug of Choice: THC Type Used: Cigarettes, Smokeless Tobacco 2nd Hand Smoke Exposure: No Recent Foreign Travel: No Contact w/Someone Who Travel: No Recent Hopitalizations: No (UNK) (JOSEFINA DYE APRN) Immunizations Up To Date Tetanus Booster (TDap): Unknown PED Vaccines UTD: Yes Date of Pneumonia Vaccine: Dec 04, 2013 Date of Influenza Vaccine: Apr 11, 2015 (JOSEFINA DYE APRN) Seasonal Allergies Seasonal Allergies: Yes (JOSEFINA DYE APRN) Past Medical History Surgeries: Yes (HAND LACERATION REPAIR) Orthopedic Respiratory: Yes Asthma, COPD Currently Using CPAP: No Currently Using BIPAP: No Cardiac: Yes High Cholesterol, Hypertension Neurological: No Reproductive Disorders: No Sexually Transmitted Disease: No HIV/AIDS: No Genitourinary: Yes Renal Failure Gastrointestinal: No Musculoskeletal: Yes (CHRONIC KNEE PAIN ; PSEUDOGOUT) Chronic Back Pain Endocrine: Yes Diabetes, Non-Insulin dep HEENT: No Cancer: No Psychosocial: Yes (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; POLYSUBSTANCE ABUSE) Anxiety, Suicide Attempts, Depression Integumentary: Yes Eczema Blood Disorders: No Adverse Reaction/Blood Tranf: No (JOSEFINA DYE APRN) Family Medical History Alcoholism 19 MOTHER Diabetes mellitus 19 FATHER G8 BROTHER Family history: Asthma Family history: Cardiovascular disease 19 FATHER, Onset:50's - 60 (FATHER) Family history: Coronary thrombosis 19 FATHER, Onset:50's - 60 Family history: Diabetes mellitus 19 FATHER, Onset:50's - 60 Family history: Hypertension 19 FATHER, Onset:30's - 40 Hearing loss 19 FATHER, Onset:50's - 60 Heart disease 19 FATHER, Onset:50's - 60 Myocardial infarction G8 BROTHER, Onset:40's - 50 Stroke G8 BROTHER, Onset:40's - 50 No Family History of: Abdominal aortic aneurysm Rodrick's disease Alcoholism Aphasia Cancer Cancer of colon Cataract Chest pain Congenital heart disease Congestive heart failure Cystic fibrosis Dementia Dysphagia Family history: Alzheimer's disease Family history: Arthritis Family history: Breast disease Family history: Gastrointestinal disease Family history: Osteoporosis Family history: Thyroid disorder Headache Hereditary disease History of - anemia History of - respiratory disease History of drug abuse Human immunodeficiency virus (HIV) seropositivity Hypercholesterolemia Infertile Kidney disease Malignant neoplasm of lung Parkinson's disease Prostate cancer Psychotic disorder Seizure disorder Tuberculosis Visual impairment CAD Under 55 Years Old, CAD Over 55 Years Old, Diabetes, Hypertension, Stroke (JOSEFINA DYE APRN) Physical Exam Vital Signs Vital Signs - First Documented 04/19/19 21:33 Temp 35.5 Pulse 86 Resp 18 B/P (MAP) 142/79 (100) Pulse Ox 90 O2 Delivery Room Air (CHIQUI PEMBERTON MD) Vital Signs Capillary Refill : (JOSEFINA DYE APRN) Height, Weight, BMI Height: 6'0.00" Weight: 286lbs. 7.0oz. [id number]; 37.2 BMI Method:Estimated General Appearance: No Apparent Distress (;), WD/WN, Other (lethargic, keeps eyes closed, mumbling incoherently, maintaining his own airway fine.) Eyes: Bilateral Eye Normal Inspection, Bilateral Eye PERRL, Bilateral Eye EOMI HEENT: PERRL/EOMI, TMs Normal Neck: Full Range of Motion, Normal Inspection Respiratory: No Accessory Muscle Use, No Respiratory Distress Cardiovascular: Normal Peripheral Pulses, Tachycardia Gastrointestinal: Normal Bowel Sounds, Non Tender, Soft Extremity: Normal Capillary Refill, Normal Inspection Neurologic/Psychiatric: Alert, Oriented x3 Skin: Normal Color, Warm/Dry (JOSEFINA DYE APRN) Procedures/Interventions Date of ETT Placement: Mar 10, 2019 Time of ETT Placement: 193 (JOSEFINA DYE APRN) Suture Size: 5-0 (JOSEFINA DYE APRN) Progress/Results/Core Measures Suspected Sepsis SIRS Temperature: Pulse: Respiratory Rate: Blood Pressure / Mean: (JOSEFINA DYE APRN) Results/Orders Lab Results Laboratory Tests Test 04/19/19 22:15 04/20/19 02:22 Range/Units White Blood Count 6.8 4.3-11.0 10^3/uL Red Blood Count 4.71 4.35-5.85 10^6/uL Hemoglobin 14.1 13.3-17.7 G/DL Hematocrit 42 40-54 % Mean Corpuscular Volume 88 80-99 FL Mean Corpuscular Hemoglobin 30 25-34 PG Mean Corpuscular Hemoglobin Concent 34 32-36 G/DL Red Cell Distribution Width 15.3 H 10.0-14.5 % Platelet Count 176 130-400 10^3/uL Mean Platelet Volume 8.8 7.4-10.4 FL Neutrophils (%) (Auto) 58 42-75 % Lymphocytes (%) (Auto) 35 12-44 % Monocytes (%) (Auto) 6 0-12 % Eosinophils (%) (Auto) 0 0-10 % Basophils (%) (Auto) 0 0-10 % Neutrophils # (Auto) 3.9 1.8-7.8 X 10^3 Lymphocytes # (Auto) 2.4 1.0-4.0 X 10^3 Monocytes # (Auto) 0.4 0.0-1.0 X 10^3 Eosinophils # (Auto) 0.0 0.0-0.3 10^3/uL Basophils # (Auto) 0.0 0.0-0.1 10^3/uL Sodium Level 147 H 135-145 MMOL/L Potassium Level 3.8 3.6-5.0 MMOL/L Chloride Level 108 H 98-107 MMOL/L Carbon Dioxide Level 23 21-32 MMOL/L Anion Gap 16 H 5-14 MMOL/L Blood Urea Nitrogen 16 7-18 MG/DL Creatinine 0.95 0.60-1.30 MG/DL Estimat Glomerular Filtration Rate > 60 BUN/Creatinine Ratio 17 Glucose Level 97 70-105 MG/DL Calcium Level 9.1 8.5-10.1 MG/DL Corrected Calcium 8.5-10.1 MG/DL Total Bilirubin 0.2 0.1-1.0 MG/DL Aspartate Amino Transf (AST/SGOT) 17 5-34 U/L Alanine Aminotransferase (ALT/SGPT) 19 0-55 U/L Alkaline Phosphatase 39 L 40-136 U/L Total Protein 8.3 H 6.4-8.2 GM/DL Albumin 4.6 H 3.2-4.5 GM/DL Salicylates Level < 5.0 L 5.0-20.0 MG/DL Acetaminophen Level < 10 L 10-30 UG/ML Serum Alcohol 427 *H <10 MG/DL Urine Color YELLOW Urine Clarity CLEAR Urine pH 5 5-9 Urine Specific [place] 1.020 1.016-1.022 Urine Protein NEGATIVE NEGATIVE Urine Glucose (UA) NEGATIVE NEGATIVE Urine Ketones NEGATIVE NEGATIVE Urine Nitrite NEGATIVE NEGATIVE Urine Bilirubin NEGATIVE NEGATIVE Urine Urobilinogen NORMAL NORMAL MG/DL Urine Leukocyte Esterase NEGATIVE NEGATIVE Urine RBC (Auto) NEGATIVE NEGATIVE Urine RBC NONE /HPF Urine WBC NONE /HPF Urine Squamous Epithelial Cells RARE /HPF Urine Crystals NONE /LPF Urine Bacteria TRACE /HPF Urine Casts NONE /LPF Urine Mucus NEGATIVE /LPF Urine Culture Indicated NO Urine Opiates Screen NEGATIVE NEGATIVE Urine Oxycodone Screen NEGATIVE NEGATIVE Urine Methadone Screen NEGATIVE NEGATIVE Urine Propoxyphene Screen NEGATIVE NEGATIVE Urine Barbiturates Screen NEGATIVE NEGATIVE Ur Tricyclic Antidepressants Screen NEGATIVE NEGATIVE Urine Phencyclidine Screen NEGATIVE NEGATIVE Urine Amphetamines Screen NEGATIVE NEGATIVE Urine Methamphetamines Screen NEGATIVE NEGATIVE Urine Benzodiazepines Screen NEGATIVE NEGATIVE Urine Cocaine Screen NEGATIVE NEGATIVE Urine Cannabinoids Screen POSITIVE H NEGATIVE (CHIQUI PEMBERTON MD) My Orders Orders - CHIQUI PEMBERTON MD Lactated Ringers (Lr 1000 Ml Iv Solution (04/20/19 02:06) (CHIQUI PEMBERTON MD) Medications Given in ED Current Medications Medications Dose Ordered Sig/Jaki Route Start Time Stop Time Status Last Admin Dose Admin Lactated Ringer's 1,000 ml @ ud STK-MED ONCE IV 04/20/19 02:06 04/20/19 02:08 DC 04/20/19 02:30 1,000 MLS/HR (CHIQUI PEMBERTON MD) Vital Signs/I&O 04/19/19 21:33 Temp 35.5 Pulse 86 Resp 18 B/P (MAP) 142/79 (100) Pulse Ox 90 O2 Delivery Room Air (CHIQUI PEMBERTON MD) Vital Signs/I&O Capillary Refill : (JOSEFINA DYE APRN) Progress Note : Progress Note Assumed care of the patient at 2300. Patient noted to have elevated alcohol level. Pending UA. In no acute distress. We will continue to monitor. 0605: Patient is doing better. Heart rate in the 80s. He did wake to verbal and I did talk with him about the current situation. He does have history of alcohol and drug abuse which she admits. He is in AA and other programs for his alcohol abuse. We did discuss the dangers of being in a car while drinking. He verbalizes understanding. He is still a bit shaky and needs a little bit more time. I did transfer care to Dr. Bowie to watch for a while longer with anticipation of trying to see if he can tolerate by mouth and then ultimately will be discharged. Dr. Bowie will continue care. (CHIQUI PEMBERTON MD) Progress Note #1: Time: 07:10 Progress Note Patient is now up and walking around without difficulty. He is tolerating water and crackers without problem. He is ready for discharge. He intends to seek treatment at [facility] in [place]. Progress Note #2: Time: 07:35 Progress Note This patient was being prepared for discharge he was noted to be extremely hypertensive. He then started to tremor and become agitated and perspire profusely. He is going into alcohol withdrawal. We need to control the symptoms before he is either admitted or discharged. He is trying to decide which route he would like to go in regard to outpatient therapy versus inpatient detox. We will start with 2 mg of Ativan and add his usual dose of lisinopril. Progress Note #3: Time: 08:35 Progress Note Patient's symptoms are under control with Ativan 2 mg IV and lisinopril 40 mg orally. [place] was given for nausea. I discussed the situation with Dr. Alicea. She advised checking it with [facility] to determine if there is bed availability before committing to admission. Unfortunately, [facility] did not have any beds available. Patient will therefore be referred to outpatient services. He was given an additional 2 mg of Ativan orally prior to dismissal. He will be dismissed to return home by cab. He states he will be able to get to the liquor store soon as he returns home. We discussed drinking in moderation and not abruptly stopping alcohol to avoid withdrawal. He was advised to contact [facility] and [facility] to arrange for outpatient treatment in transition to inpatient therapy if appropriate. Systolic blood pressure was 150 prior to dismissal. Patient is very apologetic and appreciative of the services he received today. He is tearful about his choices. Patient was additionally encouraged to seek resources at [facility] [place] well as [facility]. (ELIZA LOPEZ MD) Departure Impression Primary Impression: Acute alcoholic intoxication Qualified Codes: F10.929 - Alcohol use, unspecified with intoxication, unspecified Additional Impression: Polysubstance abuse Disposition: 01 HOME, SELF-CARE Condition: Improved Departure-Patient Inst. Decision time for Depature: 07:12 (ELIZA LOPEZ MD) Referrals: [facility] (PCP/Family) Primary Care Physician Patient Instructions: ALCOHOL AND SUBSTANCE ABUSE Add. Discharge Instructions: Drink plenty of clear liquids today. Gradually advance your diet with small quantities of bland food as tolerated. If you are accustomed to drinking alcohol every day, do not abruptly stop alcohol consumption completely. Gradually decrease the amount of alcohol you drink until you can stop. Please follow-up with an appropriate treatment center as soon as possible such as [facility] in [place]. Return to the emergency room as needed. Copy Copies To 1: BILLIE FORTUNE MD, PETER J APRN Apr 19, 2019 22:01 CHIQUI PEMBERTON MD Apr 20, 2019 00:09 ELIZA LOPEZ MD Apr 20, 2019 07:13
[2019-04-19 22:27] LABS: BASOPHILS % (AUTO) 0 % (0-10); EOSINOPHILS % (AUTO) 0 % (0-10); HEMATOCRIT 42 % (40-54); HEMOGLOBIN 14.1 G/DL (13.3-17.7); LYMPHOCYTES # (AUTO) 2.4 X 10^3 (1.0-4.0); LYMPHOCYTES % (AUTO) 35 % (12-44); MEAN CORPUSCULAR HEMOGLOBIN 30 PG (25-34); MEAN CORPUSCULAR HGB CONC 34 G/DL (32-36); MEAN CORPUSCULAR VOLUME 88 FL (80-99); MEAN PLATELET VOLUME 8.8 FL (7.4-10.4); MONOCYTES # (AUTO) 0.4 X 10^3 (0.0-1.0); MONOCYTES % (AUTO) 6 % (0-12); NEUTROPHILS # (AUTO) 3.9 X 10^3 (1.8-7.8); NEUTROPHILS % (AUTO) 58 % (42-75); PLATELET COUNT 176 10^3/uL (130-400); RED CELL DISTRIBUTION WIDTH 15.3 % (10.0-14.5); WHITE BLOOD COUNT 6.8 10^3/uL (4.3-11.0)
[2019-04-19 22:47] LABS: ALANINE AMINOTRANSFERASE 19 U/L (0-55); ALBUMIN 4.6 GM/DL (3.2-4.5); ALKALINE PHOSPHATASE 39 U/L (40-136); BILIRUBIN,TOTAL 0.2 MG/DL (0.1-1.0); BUN/CREATININE RATIO 17; CALCIUM 9.1 MG/DL (8.5-10.1); CARBON DIOXIDE 23 MMOL/L (21-32); CHLORIDE 108 MMOL/L (98-107); CREATININE SERUM 0.95 MG/DL (0.60-1.30); GFR ESTIMATED > 60; GLUCOSE 97 MG/DL (70-105); POTASSIUM 3.8 MMOL/L (3.6-5.0); SALICYLATE < 5.0 MG/DL (5.0-20.0); SODIUM 147 MMOL/L (135-145); TOTAL PROTEIN 8.3 GM/DL (6.4-8.2)
[2019-04-19 22:52] LABS: ACETAMINOPHEN < 10 UG/ML (10-30)
[2019-04-20] MEDS ORDERED: LACTATED RINGERS 1,000 ML IV ONE (02:06)
[2019-04-20 02:32] LABS: BILIRUBIN,URINE NEGATIVE (NEGATIVE); CLARITY,URINE CLEAR; COLOR,URINE YELLOW; GLUCOSE, URINE (UA) NEGATIVE (NEGATIVE); KETONES,URINE NEGATIVE (NEGATIVE); LEUKOCYTE ESTERASE ,URINE NEGATIVE (NEGATIVE); NITRITE,URINE NEGATIVE (NEGATIVE); PH,URINE 5 (5-9); PROTEIN,URINE NEGATIVE (NEGATIVE); UROBILINOGEN,URINE NORMAL (NORMAL)
[2019-04-20 03:02] LABS: AMPHETAMINE SCREEN, URINE NEGATIVE (NEGATIVE); BACTERIA,URINE TRACE /HPF; BARBITURATE SCREEN URINE NEGATIVE (NEGATIVE); BENZODIAZEPINES SCREEN URINE NEGATIVE (NEGATIVE); CANNABINOID SCREEN, URINE POSITIVE (NEGATIVE); COCAINE SCREEN URINE NEGATIVE (NEGATIVE); METHADONE STAT NEGATIVE (NEGATIVE); METHAMPHETAMINE SCREEN URINE S NEGATIVE (NEGATIVE); OPIATE SCREEN URINE NEGATIVE (NEGATIVE); OXYCODONE STAT NEGATIVE (NEGATIVE); PROPOXYPHENE STAT NEGATIVE (NEGATIVE); SQUAMOUS EPITHELIAL CELL,UR RARE /HPF; TRICYCLIC ANTIDEPRESSANTS SCRE NEGATIVE (NEGATIVE)
--- NOTE | 2019-04-20 07:00 | NUR ---
REPORT FROM JHONY BAKER.
--- NOTE | 2019-04-20 07:10 | NUR ---
WALKING IN [place] EATING AND DRINKING.
--- NOTE | 2019-04-20 07:15 | NUR ---
WENT TO TAKE DISCHARGE VITALS B/P 187/139 DR NOTIFIED IV RESTARTED AND MEDS GIVEN
[2019-04-20] MEDS ORDERED: LORazepam INJ 2 MG/ML (ATIVAN) VIAL IVP ONE ×3 (07:30→08:15)
[2019-04-20] MEDS ORDERED: lisINopril 20 MG (PRINIVIL) TABLET PO ONE (07:30)
--- NOTE | 2019-04-20 07:44 | NUR ---
IV RESTARTED TO GIVE ATIVAN DUE TO PATIENT RESTLESS.
[2019-04-20] MEDS ORDERED: ONDANSETRON 4 MG/2 ML (SDV) Z0FRAN IVP ONE (08:00)
[2019-04-20] MEDS ORDERED: LORazepam 0.5 MG (ATIVAN) TABLET PO STA ×2 (08:22)
--- NOTE | 2019-04-20 08:30 | NUR ---
PATIENT IMPROVED TALKED WITH PATIENT ABOUT WHERE TO GET HELP FOR HIS ALCOHOLISM
[2019-04-20 08:50] VITALS: BP 142/104
--- NOTE | 2019-04-20 08:50 | NUR ---
IMPROVED FEELING BETTER. DISCHARGE AMB CALLED [facility] TO TAKE PATIENT HOME.
== END 2019-04-20 08:50 | disposition home or self-care (01) ==
LOC: EDUNIT# 21:30 → ER 21:31
DX: F10.229 Alcohol dependence with intoxication, unspecified (principal); F12.10 Cannabis abuse, uncomplicated; F19.90 Other psychoactive substance use, unspecified, uncomplicated; J44.9 Chronic obstructive pulmonary disease, unspecified; I10 Essential (primary) hypertension; E11.9 Type 2 diabetes mellitus without complications; E78.00 Pure hypercholesterolemia, unspecified; F41.9 Anxiety disorder, unspecified; F32.9 Major depressive disorder, single episode, unspecified; Z91.5 Personal history of self-harm; Z88.5 Allergy status to narcotic agent; Z82.49 Family history of ischemic heart disease and other diseases of the circulatory system
CPT/HCPCS: 36415; 80053; 80306; 80320; 80329; 81000; 85025

== ENCOUNTER 2019-04-22 11:34 | Emergency (ER) | payer SELFPAY ==
[~2019-04-22] VITALS: Ht 177.8 cm; Wt 113.6 kg
[2019-04-22] MEDS ORDERED: LACTATED RINGERS 1,000 ML IV ONE (11:41)
[2019-04-22] MEDS ORDERED: FAMOTIDINE 20MG/2ML IV (PEPCID) IVP ONE (11:45)
[2019-04-22] MEDS ORDERED: ONDANSETRON 4 MG/2 ML (SDV) Z0FRAN IVP ONE (11:45)
[2019-04-22 11:55] LABS: BASOPHILS % (AUTO) 0 % (0-10); EOSINOPHILS % (AUTO) 0 % (0-10); HEMATOCRIT 45 % (40-54); HEMOGLOBIN 14.9 G/DL (13.3-17.7); LYMPHOCYTES # (AUTO) 1.6 X 10^3 (1.0-4.0); LYMPHOCYTES % (AUTO) 27 % (12-44); MEAN CORPUSCULAR HEMOGLOBIN 30 PG (25-34); MEAN CORPUSCULAR HGB CONC 34 G/DL (32-36); MEAN CORPUSCULAR VOLUME 90 FL (80-99); MEAN PLATELET VOLUME 8.8 FL (7.4-10.4); MONOCYTES # (AUTO) 0.3 X 10^3 (0.0-1.0); MONOCYTES % (AUTO) 5 % (0-12); NEUTROPHILS # (AUTO) 4.1 X 10^3 (1.8-7.8); NEUTROPHILS % (AUTO) 68 % (42-75); PLATELET COUNT 170 10^3/uL (130-400); RED CELL DISTRIBUTION WIDTH 15.9 % (10.0-14.5); WHITE BLOOD COUNT 6.1 10^3/uL (4.3-11.0)
--- NOTE | 2019-04-22 12:07 | ED Psychosocial ---
General Chief Complaint: Substance Abuse Stated Complaint: ETOH Nursing Triage Note: Patient brought by EMS with AMS Source: patient, EMS, old records Exam Limitations: no limitations History of Present Illness Date Seen by Provider: Apr 22, 2019 Time Seen by Provider: 11:36 Initial Comments This 48-year-old man presents to the emergency room via EMS with presumed intoxication. He is a known alcoholic who has been seen recently in the e mergency room for intoxication. He was found on the ground with altered mental status near a liquor store on [address]. There is no known trauma but a stone patient's report, it is unclear if he had any fall or head injury. C- collar was placed during assessment. He is able to follow commands and does answer some questions. See notes from prior visit for more details. Patient reports abdominal discomfort. Allergies and Home Medications Allergies Coded Allergies: fentanyl (Verified Allergy, Unknown, 01/24/16) morphine (Verified Allergy, Unknown, 10/28/13) Home Medications Amlodipine Besylate 5 Mg Tablet, 10 MG PO DAILY, (Reported) Famotidine 40 Mg Tablet, 40 MG PO DAILY, (Reported) Lisinopril 40 Mg Tablet, 40 MG PO DAILY, (Reported) Paroxetine HCl 20 Mg Tablet, 40 MG PO DAILY, (Reported) Prazosin HCl 2 Mg Capsule, 2 MG PO HS, (Reported) Patient Home Medication List Home Medication List Reviewed: Yes Review of Systems Constitutional: see HPI EENTM: no symptoms reported Respiratory: no symptoms reported Cardiovascular: no symptoms reported Gastrointestinal: no symptoms reported Genitourinary: no symptoms reported Musculoskeletal: no symptoms reported Skin: no symptoms reported Psychiatric/Neurological: See HPI Past Sbzvlel-Xaixdt-Jldybg Hx Past Med/Social Hx: Reviewed Nursing Past Med/Soc Hx Patient Social History Alcohol Use: Regular Use Number of Drinks Today: GG Alcohol Beverage of Choice: Beer, Whiskey Recreational Drug Use: Yes Drug of Choice: THC Type Used: Cigarettes, Smokeless Tobacco 2nd Hand Smoke Exposure: No Recent Foreign Travel: No Contact w/Someone Who Travel: No Recent Infectious Disease Expo: No Recent Hopitalizations: No (UNK) Immunizations Up To Date Tetanus Booster (TDap): Unknown PED Vaccines UTD: No Date of Pneumonia Vaccine: Dec 04, 2013 Date of Influenza Vaccine: Apr 11, 2015 Seasonal Allergies Seasonal Allergies: Yes Past Medical History Surgeries: Yes (HAND LACERATION REPAIR) Orthopedic Respiratory: Yes Asthma, COPD Currently Using CPAP: No Currently Using BIPAP: No Cardiac: Yes High Cholesterol, Hypertension Neurological: No Reproductive Disorders: No Sexually Transmitted Disease: No HIV/AIDS: No Genitourinary: Yes Renal Failure Gastrointestinal: No Musculoskeletal: Yes (CHRONIC KNEE PAIN ; PSEUDOGOUT) Chronic Back Pain Endocrine: Yes Diabetes, Non-Insulin dep HEENT: No Cancer: No Psychosocial: Yes (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; POLYSUBSTANCE ABUSE; alcoholism) Anxiety, Suicide Attempts, Depression Integumentary: Yes Eczema Blood Disorders: No Adverse Reaction/Blood Tranf: No Family Medical History Alcoholism 19 MOTHER Diabetes mellitus 19 FATHER G8 BROTHER Family history: Asthma Family history: Cardiovascular disease 19 FATHER, Onset:50's - 60 (FATHER) Family history: Coronary thrombosis 19 FATHER, Onset:50's - 60 Family history: Diabetes mellitus 19 FATHER, Onset:50's - 60 Family history: Hypertension 19 FATHER, Onset:30's - 40 Hearing loss 19 FATHER, Onset:50's - 60 Heart disease 19 FATHER, Onset:50's - 60 Myocardial infarction G8 BROTHER, Onset:40's - 50 Stroke G8 BROTHER, Onset:40's - 50 No Family History of: Abdominal aortic aneurysm Cheatham's disease Alcoholism Aphasia Cancer Cancer of colon Cataract Chest pain Congenital heart disease Congestive heart failure Cystic fibrosis Dementia Dysphagia Family history: Alzheimer's disease Family history: Arthritis Family history: Breast disease Family history: Gastrointestinal disease Family history: Osteoporosis Family history: Thyroid disorder Headache Hereditary disease History of - anemia History of - respiratory disease History of drug abuse Human immunodeficiency virus (HIV) seropositivity Hypercholesterolemia Infertile Kidney disease Malignant neoplasm of lung Parkinson's disease Prostate cancer Psychotic disorder Seizure disorder Tuberculosis Visual impairment CAD Under 55 Years Old, CAD Over 55 Years Old, Diabetes, Hypertension, Stroke Physical Exam Vital Signs - First Documented 04/22/19 04/22/19 11:40 13:41 Temp 36.3 Pulse 98 Resp 23 B/P (MAP) 147/91 (109) Pulse Ox 98 O2 Delivery Room Air Capillary Refill : Less Than 3 Seconds Height, Weight, BMI Height: 6'0.00" Weight: 286lbs. 7.0oz. 129.070695oy; 35.00 BMI Method:Estimated General Appearance: WD/WN, no apparent distress, other (appears intoxicated, disheveled, smells of urine) HEENT: PERRL/EOMI, normal ENT inspection, pharynx normal Neck: normal inspection Respiratory: lungs clear, normal breath sounds, no respiratory distress Cardiovascular: regular rate, rhythm, no edema Gastrointestinal: normal bowel sounds, non tender, soft Extremities: normal inspection, no pedal edema Neurologic/Psychiatric: alert, disoriented x 3, other (appears intoxicated. Follows instructions) Behavior/Eye Contact: cooperative, good eye contact Skin: normal color, warm/dry Procedures/Interventions Date of ETT Placement: Mar 10, 2019 Time of ETT Placement: 1934 Suture Size: 5-0 Progress/Results/Core Measures Results/Orders Lab Results Laboratory Tests Test 04/22/19 11:50 Range/Units White Blood Count 6.1 4.3-11.0 10^3/uL Red Blood Count 4.94 4.35-5.85 10^6/uL Hemoglobin 14.9 13.3-17.7 G/DL Hematocrit 45 40-54 % Mean Corpuscular Volume 90 80-99 FL Mean Corpuscular Hemoglobin 30 25-34 PG Mean Corpuscular Hemoglobin Concent 34 32-36 G/DL Red Cell Distribution Width 15.9 H 10.0-14.5 % Platelet Count 170 130-400 10^3/uL Mean Platelet Volume 8.8 7.4-10.4 FL Neutrophils (%) (Auto) 68 42-75 % Lymphocytes (%) (Auto) 27 12-44 % Monocytes (%) (Auto) 5 0-12 % Eosinophils (%) (Auto) 0 0-10 % Basophils (%) (Auto) 0 0-10 % Neutrophils # (Auto) 4.1 1.8-7.8 X 10^3 Lymphocytes # (Auto) 1.6 1.0-4.0 X 10^3 Monocytes # (Auto) 0.3 0.0-1.0 X 10^3 Eosinophils # (Auto) 0.0 0.0-0.3 10^3/uL Basophils # (Auto) 0.0 0.0-0.1 10^3/uL Sodium Level 145 135-145 MMOL/L Potassium Level 4.5 3.6-5.0 MMOL/L Chloride Level 103 98-107 MMOL/L Carbon Dioxide Level 24 21-32 MMOL/L Anion Gap 18 H 5-14 MMOL/L Blood Urea Nitrogen 10 7-18 MG/DL Creatinine 0.77 0.60-1.30 MG/DL Estimat Glomerular Filtration Rate > 60 BUN/Creatinine Ratio 13 Glucose Level 105 70-105 MG/DL Calcium Level 8.9 8.5-10.1 MG/DL Corrected Calcium 8.5 8.5-10.1 MG/DL Magnesium Level 2.1 1.6-2.4 MG/DL Total Bilirubin 0.3 0.1-1.0 MG/DL Aspartate Amino Transf (AST/SGOT) 39 H 5-34 U/L Alanine Aminotransferase (ALT/SGPT) 22 0-55 U/L Alkaline Phosphatase 39 L 40-136 U/L Total Protein 8.5 H 6.4-8.2 GM/DL Albumin 4.5 3.2-4.5 GM/DL Lipase 41 8-78 U/L Serum Alcohol 438 *H <10 MG/DL My Orders Orders - ELIZA LOPEZ MD Ed Iv/Invasive Line Start (04/22/19 11:41) Lactated Ringers (Lr 1000 Ml Iv Solution (04/22/19 11:41) Alcohol (04/22/19 11:41) Cbc With Automated Diff (04/22/19 11:41) Comprehensive Metabolic Panel (04/22/19 11:41) Magnesium (04/22/19 11:41) Ondansetron Injection (Zofran Injectio (04/22/19 11:45) Famotidine Injection (Pepcid Injection) (04/22/19 11:45) Lipase (04/22/19 11:41) Ct Head/Cervical Spine Wo (04/22/19 11:41) Medications Given in ED Current Medications Medications Dose Ordered Sig/Jaki Route Start Time Stop Time Status Last Admin Dose Admin Famotidine 20 mg ONCE ONCE IVP 04/22/19 11:45 04/22/19 11:46 DC 04/22/19 11:55 20 MG Lactated Ringer's 1,000 ml @ 0 mls/hr Q0M ONCE IV 04/22/19 11:41 04/22/19 11:44 DC 04/22/19 11:56 1,000 MLS/HR Ondansetron HCl 8 mg ONCE ONCE IVP 04/22/19 11:45 04/22/19 11:46 DC 04/22/19 11:56 8 MG Vital Signs/I&O 04/22/19 04/22/19 04/22/19 11:40 13:41 15:08 Temp 36.3 Pulse 98 87 98 Resp 23 12 18 B/P (MAP) 147/91 (109) 157/98 (117) 136/92 Pulse Ox 98 98 98 O2 Delivery Room Air Blood Pressure Mean: 109 Progress Progress Note #1: Time: 12:13 Progress Note Patient was seen and evaluated. C-collar was placed because of uncertainty of trauma. We will assess labs and hydrate. Zofran and Pepcid are being given prophylactically. Progress Note #2: Progress Note Case was discussed with Dr. Angulo. Since patient's primary reason for vi siting is intoxication and social circumstances, admission was not felt appropriate since he could hopefully sober with a short observation in the emergency room. Patient did eventually sober and was ambulatory around the unit. He was tolerating clear liquids. He was ultimately dismissed home again with recommendation to contact substance abuse resources. See note from his last visit for information. Patient was ambulatory from the unit and received a cab voucher. C-collar was cleared after patient was sober. Diagnostic Imaging Diagonstic Imaging: CT Plain Films/CT/US/NM/MRI: c-spine, head Comments CT head and C-spine viewed by me and report reviewed. See report below: NAME: BETINA TREVINO [facility] REC#: [id number] PT STATUS: REG ER : 1970 PHYSICIAN: ELIZA LOPEZ MD ADMIT DATE: 04/22/19/ER Draft Date of Exam:04/22/19 CT HEAD/CERVICAL SPINE WO PROCEDURE: CT head and CT cervical spine without contrast. TECHNIQUE: Multiple contiguous axial images were obtained through the brain and cervical spine without the use of intravenous contrast. Sagittal and coronal reformations through the cervical spine were then performed. Auto Exposure Controls were utilized during the CT exam to meet ALARA standards for radiation dose reduction. INDICATION: Altered mental status. Correlation is made with prior CT from 03/10/2019. CT brain: The ventricles and sulci are within normal limits. No sulcal effacement or midline shift is detected. No acute intra-axial or extra-axial hemorrhage is detected. There is some mucosal thickening and opacification of multiple bilateral ethmoid air cells with mucosal thickening of the right maxillary sinus. IMPRESSION: 1. No acute intracranial process detected. 2. Paranasal sinus disease. CT cervical spine: Alignment is normal. No fractures are seen. Prevertebral tissues are within normal limits. There are degenerative changes at C5-C6 and C6-C7 levels with disc space narrowing and marginal spurring. Odontoid is intact. IMPRESSION: Lower cervical spondylosis. No acute bony abnormality is detected. Dictated on workstation # [id number] Dict: 04/22/19 1222 Trans: 04/22/19 1227 [facility] [id number] Interpreted by: RAINE OCHOA MD Departure Impression Primary Impression: Acute alcoholic intoxication Qualified Codes: F10.929 - Alcohol use, unspecified with intoxication, unspecified Disposition: 01 HOME, SELF-CARE Condition: Improved Departure-Patient Inst. Decision time for Depature: 15:01 Referrals: [facility] (PCP/Family) Primary Care Physician Patient Instructions: ALCOHOL AND SUBSTANCE ABUSE Add. Discharge Instructions: Do not abruptly stop alcohol consumption as this may cause life-threatening withdrawals. Gradually reduce the amount of alcohol consumed as you work toward quitting. Work with the [facility] and with a qualified rehabilitation center such as [facility] in [place] ([phone]) to treat your alcoholism. Return to the emergency room if you have worsening symptoms. All discharge instructions reviewed with patient and/or family. Voiced understanding. Copy Copies To 1: KENZIE CLEMENS MD, JOSHUA T MD Apr 22, 2019 12:07
[2019-04-22 12:21] LABS: ALANINE AMINOTRANSFERASE 22 U/L (0-55); ALBUMIN 4.5 GM/DL (3.2-4.5); ALKALINE PHOSPHATASE 39 U/L (40-136); BILIRUBIN,TOTAL 0.3 MG/DL (0.1-1.0); BUN/CREATININE RATIO 13; CALCIUM 8.9 MG/DL (8.5-10.1); CARBON DIOXIDE 24 MMOL/L (21-32); CHLORIDE 103 MMOL/L (98-107); CREATININE SERUM 0.77 MG/DL (0.60-1.30); GFR ESTIMATED > 60; GLUCOSE 105 MG/DL (70-105); LIPASE 41 U/L (8-78); MAGNESIUM 2.1 MG/DL (1.6-2.4); POTASSIUM 4.5 MMOL/L (3.6-5.0); SODIUM 145 MMOL/L (135-145); TOTAL PROTEIN 8.5 GM/DL (6.4-8.2)
--- NOTE | 2019-04-22 12:27 | Diagnostic Imaging Report ---
PROCEDURE: CT head and CT cervical spine without contrast. TECHNIQUE: Multiple contiguous axial images were obtained through the brain and cervical spine without the use of intravenous contrast. Sagittal and coronal reformations through the cervical spine were then performed. Auto Exposure Controls were utilized during the CT exam to meet ALARA standards for radiation dose reduction. INDICATION: Altered mental status. Correlation is made with prior CT from 03/10/2019. CT brain: The ventricles and sulci are within normal limits. No sulcal effacement or midline shift is detected. No acute intra-axial or extra-axial hemorrhage is detected. There is some mucosal thickening and opacification of multiple bilateral ethmoid air cells with mucosal thickening of the right maxillary sinus. IMPRESSION: 1. No acute intracranial process detected. 2. Paranasal sinus disease. CT cervical spine: Alignment is normal. No fractures are seen. Prevertebral tissues are within normal limits. There are degenerative changes at C5-C6 and C6-C7 levels with disc space narrowing and marginal spurring. Odontoid is intact. IMPRESSION: Lower cervical spondylosis. No acute bony abnormality is detected. Dictated by: Dictated on workstation # [id number]
[2019-04-22 13:41] VITALS: BP 157/98
--- NOTE | 2019-04-22 14:52 | NUR ---
Patient ambulated to bathroom at this time with a slow and steady, unassisted gait.
[2019-04-22 15:08] VITALS: BP 136/92
== END 2019-04-22 15:11 | disposition home or self-care (01) ==
LOC: EDUNIT# 11:34 → ER 11:36
DX: F10.129 Alcohol abuse with intoxication, unspecified (principal); I10 Essential (primary) hypertension; E11.9 Type 2 diabetes mellitus without complications; E78.00 Pure hypercholesterolemia, unspecified; F41.9 Anxiety disorder, unspecified; F32.9 Major depressive disorder, single episode, unspecified; J44.9 Chronic obstructive pulmonary disease, unspecified; Z91.5 Personal history of self-harm; Z88.5 Allergy status to narcotic agent; Z82.49 Family history of ischemic heart disease and other diseases of the circulatory system
CPT/HCPCS: 36415; 70450; 72125; 80053; 80320; 83690; 83735; 85025

== ENCOUNTER 2019-04-22 19:12 | Emergency (ER) | payer SELFPAY ==
[~2019-04-22] VITALS: Ht 182 cm; Wt 109.0 kg
[2019-04-22] MEDS ORDERED: LACTATED RINGERS 1,000 ML IV ONE ×3 (19:18→20:19)
[2019-04-22] MEDS ORDERED: PANTOPRAZOLE 40 MG (PROTONIX) VIAL IV ONE (19:30)
[2019-04-22] MEDS ORDERED: ASPIRIN 81 MG CHEW (CHILDREN'S ASA) PO ONE (19:30)
[2019-04-22] MEDS ORDERED: NITROGLYCERIN 0.4 MG SL TABS BTL 25'S SL PRN (19:30)
[2019-04-22 19:36] LABS: BASOPHILS % (AUTO) 0 % (0-10); EOSINOPHILS % (AUTO) 0 % (0-10); HEMATOCRIT 43 % (40-54); HEMOGLOBIN 14.4 G/DL (13.3-17.7); LYMPHOCYTES # (AUTO) 2.2 X 10^3 (1.0-4.0); LYMPHOCYTES % (AUTO) 21 % (12-44); MEAN CORPUSCULAR HEMOGLOBIN 30 PG (25-34); MEAN CORPUSCULAR HGB CONC 34 G/DL (32-36); MEAN CORPUSCULAR VOLUME 89 FL (80-99); MONOCYTES # (AUTO) 0.5 X 10^3 (0.0-1.0); MONOCYTES % (AUTO) 5 % (0-12); NEUTROPHILS # (AUTO) 7.9 X 10^3 (1.8-7.8); NEUTROPHILS % (AUTO) 75 % (42-75); PLATELET COUNT 209 10^3/uL (130-400); RED CELL DISTRIBUTION WIDTH 15.5 % (10.0-14.5); WHITE BLOOD COUNT 10.6 10^3/uL (4.3-11.0)
[2019-04-22 19:50] LABS: PROTHROMBIN TIME PATIENT 13.1 SEC (12.2-14.7)
--- NOTE | 2019-04-22 19:50 | NUR ---
Unable to administer ordered ASA and Nitro d/t pt lethragy and inability to follow commands. Provider notified.
[2019-04-22] MEDS ORDERED: AMMONIA INHALATION 0.33 ML AMP ONE (19:58)
[2019-04-22 20:00] LABS: ALANINE AMINOTRANSFERASE 20 U/L (0-55); ALBUMIN 4.7 GM/DL (3.2-4.5); ALKALINE PHOSPHATASE 47 U/L (40-136); AMYLASE 78 U/L (25-125); BILIRUBIN,TOTAL 0.4 MG/DL (0.1-1.0); BUN/CREATININE RATIO 14; CALCIUM 8.5 MG/DL (8.5-10.1); CARBON DIOXIDE 22 MMOL/L (21-32); CHLORIDE 104 MMOL/L (98-107); CREATINE KINASE 280 U/L (30-200); CREATININE SERUM 0.85 MG/DL (0.60-1.30); GFR ESTIMATED > 60; GLUCOSE 142 MG/DL (70-105); LIPASE 33 U/L (8-78); MAGNESIUM 1.7 MG/DL (1.6-2.4); POTASSIUM 3.9 MMOL/L (3.6-5.0); SODIUM 144 MMOL/L (135-145); TOTAL PROTEIN 8.1 GM/DL (6.4-8.2)
[2019-04-22 20:07] LABS: CREATINE KINASE MB 2.6 NG/ML (<6.6)
--- NOTE | 2019-04-22 20:07 | Diagnostic Imaging Report ---
Clinical indication: Patient with chest pain. Exam: Portable chest x-ray semiupright view. Comparisons: Portable chest x-ray dated 03/17/2019. Findings: Lungs/pleura: There is mild bibasilar atelectasis. Otherwise, lungs are clear. There is no pneumothorax. There is no pleural effusion. Mediastinum: Unremarkable. Pulmonary vasculature: Unremarkable. Heart: Unremarkable. Bones/extrathoracic soft tissue: Unremarkable. Impression: There is mild bibasilar atelectasis. There is no radiographic evidence of acute cardiopulmonary process. Dictated by: Dictated on workstation # [id number]
[2019-04-22 20:50] LABS: AMPHETAMINE SCREEN, URINE NEGATIVE (NEGATIVE); BARBITURATE SCREEN URINE NEGATIVE (NEGATIVE); BENZODIAZEPINES SCREEN URINE POSITIVE (NEGATIVE); CANNABINOID SCREEN, URINE POSITIVE (NEGATIVE); COCAINE SCREEN URINE NEGATIVE (NEGATIVE); METHADONE STAT NEGATIVE (NEGATIVE); METHAMPHETAMINE SCREEN URINE S NEGATIVE (NEGATIVE); OPIATE SCREEN URINE NEGATIVE (NEGATIVE); OXYCODONE STAT NEGATIVE (NEGATIVE); PROPOXYPHENE STAT NEGATIVE (NEGATIVE); TRICYCLIC ANTIDEPRESSANTS SCRE NEGATIVE (NEGATIVE)
--- NOTE | 2019-04-22 22:24 | NUR ---
Repeat troponin drawn and sent to lab.
[2019-04-22] MEDS: NS IV 1000 ML 1,000 ML IV SCH (23:38)
--- NOTE | 2019-04-22 23:47 | ED General ---
General Chief Complaint: Chest Pain Stated Complaint: CHEST PAIN Nursing Triage Note: pt states chest pain. verbalized has drank 2 pints and 3 quarts since he was discharged from ER this morning. Nursing Sepsis Screen: No Definite Risk Source of Information: EMS, Old Records Exam Limitations: Intoxication (PT UNABLE TO ANSWER ANY QUESTIONS AND IS NOT TALKING ON ARRIVAL) History of Present Illness Date Seen by Provider: Apr 22, 2019 Time Seen by Provider: 19:18 Initial Comments PT ARRIVES VIA EMS EMS REPORTS THAT THEY WERE CALLED FOR PT C/O CHEST PAIN PT IS VERY INTOXICATED, AND WAS IN ER EARLIER TODAY FOR ALCOHOL INTOXICATION. PT WAS KEPT IN ER FOR SEVERAL HOURS EARLIER, AND WAS ABLE TO WALK AND TALK PRIOR TO DISMISSAL PT BEGAN DRINKING AGAIN AFTER HE LEFT ER--"2 PINTS AND 3 QUARTS" OF HARD LIQUOR, PER EMS Allergies and Home Medications Allergies Coded Allergies: fentanyl (Verified Allergy, Unknown, 01/24/16) morphine (Verified Allergy, Unknown, 10/28/13) Home Medications Amlodipine Besylate 5 Mg Tablet, 10 MG PO DAILY, (Reported) Famotidine 40 Mg Tablet, 40 MG PO DAILY, (Reported) Lisinopril 40 Mg Tablet, 40 MG PO DAILY, (Reported) Paroxetine HCl 20 Mg Tablet, 40 MG PO DAILY, (Reported) Prazosin HCl 2 Mg Capsule, 2 MG PO HS, (Reported) Past [facility] Hx Patient Social History Alcohol Use: Regular Use Alcohol Beverage of Choice: Cheap Liquor Recreational Drug Use: No Drug of Choice: THC Smoking Status: Never a Smoker Type Used: Cigarettes, Smokeless Tobacco 2nd Hand Smoke Exposure: No Recent Foreign Travel: No Contact w/Someone Who Travel: No Recent Infectious Disease Expo: No Recent Hopitalizations: No (UNK) Immunizations Up To Date Tetanus Booster (TDap): Unknown PED Vaccines UTD: No Date of Pneumonia Vaccine: Dec 04, 2013 Date of Influenza Vaccine: Apr 11, 2015 Seasonal Allergies Seasonal Allergies: Yes Past Medical History Surgeries: Yes (HAND LACERATION REPAIR) Orthopedic Respiratory: Yes Asthma, COPD Currently Using CPAP: No Currently Using BIPAP: No Cardiac: Yes High Cholesterol, Hypertension Neurological: No Reproductive Disorders: No Sexually Transmitted Disease: No HIV/AIDS: No Genitourinary: Yes Renal Failure Gastrointestinal: No Musculoskeletal: Yes (CHRONIC KNEE PAIN ; PSEUDOGOUT) Chronic Back Pain Endocrine: Yes Diabetes, Non-Insulin dep HEENT: No Cancer: No Psychosocial: Yes (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; POLYSUBSTANCE ABUSE; alcoholism) Anxiety, Suicide Attempts, Depression Integumentary: Yes Eczema Blood Disorders: No Adverse Reaction/Blood Tranf: No Family Medical History Alcoholism 19 MOTHER Diabetes mellitus 19 FATHER G8 BROTHER Family history: Asthma Family history: Cardiovascular disease 19 FATHER, Onset:50's - 60 (FATHER) Family history: Coronary thrombosis 19 FATHER, Onset:50's - 60 Family history: Diabetes mellitus 19 FATHER, Onset:50's - 60 Family history: Hypertension 19 FATHER, Onset:30's - 40 Hearing loss 19 FATHER, Onset:50's - 60 Heart disease 19 FATHER, Onset:50's - 60 Myocardial infarction G8 BROTHER, Onset:40 - Stroke G8 BROTHER, Onset:40's - No Family History of: Abdominal aortic aneurysm [place]'s disease Alcoholism Aphasia Cancer Cancer of colon Cataract Chest pain Congenital heart disease Congestive heart failure Cystic fibrosis Dementia Dysphagia Family history: Alzheimer's disease Family history: Arthritis Family history: Breast disease Family history: Gastrointestinal disease Family history: Osteoporosis Family history: Thyroid disorder Headache Hereditary disease History of - anemia History of - respiratory disease History of drug abuse Human immunodeficiency virus (HIV) seropositivity Hypercholesterolemia Infertile Kidney disease Malignant neoplasm of lung Parkinson's disease Prostate cancer Psychotic disorder Seizure disorder Tuberculosis Visual impairment CAD Under 55 Years Old, CAD Over 55 Years Old, Diabetes, Hypertension, Stroke Physical Exam Vital Signs Vital Signs - First Documented 04/22/19 04/22/19 19:21 19:29 Temp 38.0 Pulse 138 Resp 18 B/P (MAP) 180/121 (140) Pulse Ox 95 O2 Delivery Room Air O2 Flow Rate 2.0 Capillary Refill : Less Than 3 Seconds Height, Weight, BMI Height: 6'0.00" Weight: 286lbs. 7.0oz. 129.136392yn; 32.00 BMI Method:Estimated Procedures/Interventions Date of ETT Placement: Mar 10, 2019 Time of ETT Placement: 1934 Suture Size: 5-0 Progress/Results/Core Measures Suspected Sepsis Recent Fever Within 48 Hours: No Infection Criteria Present: None New/Unexplained Altered Menta: No Sepsis Screen: No Definite Risk SIRS Temperature: Pulse: 138 Respiratory Rate: 18 Laboratory Tests 04/22/19 19:25: White Blood Count 10.6 Blood Pressure 180 /121 Mean: 140 Laboratory Tests 04/22/19 19:25: Creatinine 0.85, INR Comment 1.0, Platelet Count 209, Total Bilirubin 0.4 Results/Orders Lab Results Laboratory Tests Test 04/22/19 19:25 04/22/19 20:10 04/22/19 22:24 Range/Units White Blood Count 10.6 4.3-11.0 10^3/uL Red Blood Count 4.79 4.35-5.85 10^6/uL Hemoglobin 14.4 13.3-17.7 G/DL Hematocrit 43 40-54 % Mean Corpuscular Volume 89 80-99 FL Mean Corpuscular Hemoglobin 30 25-34 PG Mean Corpuscular Hemoglobin Concent 34 32-36 G/DL Red Cell Distribution Width 15.5 H 10.0-14.5 % Platelet Count 209 130-400 10^3/uL Mean Platelet Volume 9.0 7.4-10.4 FL Neutrophils (%) (Auto) 75 42-75 % Lymphocytes (%) (Auto) 21 12-44 % Monocytes (%) (Auto) 5 0-12 % Eosinophils (%) (Auto) 0 0-10 % Basophils (%) (Auto) 0 0-10 % Neutrophils # (Auto) 7.9 H 1.8-7.8 X 10^3 Lymphocytes # (Auto) 2.2 1.0-4.0 X 10^3 Monocytes # (Auto) 0.5 0.0-1.0 X 10^3 Eosinophils # (Auto) 0.0 0.0-0.3 10^3/uL Basophils # (Auto) 0.0 0.0-0.1 10^3/uL Prothrombin Time 13.1 12.2-14.7 SEC INR Comment 1.0 0.8-1.4 Activated Partial Thromboplast Time 28 24-35 SEC Sodium Level 144 135-145 MMOL/L Potassium Level 3.9 3.6-5.0 MMOL/L Chloride Level 104 98-107 MMOL/L Carbon Dioxide Level 22 21-32 MMOL/L Anion Gap 18 H 5-14 MMOL/L Blood Urea Nitrogen 12 7-18 MG/DL Creatinine 0.85 0.60-1.30 MG/DL Estimat Glomerular Filtration Rate > 60 BUN/Creatinine Ratio 14 Glucose Level 142 H 70-105 MG/DL Calcium Level 8.5 8.5-10.1 MG/DL Corrected Calcium 8.5-10.1 MG/DL Magnesium Level 1.7 1.6-2.4 MG/DL Total Bilirubin 0.4 0.1-1.0 MG/DL Aspartate Amino Transf (AST/SGOT) 27 5-34 U/L Alanine Aminotransferase (ALT/SGPT) 20 0-55 U/L Alkaline Phosphatase 47 40-136 U/L Total Creatine Kinase 280 H 30-200 U/L Creatine Kinase MB 2.6 <6.6 NG/ML Myoglobin 76.0 10.0-92.0 NG/ML Troponin I < 0.028 < 0.028 <0.028 NG/ML B-Type Natriuretic Peptide < 10.0 <100.0 PG/ML Total Protein 8.1 6.4-8.2 GM/DL Albumin 4.7 H 3.2-4.5 GM/DL Amylase Level 78 25-125 U/L Lipase 33 8-78 U/L Serum Alcohol 469 *H <10 MG/DL Urine Opiates Screen NEGATIVE NEGATIVE Urine Oxycodone Screen NEGATIVE NEGATIVE Urine Methadone Screen NEGATIVE NEGATIVE Urine Propoxyphene Screen NEGATIVE NEGATIVE Urine Barbiturates Screen NEGATIVE NEGATIVE Ur Tricyclic Antidepressants Screen NEGATIVE NEGATIVE Urine Phencyclidine Screen NEGATIVE NEGATIVE Urine Amphetamines Screen NEGATIVE NEGATIVE Urine Methamphetamines Screen NEGATIVE NEGATIVE Urine Benzodiazepines Screen POSITIVE H NEGATIVE Urine Cocaine Screen NEGATIVE NEGATIVE Urine Cannabinoids Screen POSITIVE H NEGATIVE My Orders Orders - YANIV REYES DO Cbc With Automated Diff (04/22/19 19:18) Magnesium (04/22/19 19:18) Chest 1 View, Ap/Pa Only (04/22/19 19:18) Ekg Tracing (04/22/19 19:18) Cardiac Profile 1 (04/22/19 19:18) Comprehensive Metabolic Panel (04/22/19 19:18) Myoglobin Serum (04/22/19 19:18) Protime With Inr (04/22/19:18) Partial Thromboplastin Time (04/22/19 19:18) O2 (04/22/19 19:18) Monitor-Rhythm Ecg Trace Only (04/22/19:18) Lipid Panel (04/23/19 06:00) Ed Iv/Invasive Line Start (04/22/19 19:18) Creatine Kinase (04/22/19 19:18) Creatine Kinase Mb (04/22/19 19:18) Lipase (04/22/19 19:18) Amylase (04/22/19 19:18) BNP (04/22/19 19:18) Nitroglycerin 0.4 Mg Btl 25's (Nitrostat (04/22/19 19:30) Aspirin Chewable Tablet (Baby Aspirin Ch (04/22/19 19:30) Drug Screen Stat (Urine) (04/22/19 19:18) Ed Iv/Invasive Line Start (04/22/19 19:18) Lactated Ringers (Lr 1000 Ml Iv Solution (04/22/19 19:18) Pantoprazole Injection (Protonix Injecti (04/22/19 19:30) Alcohol (04/22/19 19:25) Ammonia Inhalation (Ammonia Inhalation) (04/22/19 19:58) Catheter(Urinary) Insert & Ass 03,15 (04/22/19 20:01) Ed Iv/Invasive Line Start (04/22/19 20:19) Lactated Ringers (Lr 1000 Ml Iv Solution (04/22/19 20:19) Ed Iv/Invasive Line Start (04/22/19 20:19) Lactated Ringers (Lr 1000 Ml Iv Solution (04/22/19 20:19) Ekg Tracing (04/22/19 22:15) Troponin I (04/22/19 22:15) Ed Iv/Invasive Line Start (04/22/19 23:28) Ns Iv 1000 Ml (Sodium Chloride 0.9%) (04/22/19 23:28) Medications Given in ED Current Medications Medications Dose Ordered Sig/Jaki Route Start Time Stop Time Status Last Admin Dose Admin Aspirin 324 mg ONCE ONCE PO 04/22/19 19:30 04/22/19 19:31 DC 04/22/19 22:26 324 MG Lactated Ringer's 1,000 ml @ 0 mls/hr Q0M ONCE IV 04/22/19 19:18 04/22/19 19:21 DC 04/22/19 19:51 0 MLS/HR Lactated Ringer's 1,000 ml @ 0 mls/hr Q0M ONCE IV 04/22/19 20:19 04/22/19 20:24 DC 04/22/19 21:09 0 MLS/HR Lactated Ringer's 1,000 ml @ 0 mls/hr Q0M ONCE IV 04/22/19 20:19 04/22/19 20:24 DC 04/22/19 22:26 0 MLS/HR Pantoprazole 80 mg ONCE ONCE IV 04/22/19 19:30 04/22/19 19:31 DC 04/22/19 19:54 80 MG Vital Signs/I&O 04/22/19 04/22/19 04/22/19 19:21 19:29 19:30 Temp 38.0 Pulse 138 Resp 18 B/P (MAP) 180/121 (140) Pulse Ox 95 93 O2 Delivery Room Air Nasal Cannula Room Air O2 Flow Rate 2.0 2.00 04/23/19 00:00 Intake Total 3000 ml Balance 3000 ml Capillary Refill : Less Than 3 Seconds Blood Pressure Mean: 140 Departure Impression Primary Impression: Alcohol intoxication Disposition: 01 HOME, SELF-CARE Condition: Improved Departure-Patient Inst. Referrals: [facility] (PCP/Family) Primary Care Physician Patient Instructions: Alcohol Abuse and Alcoholism (DC), Drug Abuse and Drug Addiction (DC), Polysubstance Abuse (DC) Add. Discharge Instructions: NO ALCOHOL!! NO DRUGS!! FOLLOW UP WITH [facility] TOMORROW FOR FURTHER CARE AND OUTPATIENT ADDICTION TREATMENT All discharge instructions reviewed with patient and/or family. Voiced under standing. YANIV REYES DO Apr 22, 2019 23:46
[2019-04-23] MEDS: NS IV 1000 ML 1,000 ML IV SCH (00:38)
[2019-04-23 02:20] VITALS: BP 161/97
== END 2019-04-23 02:20 | disposition home or self-care (01) ==
LOC: EDUNIT# 19:12 → ER 19:13
DX: F10.229 Alcohol dependence with intoxication, unspecified (principal); I10 Essential (primary) hypertension; E78.00 Pure hypercholesterolemia, unspecified; J44.9 Chronic obstructive pulmonary disease, unspecified; E11.9 Type 2 diabetes mellitus without complications; F41.9 Anxiety disorder, unspecified; F32.9 Major depressive disorder, single episode, unspecified; Z91.5 Personal history of self-harm; Z88.5 Allergy status to narcotic agent; Z82.49 Family history of ischemic heart disease and other diseases of the circulatory system
CPT/HCPCS: 36415; 51702; 71045; 80053; 80306; 80320; 82150; 82550; 82553; 83690; 83735; 83874; 83880; 84484; 85025; 85610; 85730; 93005; 93041

== ENCOUNTER 2021-02-27 07:46 | Emergency (ER) | payer SELFPAY ==
[~2021-02-27] VITALS: Ht 182 cm; Wt 108.8 kg
[~2021-02-27 07:46] MED LIST changes: +AMLO-250 PO; -AMLO5TAB9 PO; -LISI-552 PO; -LISI1TAB10 PO; +LISI1TAB26 PO; +LISI1TAB46 PO; -LISI1TAB8 PO; +LISI20TA26 PO; -LISI40TA; +LISI40TA9; +LISI40TA9 PO; -METO-395 PO; +MTP100TCR PO
[2021-02-27] MEDS ORDERED: fentaNYL INJ 100 MCG/2 ML AMP IVP ONE ×4 (08:00→15:15)
[2021-02-27] MEDS ORDERED: PANTOPRAZOLE 40 MG (PROTONIX) VIAL IV ONE (08:00)
[2021-02-27] MEDS ORDERED: NS IV 1000 ML 1,000 ML IV SCH ×2 (08:00→09:00)
--- NOTE | 2021-02-27 08:03 | ED Abdominal Pain ---
General Chief Complaint: Abdominal/GI Problems Stated Complaint: ABD PAIN, N/V Nursing Triage Note: pt presents to ed via ems from home with complaints of abdominal pain, n/v/d x 4-5 days. History of Present Illness Date Seen by Provider: Feb 27, 2021 Time Seen by Provider: 07:51 Initial Comments Patient is a 50-year-old male who presents to the emergency department with a chief complaint of nausea, vomiting, diarrhea and mid abdominal pain. Patient states he had onset of symptoms about 4 5 days ago. He comes into the emergency room in a significant amount of distress yelling and hollering. He states he has tried some Pepto-Bismol at home without any relief of symptoms. He denies fevers or chills. He denies bloody emesis or bloody stools. He states he has had decreased urination over the last couple of days. He states he has not been able to hold down any food or fluids in for 5 days. States he has never had anything like this before. States he used to drink alcohol but quit 3 weeks ago. He denies having history of pancreatitis. No previous abdominal surgeries. He states he is not a smoker. States that he follows at [facility] and takes medications for hypertension. Laying flat makes his pain worse. He did receive fluids and Zofran per EMS prior to arrival. Patient states he is allergic to morphine and he states it turns him "red". Patient received his first covid vaccination about 2 days before onset of these symptoms. All other review of systems reviewed and negative except as stated. Timing/Duration: 4-5 Days Severity/Quality: Severe, Burning, Cramping Location: Generalized Abdomen Radiation: No Radiation Activities at Onset: None Associated Symptoms: Heartburn, Nausea/Vomiting Allergies and Home Medications Allergies Coded Allergies: fentanyl (Verified Allergy, Unknown, 01/24/16) morphine (Verified Allergy, Unknown, 10/28/13) Home Medications Amlodipine Besylate 5 Mg Tablet, 10 MG PO DAILY, (Reported) Famotidine 40 Mg Tablet, 40 MG PO DAILY, (Reported) Lisinopril 40 Mg Tablet, 40 MG PO DAILY, (Reported) Paroxetine HCl 20 Mg Tablet, 40 MG PO DAILY, (Reported) Prazosin HCl 2 Mg Capsule, 2 MG PO HS, (Reported) Patient Home Medication List Home Medication List Reviewed: Yes Review of Systems Review of Systems Constitutional: see HPI EENTM: No Symptoms Reported Respiratory: No Symptoms Reported Cardiovascular: No Symptoms Reported Gastrointestinal: Abdominal Pain, Diarrhea, Nausea Genitourinary: Other (Decreased amounts and decreased frequency) Musculoskeletal: no symptoms reported Psychiatric/Neurological: Anxiety All Other Systems Reviewed Negative Unless Noted: Yes Past Ljzqnnw-Mtnkvb-Jlxfjy Hx Patient Social History Tobacco Use?: No Substance use?: Yes Substance type: Marijuana Alcohol Use?: No Pt feels they are or have been: No Immunizations Up To Date Tetanus Booster (TDap): Unknown PED Vaccines UTD: No First/Initial COVID19 Vaccinat: 02/20/21 Seasonal Allergies Seasonal Allergies: Yes Past Medical History Surgery/Hospitalization HX: pmh: htn, asthma Surgeries: Yes (HAND LACERATION REPAIR) Orthopedic Respiratory: Yes Asthma, COPD Currently Using CPAP: No Currently Using BIPAP: No Cardiac: Yes High Cholesterol, Hypertension Neurological: No Reproductive Disorders: No Sexually Transmitted Disease: No HIV/AIDS: No Genitourinary: Yes Renal Failure Gastrointestinal: No Musculoskeletal: Yes (CHRONIC KNEE PAIN ; PSEUDOGOUT) Chronic Back Pain Endocrine: Yes Diabetes, Non-Insulin dep HEENT: No Cancer: No Psychosocial: Yes Anxiety, Suicide Attempts, Depression Integumentary: Yes Eczema Blood Disorders: No Adverse Reaction/Blood Tranf: No Family Medical History Alcoholism 19 MOTHER Diabetes mellitus 19 FATHER G8 BROTHER Family history: Asthma Family history: Cardiovascular disease 19 FATHER, Onset:50's - 60 (FATHER) Family history: Coronary thrombosis 19 FATHER, Onset:50's - 60 Family history: Diabetes mellitus 19 FATHER, Onset:50's - 60 Family history: Hypertension 19 FATHER, Onset:30's - 40 Hearing loss 19 FATHER, Onset:50's - 60 Heart disease 19 FATHER, Onset:50's - 60 Myocardial infarction G8 BROTHER, Onset:40's - 50 Stroke G8 BROTHER, Onset:40's - 50 No Family History of: Abdominal aortic aneurysm Rodrick's disease Alcoholism Aphasia Cancer Cancer of colon Cataract Chest pain Congenital heart disease Congestive heart failure Cystic fibrosis Dementia Dysphagia Family history: Alzheimer's disease Family history: Arthritis Family history: Breast disease Family history: Gastrointestinal disease Family history: Osteoporosis Family history: Thyroid disorder Headache Hereditary disease History of - anemia History of - respiratory disease History of drug abuse Human immunodeficiency virus (HIV) seropositivity Hypercholesterolemia Infertile Kidney disease Malignant neoplasm of lung Parkinson's disease Prostate cancer Psychotic disorder Seizure disorder Tuberculosis Visual impairment CAD Under 55 Years Old, CAD Over 55 Years Old, Diabetes, Hypertension, Stroke Physical Exam Vital Signs Vital Signs - First Documented 02/27/21 07:46 Temp 35.3 Pulse 93 Resp 20 B/P (MAP) 104/74 (84) Pulse Ox 96 Capillary Refill : Less Than 3 Seconds Height/Weight/BMI Height: 6'0.00" Weight: 286lbs. 7.0oz. 129.051347pj; 32.00 BMI Method:Estimated General Appearance: WD/WN, severe distress HEENT: PERRL/EOMI Neck: full range of motion Respiratory: lungs clear, normal breath sounds, no respiratory distress, no accessory muscle use Cardiovascular: regular rate, rhythm Peripheral Pulses: 2+ Radial Pulses (R) Gastrointestinal: non tender, soft, no pulsatile mass, abnormal bowel sounds (hypoactive); No distended, No guarding, No rebound, No hepatomegaly Extremities: normal range of motion, non-tender, normal inspection, no pedal edema, no calf tenderness Neurologic/Psychiatric: no motor/sensory deficits, alert, other (very anxious, yelling out) Skin: cool, mottled (mottled skin over the abdomen), pallor Focused Exam Lactate Level 02/27/21 07:46: Lactic Acid Level 1.66 Lactic Acid Level Laboratory Tests Test 02/27/21 07:46 Lactic Acid Level 1.66 MMOL/L (0.50-2.00) Procedures/Interventions Date of ETT Placement: Mar 10, 2019 Time of ETT Placement: 1935 Suture Size: 5-0 Progress/Results/Core Measures Results/Orders Lab Results Laboratory Tests Test 02/27/21 07:46 02/27/21 09:09 02/27/21 11:07 Range/Units White Blood Count 21.7 H 4.3-11.0 10^3/uL Red Blood Count 5.75 H 4.30-5.52 10^6/uL Hemoglobin 17.7 13.3-17.7 g/dL Hematocrit 49 40-54 % Mean Corpuscular Volume 85 80-99 fL Mean Corpuscular Hemoglobin 31 25-34 pg Mean Corpuscular Hemoglobin Concent 36 32-36 g/dL Red Cell Distribution Width 13.1 10.0-14.5 % Platelet Count 534 H 130-400 10^3/uL Mean Platelet Volume 9.3 9.0-12.2 fL Immature Granulocyte % (Auto) 1 % Neutrophils (%) (Auto) 87 H 42-75 % Lymphocytes (%) (Auto) 6 L 12-44 % Monocytes (%) (Auto) 7 0-12 % Eosinophils (%) (Auto) 0 0-10 % Basophils (%) (Auto) 0 0-10 % Neutrophils # (Auto) 18.8 H 1.8-7.8 10^3/uL Lymphocytes # (Auto) 1.2 1.0-4.0 10^3/uL Monocytes # (Auto) 1.4 H 0.0-1.0 10^3/uL Eosinophils # (Auto) 0.0 0.0-0.3 10^3/uL Basophils # (Auto) 0.0 0.0-0.1 10^3/uL Immature Granulocyte # (Auto) 0.2 H 0.0-0.1 10^3/uL Neutrophils % (Manual) 88 % Lymphocytes % (Manual) 4 % Monocytes % (Manual) 8 % Eosinophils % (Manual) 0 % Basophils % (Manual) 0 % Band Neutrophils 0 % Blood Morphology Comment NORMAL Sodium Level 128 L 135-145 MMOL/L Potassium Level 4.0 3.6-5.0 MMOL/L Chloride Level 88 L 98-107 MMOL/L Carbon Dioxide Level 11 L 21-32 MMOL/L Anion Gap 29 H 5-14 MMOL/L Blood Urea Nitrogen 115 *H 7-18 MG/DL Creatinine 9.64 H 0.60-1.30 MG/DL Estimat Glomerular Filtration Rate 6 BUN/Creatinine Ratio 12 Glucose Level 106 H 70-105 MG/DL Lactic Acid Level 1.66 0.50-2.00 MMOL/L Calcium Level 8.4 L 8.5-10.1 MG/DL Corrected Calcium 8.2 L 8.5-10.1 MG/DL Total Bilirubin 0.3 0.1-1.0 MG/DL Aspartate Amino Transf (AST/SGOT) 9 5-34 U/L Alanine Aminotransferase (ALT/SGPT) 20 0-55 U/L Alkaline Phosphatase 41 40-136 U/L Total Creatine Kinase 106 30-200 U/L Total Protein 9.0 H 6.4-8.2 GM/DL Albumin 4.3 3.2-4.5 GM/DL Lipase 25 8-78 U/L Urine Color YELLOW Urine Clarity SL CLOUDY Urine pH 5.5 5-9 Urine Specific Dewart 1.025 H 1.016-1.022 Urine Protein 1+ H NEGATIVE Urine Glucose (UA) NEGATIVE NEGATIVE Urine Ketones NEGATIVE NEGATIVE Urine Nitrite NEGATIVE NEGATIVE Urine Bilirubin 1+ H NEGATIVE Urine Urobilinogen 0.2 < = 1.0 MG/DL Urine Leukocyte Esterase NEGATIVE NEGATIVE Urine RBC (Auto) NEGATIVE NEGATIVE Urine RBC NONE /HPF Urine WBC 5-10 H /HPF Urine Squamous Epithelial Cells NONE /HPF Urine Crystals NONE /LPF Urine Bacteria NEGATIVE /HPF Urine Casts NONE /LPF Urine Mucus NEGATIVE /LPF Urine Culture Indicated YES SARS-CoV-2 RNA (RT-PCR) Detected H Not Detecte My Orders Orders - CHAPO DE LA ROSA MD Ed Iv/Invasive Line Start (02/27/21 07:57) Cbc With Automated Diff (02/27/21 07:57) Comprehensive Metabolic Panel (02/27/21 07:57) Lipase (02/27/21 07:57) Ns Iv 1000 Ml (Sodium Chloride 0.9%) (02/27/21 08:00) Fentanyl Inj (Sublimaze Injection) (02/27/21 08:00) Pantoprazole Injection (Protonix Injecti (02/27/21 08:00) Lactic Acid Analyzer (02/27/21 07:58) Diphenhydramine Injection (Benadryl Inje (02/27/21 08:15) Manual Differential (02/27/21 07:46) Ct Abdomen/Pelvis Wo (02/27/21 08:52) Ns Iv 1000 Ml (Sodium Chloride 0.9%) (02/27/21 09:00) Catheter(Urinary) Insert & Ass 03,15 (02/27/21 08:52) Ua Culture If Indicated (02/27/21 08:52) Lidocaine 2% (Urojet) (Xylocaine Urojet) (02/27/21 09:00) Fentanyl Inj (Sublimaze Injection) (02/27/21 09:00) Creatine Kinase (02/27/21 09:01) Urine Culture (02/27/21 09:09) D5w 1000 Ml Iv Solu... W/Sodium Bicarbon (02/27/21 11:15) Covid 19 Inhouse Test (02/27/21 11:06) Fentanyl Inj (Sublimaze Injection) (02/27/21 11:15) Ondansetron Injection (Zofran Injectio (02/27/21 15:15) Fentanyl Inj (Sublimaze Injection) (02/27/21 15:15) Medications Given in ED Current Medications Medications Dose Ordered Sig/Jaki Route Start Time Stop Time Status Last Admin Dose Admin Diphenhydramine HCl 25 mg ONCE ONCE IV 02/27/21 08:15 02/27/21 08:16 DC 02/27/21 08:11 25 MG Fentanyl Citrate 50 mcg ONCE ONCE IVP 02/27/21 08:00 02/27/21 08:01 DC 02/27/21 08:06 50 MCG Fentanyl Citrate 50 mcg ONCE ONCE IVP 02/27/21 09:00 02/27/21 09:01 DC 02/27/21 09:04 50 MCG Fentanyl Citrate 50 mcg ONCE ONCE IVP 02/27/21 11:15 02/27/21 11:16 DC 02/27/21 11:16 50 MCG Fentanyl Citrate 50 mcg ONCE ONCE IVP 02/27/21 15:15 02/27/21 15:16 DC 02/27/21 15:18 50 MCG Lidocaine HCl 10 ml ONCE ONCE TOP 02/27/21 09:00 02/27/21 09:01 DC 02/27/21 09:04 10 ML Ondansetron HCl 4 mg ONCE ONCE IVP 02/27/21 15:15 02/27/21 15:16 DC 02/27/21 15:18 4 MG Pantoprazole 80 mg ONCE ONCE IV 02/27/21 08:00 02/27/21 08:01 DC 02/27/21 08:06 80 MG Vital Signs/I&O 02/27/21 07:46 Temp 35.3 Pulse 93 Resp 20 B/P (MAP) 104/74 (84) Pulse Ox 96 Blood Pressure Mean: 84 Progress Progress Note : Time: 08:53 Progress Note Labs returned at this time with a BUN of 115 and a creatinine of 9 in the setting of a white blood cell count of 21,000. CT abdomen and pelvis without contrast will be obtained to further evaluate abdominal pain. Hidalgo catheter will be placed and urinalysis also obtained. Patient has a soft blood pressure with a systolic in the upper 90s. He states he did take his blood pressure medicine this morning. We will give him a second liter of IV fluids. Potassium is 4. Sodium is slightly low at 128. Patient will need transfer to a facility that has dialysis capabilities. [address] was able to find us a bed in [facility], I spoke with Dr. Franco who accepts the patient in transfer. Requested Covid swab as well as a bicarb drip. Patient at this time is also requesting a little bit more pain medicine. Diagnostic Imaging Diagonstic Imaging: CT Plain Films/CT/US/NM/MRI: abdomen Comments [facility] kinetic [facility] [place], [place] NAME: BETINA TREVINO [facility] REC#: [id number] PT STATUS: REG ER : 1970 PHYSICIAN: CHAPO DE LA ROSA MD ADMIT DATE: 02/27/21/ER Draft Date of Exam:02/27/21 CT ABDOMEN/PELVIS WO PROCEDURE: CT abdomen and pelvis without contrast. TECHNIQUE: Multiple contiguous axial images were obtained through the abdomen and pelvis without the use of intravenous contrast. Auto Exposure Controls were utilized during the CT exam to meet ALARA standards for radiation dose reduction. INDICATION: Abdominal pain with nausea, vomiting and diarrhea. Correlation is made with prior CT from 02/23/2013. Imaging through the lung bases does show some patchy groundglass infiltrates in the right middle lobe and lingula. There is minimal infiltrate in the left lower lobe as well. Possibility of Covid-19 pneumonia cannot be entirely excluded. The liver is unremarkable apart from a 9 mm circumscribed low density in the inferior right lobe, too small to characterize but most likely a cyst. The gallbladder is unremarkable. There is no biliary duct dilatation. Pancreas and spleen are unremarkable. No adrenal mass is detected. Upper pole left kidney does contain an 18 mm hyperdense lesion. This measured 10 mm on prior exam. No calculi are identified. There is no hydronephrosis. Aorta is nonaneurysmal. There are some mildly prominent fluid-filled small bowel loops in the left abdomen. This is nonspecific but could be owing to nonspecific enteritis. No definite bowel obstruction is seen. There is no free fluid or fluid collection. There is diverticulosis of the descending colon and sigmoid but no evidence of acute diverticulitis. The bladder is decompressed by Hidalgo catheter. Prostate is unremarkable. There is a small fat-containing left inguinal hernia. IMPRESSION: 1. Hyperdense lesion upper pole left kidney. While this could represent a hemorrhagic cyst, a solid renal lesion cannot be entirely excluded and renal ultrasound on a nonemergent basis could be performed for further characterization. 2. Uncomplicated diverticulosis. 3. Fat-containing left inguinal hernia. 4. No acute feature detected. Dictated on workstation # [id number] Dict: 02/27/21 0933 Trans: 02/27/21 0942 [facility] [id number] Interpreted by: RAINE OCHOA MD Electronically signed by: Departure Impression Primary Impression: Abdominal pain Qualified Codes: R10.84 - Generalized abdominal pain Additional Impressions: Acute renal failure Qualified Codes: N17.9 - Acute kidney failure, unspecified Renal mass Disposition: XFER SHT-TRM HOSP Condition: Stable Transfer Transfer Reason: Exceeds level of care Time Spoke to Accepting Phy: 10:50 Transfer Progress Notes EdwardsMICHAEL clancy [facility] Transfer Facility: [facility] Method of Transfer: EMS Departure-Patient Inst. Referrals: [facility] (PCP/Family) Primary Care Physician CHAPO DE LA ROSA MD Feb 27, 2021 08:03
[2021-02-27 08:06] LABS: BASOPHILS % (AUTO) 0 % (0-10); EOSINOPHILS % (AUTO) 0 % (0-10); HEMATOCRIT 49 % (40-54); HEMOGLOBIN 17.7 g/dL (13.3-17.7); LYMPHOCYTES # (AUTO) 1.2 10^3/uL (1.0-4.0); LYMPHOCYTES % (AUTO) 6 % (12-44); MEAN CORPUSCULAR HEMOGLOBIN 31 pg (25-34); MEAN CORPUSCULAR HGB CONC 36 g/dL (32-36); MEAN CORPUSCULAR VOLUME 85 fL (80-99); MEAN PLATELET VOLUME 9.3 fL (9.0-12.2); MONOCYTES # (AUTO) 1.4 10^3/uL (0.0-1.0); MONOCYTES % (AUTO) 7 % (0-12); NEUTROPHILS # (AUTO) 18.8 10^3/uL (1.8-7.8); NEUTROPHILS % (AUTO) 87 % (42-75); PLATELET COUNT 534 10^3/uL (130-400); WHITE BLOOD COUNT 21.7 10^3/uL (4.3-11.0)
[2021-02-27] MEDS ORDERED: diphenhydrAMINE 50 MG/ML INJ (BENADRYL) IV ONE (08:15)
[2021-02-27 08:24] LABS: BAND NEUTROPHILS 0 %; BASOPHILS % (MANUAL) 0 %; EOSINOPHILS % (MANUAL) 0 %; LYMPHOCYTES % (MANUAL) 4 %; MONOCYTES % (MANUAL) 8 %; NEUTROPHILS % (MANUAL) 88 %; RBC MORPH NORMAL
[2021-02-27 08:27] LABS: ALBUMIN 4.3 GM/DL (3.2-4.5)
[2021-02-27 08:28] LABS: CALCIUM 8.4 MG/DL (8.5-10.1)
[2021-02-27 08:31] LABS: BILIRUBIN,TOTAL 0.3 MG/DL (0.1-1.0)
[2021-02-27 08:33] LABS: CREATININE SERUM 9.64 MG/DL (0.60-1.30)
[2021-02-27] MEDS ORDERED: LIDOCAINE UROJET 2% GEL 10 ML PKG TOP ONE (09:00)
[2021-02-27 09:20] LABS: CLARITY,URINE SL CLOUDY; COLOR,URINE YELLOW; GLUCOSE, URINE (UA) NEGATIVE (NEGATIVE); KETONES,URINE NEGATIVE (NEGATIVE); LEUKOCYTE ESTERASE ,URINE NEGATIVE (NEGATIVE); NITRITE,URINE NEGATIVE (NEGATIVE); PH,URINE 5.5 (5-9); PROTEIN,URINE 1+ (NEGATIVE)
[2021-02-27 09:27] LABS: BACTERIA,URINE NEGATIVE /HPF; BILIRUBIN,URINE 1+ (NEGATIVE)
--- NOTE | 2021-02-27 09:43 | Diagnostic Imaging Report ---
PROCEDURE: CT abdomen and pelvis without contrast. TECHNIQUE: Multiple contiguous axial images were obtained through the abdomen and pelvis without the use of intravenous contrast. Auto Exposure Controls were utilized during the CT exam to meet ALARA standards for radiation dose reduction. INDICATION: Abdominal pain with nausea, vomiting and diarrhea. Correlation is made with prior CT from 02/23/2013. Imaging through the lung bases does show some patchy groundglass infiltrates in the right middle lobe and lingula. There is minimal infiltrate in the left lower lobe as well. Possibility of Covid-19 pneumonia cannot be entirely excluded. The liver is unremarkable apart from a 9 mm circumscribed low density in the inferior right lobe, too small to characterize but most likely a cyst. The gallbladder is unremarkable. There is no biliary duct dilatation. Pancreas and spleen are unremarkable. No adrenal mass is detected. Upper pole left kidney does contain an 18 mm hyperdense lesion. This measured 10 mm on prior exam. No calculi are identified. There is no hydronephrosis. Aorta is nonaneurysmal. There are some mildly prominent fluid-filled small bowel loops in the left abdomen. This is nonspecific but could be owing to nonspecific enteritis. No definite bowel obstruction is seen. There is no free fluid or fluid collection. There is diverticulosis of the descending colon and sigmoid but no evidence of acute diverticulitis. The bladder is decompressed by Hidalgo catheter. Prostate is unremarkable. There is a small fat-containing left inguinal hernia. IMPRESSION: 1. Hyperdense lesion upper pole left kidney. While this could represent a hemorrhagic cyst, a solid renal lesion cannot be entirely excluded and renal ultrasound on a nonemergent basis could be performed for further characterization. 2. Uncomplicated diverticulosis. 3. Fat-containing left inguinal hernia. 4. No acute feature detected. Dictated by: Dictated on workstation # [id number]
[2021-02-27] MEDS ORDERED: SODIUM BICARBONATE IV SCH ×2 (11:15)
[2021-02-27] MEDS ORDERED: [UNRECOGNIZED DRUG - OTHER] IV SCH ×2 (11:15)
[2021-02-27] MEDS ORDERED: ONDANSETRON 4 MG/2 ML (SDV) Z0FRAN IVP ONE (15:15)
[2021-02-27 16:18] VITALS: BP 97/66
== END 2021-02-27 16:18 | disposition short-term general hospital (02) ==
LOC: EDUNIT# 07:46 → ER 07:47
DX: N17.9 Acute kidney failure, unspecified (principal); U07.1 COVID-19; N28.89 Other specified disorders of kidney and ureter; J44.9 Chronic obstructive pulmonary disease, unspecified; E11.9 Type 2 diabetes mellitus without complications; I10 Essential (primary) hypertension; F32.9 Major depressive disorder, single episode, unspecified; Z79.899 Other long term (current) drug therapy
CPT/HCPCS: 36415; 51702; 74176; 80053; 81000; 82550; 83605; 83690; 85007; 85027; 87088; 87636